=== PATIENT | female | born 1965 | race Caucasian/White ===

== ENCOUNTER 2016-09-05 19:45 | Inpatient (IN) ==
[2016-09-05] MEDS ORDERED: Ondansetron 4 MG/2 ML VIAL IV ONE (23:40)
[2016-09-05] MEDS ORDERED: *HR* Morphine 2 MG/ML SYRINGE IV ONE (23:40)
[2016-09-06] MEDS ORDERED: *HR* HYDROmorphone (PF) 1 MG/ML SYRINGE IV ONE
--- NOTE | 2016-09-06 | Emergency Department Note ---
Disposition Clinical Impression: Deep vein thrombosis (DVT) Qualifiers: DVT location: upper extremity Affected thrombotic vein of extremity: other upper extremity vein Laterality: right Chronicity: acute Qualified Code(s): I82.621 - Acute embolism and thrombosis of deep veins of right upper extremity Disposition: Admitted As Inpatient Condition: Fair Referrals: Kassy Adorno CNP [Primary Care Provider] - Forms: ED Satisfaction Letter Extremity Problem HPI - General Chief complaint: ED Extremity Problem,Nontraumatic Stated complaint: "Right Arm Swollen/Very Painful" Time Seen by Provider: 09/05/16 23:31 Source: patient, family Mode of arrival: private vehicle Limitations: no limitations Nursing Notes Reviewed: Yes Vital Signs Reviewed: Yes - History of Present Illness Pt Subjective Complaint: extremity pain, extremity swelling Onset (ago): day(s) Consistency: Worsening Injury Location: right, upper extremity Pain Scale: 7 Quality: crushing Radiation: none Improves with: nothing Worsens with: range of motion, palpation Associated symptoms: Reports: shortness of breath ("A little, but much better today"), change in appearance, swelling, redness. Denies: fever Context: recent surgery/procedure (last week), history of peripheral vascular disease - Related Data Home Medications Medication Instructions Recorded Confirmed Aspirin 81 mg PO DAILY 01/26/16 08/26/16 Previous Rx's Medication Instructions Recorded Cefdinir [Omnicef] 300 mg PO BID #20 capsule 08/01/16 Docusate [Colace] 100 mg PO BID #60 capsule 08/26/16 HYDROcodone/Acet 5/325 mg [[place] 1 tab PO Q4H PRN #15 tab 08/26/16 5-325 mg] Tamsulosin [Flomax] 0.4 mg PO DAILY #30 cap.er.24h 08/26/16 Allergies Allergy/AdvReac Type Severity Reaction Status Date / Time Sulfa (Sulfonamide Allergy Hives Verified 09/05/16 20:46 Antibiotics) All systems ED: reviewed and negative except as stated. Constitutional: Denies: fever, chills, weakness Cardiovascular: Reports: dyspnea on exertion, edema. Denies: chest pain, palpitations, syncope Respiratory: Reports: cough, dyspnea. Denies: wheezes, hemoptysis, stridor, sputum production Gastrointestinal: Denies: abdominal pain, nausea, vomiting, diarrhea Musculoskeletal: Denies: back pain, neck pain, arthralgia Integumentary: Denies: rash Neurological: Denies: weakness, numbness, paresthesias Hematological/Lymphatic: Denies: easy bleeding, easy bruising Past Medical History - Past Medical History Attestation: Yes The following information was validated with the patient. 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 Absent: meningismus, lymphadenopathy - Chest Chest inspection: Present: normal inspection, symmetric chest wall rise - Respiratory Respiratory exam: Present: normal lung sounds bilaterally. Absent: respiratory distress, wheezes, stridor - Cardiovascular Cardiovascular exam: Present: normal rhythm, tachycardia, normal heart sounds - Extremities Exam Extremities exam: Present: tenderness, normal capillary refill, pedal edema ( mild, symmetric, non-pitting) - Expanded Upper Extremity Exam Shoulder exam: Present: normal inspection. Absent: full ROM, tenderness, swelling Arm exam: Present: tenderness, swelling, erythema. Absent: ecchymosis Elbow exam: Present: tenderness, swelling, erythema. Absent: full ROM Forearm/Wrist exam: Present: tenderness, swelling. Absent: full ROM, erythema Hand exam: Present: normal inspection, full ROM. Absent: tenderness, swelling Neuromotor exam: Normal: wrist extension, thumb opposition, thumb IP flexion, thumb adduction, fingers 2-5 abduction Neurosensory exam: Normal: radial nerve, ulnar nerve, median nerve Hand tendon exam: Normal: flexor digitorum profundus (location), flexor digitorum superficialis (location), extensor tendon (location) Vascular exam: Normal: capillary refill, radial pulse, ulnar pulse - Back Exam Back exam: Present: normal inspection - Neurological Exam Neurological exam: Present: alert, oriented X3, CN II-XII intact - Psychiatric Psychiatric exam: Present: normal affect, normal mood - Skin Skin exam: Present: warm, dry, intact, normal color Course Course Narrative: Patient presents for swelling and pain in the right upper extremity. She had surgery to remove a kidney stone and have a ureteral stent placed last week. She has had swelling in all extremities since then. She states that she was having some chest discomfort and shortness of breath a few days after the procedure. She saw her primary care provider who ordered some blood work. This was done at the [facility] earlier today. Patient states that she has had no chest pain for two days and that her shortness of breath is significantly improved today. She states, "my breathing is not completely normal, but I do not feel short of breath anymore." She denies fever , chills, nausea or vomiting. We will treat her pain and obtain a venous Doppler ultrasound. Doppler ultrasound shows DVT and knee. Brachial, axillary and jugular veins. She also has a partial clot in the subclavian. In addition to this, she has superficial venous thrombosis in the basilic and cephalic veins. No clot is seen from the antecubital distal. Patient will be anticoagulated and admitted. Case has been discussed with Dr. Baldwin - Consultations Consultation #1: At the recommendation of the attending, the vascular surgeon was paged. The case was discussed with Dr. Lewis. He states that no procedure needs to be done , and to contact the hospitalist. Time: 01:59 Vital Signs Temperature 99.7 F H 09/05/16 20:41 Pulse Rate 105 09/05/16 20:41 Respiratory Rate 20 09/05/16 20:41 Blood Pressure 136/90 09/05/16 20:41 O2 Sat by Pulse Oximetry 97 09/05/16 20:41 Temperature 99.7 F H 09/05/16 20:41 Pulse Rate 90 09/06/16 00:11 Respiratory Rate 18 09/06/16 00:11 Blood Pressure 107/71 09/06/16 00:11 O2 Sat by Pulse Oximetry 90 L 09/06/16 00:11 Oxygen Delivery Oxygen Delivery Room Air Extremity Problem, Nontraumati - Medical Records Medical records reviewed: Yes I reviewed the patient's medical records. - Lab Data Lab results reviewed: Yes I reviewed the patient's lab results. Lab results narrative: Laboratory Last Values PT 15.9 Seconds (9.4-12.1) H 09/06/16 00:08 INR 1.5 09/06/16 00:08 APTT 20.9 Seconds (26.0-36.0) L 09/06/16 00:08 Sodium 137 mEq/L (136-145) 09/06/16 00:08 Potassium 3.7 mEq/L (3.5-4.5) 09/06/16 00:08 Chloride 102 mEq/L (98-109) 09/06/16 00:08 Carbon Dioxide 22 mEq/L (19-29) 09/06/16 00:08 BUN 14 mg/dL (7-20) 09/06/16 00:08 Creatinine 1.02 mg/dL (0.57-1.11) 09/06/16 00:08 Est GFR ( Amer) > 60 (> 60) 09/06/16 00:08 Est GFR (Non-Af Amer) 57 (> 60) L 09/06/16 00:08 BUN/Creatinine Ratio 14 (6-26) 09/06/16 00:08 Glucose 150 mg/dL (70-99) H 09/06/16 00:08 Calculated Osmolality 287 (280-300) 09/06/16 00:08 Calcium 8.3 mg/dL (8.6-10.8) L 09/06/16 00:08 Result diagrams: 09/06/16 00:08 Lab Results 09/06/16 09/06/16 Range/Units 00:08 00:08 PT 15.9 H (9.4-12.1) Seconds INR 1.5 APTT 20.9 L (26.0-36.0) Seconds Sodium 137 (136-145) mEq/L Potassium 3.7 (3.5-4.5) mEq/L Chloride 102 (98-109) mEq/L Carbon Dioxide 22 (19-29) mEq/L BUN 14 (7-20) mg/dL Creatinine 1.02 (0.57-1.11) mg/dL Est GFR ( Amer) > 60 (> 60) Est GFR (Non-Af Amer) 57 L (> 60) BUN/Creatinine Ratio 14 (6-26) Glucose 150 H (70-99) mg/dL Calculated Osmolality 287 (280-300) Calcium 8.3 L (8.6-10.8) mg/dL - Radiology Data Radiology results reviewed: Yes I reviewed the patient's radiology results.
[2016-09-06 00:19] LABS: INR 1.5; Prothrombin Time 15.9 Seconds (9.4-12.1)
[2016-09-06 00:24] LABS: Activated Partial Thrombo Time 20.9 Seconds (26.0-36.0)
[2016-09-06 00:25] LABS: BUN/Creatinine Ratio 14 (6-26); Blood Urea Nitrogen 14 mg/dL (7-20); Calcium 8.3 mg/dL (8.6-10.8); Carbon Dioxide 22 mEq/L (19-29); Chloride 102 mEq/L (98-109); Glucose 150 mg/dL (70-99); Osmolality,Calculated 287 (280-300); Potassium 3.7 mEq/L (3.5-4.5); Sodium 137 mEq/L (136-145); eGFR For African Americans > 60 (> 60); eGFR For Non-African Americans 57 (> 60)
[2016-09-06] MEDS ORDERED: *HR* Enoxaparin 100 MG/ML SYRINGE SQ STA (01:14)
[2016-09-06] MEDS ORDERED: *HR* Heparin 5,000 UNIT/ML VIAL IVP ONE ×2 (01:48→10:06)
[2016-09-06] MEDS ORDERED: *HR* FentaNYL (PF) 100 MCG/2 ML VIAL IVP ONE (01:48)
[2016-09-06] MEDS ORDERED: *HR* Morphine 2 MG/ML SYRINGE IVP ONE (06:36)
--- NOTE | 2016-09-06 09:45 | Internal Med History&Physical ---
Date of Encounter: 09/06/16 Time of Encounter: 09:43 Assessment and Plan (1) HTN (hypertension) Current visit: Yes Status: Chronic well controlled Qualifiers: Hypertension type: essential hypertension Qualified Code(s): I10 - Essential (primary) hypertension (2) Obesity Current visit: Yes Status: Chronic chronic Qualifiers: Obesity type: due to excess calories Obesity severity: non-morbid Qualified Code(s): E66.09 - Other obesity due to excess calories (3) Smoking Current visit: Yes Status: Chronic chronic (4) Kidney stone Current visit: Yes Status: Acute recent s/p stent placement (5) Deep vein thrombosis (DVT) Current visit: Yes Status: Acute extensive DVT of right arm involving axillary,brachial and extending to jugular vein also superficial dvt of basila and cephalic vein called IR but no answer will place consult and will need regional intermodal truck driver antocoagu;ation coumadi vs new agents Qualifiers: DVT location: upper extremity Affected thrombotic vein of extremity: other upper extremity vein Laterality: right Chronicity: acute Qualified Code(s) : I82.621 - Acute embolism and thrombosis of deep veins of right upper extremity Internal Medicine - H&P: HPI Chief complaint: right arm swelling Admitted From: Emergency Dept Plans for Post Hospital Care: Home History of present illness: Ms. Mejía is a 51 year old female Patient with history of hypertension, kidney stone, anxiety, smoking history, Patient recently admitted to the hospital underwent ureteral stent placement on August 26 and then was discharged At that time she had an IV access on the right arm which was switched to the left arm Since then she developed right arm swelling has had some chest pain and some shortness of breath which has resolved about 2 days ago The left arm continued to be swollen she came into the emergency room ultrasound shows a right brachial, axillary vein and a subclavian DVT extending into the jugular vein also some superficial vein thrombosis of the basilic and cephalic vein. Patient is not having acute chest pain or shortness of breath at this point she be admitted for further treatment started on heparin will consult IR for possible intervention Past Med Surg Social Fam HX - Past Medical History Medical history: cancer, hypertension, kidney stones, myocardial infarction Psychiatric history: anxiety - Past Surgical History Surgical History: ureteral stent - Social History Smoking Status: Current every day smoker Packs per day: 0.5 Smokeless Tobacco Status: No Alcohol use: none Drug use: none Internal Medicine - H&P: Meds Aspirin 81 mg PO DAILY 01/26/16 [History] Cefdinir [Omnicef] 300 mg PO BID #20 capsule 08/01/16 [Rx] Docusate [Colace] 100 mg PO BID #60 capsule 08/26/16 [Rx] Tamsulosin [Flomax] 0.4 mg PO DAILY #30 cap.er.24h 08/26/16 [Rx] Furosemide [Lasix] 20 mg PO DAILY 09/06/16 [History] Spironolactone [Aldactone] 25 mg PO DAILY 09/06/16 [History] Allergies Sulfa (Sulfonamide Antibiotics) Allergy (Verified 09/06/16 07:54) Hives All Systems PM: A 10-system review of systems was performed and is negative for pertinent findings except as documented above in the HPI. - Constitutional Constitutional: no chills, no fever(s), no night sweats - EENT Eyes: no change in vision, no discharge, no pain, no photophobia Ears: no ear discharge, no ear pain, no tinnitus Nose, mouth and throat: no dysphagia, no nasal discharge, no neck pain, no sore throat - Cardiovascular Cardiovascular ROS IM: chest pain, dyspnea - Respiratory Respiratory: dyspnea - Gastrointestinal Gastrointestinal: no abdominal pain, no diarrhea, no hematemesis, no hematochezia, no melena, no nausea, no vomiting - Genitourinary Genitourinary: no change in urinary stream, no dysuria, no flank pain, no hematuria - Musculoskeletal Musculoskeletal ROS IM: no numbness, no tingling - Integumentary Integumentary IM: erythema - Neurological Neurological ROS: no confusion, no convulsions, no focal weakness, no numbness, no tingling, no tremor(s) - Hematologic/Lymphatic Hematologic/Lymphatic: no easy bruising - Constitutional Vitals: Temp Pulse Resp BP Pulse Ox 98.3 F 97 18 115/76 95 09/06/16 06:40 09/06/16 06:40 09/06/16 06:40 09/06/16 06:40 09/06/16 06:40 - Eye Eye exam: Present: PERRL, conjuntiva pink, sclera anicteric Pupils: Present: PERRL - Neck Neck exam general surgery: Present: supple, trachea midline. Absent: lymphadenopathy - Respiratory Respiratory exam: Present: CTAB. Absent: accessory muscle use, rales, rhonchi, wheezes - Cardiovascular Cardiovascular exam: Present: RRR, +S1, +S2. Absent: diastolic murmur, gallop, rubs, systolic murmur - GI/Abdominal GI/Abdominal exam: Present: normal bowel sounds, soft, no peritoneal signs. Absent: distended, tenderness - Extremities Exam Extremities exam: Present: warm, radial pulses palpable and symetrical. Absent : calf tenderness, cyanotic, pedal edema - Expanded Upper Extremities Exam Upper Arm exam: Present: swelling, tenderness Elbow exam: Present: tenderness Internal Med - H&P Results - Labs CBC & Chem 7: 09/06/16 00:08
[2016-09-06] MEDS ORDERED: Naloxone 0.4 MG/ML INJ IVP PRN (09:58)
[2016-09-06] MEDS ORDERED: *HR* Heparin 5,000 UNIT/ML VIAL IVP PRN ×2 (10:06)
[2016-09-06 10:34] LABS: Hematocrit 42.4 % (35.3-44.9); Hemoglobin 12.7 g/dL (11.5-15.4); Mean Corpuscular Hemoglobin 23.7 pg (28.0-33.3); Mean Corpuscular Volume 79.3 fL (83.0-100.0); Mean Platelet Volume 9.6 fL (9.4-12.4); Platelet Count 188 K/mcL (140-400); Red Blood Count 5.35 M/mcL (3.82-4.97); Red Cell Distribution Width 18.2 % (11.5-14.5)
[2016-09-06] MEDS: Nicotine 21 MG PATCH.TD24 TD SCH (10:35)
[2016-09-06] MEDS: *HR* Morphine 2 MG/ML SYRINGE IVP PRN ×3 (10:43→21:05)
[2016-09-06 10:52] LABS: INR 1.4; Prothrombin Time 15.1 Seconds (9.4-12.1)
[2016-09-06 10:55] LABS: Activated Partial Thrombo Time 25.4 Seconds (26.0-36.0)
[2016-09-06] MEDS: Heparin 25,000 UNIT/500 ML D5W 25,000 UNIT/500 ML MLS IVC SCH (11:22)
[2016-09-06] MEDS: *HR* Warfarin 5 MG TABLET PO SCH (18:30)
--- NOTE | 2016-09-06 19:29 | Venous Imaging Report ---
UE Venous Duplex Patient Name:Madison Mejía Order Number:[id number] Procedure Date:09/06/2016 Date:1965Age:50 yrs Gender:Female Location:[facility] ED Room #: ER16 Supervisor Nut Processing:Cordelia Trotter Referring MD:ASTRID Perera therapeutic case manager:Kassy Adorno, SPUN PASTE MACHINE OPERATOR Reading MD:Santiago Doe MD , FACS Primary Indications:right arm edema, pain Secondary Indications: Risk Factors Yes/No Anticoagulants Yes Impressions: Upper extremity abnormal superficial exam: right Cephalic and Basilic vein acute thrombosis. Upper extremity abnormal deep exam: right Brachial?Axillary/Subclavian vein thrombosis. Left upper extremity: normal contralateral exam. Recommendations: After imaging the patient returned to their room. Gave vascular preliminary results to ordering physician Sandra Jimenez on 09/06/2016 at 1:12am. Test completed on 09/06/2016 at 12:55:00 am. Critical findings reported to Sandra Jimenez in emergency department in person at 1:12:00 am on 09/06/2016 by Cordelia Trotter. Findings Venous Duplex Results: Right: Venous imaging of the upper extremity reveals full patency and normal vessel compressibility of the right radial and right ulnar. Doppler signals in the evaluated veins were normal. The right jugular demonstrates an incompressible vein. Flow was absent and it did not augment. The right subclavian demonstrates a partially compressible vein. Flow was phasic and it did not augment. The right axillary demonstrates an incompressible vein. Flow was absent and it did not augment. The right brachial demonstrates an incompressible vein. Flow was absent and it did not augment. The right cephalic demonstrates an incompressible vein. Flow was absent and it did not augment. The right basilic demonstrates an incompressible vein. Flow was absent and it did not augment. Left: Venous imaging of the upper extremity reveals full patency and normal vessel compressibility of the left jugular. Doppler signals in the evaluated veins were normal. Prior Study: No prior study available for comparison. Upper Extremity Venous Duplex Side Vein Compress Spontaneous Flow Augment Right Jugular None no Absent no Right Subclavian Partial yes Phasic no Right Axillary None no Absent no Right Brachial None no Absent no Right Cephalic None no Absent no Right Basilic None no Absent no Right Radial Normal yes Phasic yes Right Ulnar Normal yes Phasic yes Left Jugular Normal yes Phasic yes Updated by Santiago Doe MD, FACS on 09/06/2016 7:23:42 PM Santiago Doe MD electronically signed on 09/06/2016 7:24:07 PM with status of Final
[2016-09-06] MEDS: Cefdinir 300 MG CAPSULE PO SCH (21:12)
[2016-09-07] MEDS: *HR* Morphine 2 MG/ML SYRINGE IVP PRN ×3 (01:00→17:29)
[2016-09-07 02:03] LABS: Alanine Aminotransferase 22 Units/L (0-55); Albumin 2.7 g/dL (3.5-5.0); Albumin/Globulin Ratio 0.8 (1.1-2.2); Alkaline Phosphatase 107 Units/L (38-126); Aspartate Amino Transferase 28 Units/L (5-34); BUN/Creatinine Ratio 20 (6-26); Bilirubin,Total 0.6 mg/dL (0.2-1.2); Blood Urea Nitrogen 16 mg/dL (7-20); Calcium 8.4 mg/dL (8.6-10.8); Carbon Dioxide 24 mEq/L (19-29); Chloride 101 mEq/L (98-109); Chol/HDL Ratio 3.5 (0-4.9); Cholesterol 120 mg/dL (< 200); Globulin 3.5 g/dL (2.4-3.5); Glucose 171 mg/dL (70-99); HDL Cholesterol 34 mg/dL (40-59); LDL Cholesterol,Calculated 66 mg/dL (0-99); Magnesium 1.7 mg/dL (1.6-2.6); Osmolality,Calculated 283 (280-300); Sodium 134 mEq/L (136-145); Total Protein 6.2 g/dL (6.0-8.3); Triglycerides 99 mg/dL (< 150); eGFR For African Americans > 60 (> 60); eGFR For Non-African Americans > 60 (> 60)
[2016-09-07 02:07] LABS: Potassium 4.3 mEq/L (3.5-4.5)
[2016-09-07] MEDS: Heparin 25,000 UNIT/500 ML D5W 25,000 UNIT/500 ML MLS IVC SCH (08:03)
[2016-09-07] MEDS: Cefdinir 300 MG CAPSULE PO SCH (08:05)
[2016-09-07] MEDS: Nicotine 21 MG PATCH.TD24 TD SCH (08:07)
[2016-09-07] MEDS ORDERED: Furosemide 20 MG TABLET PO SCH (09:00)
[2016-09-07] MEDS ORDERED: Spironolactone 25 MG TABLET PO SCH (09:00)
[2016-09-07] MEDS ORDERED: Aspirin 81 MG TAB.CHEW PO SCH (09:00)
[2016-09-07] MEDS ORDERED: Furosemide 20 MG/2 ML VIAL IVP ONE (10:14)
[2016-09-07 13:44] LABS: INR 1.3; Prothrombin Time 14.4 Seconds (9.4-12.1)
[2016-09-07 15:17] VITALS: BP 115/67
--- NOTE | 2016-09-07 16:51 | Internal Med Progress Note ---
Date of Encounter: 09/06/16 - Constitutional Vitals: Temp Pulse Resp BP Pulse Ox 98.6 F 87 16 115/67 95 09/07/16 15:06 09/07/16 15:06 09/07/16 15:06 09/07/16 15:06 09/07/16 15:06 Internal Medicine: Result - Labs CBC & Chem 7: 09/06/16 10:23 09/07/16 01:24 Labs: BMP 09/07/16 01:24 Sodium 134 L Potassium 4.3 Chloride 101 Carbon Dioxide 24 BUN 16 Creatinine 0.79 Glucose 171 H Calcium 8.4 L Liver Function 09/07/16 Range/Units 01:24 Total Bilirubin 0.6 (0.2-1.2) mg/dL AST 28 (5-34) Units/L ALT 22 (0-55) Units/L Alkaline Phosphatase 107 (38-126) Units/L Albumin 2.7 L (3.5-5.0) g/dL - ABG Interpretation ABG results: PT/INR, D-dimer PT 14.4 Seconds (9.4-12.1) H 09/07/16 13:23 Consult Discharge Plan - Plan Referrals: Kassy Adorno, [employer] [Primary Care Provider] -
--- NOTE | 2016-09-07 17:11 | Vascular/Endovasc Consult Note ---
Date of Encounter: 09/06/16 Time of Encounter: 16:45 Assessment and Plan (1) Deep vein thrombosis (DVT) Current Visit: Yes Status: Acute Right upper extremity acute deep venous thrombosis and superficial thrombophlebitis. At this time I do not recommend any intervention which would be the use of thrombolytic agents. I agree with the use of anticoagulation which I would recommend for minimum of 6 months. In addition in an assistance to help with the swelling I would recommend elevation of the right upper extremity with the elbow and wrist higher than the level of the heart. Qualifiers: DVT location: upper extremity Affected thrombotic vein of extremity: other upper extremity vein Laterality: right Chronicity: acute Qualified Code(s) : I82.621 - Acute embolism and thrombosis of deep veins of right upper extremity - History of Present Illness Consult date: 09/07/16 Consult reason: Right upper extremity DVT Chief complaint: Right upper extremity pain and swelling History of present illness: Ms. Mejía is a 51 year old female Who was admitted recently for right upper extremity pain and swelling. Patient had a venous duplex scan performed yesterday. This demonstrated DVT in the axillary and subclavian deep veins and superficial venous thrombosis in the basilic and cephalic vein of the right upper extremity. The patient was placed on anticoagulation by the primary service and asked her surgery was asked to see the patient for,. Patient's past history significant in that she has been trouble with kidney stones. She was in the emergency room were a right antecubital IV was placed. Patient was discharged and then she came back to the hospital for scheduled ureteral stent by the urology service up proximally 5 days later. At that time another IV was placed in the right antecubital area. She was discharged to home later that day. She then re-presented with pain and swelling of the right upper extremity was admitted yesterday. She denies any previous history of trauma to the right upper extremity. She denies any history of previous deep venous thrombosis or coagulopathy. Past Med Surg Social Fam HX - Past Medical History Medical history: cancer, hypertension, kidney stones, myocardial infarction Psychiatric history: anxiety - Past Surgical History Surgical History: ureteral stent - Social History Smoking Status: Current every day smoker Packs per day: 0.5 Smokeless Tobacco Status: No Alcohol use: none Drug use: none Medications and Allergies Aspirin 81 mg PO DAILY 01/26/16 [History] Cefdinir [Omnicef] 300 mg PO BID #20 capsule 08/01/16 [Rx] Docusate [Colace] 100 mg PO BID #60 capsule 08/26/16 [Rx] Tamsulosin [Flomax] 0.4 mg PO DAILY #30 cap.er.24h 08/26/16 [Rx] Furosemide [Lasix] 20 mg PO DAILY 09/06/16 [History] Spironolactone [Aldactone] 25 mg PO DAILY 09/06/16 [History] Allergies Sulfa (Sulfonamide Antibiotics) Allergy (Verified 09/06/16 07:54) Hives All Systems Review: A 10-system review of systems was performed and is negative for pertinent findings except as documented above in the HPI. Exam Vital Signs, Last 4 Hours Temp Pulse Resp BP Pulse Ox 09/07/16 15:06 98.6 F 87 16 115/67 95 General: Present: Conversant, No Apparent Distress, Well developed, Well nourished HEENT: Present: Atraumatic, Normocephaly, Trachea midline, Pupils equal Neck: Absent: JVD, Left Carotid bruit, Right Carotid bruit, Midline deformity, Tracheal deviation Cardiac: Present: Reg Rate and Rhythm, Normal S1 and S2 Lungs: Present: Normal Breath Sounds Neuro: Present: Alert and responsive, No focal deficits noted, Cranial nerves grossly intact Abdomen: Present: Soft, Non-tender Vascular: Present: Normal capillary refill Other: The patient has edema of the right upper extremity involving the upper arm and the forearm and the hand and fingers. There is an obvious asymmetry compared to the left side. She has mild tenderness to manipulation all the upper extremity. There are no distended superficial veins along the chest or neck area on the right side. There is no finding of streaking or cellulitis or lymphangitis. There are no open ulcerations or wounds. There is no cyanosis. There are no findings of phlegmasia of the right upper extremity. Consult Discharge Plan - Plan Referrals: Kassy Adorno CNP [Primary Care Provider] -
[2016-09-07] MEDS: *HR* Warfarin 5 MG TABLET PO SCH (17:31)
--- NOTE | 2016-09-07 17:37 | Discharge Summary ---
Date of Encounter: 09/06/16 Time of Encounter: 17:33 - Discharge Diagnosis (1) Deep vein thrombosis (DVT) Priority: Primary Status: Acute Comments: Related to prior intravenous catheter use. Qualifiers: DVT location: upper extremity Affected thrombotic vein of extremity: other upper extremity vein Laterality: right Chronicity: acute Qualified Code(s) : I82.621 - Acute embolism and thrombosis of deep veins of right upper extremity (2) HTN (hypertension) Priority: Secondary Status: Chronic Qualifiers: Hypertension type: essential hypertension Qualified Code(s): I10 - Essential (primary) hypertension (3) Obesity Priority: Secondary Status: Chronic Qualifiers: Obesity type: due to excess calories Obesity severity: non-morbid Qualified Code(s): E66.09 - Other obesity due to excess calories - Discharge Medications Prescriptions: Oxycodone HCl/Acetaminophen [Percocet 5-325 mg Tablet] 1 each PO Q6HR PRN #14 tablet PRN Reason: Severe Pain Enoxaparin [Lovenox] 100 mg SQ Q12HR #14 syr Warfarin [Coumadin] 5 mg PO DAILY@1800 #30 tablet Home Medications: Aspirin 81 mg PO DAILY 01/26/16 [History] Docusate [Colace] 100 mg PO BID #60 capsule 08/26/16 [Rx] Tamsulosin [Flomax] 0.4 mg PO DAILY #30 cap.er.24h 08/26/16 [Rx] Furosemide [Lasix] 20 mg PO DAILY 09/06/16 [History] Spironolactone [Aldactone] 25 mg PO DAILY 09/06/16 [History] Enoxaparin [Lovenox] 100 mg SQ Q12HR #14 syr 09/07/16 [Rx] Oxycodone HCl/Acetaminophen [Percocet 5-325 mg Tablet] 1 each PO Q6HR PRN #14 tablet 09/07/16 [Rx] Warfarin [Coumadin] 5 mg PO DAILY@1800 #30 tablet 09/07/16 [Rx] Allergies/Adverse Reactions: Allergies Sulfa (Sulfonamide Antibiotics) Allergy (Verified 09/06/16 07:54) Hives Date of admission: 09/06/16 10:56 Primary care physician: aKssy Adorno CNP Consults: 09/06/16 11:23 Consult to Vascular Surgery [CONS] Routine Consulting Provider: V[facility] Surgery [place] Reason for Consult: extensive right arm DVT Time Notified: 11:24 Call Completed: No Discharging clinician: Steven Yanez Anticipated date of discharge: 09/07/16 - Patient Status Disposition: Home, Self-Care Condition: Good Functional capacity at discharge: independent ambulation Overall status at discharge: patient is progressing back to baseline - Discharge Instructions Instructions: Chronic Hypertension (DC) Follow Up With: Kassy Adorno CNP [Primary Care Provider] - Additional Instructions: Follow-up with Coumadin clinic Keep the right upper extremity elevated to help decrease swelling in the right upper extremity - Diet and Activity Activity: increase activity as tolerated Diet: low salt diet Hospital course: Ms. Mejía is a 51 year old female patient with history of hypertension, obesity , recent renal stones status post ureteral stent placement presented to the ER with complaints of right upper extremity swelling. She was found to have an extensive DVT involving the right axillary, brachial vein extending to the jugular vein and also superficial deep vein thrombosis of the left basilic and cephalic vein. This is believed to be related to prior intravenous catheter that the patient had during her last hospitalization. She was treated for this with intravenous heparin and Coumadin. Vascular surgery was consulted and given that the patient is not having any signs of infection, no intervention was recommended. The patient is clinically feeling better now and wishes to go home. She will be discharged on subcutaneous Lovenox twice daily to bridge for Coumadin. She will follow up with her primary care provider for further management. - Time Spent with Patient Total time spent providing and/or coordinating discharge services: Less than 30 minutes (25 min) - Constitutional Vitals: Temp Pulse Resp BP Pulse Ox 98.6 F 87 16 115/67 95 09/07/16 15:06 09/07/16 15:06 09/07/16 15:06 09/07/16 15:06 09/07/16 15:06 General appearance: Present: cooperative, A&O X 3, answers questions appropriately - Respiratory Respiratory exam: Present: CTAB. Absent: accessory muscle use, rales, rhonchi, wheezes - Cardiovascular Cardiovascular exam: Present: RRR, +S1, +S2. Absent: diastolic murmur, gallop, rubs, systolic murmur - GI/Abdominal GI/Abdominal exam: Present: normal bowel sounds, soft, no peritoneal signs. Absent: distended, tenderness - Extremities Exam Extremities exam: Present: warm, radial pulses palpable and symetrical. Absent : calf tenderness, cyanotic, pedal edema Additional comments: Swelling involving the right upper extremity - Skin Skin exam: Present: dry, intact - Attending Attestation This document has been at least partially created by mgMEDIA recognition technology by Dr. Yanez. Errors in grammar, wording or other phrases may exist. If errors are found after the documentation is signed, they will be addressed individually in the addendum section of this document when appropriate.
[2016-09-07] MEDS ORDERED: *HR* Enoxaparin 100 MG/ML SYRINGE SQ ONE (18:34)
== END 2016-09-07 19:50 | disposition home or self-care (01) | DRG 301 ==
LOC: EMEROO 19:45 → 3ANU 19:45 → SUATTDRO 09-06 10:56 → 3ANU 09-06 12:50
PROVIDERS: ADMIT Internal Medicine; ATTEND Internal Medicine

== ENCOUNTER 2016-09-15 02:03 | Inpatient (IN) ==
[2016-09-15] MEDS ORDERED: Ipratropium/Albuterol Neb 3 ML IH ONE (02:23)
--- NOTE | 2016-09-15 02:27 | Emergency Department Note ---
Disposition Clinical Impression: Congestive heart failure Qualifiers: Congestive heart failure type: systolic Congestive heart failure chronicity: acute on chronic Qualified Code(s): I50.23 - Acute on chronic systolic ( congestive) heart failure Disposition: Admitted As Inpatient Condition: Undetermined Referrals: NO,PCP [Non-Partnered Physician] - Forms: ED Satisfaction Letter Time of Disposition: 04:30 SOB HPI - General Chief Complaint: ED Shortness of Breath/Dyspnea Stated Complaint: SOB Time Seen by Provider: 09/15/16 02:06 Source: patient Mode of arrival: EMS Limitations: no limitations Nursing Notes Reviewed: Yes Vital Signs Reviewed: Yes - History of Present Illness 51-year-old female arrives to [facility] emergency department complaining of dyspnea. The patient was recently diagnosed with a right upper extremity DVT. The patient was placed on warfarin as well as Lovenox injections. The patient was to continue this for 14 days. She is currently on day 8 of therapy. The patient is also been taking warfarin during the entire time. Patient continued to complain of progressively worsening shortness of breath over the past 3-4 days. The patient did receive a CTA of her chest one day ago which revealed no pulmonary embolus but did note bilateral lower lobe atelectasis. Chest x-ray also was congruent with CHF findings. The patient's BNP was noted to be 1011 1 day ago. The patient was discharged and sent home. The patient states that earlier this evening she began complaining of worsening shortness of breath. The patient arrived and had an O2 sat of 92-93% on room air. The patient was very tachypneic and anxious. The patient does have a history of anxiety and states that she is feeling slightly anxious. She denies any active chest pain at this time. The patient states that she has been taking her medication as prescribed. Pt Subjective Complaint: shortness of breath Onset (ago): day(s) (3-4) Severity: moderate, severe Consistency/Duration: intermittent, gradually worsening Improves with: nothing Worsens with: nothing Known history of: COPD, DVT Associated symptoms: Reports: wheezing Treatment prior to arrival: oxygen Cough present: Yes Cough Frequency: Persistent Sputum production: No Sputum Amount: None - Related Data Home oxygen amount: none Home Medications Medication Instructions Recorded Confirmed Aspirin 81 mg PO DAILY 01/26/16 09/06/16 Furosemide [Lasix] 20 mg PO DAILY 09/06/16 09/06/16 Spironolactone [Aldactone] 25 mg PO DAILY 09/06/16 09/06/16 Previous Rx's Medication Instructions Recorded Docusate [Colace] 100 mg PO BID #60 capsule 08/26/16 Tamsulosin [Flomax] 0.4 mg PO DAILY #30 cap.er.24h 08/26/16 Enoxaparin [Lovenox] 100 mg SQ Q12HR #14 syr 09/07/16 Oxycodone HCl/Acetaminophen 1 each PO Q6HR PRN #14 tablet 09/07/16 [Percocet 5-325 mg Tablet] Warfarin [Coumadin] 5 mg PO DAILY@1800 #30 tablet 09/07/16 Allergies Allergy/AdvReac Type Severity Reaction Status Date / Time Sulfa (Sulfonamide Allergy Hives Verified 09/06/16 07:54 Antibiotics) Constitutional: Denies: fever, chills, weakness, weight change Eyes: Denies: eye pain, eye discharge, vision change ENT ED: Denies: ear pain, throat pain, dental pain, hearing loss, epistaxis, congestion, dysphagia Cardiovascular: Denies: chest pain, palpitations, dyspnea on exertion, edema, syncope Respiratory: Reports: dyspnea, wheezes Gastrointestinal: Denies: abdominal pain, nausea, vomiting, diarrhea, constipation, hematemesis, melena, hematochezia Musculoskeletal: Denies: back pain, neck pain, arthralgia, myalgia Integumentary: Denies: rash, abrasion, lesions Neurological: Denies: headache, weakness, numbness, paresthesias, confusion, abnormal gait, vertigo Past Medical History - Past Medical History Attestation: Yes The following information was validated with the patient. 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 Mild Rales noted in bilateral lower lobes. Abdomen: Normal inspection, Normal bowel sounds 4 quadrants, nontender to palpation : Patient deferred Extremities: Normal inspection, full range of motion, appropriate pulses, capillary refill under 2 seconds Neurological: Patient alert and oriented 3, cranial nerves II through XII grossly intact, GCS 15 Skin: Warm, intact, no rashes noted - General Limitations: no limitations General appearance: alert, in no apparent distress Course - Reevaluation(s) Reevaluation #1: Upon further questioning by attending physician the patient told the attending physician that she has not taken her Lovenox in 2 days. Time: 02:52 Vital Signs Temperature 100.5 F H 09/15/16 02:05 Pulse Rate 123 09/15/16 02:05 Respiratory Rate 44 09/15/16 02:05 Blood Pressure 146/76 09/15/16 02:05 O2 Sat by Pulse Oximetry 92 09/15/16 02:05 Temperature 100.5 F H 09/15/16 02:05 Pulse Rate 95 09/15/16 06:20 Respiratory Rate 20 09/15/16 06:20 Blood Pressure 113/80 09/15/16 06:20 O2 Sat by Pulse Oximetry 92 09/15/16 06:20 Oxygen Delivery Oxygen Delivery Room Air Shortness of Breath/Dyspnea - MDM Narrative Medical decision making narrative: Patient's workup here in the emergency department demonstrates a supra therapeutic INR. The patient's troponin is mildly elevated with no real EKG changes with the exception of possible lateral lead ST depression. The patient does have a fever noted on initial vital signs. Given the patient's supratherapeutic INR we do not feel as though this is a pulmonary embolus. She patient did have findings previously consistent with CHF. This is all likely a multifactorial including anxiety, CHF exacerbation, possible pneumonia versus bronchitis. After speaking with the hospitalist for admission, he requested Rocephin as well as 1 set of blood cultures. We will admit the patient to the hospital. - Medical Records Medical records reviewed: Yes I reviewed the patient's medical records. - Lab Data Lab results reviewed: Yes I reviewed the patient's lab results. Result diagrams: 09/15/16 04:21 09/15/16 03:22 Lab Results 09/15/16 09/15/16 09/15/16 Range/Units 03:22 03:22 03:22 WBC (4.3-11.1) K/mcL RBC (3.82-4.97) M/mcL Hgb (11.5-15.4) g/dL Hct (35.3-44.9) % MCV (83.0-100.0) fL MCH (28.0-33.3) pg MCHC (31.6-35.5) g/dL RDW (11.5-14.5) % Plt Count (140-400) K/mcL MPV (9.4-12.4) fL Immature Gran % (0-4) % Seg Neutrophils % % Lymphocytes % % Monocytes % % Eosinophils % % Basophils % % Neutrophils # (1.6-8.9) K/mcL Lymphocytes # (0.6-4.6) K/mcL Monocytes # (0.0-1.3) K/mcL Eosinophils # (0.0-0.6) K/mcL Basophils # (0.0-0.2) K/mcL Immature Plt Fraction (1.1-6.1) % PT 43.3 H* (9.4-12.1) Seconds INR 3.9 APTT 37.2 H (26.0-36.0) Seconds Sodium 135 L (136-145) mEq/L Potassium 4.4 (3.5-4.5) mEq/L Chloride 99 (98-109) mEq/L Carbon Dioxide 22 (19-29) mEq/L BUN 18 (7-20) mg/dL Creatinine 0.95 (0.57-1.11) mg/dL Est GFR ( Amer) > 60 (> 60) Est GFR (Non-Af Amer) > 60 (> 60) BUN/Creatinine Ratio 19 (6-26) Glucose 197 H (70-99) mg/dL Calculated Osmolality 287 (280-300) Calcium 8.9 (8.6-10.8) mg/dL Troponin I 0.05 H* (0-0.03) ng/mL Specimen Rejected 09/15/16 09/15/16 Range/Units 03:22 04:21 WBC 7.9 (4.3-11.1) K/mcL RBC 5.30 H (3.82-4.97) M/mcL Hgb 12.4 (11.5-15.4) g/dL Hct 40.5 (35.3-44.9) % MCV 76.4 L (83.0-100.0) fL MCH 23.4 L (28.0-33.3) pg MCHC 30.6 L (31.6-35.5) g/dL RDW 18.1 H (11.5-14.5) % Plt Count 274 (140-400) K/mcL MPV 9.1 L (9.4-12.4) fL Immature Gran % 0.9 (0-4) % Seg Neutrophils % 79.1 % Lymphocytes % 9.5 % Monocytes % 10.0 % Eosinophils % 0.0 % Basophils % 0.5 % Neutrophils # 6.2 (1.6-8.9) K/mcL Lymphocytes # 0.8 (0.6-4.6) K/mcL Monocytes # 0.8 (0.0-1.3) K/mcL Eosinophils # 0.0 (0.0-0.6) K/mcL Basophils # 0.0 (0.0-0.2) K/mcL Immature Plt Fraction 3.3 (1.1-6.1) % PT (9.4-12.1) Seconds INR APTT (26.0-36.0) Seconds Sodium (136-145) mEq/L Potassium (3.5-4.5) mEq/L Chloride (98-109) mEq/L Carbon Dioxide (19-29) mEq/L BUN (7-20) mg/dL Creatinine (0.57-1.11) mg/dL Est GFR ( Amer) (> 60) Est GFR (Non-Af Amer) (> 60) BUN/Creatinine Ratio (6-26) Glucose (70-99) mg/dL Calculated Osmolality (280-300) Calcium (8.6-10.8) mg/dL Troponin I (0-0.03) ng/mL Specimen Rejected Clotted - Radiology Data Radiology results reviewed: Yes I reviewed the patient's radiology results. - EKG Data EKG attestation: Yes I reviewed and interpreted this EKG. EKG results narrative: Heart rate [address] interval 112 ms. QTC 354 ms. Normal axis. Sinus tachycardia. No ST elevation or ST depression noted. EKG similar to EKG from 08/26/2016 with the exception of new increased tachycardia and nonspecific ST changes noted in primarily the lateral leads. Attestation Statement - Attestation Attestation: Dr. Cha note: Pt was seen in conjunction with resident Dr. Lawler, please see his charting for complete documentation. Assessment [id number] time with the patient and agree with the patient's treatment and disposition; patient is not hypoxic in the ER. Her Coumadin level is therapeutic. Imaging and blood results from yesterday are reviewed. No indication for repeat CT imaging at this time. She will be admitted due to her tachypnea and tachycardia. Stable clinically at 6: 45 AM
[2016-09-15] MEDS: Nitroglycerin 0.4 MG TAB.SUBL SL PRN ×3 (02:59→03:15)
[2016-09-15] MEDS ORDERED: *HR* LORazepam 2 MG/ML VIAL IVP ONE (03:30)
[2016-09-15 03:40] LABS: INR 3.9
[2016-09-15 03:43] LABS: Activated Partial Thrombo Time 37.2 Seconds (26.0-36.0)
[2016-09-15 03:47] LABS: BUN/Creatinine Ratio 19 (6-26); Blood Urea Nitrogen 18 mg/dL (7-20); Calcium 8.9 mg/dL (8.6-10.8); Carbon Dioxide 22 mEq/L (19-29); Chloride 99 mEq/L (98-109); Glucose 197 mg/dL (70-99); Osmolality,Calculated 287 (280-300); Potassium 4.4 mEq/L (3.5-4.5); Sodium 135 mEq/L (136-145); eGFR For African Americans > 60 (> 60); eGFR For Non-African Americans > 60 (> 60)
[2016-09-15 03:49] LABS: Prothrombin Time 43.3 Seconds (9.4-12.1)
[2016-09-15 04:44] LABS: Basophils % 0.5 %; Hematocrit 40.5 % (35.3-44.9); Hemoglobin 12.4 g/dL (11.5-15.4); Immature Granulocytes % 0.9 % (0-4); Immature Platelets 3.3 % (1.1-6.1); Lymphocytes # 0.8 K/mcL (0.6-4.6); Lymphocytes % 9.5 %; Mean Corpuscular HGB Conc 30.6 g/dL (31.6-35.5); Mean Corpuscular Hemoglobin 23.4 pg (28.0-33.3); Mean Corpuscular Volume 76.4 fL (83.0-100.0); Mean Platelet Volume 9.1 fL (9.4-12.4); Monocytes # 0.8 K/mcL (0.0-1.3); Neutrophils # 6.2 K/mcL (1.6-8.9); Platelet Count 274 K/mcL (140-400); Red Cell Distribution Width 18.1 % (11.5-14.5); Segmented Neutrophils % 79.1 %
[2016-09-15] MEDS ORDERED: *HR* Morphine 2 MG/ML SYRINGE IV ONE (07:43)
[2016-09-15] MEDS ORDERED: Ondansetron 4 MG/2 ML VIAL IV ONE (07:43)
--- NOTE | 2016-09-15 07:44 | Emergency Department Note ---
START Narrative - START START: Patient signed out pending a bed assignment on the floor. Perpatient complaining of pain in her shoulder where she has blood clots. Morphine ordered.
[2016-09-15] MEDS ORDERED: Naloxone 0.4 MG/ML INJ IVP PRN (08:00)
[2016-09-15] MEDS ORDERED: Acetaminophen 325 MG TABLET PO PRN (08:00)
[2016-09-15] MEDS ORDERED: Ondansetron 4 MG/2 ML VIAL IVP PRN (08:00)
[2016-09-15] MEDS ORDERED: *HR* HYDROcodone/Acet 5/325 mg TABLET PO PRN (08:00)
[2016-09-15] MEDS ORDERED: *HR* Dextrose 50 % in Water (Syg) 50 ML SYRINGE IVP PRN (08:06)
[2016-09-15] MEDS ORDERED: Dextrose Gel 15 GM PO PRN ×2 (08:06)
[2016-09-15] MEDS ORDERED: D5% in Water 1,000 ML IVC PRN (08:06)
--- NOTE | 2016-09-15 08:11 | Internal Med History&Physical ---
Date of Encounter: 09/15/16 Time of Encounter: 08:11 Assessment and Plan (1) Acute respiratory failure with hypoxia Current visit: Yes Status: Acute Multifactorial Secondary to pneumonia, and CHF exacerbation Continue supplemental O2 Obtain VBG (2) Pneumonia Current visit: Yes Status: Acute Patient recently hospitalized for RUE DVT She presented with SIRS and fever of 100.5, tachycardia and tachypnea, She has no decreased or increased white cell count and does not meet criteria for sepsis at this time Received 2 g Ceftriaxone in ER Will five Cefepime and Vancomycin for HCAP coverage Send sputum culture Send respiratory infection panel Blood cultures have been sent, follow cultures Qualifiers: Pneumonia type: due to unspecified organism Laterality: bilateral Lung location: upper lobe of lung Qualified Code(s): J18.9 - Pneumonia, unspecified organism (3) Supratherapeutic INR Current visit: Yes Status: Acute Hold Coumadin for now Monitor INR No bleeding at this time No indication for reversal (4) Abnormal CT of the chest Current visit: Yes Status: Acute Chest CTA showed no PE, however, it revealed R axillary lymphadenopathy, R breast skin thickening, medicastinal lymphadenopathy, bilateral airspace opacities suggestive of inflammatory or infectious origin Breast exam is unremarkable Patients lymphadenopathy is possibly reactionary Encouraged patient to obtain mammogram with PCP after discharge (5) Congestive heart failure Current visit: Yes Status: Acute Possibly diastolic EKG non-ischemic Change po lasix to IV, patient already on BB at home, continue same BNP 1011 Obtain ECHO Daily weights Strict I/Os Qualifiers: Congestive heart failure type: diastolic Congestive heart failure chronicity: acute on chronic Qualified Code(s): I50.33 - Acute on chronic diastolic (congestive) heart failure (6) Deep vein thrombosis (DVT) Current visit: Yes Status: Chronic INR supratherapeutic Hold Coumadin for now Qualifiers: DVT location: upper extremity Affected thrombotic vein of extremity: other upper extremity vein Laterality: right Chronicity: acute Qualified Code(s) : I82.621 - Acute embolism and thrombosis of deep veins of right upper extremity (7) HTN (hypertension) Current visit: Yes Status: Chronic Controlled,continue home meds Qualifiers: Hypertension type: essential hypertension Qualified Code(s): I10 - Essential (primary) hypertension (8) Diabetes Current visit: Yes Status: Chronic A1C 8.4% ADA diet 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 to see patient as it seems she is unaware of this diagnosis Sliding scale insulin for now Patient will benefit from oral agents at time of discharge Qualifiers: Diabetes mellitus type: type 2 Diabetes mellitus complication status: without complication Diabetes mellitus intermediate insulin use: without terminal computer operator use Qualified Code(s): E11.9 - Type 2 diabetes mellitus without complications (9) Elevated troponin Current visit: Yes Status: Acute Troponin on admission 0.05 EKG non-ischemic patient without chest pain Possibly from demand ischemia from tachycardia, tachypnea nd hypoxia Will trend (10) Obesity Current visit: Yes Status: Chronic Lifestyle changes encouraged Qualifiers: Obesity type: due to excess calories Obesity severity: non-morbid Qualified Code(s): E66.09 - Other obesity due to excess calories (11) Smoking Current visit: Yes Status: Chronic 3 mins spent on counselling for cessation Internal Medicine - H&P: HPI Chief complaint: Shortness of breath Admitted From: Home Plans for Post Hospital Care: Home History of present illness: Ms. Mejía is a 51 year old female with past medical history included right upper extremity DVT, hypertension, anxiety, diabetes mellitus, hyperlipidemia, cervical cancer several years ago, tobacco abuse. She presented with complaints of acute onset shortness of breath which started last night. She reports having 3 days of cough productive of sputum and associated chills without fever. However last night she developed shortness of breath and wheezing. 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 However, patient presented to the ER in the early hours of the morning with same complains Per EMR patient was found to be hypoxic by EMS and hypoxic on admission to the ER, she was also febrile, tachycardic and tachypneic. She denies sick contacts , she denies recent travels, she denies receiving her flu shot this season. She denies worsening lower extremity edema, but reports dyspnea and dyspnea on exertion. She denies chest pain or palpitations. She denies nausea, vomiting, or change in bowel movements. She denies change in urinary symptoms. She reports a history of anxiety and she smokes for several years. She reports compliance with her home medications she follows up with her PCP regularly and her routine screening is up to date, her last mammogram was normal, ~2-3 years ago In ER, she was found to be febrile, T 100.5, tachycardic, tachypneic up to 40s and hypoxic, with normal BP. Her work up shows an essentially normal CBC, no leukocytosis, she has microcytosis, PLT count WNL, Chem reveals mild hyponatremia and hyperglycemia, troponin is elevated at 0.05, BNP 1011, Coagulation panel revealed an INR of 3.9 A1C done 09/14/16 was 8.4% Imaging reviewed: Chest CTA showed no PE, however, it revealed R axillary lymphadenopathy, R breast skin thickening, medicastinal lymphadenopathy, bilateral airspace opacities suggestive of inflammatory or infectious origin. EKG reviewed at bedside, IRBBB, Sinus tachycardia, RAD, LAE, no ST segment changes She will be admitted for management of Acute hypoxic respiratory failure secondary to HCAP, COPD exacerbation, CHF exacerbation, Supratherapeutic INR. Past Med Surg Social Fam HX - Past Medical History Medical history: cancer, DVT, hypertension, kidney stones, myocardial infarction Psychiatric history: anxiety - Past Surgical History Surgical History: ureteral stent - Social History Smoking Status: Former smoker Smokeless Tobacco Status: No Alcohol use: none Drug use: none Internal Medicine - H&P: Meds Furosemide [Lasix] 20 mg PO DAILY 09/06/16 [History] Spironolactone [Aldactone] 25 mg PO DAILY 09/06/16 [History] Warfarin [Coumadin] 5 mg PO DAILY@1800 #30 tablet 09/07/16 [Rx] Metoprolol XL (24 HR) Succ [Toprol XL] 50 mg PO DAILY 09/15/16 [History] Warfarin [Coumadin] 7.5 mg PO AD 09/15/16 [History] Allergies Sulfa (Sulfonamide Antibiotics) Allergy (Verified 09/06/16 07:54) Hives All Systems PM: A 10-system review of systems was performed and is negative for pertinent findings except as documented above in the HPI. - Constitutional Constitutional: as per HPI - EENT Eyes: as per HPI Ears: as per HPI Nose, mouth and throat: as per HPI - Cardiovascular Cardiovascular ROS IM: as per HPI - Respiratory Respiratory: as per HPI - Gastrointestinal Gastrointestinal: as per HPI - Genitourinary Genitourinary: as per HPI - Musculoskeletal Musculoskeletal ROS IM: as per HPI - Integumentary Integumentary IM: as per HPI - Neurological Neurological ROS: as per HPI - Psychiatric Psychiatric: as per HPI - Hematologic/Lymphatic Hematologic/Lymphatic: as per HPI - Allergic/Immunologic Allergic/Immunologic: as per HPI - Constitutional Vitals: Temp Pulse Resp BP Pulse Ox 100.5 F H 95 20 112/73 92 09/15/16 02:05 09/15/16 06:20 09/15/16 06:59 09/15/16 06:59 09/15/16 06:20 General appearance: Present: A&O X 3, pleasant, no acute distress, obese - Head Head exam: Present: atraumatic - Eye Eye exam: Present: PERRL, conjuntiva pink, sclera anicteric - ENT ENT exam: Present: mucous membranes moist - Neck Additional comments: Scar on right lower neck from previous procedure - Respiratory Additional comments: Diffuse equal wheezing bilaterally, worse on RUL and TANISHA. No crackles. No rhonchi - Cardiovascular Cardiovascular exam: Present: RRR, +S1, +S2. Absent: JVD, systolic murmur - GI/Abdominal GI/Abdominal exam: Present: normal bowel sounds, soft, no peritoneal signs. Absent: mass, tenderness - Extremities Exam Additional comments: Bilateral non-piting edema, trace - Back Exam Back exam: Absent: CVA tenderness (L), CVA tenderness (R) - Neurological Exam Neurological exam: Present: alert, CN II-XII intact, normal gait, oriented X3, no focal deficits. Absent: pronater drift, facial droop, speech deficit - Skin Skin exam: Present: dry, intact - Other Additional findings: Breat exam, normal looking right and left breasts with no obvious deformity , no nipple deformity, no palpable masses or lumps Internal Med - H&P Results - Labs CBC & Chem 7: 09/15/16 04:21 09/15/16 03:22
[2016-09-15] MEDS ORDERED: Azithromycin 500 MG in D5% in Water 250 ML IVPB SCH (09:00)
[2016-09-15] MEDS ORDERED: Vancomycin 1,250 MG in D5% in Water 250 ML IVPB SCH (09:00)
[2016-09-15 09:09] LABS: VBG HCO3 28.3 mEq/L (21-27); VBG PH 7.37 pH Units (7.32-7.42)
[2016-09-15] MEDS: Furosemide 40 MG/4 ML VIAL IVP SCH (10:10)
[2016-09-15] MEDS: Metoprolol XL (24 HR) Succ 50 MG TAB.ER.24H PO SCH (10:10)
[2016-09-15] MEDS: Spironolactone 25 MG TABLET PO SCH (10:10)
[2016-09-15] MEDS: Ipratropium/Albuterol Neb 3 ML IH SCH ×4 (11:25→23:12)
[2016-09-15] MEDS: *HR* Morphine 2 MG/ML SYRINGE IVP PRN ×3 (11:37→21:37)
[2016-09-15] MEDS: Insulin LISPRO 300 UNITS/3 ML VIAL SQ SCH ×3 (11:40→21:36)
[2016-09-15 12:10] LABS: Adenovirus Not Detected (Not Detect); Bordetella Pertussis Not Detected (Not Detect); Chlamydophila pneumoniae Not Detected (Not Detect); Coronavirus 229E Not Detected (Not Detect); Coronavirus HKU1 Not Detected (Not Detect); Coronavirus NL63 Not Detected (Not Detect); Coronavirus OC43 Not Detected (Not Detect); Human Metapneumovirus Not Detected (Not Detect); Human Rhinovirus/Enterovirus Not Detected (Not Detect); Influenza A Subtype 2009 H1 Not Detected (Not Detect); Influenza A Untypeable Not Detected (Not Detect); Influenza B Not Detected (Not Detect); Mycoplasma pneumoniae Not Detected (Not Detect); Parainfluenza Virus 1 Not Detected (Not Detect); Parainfluenza Virus 2 Not Detected (Not Detect); Parainfluenza Virus 3 Not Detected (Not Detect); Parainfluenza Virus 4 Not Detected (Not Detect); Respiratory Syncytial Virus ***DETECTED*** (Not Detect)
[2016-09-15] MEDS: Cefepime HCl 1,000 MG in D5% in Water (Mini-Bag+) 100 ML IVPB SCH (16:22)
[2016-09-15] MEDS: Vancomycin 1,250 MG in D5% in Water 250 ML IVPB SCH (17:38)
[2016-09-16] MEDS: Cefepime HCl 1,000 MG in D5% in Water (Mini-Bag+) 100 ML IVPB SCH ×2 (00:06→08:47)
[2016-09-16] MEDS: Ipratropium/Albuterol Neb 3 ML IH SCH ×6 (04:29→23:44)
[2016-09-16] MEDS: Vancomycin 1,250 MG in D5% in Water 250 ML IVPB SCH (05:09)
[2016-09-16] MEDS: *HR* Morphine 2 MG/ML SYRINGE IVP PRN ×2 (05:14→09:19)
[2016-09-16 05:46] LABS: Basophils % 0.6 %; Eosinophils # 0.1 K/mcL (0.0-0.6); Eosinophils % 1.4 %; Hemoglobin 12.4 g/dL (11.5-15.4); Immature Granulocytes % 0.7 % (0-4); Lymphocytes # 1.2 K/mcL (0.6-4.6); Lymphocytes % 17.8 %; Mean Corpuscular HGB Conc 30.2 g/dL (31.6-35.5); Mean Corpuscular Hemoglobin 23.2 pg (28.0-33.3); Mean Corpuscular Volume 76.6 fL (83.0-100.0); Mean Platelet Volume 9.2 fL (9.4-12.4); Monocytes # 0.5 K/mcL (0.0-1.3); Monocytes % 7.1 %; Platelet Count 252 K/mcL (140-400); Red Blood Count 5.35 M/mcL (3.82-4.97); Red Cell Distribution Width 18.8 % (11.5-14.5); Segmented Neutrophils % 72.4 %
[2016-09-16 06:04] LABS: Prothrombin Time 33.8 Seconds (9.4-12.1)
[2016-09-16 06:06] LABS: Activated Partial Thrombo Time 35.4 Seconds (26.0-36.0)
[2016-09-16 06:09] LABS: BUN/Creatinine Ratio 24 (6-26); Blood Urea Nitrogen 21 mg/dL (7-20); Calcium 8.7 mg/dL (8.6-10.8); Carbon Dioxide 23 mEq/L (19-29); Chloride 99 mEq/L (98-109); Glucose 177 mg/dL (70-99); Osmolality,Calculated 287 (280-300); Potassium 4.5 mEq/L (3.5-4.5); Sodium 135 mEq/L (136-145); eGFR For African Americans > 60 (> 60); eGFR For Non-African Americans > 60 (> 60)
[2016-09-16 06:31] LABS: Anisocytosis 1+ (Not Present); Hypochromasia Present (Not Present); Platelet Estimate Normal (Normal)
[2016-09-16 06:32] LABS: Microcytosis Present (Not Present)
[2016-09-16] MEDS: Spironolactone 25 MG TABLET PO SCH (08:47)
[2016-09-16] MEDS: Insulin LISPRO 300 UNITS/3 ML VIAL SQ SCH ×4 (08:47→22:11)
[2016-09-16] MEDS: Metoprolol XL (24 HR) Succ 50 MG TAB.ER.24H PO SCH (08:47)
[2016-09-16] MEDS: Furosemide 40 MG/4 ML VIAL IVP SCH (08:48)
--- NOTE | 2016-09-16 09:21 | ECHO - Doppler Report ---
Echocardiogram Name: Madison Mejía Date of Study: 09/15/2016 Date: 1965 Ht: 64.0 in Medical Record#: [id number] Age: 51 Wt: 200.0 lb Gender: Female BSA: 1.96 Order #: [id number] Location: [facility] Room #: 2A16 Reading Physician: Sylvia Beckford DO Business Operations Manager: Janet Piper Ordering Physician: Bello Multani MD Primary Physician: Kassy Adorno CNP Indications: r/o CHF Impressions: LVEF 25%. Severe global reduction in LV systolic function. Left ventricle is moderately dilated. There is evidence of moderate diastolic dysfunction of the left ventricle. RV function is normal by TD velocity but visually appears mildly dilated with mild to moderate reduction in function. Mild-moderate mitral regurgitation. Mild-moderate tricuspid regurgitation. Mild pulmonary hypertension. When compared to study, 08/28/13, LV systolic function is now reduced. Findings communicated to ordering provider. Left Ventricular Wall Motion: Rest Echo Findings The apex, apical inferior, mid inferior, basal inferior, apical anterior, mid anterior, basal anterior, apical septal, mid inferior septal, basal inferior septal, apical lateral, mid anterior lateral, basal anterior lateral, mid anterior septal, mid inferior lateral, basal anterior septal and basal inferior lateral daniels were hypokinetic. Findings: Study Quality * Technically adequate exam. ECG Findings * Normal sinus rhythm. Mitral Valve * Normal mitral valve structure. * No mitral stenosis. * Mild-moderate mitral regurgitation. Aorta * Normally sized aortic root. Tricuspid Valve * Tricuspid valve not well visualized. * Mild-moderate tricuspid regurgitation. * Estimated RA pressure is 8 mmHg. * Estimated RVSP is 45 mmHg. * Mild pulmonary hypertension. Pulmonic Valve * Pulmonic valve is not well visualized. * No pulmonic stenosis. * No pulmonic regurgitation. Pulmonary Artery * Pulmonary artery not well visualized. Aortic Valve * Aortic valve not well visualized. * Trace aortic regurgitation. * No aortic stenosis. Left Ventricle * Moderately dilated left ventricle. * Moderate left ventricular diastolic dysfunction. * LVEF 25%. Left Atrium * Moderately dilated left atrium. Right Atrium * Severely dilated right atrium. Interatrial Septum * No evidence of PFO by color Doppler. Pericardium * There is no pericardial effusion present. IVC * The IVC is not dilated. * < 50% respiratory change. Right Ventricle * RV is mildly dilated. Visually, there is mild to moderate reduction in function. Lat S Kev is normal. History Hypertension Diabetes Hypercholesteremia History of Smoking Years 30 Packs 1 Family History of CAD 08/28/2013 a Previous Echo was performed. Measurements: BP: 101/ 66 2D Normal Values RVIDd: 3.30 cm <2.7 cm IVSd: 1.20 cm 0.6 - 1.0 cm LVIDd: 6.10 cm 3.7 - 5.6 cm LVPWd: 1.20 cm 0.6 - 1.1 cm LVIDs: 5.30 cm 1.5 - 3.6 cm AO: 3.00 cm < 4.0 cm LA: 4.70 cm 2.0 - 4.0cm %FS: 13.10 cm >25 % LA volume: 74 Mitral Valve Peak E:1.19 m/sec Peak A:.67 m/sec E/A Ratio:1.8 Peak E' Lat Kev:7.6 cm/s Peak E' Med Kev:3.74 cm/s E/E' Lat Ratio:15.7 E/E' Med Ratio:31.8 Tricuspid Valve TV Regurg Peak Grad: 37.00mmHg TV Regurg Peak Kev: 3.05m/sec Updated by Sylvia Beckford on 09/16/2016 9:12:43 AM electronically signed on 09/16/2016 9:15:38 AM with status of Final Wall Motion [place]: 1=Normal, 2=Hypokinesis, 3=Akinesis, 4=Dyskinesis, 5=Aneurysmal, 6=Hyperkinetic, X=Not Visualized (Blank)=Missing
--- NOTE | 2016-09-16 09:32 | Internal Med Progress Note ---
Date of Encounter: 09/16/16 Time of Encounter: 09:31 - Assessment and plan (1) Acute respiratory failure with hypoxia Current Visit: Yes Status: Acute Assessment and plan: This is a late entry progress note for 09/16/16; Likely related to underlying pneumonia and possible acute CHF. Continue IV antibiotics, IV Lasix and supplemental oxygen. High risk for complications. (2) Pneumonia Current Visit: Yes Status: Acute Assessment and plan: Follow-up blood cultures and change antibiotics to IV Levaquin. Send sputum culture if possible. Vital serology positive for RSV. Continue supportive care and supplemental oxygen. Qualifiers: Pneumonia type: due to unspecified organism Laterality: bilateral Lung location: unspecified part of lung Qualified Code(s): J18.9 - Pneumonia, unspecified organism (3) Abnormal CT of the chest Current Visit: Yes Status: Chronic Assessment and plan: Patient is noted to have right axillary lymphadenopathy along with asymmetric skin thickening of right lateral breast. On examination, patient has no palpable axillary lymph nodes and she does have some induration on the lower outer area of right breast, which is likely related to the recent episode of acute upper extremity DVT. Recommend outpatient follow-up. (4) Elevated troponin Current Visit: Yes Status: Acute Assessment and plan: Serum troponin noted to be adynamic and flat, around 0.05. Could be related to CHF and underlying infection. Continue telemetric monitoring, follow up cardiology recommendations. (5) Acute combined systolic and diastolic congestive heart failure Current Visit: Yes Status: Acute Assessment and plan: Improving slowly. Continue IV Lasix along with fluid restriction, strict intake /urine output monitoring. Continue beta dre. Echocardiogram reviewed, shows a new reduction in ejection fraction to 25%, severe global left ventricular systolic dysfunction, moderately dilated left ventricle, mild to moderate MR and TR, mild pulmonary hypertension. Cardiology consult appreciated , agree with current management and plan for left heart catheterization to evaluate for ischemic etiology, when patient is stabilized further. (6) Tobacco abuse Current Visit: Yes Status: Chronic Assessment and plan: Does not require nicotine transdermal patch at this time. (7) Deep vein thrombosis (DVT) Current Visit: Yes Status: Chronic Assessment and plan: INR noted to be 3. Hold Coumadin for now in anticipation of left heart catheterization. Will start IV heparin drip when INR is subtherapeutic. Qualifiers: DVT location: upper extremity Affected thrombotic vein of extremity: other upper extremity vein Laterality: right Chronicity: acute Qualified Code(s) : I82.621 - Acute embolism and thrombosis of deep veins of right upper extremity (8) HTN (hypertension) Current Visit: Yes Status: Chronic Qualifiers: Hypertension type: essential hypertension Qualified Code(s): I10 - Essential (primary) hypertension (9) Obesity Current Visit: Yes Status: Chronic Qualifiers: Obesity type: due to excess calories Obesity severity: non-morbid Qualified Code(s): E66.09 - Other obesity due to excess calories (10) Diabetes Current Visit: Yes Status: Chronic Assessment and plan: Continue Accu-Chek blood glucose monitoring with sliding scale insulin. Diabetic diet. Qualifiers: Diabetes mellitus type: type 2 Diabetes mellitus complication status: without complication Diabetes mellitus senior living insulin use: without buttermaker use Qualified Code(s): E11.9 - Type 2 diabetes mellitus without complications (11) CAD (coronary artery disease) Current Visit: Yes Status: Chronic Qualifiers: Coronary Disease-Associated Artery/Lesion type: [place] artery [place] vs. transplanted heart: [place] heart Associated angina: without angina Qualified Code(s): I25.10 - Atherosclerotic heart disease of [place] coronary artery without angina pectoris - Subjective Interval history: Feels better; continues to have dry hacking cough; improving dyspnea; no chest pain, palpitations; not requiring O2; - Constitutional Vitals: Temp Pulse Resp BP Pulse Ox 98.3 F 95 18 120/83 95 09/16/16 07:58 09/16/16 07:58 09/16/16 08:28 09/16/16 07:58 09/16/16 09:03 General appearance: Present: A&O X 3, obese, answers questions appropriately - Respiratory Respiratory exam: Present: rales (faint crackles at B/L bases). Absent: accessory muscle use, rhonchi, wheezes - Cardiovascular Cardiovascular exam: Present: RRR, +S1, +S2. Absent: diastolic murmur, gallop, rubs, systolic murmur - GI/Abdominal GI/Abdominal exam: Present: normal bowel sounds, soft (obese), no peritoneal signs. Absent: distended, tenderness - Extremities Exam Extremities exam: Present: full ROM, pedal edema, warm, radial pulses palpable and symetrical. Absent: calf tenderness, cyanotic - Skin Additional comments: right lower lateral breast with minimal skin induration with no erythema/ tenderness/ulcers; no palpable right axillary lymphadenopathy Internal Medicine: Result - Labs CBC & Chem 7: 09/19/16 00:20 09/19/16 00:20 Labs: Short CBC 09/16/16 Range/Units 05:34 WBC 6.9 (4.3-11.1) K/mcL Hgb 12.4 (11.5-15.4) g/dL Hct 41.0 (35.3-44.9) % Plt Count 252 (140-400) K/mcL Neutrophils # 5.0 (1.6-8.9) K/mcL BMP 09/16/16 05:34 Sodium 135 L Potassium 4.5 Chloride 99 Carbon Dioxide 23 BUN 21 H Creatinine 0.89 Glucose 177 H Calcium 8.7 Cardiac Enzymes 09/15/16 Range/Units 16:39 Troponin I 0.05 H* (0-0.03) ng/mL - ABG Interpretation ABG results: PT/INR, D-dimer PT 33.8 Seconds (9.4-12.1) H 09/16/16 05:34 Consult Discharge Plan - Plan Referrals: Kassy Adorno CNP [Primary Care Provider] - 09/26/16 9:00 am ( )
[2016-09-16] MEDS ORDERED: Levofloxacin 500 MG/100 ML 500 MG/100 ML BAG IVPB SCH (10:00)
[2016-09-16] MEDS: Chloraseptic Spray 177 ML BOTTLE MM PRN (11:14)
--- NOTE | 2016-09-16 11:38 | Cardiology Consult Note ---
Date of Encounter: 09/16/16 Time of Encounter: 11:32 Assessment and Plan (1) Acute combined systolic and diastolic congestive heart failure Current Visit: Yes Status: Acute Presents in acute systolic and diastolic CHF and pneumonia. NYHA class IV. 25%, severe global systolic dysfunction. Moderate diastolic dysfunction. Mildly dilated RV and mildly reduced function by visualization. Mild to moderate MR. Mild-mod TR. Mild pulmonary hypertension. I discussed LHC to evaluate ischemic cause once fluid status and pneumonia improves. Indications, risk, alternatives, and benefit of procedure discussed and she voiced understanding. INR 3.0 on coumadin. Will need bridged for procedure. IV lasix. Low sodium diet. Monitor I&O and daily weights. Continue toprol xl and add lisinopril. (2) CAD (coronary artery disease) Current Visit: Yes Status: Acute H/o IN and PCI to her RCA in 2003. Denies chest pain. Asa, statin, and bb. Possible LHC during hospital stay. Qualifiers: Coronary Disease-Associated Artery/Lesion type: [place] artery [place] vs. transplanted heart: [place] heart Associated angina: without angina Qualified Code(s): I25.10 - Atherosclerotic heart disease of [place] coronary artery without angina pectoris (3) Elevated troponin Current Visit: Yes Status: Acute Flat mild troponin elevation 0.05 x3. Likely secondary to hypoxia and CHF. (4) Pneumonia Current Visit: Yes Status: Acute Management Per IM. Cultures pending. Qualifiers: Pneumonia type: due to unspecified organism Laterality: bilateral Lung location: upper lobe of lung Qualified Code(s): J18.9 - Pneumonia, unspecified organism (5) Deep vein thrombosis (DVT) Current Visit: Yes Status: Chronic Diagnosed with DVT RUE one week ago. CTA negative for PE but showed inflammatory changes in right axilla and right breast. INR therapeutic today. Qualifiers: DVT location: upper extremity Affected thrombotic vein of extremity: other upper extremity vein Laterality: right Chronicity: acute Qualified Code(s) : I82.621 - Acute embolism and thrombosis of deep veins of right upper extremity Discussion w patient/family: The assessment and plan as outlined above was discussed with the patient and/or family members who expressed understanding and agreement. All questions were answered. Thank you for involving us in the care of your patient. Please call with any questions. History of Present Illness Consult date: 09/16/16 Requesting physician: Bello Multani Consult reason: Cardiomyoapthy Chief complaint: SOB History of present illness: Ms. Mejía is a 51 year old female with past medical history significant for CAD s/p IN in 2003 with PCI to her RCA at that time. She also has a history of recently diagnosed RUE DVT on coumadin, tobacco use, hypertension, and obesity. She presents with increasing SOB, cough, and BLE edema and fast heart rates. She was diagnosed with DVT one week ago and was SOB at that time but SOB improved after ER visit. Over the last two days she became increasingly SOB with any activity and c/o cough and sore throat. CXR showed persistent interstitial lung markings and atelectasis in the right mid lung. She was found to have low grade fever and tachycardia. Currently being treated for pneumonia. TTE reveled newly reduced EF at 25%. EF was previously 65% in 2013. She denies chest pain. Cardiology consulted for further evaluation. Past Med Surg Social Fam HX - Past Medical History Medical history: cancer, DVT, hypertension, kidney stones, myocardial infarction Psychiatric history: anxiety - Past Surgical History Surgical History: ureteral stent - Social History Smoking Status: Former smoker Smokeless Tobacco Status: No Alcohol use: none Drug use: none Medications and Allergies Furosemide [Lasix] 20 mg PO DAILY 09/06/16 [History] Spironolactone [Aldactone] 25 mg PO DAILY 09/06/16 [History] Warfarin [Coumadin] 5 mg PO DAILY@1800 #30 tablet 09/07/16 [Rx] Metoprolol XL (24 HR) Succ [Toprol XL] 50 mg PO DAILY 09/15/16 [History] Warfarin [Coumadin] 7.5 mg PO AD 09/15/16 [History] Allergies Sulfa (Sulfonamide Antibiotics) Allergy (Verified 09/06/16 07:54) Hives All Systems Review: A 10-system review of systems was performed and is negative for pertinent findings except as documented above in the HPI. Physical Examination Vital Signs, Last 4 Hours Temp Pulse Resp BP Pulse Ox 09/16/16 10:44 98.1 F 84 20 108/71 92 09/16/16 09:03 95 09/16/16 08:28 18 95 09/16/16 07:58 98.3 F 95 18 120/83 93 General: Conversant, No Apparent Distress HEENT: Atraumatic, Normocephaly, Mucus Membranes Moist Neck: No JVD, Normal carotid pulses Cardiac: Reg Rate and Rhythm, Normal S1 and S2, No Murmur Lungs: Other (Rhonci anteriorly in RUL. ) Neuro: Alert and responsive, No focal deficits noted Abdomen: Soft, Non-Tender Skin: No rashes noted on visualized skin Musculoskeletal: No Chest Wall Tenderness Extremities: No Clubbing, No Cyanosis, Normal Pulses, Other (2+ pitting edema BLE up to knees. Redness noted superior RUE elbow, petechie noted on chest. Bilat feet and hands with redness. ) Results 09/16/16 05:34 09/16/16 05:34 Lab Results 09/15/16 09/16/16 09/16/16 16:39 05:34 05:34 WBC 6.9 Hgb 12.4 Hct 41.0 Plt Count 252 INR 3.0 APTT 35.4 Sodium Potassium Chloride Carbon Dioxide BUN Creatinine Glucose Calcium Troponin I 0.05 H* 09/16/16 05:34 WBC Hgb Hct Plt Count INR APTT Sodium 135 L Potassium 4.5 Chloride 99 Carbon Dioxide 23 BUN 21 H Creatinine 0.89 Glucose 177 H Calcium 8.7 Troponin I Chest X-Ray 09/15/16 02:18 IMPRESSION: No change from the recent study. D/ / Trae Gonzáles MD / Trae Gonzáles MD Interpreting Provider: Trae Gonzáles MD - Imaging and Cardiology Echo: report reviewed (25%, severe global systolic dysfunction. Moderate diastolic dysfunction. Mildly dilated RV and mildly reduced function by visualization. Mild to moderate MR. Mild-mod TR. Mild pulmonary hypertension.) - EKG Interpretation EKG results cardiology: personally reviewed (SR with old anterior septal IN.) Consult Discharge Plan - Plan Referrals: Kassy Adorno CNP [Primary Care Provider] - (WEB REQUEST SENT ON 09/16/16 )
[2016-09-16] MEDS: *HR* HYDROcodone/Acet 10/325 mg TABLET PO PRN ×2 (17:07→22:10)
[2016-09-16] MEDS ORDERED: Warfarin perPT PO PRN (18:00)
[2016-09-16] MEDS: Aspirin 81 MG TAB.CHEW PO SCH (18:25)
[2016-09-17] MEDS: Ipratropium/Albuterol Neb 3 ML IH SCH ×6 (05:04→23:59)
[2016-09-17 06:47] LABS: INR 2.2; Prothrombin Time 23.9 Seconds (9.4-12.1)
--- NOTE | 2016-09-17 08:12 | Cardiology Progress Note ---
Date of Encounter: 09/17/16 Time of Encounter: 07:30 Assessment and Plan (1) Acute combined systolic and diastolic congestive heart failure Current Visit: Yes Status: Acute Presents in acute systolic and diastolic CHF and pneumonia with NYHA class IV symptoms. TTE 09/16/16: EF 25%, severe global systolic dysfunction, moderate LVDD, mildly dilated RV with mildly reduced function, mild to moderate MR and TR, mild PH Prior TTE in 08/2013 EF was 65%. I/O's are not accurate--orders placed for strict I&O, intake/output assessment, and daily weights. Na/Fluid restriction diet. Continues to appear volume overload on exam. Will increase IV lasix to BID for today, re-evaluate in AM. Kidney function remains normal. Continue betablocker and ACEi. Plan for ischemic evaluation to determine etiology of cardiomyopathy--plan for LHC on Monday. INR supratherapuetic (hx of DVT) upon admission, start heparin gtt when INR falls below 2--INR 2.2 today. Recommend transfer to [facility] for closer observation. Will continue to follow. (2) CAD (coronary artery disease) Current Visit: Yes Status: Acute H/o [place] and PCI to her RCA in 2003. Denies chest pain. Asa, statin, and bb. Plan for LHC on Monday. Qualifiers: Coronary Disease-Associated Artery/Lesion type: [place] artery [place] vs. transplanted heart: [place] heart Associated angina: without angina Qualified Code(s): I25.10 - Atherosclerotic heart disease of [place] coronary artery without angina pectoris (3) Pneumonia Current Visit: Yes Status: Acute Management Per IM. Cultures pending. Qualifiers: Pneumonia type: due to unspecified organism Laterality: bilateral Lung location: upper lobe of lung Qualified Code(s): J18.9 - Pneumonia, unspecified organism (4) Deep vein thrombosis (DVT) Current Visit: Yes Status: Chronic Diagnosed with DVT RUE one week ago. CTA negative for PE but showed inflammatory changes in right axilla and right breast. INR therapeutic today, 2.2. When INR falls below 2.0, recommend starting heparin gtt. Qualifiers: DVT location: upper extremity Affected thrombotic vein of extremity: other upper extremity vein Laterality: right Chronicity: acute Qualified Code(s) : I82.621 - Acute embolism and thrombosis of deep veins of right upper extremity Discussion w patient/family: The assessment and plan as outlined above was discussed with the patient and/or family members who expressed understanding and agreement. All questions were answered. Thank you for involving us in the care of your patient. Please call with any questions. The patient will be discussed and reviewed with Dr. Longoria; changes to be made accordingly. Subjective Principal diagnosis: Cardiomyopathy, PNA Interval history: Ms. Mejía was admitted for worsening shortness of breath over the past several months; she was found to have PNA and newly discovered cardiomyopathy. Seen and examined earlier this morning. States she continues to feel week and tired, did not sleep well last night. Edema/dyspnea unchanged. Appears flushed on exam. Denies chest pain/discomfort. Objective Vital Signs, Last 4 Hours Temp Pulse Resp BP Pulse Ox 09/17/16 07:46 97.9 F 88 16 136/84 94 09/17/16 05:06 18 87 09/17/16 04:24 97.5 F L 81 18 107/72 94 General: Conversant, Other (facial flushing) HEENT: Atraumatic, Normocephaly Cardiac: Reg Rate and Rhythm, Normal S1 and S2 Lungs: Other (Expiratory wheezes noted throughout) Neuro: Alert and responsive Abdomen: Soft Extremities: No Edema, Other (+1-2 BLE edema to mid gupta) Results 09/16/16 05:34 09/16/16 05:34 Lab Results 09/16/16 09/16/16 09/16/16 12:54 18:01 18:01 INR AST 38 H ALT 23 B-Natriuretic Peptide 711 H 09/17/16 05:44 INR 2.2 AST ALT B-Natriuretic Peptide Active Medications Acetaminophen (Tylenol) 650 mg PO Q6HR PRN PRN Reason: Mild Pain (1-3) Stop: 03/17/17 08:01 Acetaminophen/Hydrocodone Bitart ([place] 5-325 Mg) 1 tab PO Q4HR PRN PRN Reason: Moderate Pain (4-6) Stop: 03/17/17 08:01 Last Admin: 09/15/16 14:56 Dose: 1 tab Acetaminophen/Hydrocodone Bitart ([place] 10-325 Mg) 1 each PO Q4HR PRN PRN Reason: Severe Pain (7-10) Stop: 03/18/17 12:01 Last Admin: 09/16/16 22:10 Dose: 1 each Albuterol/Ipratropium (Duoneb) 3 ml IH [id number] NANDO PRN Reason: Protocol Stop: 03/17/17 12:01 Last Admin: 09/17/16 05:04 Dose: 3 ml Aspirin (Aspirin) 81 mg PO DAILY [facility] Stop: 03/18/17 17:31 Last Admin: 09/16/16 18:25 Dose: 81 mg Atorvastatin Calcium (Lipitor) 20 mg PO HS NANDO Stop: 03/18/17 21:01 Last Admin: 09/16/16 22:10 Dose: 20 mg Dextrose/Water (Dextrose 50% (Syg)) 25 ml IVP AD PRN PRN Reason: Hypoglycemia Stop: 03/17/17 08:07 Furosemide (Lasix) 40 mg IVP DAILY [facility] Stop: 03/17/17 09:01 Last Admin: 09/16/16 08:48 Dose: 40 mg Levofloxacin/Dextrose (Levaquin 750mg/150 Ml) 750 mg in 150 mls @ 100 mls/hr IVPB DAILY NANDO PRN Reason: Protocol Stop: 03/19/17 09:01 Insulin Human Lispro (Humalog) 0 units SQ TIDAC NANDO PRN Reason: Protocol Stop: 03/17/17 11:31 Last Admin: 09/16/16 17:08 Dose: 4 units Insulin Human Lispro (Humalog) 0 units SQ HS NANDO PRN Reason: Protocol Stop: 03/17/17 21:01 Last Admin: 09/16/16 22:11 Dose: 3 units Lisinopril (Zestril) 2.5 mg PO DAILY NANDO PRN Reason: Protocol Stop: 03/18/17 12:46 Last Admin: 09/16/16 13:50 Dose: 2.5 mg Metoprolol Succinate (Toprol Xl) 50 mg PO DAILY [facility] Stop: 03/17/17 09:01 Last Admin: 09/16/16 08:47 Dose: 50 mg Multi-Ingredient Mucositis [place] (Chloraseptic) 1 spray MM QID PRN PRN Reason: Sore Throat Stop: 03/18/17 09:26 Last Admin: 09/16/16 11:14 Dose: 1 spray Naloxone HCl (Narcan) 0.4 mg IVP Q2MIN PRN PRN Reason: Opioid Reversal Stop: 03/17/17 08:01 Nitroglycerin (Nitroglycerin) 0.4 mg SL Q5MIN PRN PRN Reason: Chest Pain Stop: 03/17/17 02:31 Last Admin: 09/15/16 03:15 Dose: 0.4 mg Ondansetron HCl (Zofran) 4 mg IVP Q8HR PRN PRN Reason: Nausea And Vomiting Stop: 03/17/17 08:01 Last Admin: 09/15/16 21:37 Dose: 4 mg Spironolactone (Aldactone) 25 mg PO DAILY NANDO Stop: 03/17/17 09:01 Last Admin: 09/16/16 08:47 Dose: 25 mg - Imaging and Cardiology Chest Xray: report reviewed Echo: report reviewed Other Results: 12 hour tele: avg HR=88 SR. Couplet noted. - EKG Interpretation EKG results cardiology: personally reviewed Consult Discharge Plan - Plan Referrals: Kassy Adorno CNP [Primary Care Provider] - 09/20/16 11:00 am ( )
[2016-09-17] MEDS: Insulin LISPRO 300 UNITS/3 ML VIAL SQ SCH ×4 (08:19→21:08)
[2016-09-17] MEDS: Aspirin 81 MG TAB.CHEW PO SCH (08:20)
[2016-09-17] MEDS: Levofloxacin 750 MG/150 ML 750 MG/150 ML BAG IVPB SCH (08:20)
[2016-09-17] MEDS: Metoprolol XL (24 HR) Succ 50 MG TAB.ER.24H PO SCH (08:20)
[2016-09-17] MEDS: Spironolactone 25 MG TABLET PO SCH (08:20)
[2016-09-17] MEDS: Furosemide 40 MG/4 ML VIAL IVP SCH ×3 (08:20→16:42)
[2016-09-17] MEDS: Chloraseptic Spray 177 ML BOTTLE MM PRN ×3 (08:25→21:13)
[2016-09-17] MEDS: *HR* HYDROcodone/Acet 10/325 mg TABLET PO PRN ×3 (09:01→21:12)
--- NOTE | 2016-09-17 10:47 | Internal Med Progress Note ---
Date of Encounter: 09/17/16 Time of Encounter: 10:45 - Assessment and plan (1) Acute respiratory failure with hypoxia Status: Acute Assessment and plan: likely due to underlying acute CHF; O2 requirements improving with current management; continue to wean down FiO2 as tolerated; (2) Acute combined systolic and diastolic congestive heart failure Status: Acute Assessment and plan: Improving slowly. Lasix dose increased per Cardiology; Continue IV Lasix along with fluid restriction, strict intake/urine output monitoring. Continue beta dre. Echocardiogram reviewed, shows a new reduction in ejection fraction to 25%, severe global left ventricular systolic dysfunction; Cardiology on board , plan for left heart catheterization on Monday09/19/16; (3) Elevated troponin Status: Acute (4) Deep vein thrombosis (DVT) Status: Chronic Assessment and plan: INR noted to be 2.2. Hold Coumadin for now in anticipation of left heart catheterization. Will start IV heparin drip when INR is subtherapeutic. Qualifiers: DVT location: upper extremity Affected thrombotic vein of extremity: other upper extremity vein Laterality: right Chronicity: acute Qualified Code(s) : I82.621 - Acute embolism and thrombosis of deep veins of right upper extremity (5) HTN (hypertension) Status: Chronic Qualifiers: Hypertension type: essential hypertension Qualified Code(s): I10 - Essential (primary) hypertension (6) Obesity Status: Chronic Qualifiers: Obesity type: due to excess calories Obesity severity: non-morbid Qualified Code(s): E66.09 - Other obesity due to excess calories (7) Congestive heart failure Status: Acute Qualifiers: Congestive heart failure type: diastolic Congestive heart failure chronicity: acute on chronic Qualified Code(s): I50.33 - Acute on chronic diastolic (congestive) heart failure (8) Pneumonia Status: Acute Assessment and plan: Follow-up blood cultures and change antibiotics to IV Levaquin. Send sputum culture if possible. Vital serology positive for RSV. Continue supportive care and supplemental oxygen. Patient reports some sore throat and palatal burning, no e/o thrush/exudates; will send Strep pneumoniae throat swab; chlorhexidine throat spray PRN; Qualifiers: Pneumonia type: due to unspecified organism Laterality: bilateral Lung location: unspecified part of lung Qualified Code(s): J18.9 - Pneumonia, unspecified organism (9) Supratherapeutic INR Status: Resolved (10) Abnormal CT of the chest Status: Chronic (11) Diabetes Status: Chronic Qualifiers: Diabetes mellitus type: type 2 Diabetes mellitus complication status: without complication Diabetes mellitus mcc insulin use: without buttermaker continuous churn use Qualified Code(s): E11.9 - Type 2 diabetes mellitus without complications (12) CAD (coronary artery disease) Status: Chronic Qualifiers: Coronary Disease-Associated Artery/Lesion type: [place] artery [place] vs. transplanted heart: [place] heart Associated angina: without angina Qualified Code(s): I25.10 - Atherosclerotic heart disease of [place] coronary artery without angina pectoris - Subjective Interval history: Improving shortness of breath and cough and still continues to get tired and dyspneic on minimal exertion, on walking a few steps to the restroom. Reports irritation to the roof of mouth and throat pain today. No vomiting, diarrhea. - Constitutional Vitals: Temp Pulse Resp BP Pulse Ox 97.9 F 88 16 136/84 94 09/17/16 07:46 09/17/16 07:46 09/17/16 07:46 09/17/16 07:46 09/17/16 09:49 General appearance: Present: A&O X 3, obese, answers questions appropriately - ENT Additional comments: Mild erythema over the hard palate along with pharyngeal erythema. No tonsillar exudates or enlargement. - Respiratory Respiratory exam: Present: rales (Bilateral coarse breath sounds and bibasilar crackles). Absent: accessory muscle use, rhonchi, wheezes - Cardiovascular Cardiovascular exam: Present: RRR, +S1, +S2. Absent: diastolic murmur, gallop, rubs, systolic murmur - GI/Abdominal GI/Abdominal exam: Present: normal bowel sounds, soft, no peritoneal signs. Absent: distended, tenderness - Extremities Exam Extremities exam: Present: full ROM, pedal edema, warm, radial pulses palpable and symetrical. Absent: calf tenderness, cyanotic - Neurological Exam Neurological exam: Present: CN II-XII intact, oriented X3, no focal deficits. Absent: pronater drift, facial droop, speech deficit Internal Medicine: Result - Labs CBC & Chem 7: 09/19/16 00:20 09/20/16 04:04 Labs: Liver Function 09/16/16 09/16/16 Range/Units 18:01 18:01 AST 38 H (5-34) Units/L ALT 23 (0-55) Units/L - ABG Interpretation ABG results: PT/INR, D-dimer PT 23.9 Seconds (9.4-12.1) H 09/17/16 05:44 Consult Discharge Plan - Plan Instructions: Lisinopril (By mouth), Aspirin (By mouth), Metformin (By mouth), Atorvastatin (By mouth), Ticagrelor (By mouth), Meal Planning with Diabetes Exchanges (DC), Vitamin K in Foods (DC), Pneumonia (DC) Additional Instructions: RISK FACTORS: STOP SMOKING: If you smoke, STOP. Smoking or tobacco use significantly increases your risk of heart disease because nicotine causes the arteries to narrow or constrict. It also causes fats to stick to the artery. Your chances of having a heart attack are greatly increased if you continue to smoke. For more information, call the education line for smoking cessation 7-820-UASZXXZ EAT A LOW FAT/CHOLESTEROL/SODIUM DIET: This diet may help reduce your chances of having a heart attack. LIFTING: With affected extremity: Avoid bending, pushing off and lifting more than 2 pounds for 24 hours The following 48 hours, avoid lifting anything more than 5 pounds Avoid strenuous activity or repetitive motions ACTIVITY: You may walk or climb stairs as tolerated You can resume sexual activity as tolerated In general, you are encouraged to engage in a minimum of 30 minutes or more of moderate intensity physical activity, such as brisk walking, daily or at least 3 -4 times weekly BATHING Do not submerge the site into water (bath tub, hot tub, swimming pool, dishes) for 1 week. This can be a source for infection into the blood stream. You may shower after 24 hours SITE CARE: After 24 hours, you may remove the dressing and leave the site open to air. Keep the site clean and dry. Clean gently and pat dry. You can expect bruising and tenderness that gradually resolve within a week or two. Return to work as instructed per your physician Resume driving as instructed per physician Keep all scheduled follow up appointments Resume medications as instructed IMPORTANT: If prescribed a Platelet Aggregation Inhibitor such as, Plavix, Brilinta or Effient: Duration of therapy is minimum one year These medications are often used in combination with Aspirin in prevention of future heart attacks Never discontinue unless consult with your Hair Assistant STROKE (CVA) Risk factors for a stroke are: Age, cigarette smoking, diabetes, excessive alcohol consumption, family history, high blood pressure, overweight, physical inactivity, prior stroke, heart attack, diagnosis of carotid artery stenosis or other artery disease. Warning signs: Sudden numbness or weakness of the face, arm or leg; especially on one side of the body, sudden confusion, trouble speaking or understanding, sudden trouble seeing in one or both eyes, sudden trouble walking, dizziness, loss of balance or coordination, sudden severe headache with no cause. Call 911 or go to the Emergency Room. CONGESTIVE HEART FAILURE: If you have been diagnosed with Congestive Heart Failure (CHF) and your symptoms return, make an appointment with your physician Weigh yourself daily. Notify your physician if you have a weight gain of two or more pounds in one day or five or more pounds in one week. If you experience any difficulty breathing, please call 911 BLEEDING: Although the risk of bleeding is minimal, it can happen. If you have any bleeding from the site, apply firm pressure above the puncture site for 10-15 minutes. If the bleeding does not stop, continue manual pressure and call 911 Contact [facility] ( ) if: You develop a fever greater than 101 degrees Fahrenheit Your site becomes reddened or has any drainage You have an increase in pain or burning at the site or if a large knot forms at the site. If you experience chest pain, shortness of breath, dizziness, or extreme tiredness, stop the activity and rest. Please notify [facility] office if you experience any of these symptoms and they are not relieved by rest please call 911!F/U with [facility] in one week. Referrals: [facility] [Other] - 09/22/16 8:30 am (YOUR FIRST VISIT WILL BE 1 HOUR. PLEASE TAKE WITH YOU TO YOUR APPOINTMENT YOUR BOTTLE OF [place], AND PICTURE ID, AND INS. CARD. THANKS) Kassy Adorno CNP [Primary Care Provider] - 09/26/16 9:00 am ( ) Prescriptions: Aspirin 81 mg PO DAILY #30 tab.chew Atorvastatin [Lipitor] 20 mg PO HS #30 tablet Lisinopril [Zestril] 2.5 mg PO DAILY #30 tablet Metformin [Glucophage] 500 mg PO BIDWM #60 tablet Ticagrelor [Brilinta] 90 mg PO BID #60 tablet
[2016-09-17 11:29] LABS: BUN/Creatinine Ratio 19 (6-26); Blood Urea Nitrogen 22 mg/dL (7-20); Calcium 8.8 mg/dL (8.6-10.8); Carbon Dioxide 26 mEq/L (19-29); Chloride 97 mEq/L (98-109); Glucose 316 mg/dL (70-99); Osmolality,Calculated 297 (280-300); Potassium 4.2 mEq/L (3.5-4.5); Sodium 136 mEq/L (136-145); eGFR For African Americans > 60 (> 60); eGFR For Non-African Americans 50 (> 60)
[2016-09-17 21:15] LABS: INR 1.9; Prothrombin Time 20.7 Seconds (9.4-12.1)
[2016-09-18] MEDS: Ipratropium/Albuterol Neb 3 ML IH SCH ×6 (03:49→23:45)
[2016-09-18 04:53] LABS: INR 1.8; Prothrombin Time 19.4 Seconds (9.4-12.1)
[2016-09-18 05:08] LABS: BUN/Creatinine Ratio 18 (6-26); Blood Urea Nitrogen 21 mg/dL (7-20); Calcium 9.1 mg/dL (8.6-10.8); Carbon Dioxide 30 mEq/L (19-29); Chloride 98 mEq/L (98-109); Glucose 151 mg/dL (70-99); Osmolality,Calculated 292 (280-300); Potassium 4.2 mEq/L (3.5-4.5); Sodium 138 mEq/L (136-145); eGFR For African Americans > 60 (> 60); eGFR For Non-African Americans 50 (> 60)
[2016-09-18] MEDS: *HR* HYDROcodone/Acet 10/325 mg TABLET PO PRN ×4 (05:20→20:46)
[2016-09-18] MEDS ORDERED: *HR* Heparin 5,000 UNIT/ML VIAL IVP ONE (07:43)
[2016-09-18] MEDS ORDERED: *HR* Heparin 5,000 UNIT/ML VIAL IVP PRN ×2 (07:43)
[2016-09-18] MEDS: Insulin LISPRO 300 UNITS/3 ML VIAL SQ SCH ×4 (08:32→21:44)
[2016-09-18] MEDS: Aspirin 81 MG TAB.CHEW PO SCH (08:33)
[2016-09-18] MEDS: Metoprolol XL (24 HR) Succ 50 MG TAB.ER.24H PO SCH (08:34)
[2016-09-18] MEDS: Spironolactone 25 MG TABLET PO SCH (08:34)
[2016-09-18] MEDS: Levofloxacin 750 MG/150 ML 750 MG/150 ML BAG IVPB SCH (08:36)
[2016-09-18] MEDS: Furosemide 40 MG/4 ML VIAL IVP SCH (08:36)
[2016-09-18 08:56] LABS: Hemoglobin 12.9 g/dL (11.5-15.4); Mean Corpuscular HGB Conc 30.7 g/dL (31.6-35.5); Mean Corpuscular Hemoglobin 23.7 pg (28.0-33.3); Mean Corpuscular Volume 77.1 fL (83.0-100.0); Mean Platelet Volume 9.5 fL (9.4-12.4); Platelet Count 321 K/mcL (140-400); Red Blood Count 5.45 M/mcL (3.82-4.97); Red Cell Distribution Width 18.7 % (11.5-14.5)
--- NOTE | 2016-09-18 08:57 | Cardiology Progress Note ---
Date of Encounter: 09/18/16 Time of Encounter: 08:54 Assessment and Plan (1) Acute combined systolic and diastolic congestive heart failure Current Visit: Yes Status: Acute Presents in acute systolic and diastolic CHF and pneumonia with NYHA class IV symptoms. TTE 09/16/16: EF 25%, severe global systolic dysfunction, moderate LVDD, mildly dilated RV with mildly reduced function, mild to moderate MR and TR, mild PH Prior TTE in 08/2013 EF was 65%. On Lasix 40mg IV BID--creatinine mildly worsened 1.15. I/O yesterday -570mL, today -700mL so far. Will decrease Lasix to daily given mild worsening in renal function. Continue betablocker. Will hold Lasix, ACEi, and Aldactone in AM prior to [facility]. Plan for ischemic evaluation to determine etiology of cardiomyopathy--plan for [facility] tomorrow. INR supratherapuetic (hx of DVT) upon admission, now INR 1.8--started heparin gtt. (2) CAD (coronary artery disease) Current Visit: Yes Status: Acute H/o ND and PCI to her RCA in 2003. Denies chest pain. Asa, statin, and bb. Plan for [facility] tomorrow. Qualifiers: Coronary Disease-Associated Artery/Lesion type: [place] artery [place] vs. transplanted heart: [place] heart Associated angina: without angina Qualified Code(s): I25.10 - Atherosclerotic heart disease of [place] coronary artery without angina pectoris (3) Pneumonia Current Visit: Yes Status: Acute Management Per IM. Cultures pending. Qualifiers: Pneumonia type: due to unspecified organism Laterality: bilateral Lung location: upper lobe of lung Qualified Code(s): J18.9 - Pneumonia, unspecified organism (4) Deep vein thrombosis (DVT) Current Visit: Yes Status: Chronic Diagnosed with DVT RUE one week ago. CTA negative for PE but showed inflammatory changes in right axilla and right breast. INR subtherapeutic today, 1.8. Heparin gtt started. Resume Coumadin after LHC. Qualifiers: DVT location: upper extremity Affected thrombotic vein of extremity: other upper extremity vein Laterality: right Chronicity: acute Qualified Code(s) : I82.621 - Acute embolism and thrombosis of deep veins of right upper extremity Discussion w patient/family: The assessment and plan as outlined above was discussed with the patient and/or family members who expressed understanding and agreement. All questions were answered. Thank you for involving us in the care of your patient. Please call with any questions. I will discuss all the above with Dr. Longoria and make changes as necessary. Subjective Principal diagnosis: Cardiomyopathy, PNA Interval history: Only complaint this AM is sore throat--strep test was negative. She reports dyspnea is improved, denies chest pain. INR 1.8--heparin gtt started. -570mL yesterday, -700mL today so far. Objective Vital Signs, Last 4 Hours Temp Pulse Resp BP Pulse Ox 09/18/16 07:49 97.2 F L 85 18 105/75 92 09/18/16 05:02 97.2 F L 84 19 125/83 95 Vital Signs Temp Pulse Resp BP Pulse Ox 09/18/16 07:49 97.2 F L 85 18 105/75 92 09/18/16 05:02 97.2 F L 84 19 125/83 95 09/18/16 03:53 18 92 09/18/16 00:02 97.3 F L 87 19 122/78 100 09/17/16 20:15 97.6 F 91 18 134/85 97 09/17/16 19:55 18 95 09/17/16 16:46 86 09/17/16 16:43 97.9 F 79 18 120/82 97 09/17/16 16:12 14 100 09/17/16 12:13 12 97 09/17/16 10:50 97.7 F 79 18 119/76 94 09/17/16 09:49 94 Intake and Output 09/17/16 09/18/16 09/18/16 23:59 07:59 15:59 Intake Total 840 / 840 200 / 200 Output Total 1700 / 1700 900 / 900 600 / 600 Balance -860 / -860 -700 / -700 -600 / -600 Intake: Oral 840 / 840 200 / 200 Output: Urine 1700 / 1700 900 / 900 600 / 600 Other: Meal Dinner Percent of Meal Consumed 100% Weight 92.9 kg Blood Glucose* 177 157 Patient Weight 09/18/16 23:59 Weight 92.9 kg General: Conversant, No Apparent Distress HEENT: Atraumatic, Normocephaly, Mucus Membranes Moist Neck: No JVD, Normal carotid pulses Cardiac: Reg Rate and Rhythm, Normal S1 and S2, No Murmur Lungs: Other (diminished) Neuro: Alert and responsive, No focal deficits noted Abdomen: Soft, Non-Tender Skin: No rashes noted on visualized skin Musculoskeletal: No Chest Wall Tenderness Extremities: Other (+1 BLE edema) Results 09/18/16 08:42 09/18/16 03:57 Lab Results 09/17/16 09/17/16 09/18/16 10:43 20:40 03:57 INR 1.9 1.8 Sodium 136 Potassium 4.2 Chloride 97 L Carbon Dioxide 26 BUN 22 H Creatinine 1.15 H Glucose 316 H Calcium 8.8 09/18/16 03:57 INR Sodium 138 Potassium 4.2 Chloride 98 Carbon Dioxide 30 H BUN 21 H Creatinine 1.15 H Glucose 151 H Calcium 9.1 BMP 09/18/16 09/17/16 Range/Units 03:57 10:43 Sodium 138 136 (136-145) mEq/L Potassium 4.2 4.2 (3.5-4.5) mEq/L Chloride 98 97 L (98-109) mEq/L Carbon Dioxide 30 H 26 (19-29) mEq/L BUN 21 H 22 H (7-20) mg/dL Creatinine 1.15 H 1.15 H (0.57-1.11) mg/dL Glucose 151 H 316 H (70-99) mg/dL Calcium 9.1 8.8 (8.6-10.8) mg/dL Active Medications Acetaminophen (Tylenol) 650 mg PO Q6HR PRN PRN Reason: Mild Pain (1-3) Stop: 03/17/17 08:01 Acetaminophen/Hydrocodone Bitart ([place] 5-325 Mg) 1 tab PO Q4HR PRN PRN Reason: Moderate Pain (4-6) Stop: 03/17/17 08:01 Last Admin: 09/15/16 14:56 Dose: 1 tab Acetaminophen/Hydrocodone Bitart ([place] 10-325 Mg) 1 each PO Q4HR PRN PRN Reason: Severe Pain (7-10) Stop: 03/18/17 12:01 Last Admin: 09/18/16 05:20 Dose: 1 each Albuterol/Ipratropium (Duoneb) 3 ml IH [id number] NANDO PRN Reason: Protocol Stop: 03/17/17 12:01 Last Admin: 09/18/16 07:35 Dose: 3 ml Aspirin (Aspirin) 81 mg PO DAILY NANDO Stop: 03/18/17 17:31 Last Admin: 09/18/16 08:33 Dose: 81 mg Atorvastatin Calcium (Lipitor) 20 mg PO HS NANDO Stop: 03/18/17 21:01 Last Admin: 09/17/16 21:07 Dose: 20 mg Dextrose/Water (Dextrose 50% (Syg)) 25 ml IVP AD PRN PRN Reason: Hypoglycemia Stop: 03/17/17 08:07 Furosemide (Lasix) 40 mg IVP BIDDIURETIC NANDO Stop: 03/19/17 09:01 Last Admin: 09/18/16 08:36 Dose: 40 mg Glucagon (Glucagen) 1 mg IM ONCE PRN PRN Reason: Hypoglycemia Stop: 03/17/17 08:07 Glucose (Gluctose) 15 gm PO ONCE PRN PRN Reason: Hypoglycemia Stop: 03/17/17 08:07 Glucose (Gluctose) 30 gm PO ONCE PRN PRN Reason: Hypoglycemia Stop: 03/17/17 08:07 Heparin Sodium (Porcine) (Heparin) 6,500 unit 70 unit/kg (6500 unit) IVP Q6HR PRN PRN Reason: SEE COMMENTS Stop: 03/20/17 07:44 Heparin Sodium (Porcine) (Heparin) 3,300 unit 35 unit/kg (3300 unit) IVP Q6H PRN PRN Reason: SEE COMMENTS Stop: 03/20/17 07:44 Levofloxacin/Dextrose (Levaquin 750mg/150 Ml) 750 mg in 150 mls @ 100 mls/hr IVPB DAILY NANDO PRN Reason: Protocol Stop: 03/19/17 09:01 Last Admin: 09/18/16 08:36 Dose: 100 mls/hr Heparin Sodium/Dextrose (Heparin 25,000 Unit/500 Ml D5w) 25,000 unit in 500 mls @ 25.62 mls/hr IVC .[id number] NANDO; 14 UNIT/KG/HR PRN Reason: Protocol Stop: 03/20/17 07:46 Insulin Human Lispro (Humalog) 0 units SQ TIDAC [facility] PRN Reason: Protocol Stop: 03/17/17 11:31 Last Admin: 09/18/16 08:32 Dose: 2 units Insulin Human Lispro (Humalog) 0 units SQ HS NANDO PRN Reason: Protocol Stop: 03/17/17 21:01 Last Admin: 09/17/16 21:08 Dose: Not Given Lisinopril (Zestril) 2.5 mg PO DAILY NANDO PRN Reason: Protocol Stop: 03/18/17 12:46 Last Admin: 09/18/16 08:34 Dose: 2.5 mg Metoprolol Succinate (Toprol Xl) 50 mg PO DAILY [facility] Stop: 03/17/17 09:01 Last Admin: 09/18/16 08:34 Dose: 50 mg Multi-Ingredient Mucositis [place] (Chloraseptic) 1 spray MM QID PRN PRN Reason: Sore Throat Stop: 03/18/17 09:26 Last Admin: 09/17/16 21:13 Dose: 1 spray Naloxone HCl (Narcan) 0.4 mg IVP Q2MIN PRN PRN Reason: Opioid Reversal Stop: 03/17/17 08:01 Nitroglycerin (Nitroglycerin) 0.4 mg SL Q5MIN PRN PRN Reason: Chest Pain Stop: 03/17/17 02:31 Last Admin: 09/15/16 03:15 Dose: 0.4 mg Ondansetron HCl (Zofran) 4 mg IVP Q8HR PRN PRN Reason: Nausea And Vomiting Stop: 03/17/17 08:01 Last Admin: 09/15/16 21:37 Dose: 4 mg Spironolactone (Aldactone) 25 mg PO DAILY [facility] Stop: 03/17/17 09:01 Last Admin: 09/18/16 08:34 Dose: 25 mg - Imaging and Cardiology Echo: report reviewed - EKG Interpretation EKG results cardiology: other (24 hour tele AVG HR 87, SR, no significant pauses or arrhythmias.) Consult Discharge Plan - Plan Referrals: Kyree,Kassy Elder CNP [Primary Care Provider] - 09/20/16 11:00 am ( )
[2016-09-18] MEDS: Heparin 25,000 UNIT/500 ML D5W 25,000 UNIT/500 ML MLS IVC SCH (11:05)
[2016-09-18] MEDS ORDERED: 0.9 % Sodium Chloride 1,000 ML IVC SCH (15:15)
[2016-09-19 00:28] LABS: Basophils # 0.1 K/mcL (0.0-0.2); Basophils % 0.9 %; Eosinophils # 0.2 K/mcL (0.0-0.6); Eosinophils % 2.3 %; Hematocrit 43.7 % (35.3-44.9); Hemoglobin 13.3 g/dL (11.5-15.4); Immature Granulocytes % 1.3 % (0-4); Lymphocytes # 2.7 K/mcL (0.6-4.6); Lymphocytes % 29.4 %; Mean Corpuscular HGB Conc 30.4 g/dL (31.6-35.5); Mean Corpuscular Hemoglobin 23.3 pg (28.0-33.3); Mean Corpuscular Volume 76.4 fL (83.0-100.0); Neutrophils # 5.5 K/mcL (1.6-8.9); Platelet Count 321 K/mcL (140-400); Red Blood Count 5.72 M/mcL (3.82-4.97); Red Cell Distribution Width 18.7 % (11.5-14.5); Segmented Neutrophils % 60.1 %
[2016-09-19 00:29] LABS: Monocytes # 0.6 K/mcL (0.0-1.3)
[2016-09-19 00:36] LABS: INR 1.6; Prothrombin Time 17.7 Seconds (9.4-12.1)
[2016-09-19] MEDS: *HR* HYDROcodone/Acet 10/325 mg TABLET PO PRN ×5 (00:37→20:35)
[2016-09-19 00:38] LABS: Activated Partial Thrombo Time 58.8 Seconds (26.0-36.0)
[2016-09-19 00:43] LABS: Calcium 9.4 mg/dL (8.6-10.8); Potassium 4.3 mEq/L (3.5-4.5)
[2016-09-19 00:57] LABS: Platelet Estimate Normal (Normal)
[2016-09-19] MEDS: Ipratropium/Albuterol Neb 3 ML IH SCH ×6 (03:55→23:42)
[2016-09-19] MEDS ORDERED: 0.9 % Sodium Chloride 500 ML IVC SCH (08:15)
[2016-09-19] MEDS ORDERED: 0.9 % Sodium Chloride 1,000 ML ONE ×2 (08:34→08:38)
[2016-09-19] MEDS ORDERED: *HR* Midazolam HCl 2 MG/2 ML VIAL ONE (08:37)
[2016-09-19] MEDS ORDERED: Heparin 1,000 UNITS/500 mL NS 500 ML ONE (08:38)
[2016-09-19] MEDS ORDERED: *HR* FentaNYL (PF) 100 MCG/2 ML VIAL ONE (08:38)
[2016-09-19] MEDS ORDERED: Verapamil 5 MG/2 ML VIAL ONE (08:38)
[2016-09-19] MEDS ORDERED: Nitroglycerin 1,000 MCG/10 ML VIAL IV ONE (08:39)
[2016-09-19] MEDS ORDERED: *HR* Heparin 10,000 UNIT/10 ML VIAL ONE (08:39)
[2016-09-19] MEDS: Aspirin 81 MG TAB.CHEW PO SCH (08:42)
[2016-09-19] MEDS: Metoprolol XL (24 HR) Succ 50 MG TAB.ER.24H PO SCH (08:43)
[2016-09-19] MEDS: Insulin LISPRO 300 UNITS/3 ML VIAL SQ SCH ×3 (08:50→18:00)
--- NOTE | 2016-09-19 08:50 | Event Note ---
Date of Encounter: 09/19/16 Time of Encounter: 08:47 - Cardiology Event Note Planning for C as discussed. Creatinine mildly elevated, likely secondary to diuresis. Lasix and aldactone discontinued. Discussed with Dr. Cazares, will give IV fluid pre procedure. Reviewed indications, risks including possibility VIDHYA, alternatives, and benefits with patient and she would like to proceed. She denies chest pain. SOB and BLE edema improved.
--- NOTE | 2016-09-19 10:00 | Pre-Sedation Evaluation ---
Pre-sedation evaluation - Pre-sedation checklist Date of procedure: 09/19/16 Procedure: [facility] Recent Vitals: Last Vital Signs Temp 97.7 F 09/19/16 07:40 Pulse 78 09/19/16 08:58 Resp 18 09/19/16 07:40 BP 124/68 09/19/16 07:40 Pulse Ox 91 09/19/16 07:40 H&P (including ROS) documented in medical record: Yes Previous reaction to sedatives/anesthetics: No Dietary Status: NPO after Midnight Airway Assessment: Patient can open mouth completely, TMJ function normal ASA Classification *see protocol: CLASS II-Mild systemic disease Plan of Care: Pt appropriate candidate for procedure/moderate/conscious sedation , Risks/benefits of procedure/sedation discussed w/ patient/family
[2016-09-19] MEDS ORDERED: *HR* Adenosine 6 MG/2 ML VIAL IVP ONE (10:36)
[2016-09-19] MEDS ORDERED: Tirofiban 5 MG/100ML 5 MG/100 ML BAG IV ONE (10:49)
[2016-09-19] MEDS ORDERED: *HR* Ticagrelor 90 MG TABLET ONE (11:06)
[2016-09-19] MEDS ORDERED: Tirofiban 12.5 MG/250ML 12.5 MG/250 ML BAG IVC SCH (13:00)
[2016-09-19] MEDS: Heparin 25,000 UNIT/500 ML D5W 25,000 UNIT/500 ML MLS IVC SCH (13:40)
[2016-09-19] MEDS: Levofloxacin 750 MG/150 ML 750 MG/150 ML BAG IVPB SCH (14:08)
--- NOTE | 2016-09-19 17:09 | Invasive Diagnostic Lab Proc ---
Name: Madison Mejía Date of Study: 09/19/2016 Date: 1965 Ht: 64.2in Medical Record#: [id number] Age: 51 Wt: 203.05lb Gender: Female BSA: 1.97 Order #: [id number] BMI: 34.66 Physicians Procedure Physician: Tanner Cazares MD, [facility] Referring MD: Referring MD: Staff Name Position Time In Sites, Maryan RT (R) Monitor 10:03 AM Chris Maryan RT (R) Scrub 10:03 AM Mallory Antonio RN Sew Out Operator 10:05 AM Indications Indication Non-Stemi Procedures Performed Procedure L HRT ARTERY/VENTRICLE ANGIO IV Doppler BLD Flow 1st Vessel PRQ CARD EFRAIN STENT W/ANGIO 1 VSL PRQ CARD EFRAIN STENT W/ANGIO 1 VSL Pre-Procedure Checklist Informed consent is complete signed and on chart. H\\T\\P is on chart. ID band is on and ID verified with patient. Patient NPO for procedure The procedure was described for the patient and questions were answered. Blood Pressure: 160/87 ECG is on chart. Rhythm: NSR Plan of Care Patient will tolerate the procedure without complications. Adequate level of comfort will be maintained. Hemodynamics will remain stable Patient will recover from procedure without complications. Respiratory function will be maintained. Cardiac rhythm will remain stable. Patient temperature will be maintained. Patient and/or family have verbalized understanding of the procedure. Patient Education Chief Complaint/Reason for Test: Cardiac Cath Developmental Category: Adult (18-64 years) Developmentally Appropriate for Age: Yes Learning Barriers: None Education Needs: Procedure Education Method: Verbal Information Taught: Cardiac Cath Educational Evaluation: Able to repeat information Intravenous Access Time IV Size Location DC'd Fluid/Drip Rate Units RN 20g 1 /" Patent On Arrival Lt Forearm 0.9NaCl 25 ml/hr Allergies SULFA DRUGS Vital Signs Time BP (mmHg) HR (bpm) O2 Sat. RR (bpm) LOC 167 / 81 95 97 % 16 5 = Fully awake and oriented or at pre-proc level 10:07 AM / % 5 = Fully awake and oriented or at pre-proc level 10:07 AM / % 4 = Oriented but drowsy 10:23 AM / % 4 = Oriented but drowsy 10:39 AM / % 4 = Oriented but drowsy 09:57 AM 160 / 87 99 96 % 19 10:02 AM 167 / 81 95 94 % 15 10:07 AM 145 / 75 92 99 % 24 10:12 AM 146 / 90 98 95 % 24 10:17 AM 138 / 87 96 97 % 24 10:22 AM 135 / 83 102 100 % 20 10:27 AM 140 / 74 95 99 % 15 10:32 AM 127 / 73 93 99 % 12 10:37 AM 140 / 78 92 99 % 13 10:42 AM 138 / 71 87 99 % 19 10:47 AM 151 / 67 91 99 % 20 10:52 AM 158 / 70 86 100 % 15 10:57 AM 145 / 73 88 99 % 10 11:02 AM 157 / 89 93 98 % 11 11:07 AM 130 / 71 89 98 % 14 Procedural Medications Time Medication Dose Units Method Given By 10:06 AM Oxygen 2 L/min nasal cannula Mallory Antonio RN 10:07 AM Versed 2 mg Intravenous Mallory Antonio RN 10:07 AM Fentanyl 50 mcg Intravenous Mallory Antonio RN 10:07 AM Oxygen 15 L/min 100% non rebreather mask Mallory Antonio RN 10:24 AM Lidocaine 2% 1 ml Subcutaneous Tanner Cazares MD, FACC 10:31 AM Oxygen 4 L/min nasal cannula Mallory Antonio RN 10:39 AM Nitroglycerin 200 mcg Intracoronary Tanner Cazares MD 10:41 AM Heparin 2000 units Nitroglycerin 200 mcg Verapamil 2.5 mg Intraarterial Tanner Cazares MD, FACC 10:44 AM Adenosine 320 mcg Intracoronary Tanner Cazares MD, FACC 10:45 AM Adenosine 400 mcg Intracoronary Tanner Cazares MD, FACC 10:51 AM Aggrastat Bolus: 46 ml Intravenous Mallory Antonio RN 10:52 AM Aggrastat 5mg/100ml 16.5 ml Intravenous Mallory Antonio RN 11:04 AM Nitroglycerin 200 mcg Intracoronary Tanner Cazares MD 11:06 AM Brilinta 180 mg Orally Mallory Antonio RN ASA Classification: CLASS II- Mild systemic disease (i.e. well-controlled diabetes, hypertension, asthma, cigarette smoking) Kimi Score Preprocedure Postprocedure Activity 2- Moves 4 extremities sustained head lift Activity Circulation 2- SBP +/= 20 points of pre-anesthetic level Circulation Consciousness 2- Awake and alert oriented x 3 Consciousness O2 Saturation 2- Able to maintain O2 satruation of 92% on room air O2 Saturation Respiratory 2- Able to deep breathe and cough well Respiratory Total Score 10 Total Score Contrast Agent: Isovue Diagnostic Contrast: 112 ml Total Contrast: 112 ml Fluoro Dose: 1025 mGy Activated Clotting Time Time Seconds to Clot 10:45 AM 326 Procedure Log Time Note Enter By 09:56 AM CathStat 09:56 AM Vitals capture started with the following parameters, Patient=Adult, Interval=5 min, Initial Otvswowp=600 mmHg, Deflation Rate=5 mmHg, Cuff placed on Left Arm 09:57 AM HR=99 bpm, ZBVQ=092/87 mmhg, SpO2=96 %, Resp=19 B/min 10:01 AM Recorded ECG: HR=94 Condition=Condition 1 10:02 AM HR=95 bpm, LAQZ=243/81 mmhg, SpO2=94.0 %, Resp=15 B/min 10:03 AM Pt arrived to labeling specialist 2 at 10:03 tsites 10:03 AM Patient charges- Angio tray pack, Navilyst 3mm J, Pulse Oximetry and ACIST tubing and transducer tsites 10:03 AM Case Delayed No tsites 10:03 AM Physician arrived 10:03 tsites 10:03 AM Meet and greet completed tsites 10:03 AM Sign in performed according to hospital policy. tsites 10:03 AM Procedure start 10:03 tsites 10:03 AM Maryan Thornton RT (R) Position: Monitor Time in: 10:03 tsites 10:03 AM Maryan Perez RT (R) Position: Scrub Time in: 10:03 tsites 10:05 AM Mallory Antonio RN Position: Sew Out Operator Time in: 10:05 tsites 10:07 AM Time: 10:06 Oxygen on at 2 L/min per nasal cannula by Mallory Antonio RN tsites 10:07 AM Time: 10:07 Versed 2 mg Intravenous Given by Mallory Antonio RN tsites 10:07 AM Time: 10:07 Fentanyl 50 mcg Intravenous Given by Mallory Antonio RN tsites 10:07 AM HR=92 bpm, JTHX=473/75 mmhg, SpO2=99 %, Resp=24 B/min 10:07 AM Time: 10:07 Patient comfortable and pain free: Yes tsites 10:07 AM Time: 10:07LOC: 5 = Fully awake and oriented or at pre-proc level tsites 10:07 AM Clinical Presentation: Unstable angina tsites 10:07 AM Time: 10:07 Oxygen on at 15 L/min per 100% non rebreather mask by Mallory Antonio RN tsites 10:08 AM Pressure channel 1 zeroed. 10:12 AM HR=98 bpm, VLKQ=359/90 mmhg, SpO2=95.0 %, Resp=24 B/min 10:17 AM HR=96 bpm, EWKG=674/87 mmhg, SpO2=97 %, Resp=24 B/min 10:22 AM ZW=773 bpm, EHGG=526/83 mmhg, WqK4=223 %, Resp=20 B/min 10:23 AM Time: 10:LOC: 4 = Oriented but drowsy tsites 10: AM Time: : Patient comfortable and pain free: Yes tsites 10:23 AM Time out performed according to hospital policy tsites 10:24 AM Time: 10:24 1 ml Lidocaine 2% to right radial Subcutaneous Given by Tanner Cazares MD, [facility] tsites 10:24 AM Access obtained by percutaneous puncture. 5Fr 10cm Terumo Glidesheath sheath placed in right Radial artery. [id number] tsites 10:25 AM Time: 10:25 Patient given 2,000 units Heparin, 200 mcg Nitroglycerin, and 2.5 mg Verapamil Intraarterial by Tanner Cazares MD, [facility] tsites 10:27 AM HR=95 bpm, SVOJ=062/74 mmhg, SpO2=99 %, Resp=15 B/min 10:27 AM Wire removed tsites 10:27 AM Pressure channel 1 zeroed. 10:27 AM 0.035 145cm VSI Amilcar-Torque wire [id number] tsites 10:28 AM LCA angiography performed in multiple views. tsites 10:28 AM 5Fr FL 4 catheter inserted over the wire DN tsites 10:29 AM Recorded Pressure: Ao, HR=88, Condition=Condition 1 (Aorta) Ao 112/33/65 10:29 AM wire reinserted catheter removed tsites 10:30 AM 5Fr FR 4 catheter inserted over the wire [facility] tsites 10:30 AM Recorded Pressure: LV, HR=88, Condition=Condition 1 (Left Ventricle) LV 100/9/21 10:31 AM Recorded Pressure: LV, Ao, HR=87, Condition=Condition 1 (Left Ventricle) LV 128/1/21, (Aorta) Ao 123/34/76 10:31 AM Catheter selectively placed in left ventricle tsites 10:31 AM edp measured tsites 10:31 AM Time: 10:31 Oxygen on at 4 L/min per nasal cannula by Mallory Antonio RN tsites 10:32 AM RCA angiography performed in multiple views. tsites 10:32 AM HR=93 bpm, DKWS=893/73 mmhg, SpO2=99 %, Resp=12 B/min 10:32 AM Recorded Pressure: Ao, HR=93, Condition=Condition 1 (Aorta) Ao 146/51/90 10:34 AM wire reinserted catheter removed tsites 10:35 AM Coronary Dominance: right tsites 10:37 AM HR=92 bpm, ZYKV=010/78 mmhg, SpO2=99 %, Resp=13 B/min 10:38 AM 6Fr EBU 3.25 Medtronic guide catheter was used to cannulate the PCI vessel successfully. reused? No tsites 10:39 AM Time: 10:23 Patient comfortable and pain free: Yes tsites 10:39 AM Time: 10:23LOC: 4 = Oriented but drowsy tsites 10:39 AM Time: 10:39 Nitroglycerin 200 mcg Intracoronary Given by Tanner Cazares MD tsites 10:42 AM HR=87 bpm, NVRN=626/71 mmhg, SpO2=99 %, Resp=19 B/min 10:42 AM Inflation device was opened. tsites 10:42 AM Comet Pressure Wire advanced to target lesion. tsites 10:42 AM ACT drawn tsites 10:44 AM Time: 10:44 Adenosine 320 mcg administered Intracoronary by Tanner Cazares MD, [facility] tsites 10:44 AM FFR Measurement: 0.86 tsites 10:45 AM Time: 10:45 Adenosine 400 mcg administered Intracoronary by Tanner Cazares MD, [facility] tsites 10:45 AM FFR Measurement: 0.77 tsites 10:45 AM At 10:45 the ACT was 326 seconds. tsites 10:47 AM HR=91 bpm, BOWP=042/67 mmhg, SpO2=99 %, Resp=20 B/min 10:48 AM 2.5 mm x 12 mm Emerge Monorail balloon across target lesion- successful. reused? No tsites 10:49 AM Lesion found in Mid RCA. Pre Stenosis: 15 Pre RICHARD Flow: tsites 10:49 AM Right Coronary, Right Posterior Descending Arteries with Right Posterolateral and Acute Marginal branches with 15 % stenosis. If graft is supplying this area, 0 % stenosis tsites 10:49 AM Balloon inflated @ 14 urvashi for 19 seconds tsites 10:50 AM Balloon catheter removed intact. tsites 10:52 AM Time: 10:51 Aggrastat Bolus: 46 ml Intravenous Given by Mallory Antonio RN Garcia pump tsites 10:52 AM HR=86 bpm, CBKC=081/70 mmhg, NuL0=673 %, Resp=15 B/min 10:52 AM Time: 10:52 Aggrastat 5mg/100ml 16.5 ml Intravenous Given by Mallory Antonio RN Garcia pump tsites 10:53 AM 2.5mm x 16mm Synergy drug-eluting stent across target lesion- successful Lot #[id number] tsites 10:54 AM Stent deployed @ 14 urvashi for 13 seconds tsites 10:54 AM Time: 10:39LOC: 4 = Oriented but drowsy tsites 10:54 AM Time: 10:39 Patient comfortable and pain free: Yes tsites 10:54 AM Recorded Pressure: Ao, HR=87, Condition=Condition 1 (Aorta) Ao 114/82/99 10:55 AM Stent balloon reinflated @ 12 urvashi for 8 seconds tsites 10:57 AM HR=88 bpm, CXPH=327/73 mmhg, SpO2=99.0 %, Resp=10 B/min 10:57 AM 3.5mm x 38mm Synergy drug-eluting stent across target lesion- successful Lot #[id number] tsites 10:59 AM Stent deployed @ 14 urvashi for 24 seconds tsites 11:02 AM HR=93 bpm, XCFN=786/89 mmhg, SpO2=98 %, Resp=11 B/min 11:02 AM 3.75 mm x 15mm NC Emerge balloon across target lesion- successful. reused? No tsites 11:02 AM Lesion found in Mid Circumflex. Pre Stenosis: 80 Pre RICHARD Flow: 3: Complete and Brisk Flow/Perfusion tsites 11:03 AM Lesion found in 1st Marginal. Pre Stenosis: 70 Pre RICHARD Flow: tsites 11:03 AM Circumflex, Obtuse Marginal, Left Posterior Descending, and Left Posterolateral Coronary Arteries with 80 % stenosis. If graft is supplying this area, 0 % stenosis tsites 11:03 AM Balloon inflated @ 16 urvasih for 5 seconds tsites 11:03 AM Balloon inflated @ 18 urvashi for 16 seconds tsites 11:05 AM Time: 11:04 Nitroglycerin 200 mcg Intracoronary Given by Tanner Cazares MD tsites 11: AM Time: 11: Brilinta 180 mg Orally Given by Mallory Antonio RN tsites 11:06 AM Guide wire removed intact. tsites 11:06 AM Balloon catheter removed intact. tsites 11:06 AM Guide catheter removed intact. tsites 11:07 AM HR=89 bpm, XQOY=025/71 mmhg, SpO2=98 %, Resp=14 B/min 11:07 AM Procedure completed at 11:07 tsites 11:07 AM Sign out completed: Radiation Dose 1025 mGy Fluoro Time: 11.9 Isovue 370 - 500ml contrast 112 ml given by Tanner Cazares MD, [facility]. Complications: NoneCardiac Rehab Consult needed: YesConfirmed administered medications: Yes tsites 11:07 AM Isovue 370 - 500ml,1 Bottle(s) used. tsites 11:08 AM Arterial sheath pulled, Vasc Band closure device used and was Successful S/N. tsites 11:08 AM 11 ml air in Vasc Band. tsites 11:08 AM Post ECG NSR tsites 11:08 AM Post Blood Pressure 130/71 tsites 11:08 AM 11:08 Post Pulses Rt Radial 1+ tsites 11:08 AM Information taught Cardiac Cath, PCI, IVUS/Flowire, and Vasc Band tsites 11:08 AM Education needs Procedure, Plan of Care, and Responsibilities of Patient in Care tsites 11:08 AM Learning barriers :None tsites 11:08 AM Education Methods Verbal tsites 11:08 AM Education evaluation Able to repeat information tsites 11:09 AM Site status No bleeding/hematoma - Rt Wrist as reported by Maryan Perez RT (R) at 11:08 tsites 11:09 AM Plavix, Effient or Brilinta given Yes tsites 11:09 AM Delay to floor No tsites 11:09 AM Patient out of room: 11:09 tsites 11:09 AM Family placed in consult room. tsites 11:09 AM Report given to evelyn EASTMAN Pt taken to 2N Room #11. 11: tsites 11:34 AM Lesion found in LADl. Pre Stenosis: 80 Pre RICHARD Flow: 3: Complete and Brisk Flow/Perfusion tsites Complications Complication None Hemodynamics Pressures Site Systolic/A Wave Diastolic/V Wave Mean AO 66 50 58 LV 100 9 21 AO 123 34 76 LV 128 1 21 AO 146 51 90 AO 114 82 99 Hemodynamics Hemodynamics Pressures Site Systolic/A Wave Diastolic/V Wave Mean AO 112 33 65 LV 100 9 21 LV 128 1 21 AO 123 34 76 AO 146 51 90 AO 114 82 99 Post Procedure Information Blood Pressure: 130/71 mmHg Rhythm: NSR Post procedural instructions were given Closure Device Time Device Success/Fail 09/19/2016 11:10:00 AM Mechanical Compression Successful Site Checks Time Location Status Staff Sheath In? Note 11:08 AM Rt Wrist No bleeding/hematoma Maryan Perez RT (R) Pulses Time Site Pre-Procedure Post-Procedure Note Bilateral DP \\T\\ PT 1+ Bilateral radial 2+ 11:08:00 AM Rt Radial 1+ Updated by Maryan Thornton RT (R) on 09/19/2016 5:04:22 PM Maryan Thornton RT electronically signed on 09/19/2016 5:05:52 PM with status of Final
[2016-09-19] MEDS ORDERED: *HR* Warfarin 4 MG TABLET PO SCH (18:00)
[2016-09-19] MEDS ORDERED: Warfarin perPT PO SCH (18:00)
[2016-09-20] MEDS: *HR* HYDROcodone/Acet 10/325 mg TABLET PO PRN ×4 (00:39→15:45)
[2016-09-20] MEDS: Insulin LISPRO 300 UNITS/3 ML VIAL SQ SCH ×4 (04:03→17:19)
[2016-09-20] MEDS: Ipratropium/Albuterol Neb 3 ML IH SCH ×4 (04:05→16:13)
[2016-09-20 04:19] LABS: INR 1.4; Prothrombin Time 15.5 Seconds (9.4-12.1)
[2016-09-20 04:31] LABS: BUN/Creatinine Ratio 21 (6-26); Blood Urea Nitrogen 22 mg/dL (7-20); Calcium 9.5 mg/dL (8.6-10.8); Carbon Dioxide 30 mEq/L (19-29); Chloride 101 mEq/L (98-109); Glucose 144 mg/dL (70-99); Magnesium 2.1 mg/dL (1.6-2.6); Osmolality,Calculated 292 (280-300); Potassium 4.6 mEq/L (3.5-4.5); Sodium 138 mEq/L (136-145); eGFR For African Americans > 60 (> 60); eGFR For Non-African Americans 55 (> 60)
[2016-09-20] MEDS: Heparin 25,000 UNIT/500 ML D5W 25,000 UNIT/500 ML MLS IVC SCH (06:41)
[2016-09-20] MEDS: Aspirin 81 MG TAB.CHEW PO SCH (08:28)
[2016-09-20] MEDS: Furosemide 20 MG TABLET PO SCH ×2 (08:28→17:19)
[2016-09-20] MEDS: Metoprolol XL (24 HR) Succ 50 MG TAB.ER.24H PO SCH (08:28)
[2016-09-20] MEDS: Levofloxacin 750 MG/150 ML 750 MG/150 ML BAG IVPB SCH (08:28)
[2016-09-20] MEDS ORDERED: Furosemide 40 MG/4 ML VIAL IVP SCH (09:00)
--- NOTE | 2016-09-20 09:23 | Cardiology Progress Note ---
Date of Encounter: 09/20/16 Time of Encounter: 09:21 Assessment and Plan (1) Acute combined systolic and diastolic congestive heart failure Current Visit: Yes Status: Acute Presents in acute systolic and diastolic CHF and pneumonia with NYHA class IV symptoms. Ischemic cardiomyopathy s/p PCI to mid LAD and prox-mid circ. Re-evaluate EF in 12 weeks. TTE 09/16/16: EF 25%, severe global systolic dysfunction, moderate LVDD, mildly dilated RV with mildly reduced function, mild to moderate MR and TR, mild PH Prior TTE in 08/2013 EF was 65%. Initially given IV diuresis until increase in creatinine. Symptoms improved. Lasix, aldactone, and mark-inhibitor held for 24hrs. Creatinine improved. Restart mark-inhibitor and maintenance lasix. CHF education reviewed including daily weights, low sodium diet and reportable symptoms. Continue BB. Cardiac rehab in out-pt setting. Recommend checking BMP in one week after discharge. F/u in one week will be made with [facility]. Please Call with questions. (2) CAD (coronary artery disease) Current Visit: Yes Status: Chronic H/o CO and PCI to her RCA in 2003. S/p PCI to mLAD and prox-mid circ without complication. Final report pending. Importance of DAPT with asa and brilinta uninterrupted for one year discussed and she voiced understanding. On BB and statin therapy. Cardiac rehab in out-pt setting. Coumadin held with heparin bridge for procedure. H/o recent upper extremity DVT. Coumadin restarted. On heparin gtt. Monitored by PCP with referral to coumadin clinic by PCP. Out pt f/u in one week with Dr. Longoria. Call with questions. Qualifiers: Coronary Disease-Associated Artery/Lesion type: [place] artery [place] vs. transplanted heart: [place] heart Associated angina: without angina Qualified Code(s): I25.10 - Atherosclerotic heart disease of [place] coronary artery without angina pectoris (3) Elevated troponin Current Visit: Yes Status: Acute Flat mild troponin elevation 0.05 x3. Likely secondary to hypoxia and CHF. (4) Pneumonia Current Visit: Yes Status: Acute Management Per IM. Blood culture negative. Qualifiers: Pneumonia type: due to unspecified organism Laterality: bilateral Lung location: unspecified part of lung Qualified Code(s): J18.9 - Pneumonia, unspecified organism (5) Deep vein thrombosis (DVT) Current Visit: Yes Status: Chronic Diagnosed with DVT RUE one week ago. CTA negative for PE but showed inflammatory changes in right axilla and right breast. INR subtherapeutic today, 1.8. Heparin gtt started. Resume Coumadin after LHC. Qualifiers: DVT location: upper extremity Affected thrombotic vein of extremity: other upper extremity vein Laterality: right Chronicity: acute Qualified Code(s) : I82.621 - Acute embolism and thrombosis of deep veins of right upper extremity Discussion w patient/family: The assessment and plan as outlined above was discussed with the patient and/or family members who expressed understanding and agreement. All questions were answered. Thank you for involving us in the care of your patient. Please call with any questions. Subjective Principal diagnosis: Cardiomyopathy, PNA Interval history: S/p PCI. Denies chest pain. SOB improved. No new events overnight. Objective Vital Signs, Last 4 Hours Temp Pulse Resp BP Pulse Ox 09/20/16 08:42 84 09/20/16 07:46 97.5 F L 77 14 130/72 96 09/20/16 07:41 16 124/63 94 General: Conversant, No Apparent Distress HEENT: Atraumatic, Normocephaly, Mucus Membranes Moist Neck: No JVD, Normal carotid pulses Cardiac: Reg Rate and Rhythm, Normal S1 and S2, No Murmur Lungs: Normal Breath Sounds, No Wheeze, Rales, Rhonchi Neuro: Alert and responsive, No focal deficits noted Abdomen: Soft, Non-Tender Skin: No rashes noted on visualized skin Musculoskeletal: No Chest Wall Tenderness Extremities: No Clubbing, No Cyanosis, Normal Pulses, Other (trace ankle edema BLE, right radial access site without hematoma. ) Results 09/19/16 00:20 09/20/16 04:04 Lab Results 09/19/16 09/20/16 09/20/16 19:39 04:04 04:04 INR 1.4 APTT 63.8 H 77.0 H Sodium 138 Potassium 4.6 H Chloride 101 Carbon Dioxide 30 H BUN 22 H Creatinine 1.06 Glucose 144 H Calcium 9.5 Magnesium 2.1 - Imaging and Cardiology Echo: report reviewed Cardiac cath: report reviewed - EKG Interpretation EKG results cardiology: personally reviewed, other (SR with avg HR 84 bpm, occasional PVC. One three beat PVC seen. No sustained arryhthmias.) Consult Discharge Plan - Plan Referrals: Kassy Adorno CNP [Primary Care Provider] - 09/26/16 9:00 am ( )
[2016-09-20] MEDS: *HR* Ticagrelor 90 MG TABLET PO SCH ×2 (10:08→17:20)
--- NOTE | 2016-09-20 13:00 | Discharge Summary ---
Date of Encounter: 09/20/16 Time of Encounter: 12:00 - Discharge Diagnosis (1) Deep vein thrombosis (DVT) Priority: Secondary Status: Chronic Qualifiers: DVT location: upper extremity Affected thrombotic vein of extremity: other upper extremity vein Laterality: right Chronicity: acute Qualified Code(s) : I82.621 - Acute embolism and thrombosis of deep veins of right upper extremity (2) HTN (hypertension) Priority: Secondary Status: Chronic Qualifiers: Hypertension type: essential hypertension Qualified Code(s): I10 - Essential (primary) hypertension (3) Obesity Priority: Secondary Status: Chronic Qualifiers: Obesity type: due to excess calories Obesity severity: non-morbid Qualified Code(s): E66.09 - Other obesity due to excess calories (4) Congestive heart failure Priority: Primary Status: Acute Qualifiers: Congestive heart failure type: diastolic Congestive heart failure chronicity: acute on chronic Qualified Code(s): I50.33 - Acute on chronic diastolic (congestive) heart failure (5) Acute respiratory failure with hypoxia Priority: Primary Status: Acute (6) Diabetes Priority: Secondary Status: Chronic Qualifiers: Diabetes mellitus type: type 2 Diabetes mellitus complication status: without complication Diabetes mellitus residential insulin use: without residential use Qualified Code(s): E11.9 - Type 2 diabetes mellitus without complications (7) Elevated troponin Priority: Primary Status: Acute (8) CAD (coronary artery disease) Priority: Primary Status: Chronic Qualifiers: Coronary Disease-Associated Artery/Lesion type: [place] artery [place] vs. transplanted heart: [place] heart Associated angina: without angina Qualified Code(s): I25.10 - Atherosclerotic heart disease of [place] coronary artery without angina pectoris (9) Pneumonia Priority: Primary Status: Acute Qualifiers: Pneumonia type: due to unspecified organism Laterality: bilateral Lung location: unspecified part of lung Qualified Code(s): J18.9 - Pneumonia, unspecified organism - Discharge Medications Prescriptions: RX: Aspirin 81 mg PO DAILY #30 tab.chew RX: Atorvastatin [Lipitor] 20 mg PO HS #30 tablet RX: Lisinopril [Zestril] 2.5 mg PO DAILY #30 tablet RX: Ticagrelor [Brilinta] 90 mg PO BID #60 tablet Home Medications: Furosemide [Lasix] 20 mg PO DAILY 09/06/16 [History] Spironolactone [Aldactone] 25 mg PO DAILY 09/06/16 [History] Metoprolol XL (24 HR) Succ [Toprol Xl] 50 mg PO DAILY 09/15/16 [History] Warfarin [Coumadin] 5 mg PO DAILY 09/16/16 [History] Aspirin 81 mg PO DAILY #30 tab.chew 09/20/16 [Rx] Atorvastatin [Lipitor] 20 mg PO HS #30 tablet 09/20/16 [Rx] Enoxaparin [Lovenox] 90 mg SQ Q12HCO syringe 09/20/16 [Rx] Lisinopril [Zestril] 2.5 mg PO DAILY #30 tablet 09/20/16 [Rx] Metformin [Glucophage] 500 mg PO BIDWM #60 tablet 09/20/16 [Rx] Ticagrelor [Brilinta] 90 mg PO BID #60 tablet 09/20/16 [Rx] Allergies/Adverse Reactions: Allergies Sulfa (Sulfonamide Antibiotics) Allergy (Verified 09/06/16 07:54) Hives Procedures/tests Complete & Pending: Procedures Performed prior 72 hours Category Date Time Status CL Cardiac Catheterization [CL] Routine In Store Banker 09/19/16 08:00 Ordered - Notes to Outpatient Provider 1. Patient has elevated glucose, consider mild diabetes, metformin 500 mg twice a day added to home medication list. Please follow up hemoglobin A1c and glucose level as outpatient. Date of admission: 09/15/16 09:26 Primary care physician: Kassy Adonro CNP Consults: 09/16/16 09:55 Consult to Cardiology [CONS] Routine Comment: Consulting Provider: [facility] Reason for Consult: Acute CHF, new reduction in EF Call Completed: Yes 09/16/16 11:34 Consult to Position Classification Manager [CONS] Routine Comment: 09/19/16 13:44 Consult to Cardiac Rehabilitation-Phase1 [CONS] Routine Comment: Reason for Consult: CAD s/p PCI, CHF Call Completed: No Discharging clinician: Mynor Zhou Anticipated date of discharge: 09/20/16 - Patient Status Disposition: Home, Self-Care Condition: Good Functional capacity at discharge: independent ambulation - Discharge Instructions Follow Up With: Kassy Adorno CNP [Primary Care Provider] - 09/26/16 9:00 am ( ) Additional Instructions: F/U with [facility] in one week. - Diet and Activity Diet: diabetic diet, low salt diet Interval History: Ms. Alfonzo is a 51 year old female with past medical history included right upper extremity DVT, hypertension, anxiety, diabetes mellitus, hyperlipidemia, cervical cancer several years ago, tobacco abuse. She presented with complaints of acute onset shortness of breath which started last night. She reports having 3 days of cough productive of sputum and associated chills without fever. However last night she developed shortness of breath and wheezing. She had earlier presented to her buyer liaison's office for evaluation and he had requested a CAT scan to rule out PE. However, patient presented to the ER in the early hours of the morning with same complains Per EMR patient was found to be hypoxic by EMS and hypoxic on admission to the ER, she was also febrile, tachycardic and tachypneic. She denies sick contacts , she denies recent travels, she denies receiving her flu shot this season. She denies worsening lower extremity edema, but reports dyspnea and dyspnea on exertion. She denies chest pain or palpitations. She denies nausea, vomiting, or change in bowel movements. She denies change in urinary symptoms. She reports a history of anxiety and she smokes for several years. She reports compliance with her home medications she follows up with her PCP regularly and her routine screening is up to date, her last mammogram was normal, ~2-3 years ago In ER, she was found to be febrile, T 100.5, tachycardic, tachypneic up to 40s and hypoxic, with normal BP. Her work up shows an essentially normal CBC, no leukocytosis, she has microcytosis, PLT count WNL, Chem reveals mild hyponatremia and hyperglycemia, troponin is elevated at 0.05, BNP 1011, Coagulation panel revealed an INR of 3.9 A1C done 09/14/16 was 8.4% Imaging reviewed: Chest CTA showed no PE, however, it revealed R axillary lymphadenopathy, R breast skin thickening, medicastinal lymphadenopathy, bilateral airspace opacities suggestive of inflammatory or infectious origin. EKG reviewed at bedside, IRBBB, Sinus tachycardia, RAD, LAE, no ST segment changes She will be admitted for management of Acute hypoxic respiratory failure secondary to HCAP, COPD exacerbation, CHF exacerbation, Supratherapeutic INR. Hospital course: Ms. Mjeía is a 51 year old female admitted for shortness of breath. Patient was treated with antibiotics for pneumonia. She was found new systolic CHF with LVEF 25%. Cardiology consult was called, patient had cardiac catheterization and stenting. After treatment, her condition has improved. Patient has no further chest pain, or shortness of breath. No fever, no cough. We will discharge patient home with Lasix, beta dre, and KANE inhibitor, and DAPT. Patient will follow-up with cardiology as outpatient. Patient has history of recently diagnosed DVT. Coumadin is interrupted because catheterization. Will resume Coumadin and bridged by Lovenox. Patient will follow up as outpatient to follow PT/INR on Monday (3 days later). I saw and examined the patient. She has a pain or shortness of breath, no cough , no WBC elevation. She has been on antibiotic for 4 days, would discontinue antibiotic. Patient's vitals are stable. Patient is stable to discharge home. Patient has elevated glucose level, consider mild diabetes. Will prescribe metformin 500 mg twice a day. Patient was educated for diet controlled and will follow-up as patient with PCP. Patient was educated and shows understanding of the importance of anticoagulation, and will follow up at anticoagulation clinic. - Time Spent with Patient Total time spent providing and/or coordinating discharge services: 40 minutes Greater than 30 minutes - Constitutional Vitals: Temp Pulse Resp BP Pulse Ox 97.2 F L 76 16 118/69 96 09/20/16 10:54 09/20/16 12:01 09/20/16 11:22 09/20/16 10:54 09/20/16 11:22 General appearance: Present: A&O X 3, obese, answers questions appropriately - Head Head exam: Present: atraumatic, normocephalic - Eye Eye exam: Present: PERRL, conjuntiva pink, sclera anicteric Pupils: Present: PERRL - Neck Neck exam general surgery: Present: supple, trachea midline. Absent: lymphadenopathy - Respiratory Respiratory exam: Present: CTAB. Absent: accessory muscle use, rales, rhonchi, wheezes - Cardiovascular Cardiovascular exam: Present: RRR, +S1, +S2. Absent: diastolic murmur, gallop, rubs, systolic murmur - GI/Abdominal GI/Abdominal exam: Present: normal bowel sounds, soft, no peritoneal signs. Absent: distended, tenderness - Extremities Exam Extremities exam: Present: warm, radial pulses palpable and symetrical. Absent : calf tenderness, cyanotic, pedal edema - Neurological Exam Neurological exam: Present: CN II-XII intact, oriented X3, no focal deficits. Absent: pronater drift, facial droop, speech deficit - Skin Skin exam: Present: dry, intact
[2016-09-20 16:10] VITALS: BP 122/68
[2016-09-20] MEDS ORDERED: *HR* Enoxaparin 100 MG/ML SYRINGE SQ SCH (18:00)
[2016-09-20] MEDS ORDERED: *HR* Warfarin 5 MG TABLET PO ONE (18:00)
--- NOTE | 2016-09-22 08:41 | Invasive Diagnostic Lab ---
Name: Madison Mejía Date of Study: 09/19/2016 Date: 1965 Ht: 163.0 cm /64.2 in Medical Record#: [id number] Age: 51 Wt: 92.1 kg / 203.05 lb Account/Order#: [id number] Gender: Female BSA: 1.97 Order #: [id number] Fluoro Dose: 1025 mGy BMI: 34.66 Procedure Physician: Tanner Cazares MD, [facility] Referring MD: Referring MD: Procedures Performed: LEFT HEART CATH IV Doppler BLD Flow 1st Vessel Stent w/ PTCA Single Major Vessel Stent w/ PTCA Single Major Vessel Indications: Non-Stemi Impressions: There is severe two vessel coronary artery disease. Patient had successful PTCA/Drug-Eluting Stent placement in the mid Circ and mid LAD. Recommendations: Optimal medical therapy of patient's disease. Aggressive risk factor modification. Patient being referred for cardiac rehab. History/Risk Factors: cancer DVT kidney stones Hypertension CHF Prior [place] Procedure Access obtained in the right Radial artery by percutaneous puncture Patient had successful PTCA/Drug-Eluting Stent placement in the mid Circ and LAD. A pressure tipped wire was advanced through the catheter into the LAD . Measurements of FFR were made during hyperemia induced by intracoronary adenosine. FFR Measurement 0.77 Complications: None Contrast: Isovue 112ml Closure Device: Mechanical Compression Hemodynamics: Pressures Site Systolic/ A Wave Diastolic/ V Wave End Diastolic/ Mean HR AO 66 50 58 LV 100 9 21 AO 123 34 76 LV 128 1 21 AO 146 51 90 AO 114 82 99 Pressures Site Systolic/ A Wave Diastolic/ V Wave End Diastolic/ Mean HR AO 112 33 65 88 LV 100 9 21 88 LV 128 1 21 84 AO 123 34 76 87 AO 146 51 90 93 AO 114 82 99 87 Coronary Dominance: right Lesion Findings/Interventions * Left Main Coronary Artery The LMCA is angiographically free of disease. * Left Anterior Descending There is a 16 mm long, 70-80% stenosis in the Mid LAD that was significant by FFR. The lesion has a RICHARD flow of 3 and has no thrombus present. An intervention was performed on the Mid LAD with a final stenosis of 0%. There were no lesion complications. The final RICHARD flow was 3. Diagonal had 50% stenosis * Circumflex There is a 38 mm long, 80% stenosis in the Mid Circumflex - ISR. The lesion has a RICHARD flow of 3 and has no thrombus present. An intervention was performed on the Mid Circumflex with a final stenosis of 0%. There were no lesion complications. The final RICHARD flow was 3. * Right Coronary Artery There is a 15% stenosis in the Mid RCA. Interventional Device(s) Vessel Segment Type Name Diameter (mm) Length (mm) Mid LAD Balloon Emerge Monorail 2.5 12 Mid LAD Drug Eluting Stent Synergy 2.5 16 Mid Circumflex Drug Eluting Stent Synergy 3.5 38 Mid Circumflex Balloon [place] Emerge 3.75 15 Updated by Maryan Thornton RT (R) on 09/19/2016 5:04:50 PM Tanner Cazares MD, FACC electronically signed on 09/22/2016 8:36:00 AM with status of Final
--- NOTE | 2016-09-22 23:21 | Internal Med Progress Note ---
Date of Encounter: 09/18/16 Time of Encounter: 14:00 - Assessment and plan (1) JAN (acute kidney injury) Status: Acute Assessment and plan: likely due to IV diuresis; patient still requires Lasix due to hypoxia ad pedal edema and noted LV systolic dysfunction on Echocardiogram; continue to monitor serum creatinine, will need IV hydration prior to [facility] in am; (2) Acute respiratory failure with hypoxia Status: Acute Assessment and plan: likely due to underlying acute CHF; O2 requirements improving with current management; continue to wean down FiO2 as tolerated; (3) Acute combined systolic and diastolic congestive heart failure Status: Acute Assessment and plan: Improving slowly. Cardiology recommends to continue diuresis despite worsening creatinine; Continue IV Lasix along with fluid restriction, strict intake/ urine output monitoring. Continue beta dre. Echocardiogram reviewed, shows a new reduction in ejection fraction to 25%, severe global left ventricular systolic dysfunction; Cardiology on board, plan for left heart catheterization on Monday09/19/16; (4) Elevated troponin Status: Resolved (5) Deep vein thrombosis (DVT) Status: Chronic Qualifiers: DVT location: upper extremity Affected thrombotic vein of extremity: other upper extremity vein Laterality: right Chronicity: acute Qualified Code(s) : I82.621 - Acute embolism and thrombosis of deep veins of right upper extremity (6) HTN (hypertension) Status: Chronic Qualifiers: Hypertension type: essential hypertension Qualified Code(s): I10 - Essential (primary) hypertension (7) Obesity Status: Chronic Qualifiers: Obesity type: due to excess calories Obesity severity: non-morbid Qualified Code(s): E66.09 - Other obesity due to excess calories (8) Congestive heart failure Status: Acute Qualifiers: Congestive heart failure type: diastolic Congestive heart failure chronicity: acute on chronic Qualified Code(s): I50.33 - Acute on chronic diastolic (congestive) heart failure (9) Pneumonia Status: Acute Qualifiers: Pneumonia type: due to unspecified organism Laterality: bilateral Lung location: unspecified part of lung Qualified Code(s): J18.9 - Pneumonia, unspecified organism (10) Supratherapeutic INR Status: Resolved (11) Abnormal CT of the chest Status: Chronic (12) Diabetes Status: Chronic Qualifiers: Diabetes mellitus type: type 2 Diabetes mellitus complication status: without complication Diabetes mellitus intermodal customer service insulin use: without group home use Qualified Code(s): E11.9 - Type 2 diabetes mellitus without complications (13) CAD (coronary artery disease) Status: Chronic Qualifiers: Coronary Disease-Associated Artery/Lesion type: [place] artery [place] vs. transplanted heart: [place] heart Associated angina: without angina Qualified Code(s): I25.10 - Atherosclerotic heart disease of [place] coronary artery without angina pectoris - Subjective Interval history: Denies chest pain, dyspnea, palpitations; does have some leg swelling; awaiting [facility] tomorrow; - Constitutional Vitals: Temp Pulse Resp BP Pulse Ox 97.7 F 73 18 122/68 96 09/20/16 16:03 09/20/16 16:03 09/20/16 16:15 09/20/16 16:03 09/20/16 16:15 General appearance: Present: A&O X 3, obese, answers questions appropriately - Respiratory Respiratory exam: Present: CTAB. Absent: accessory muscle use, rales, rhonchi, wheezes - Cardiovascular Cardiovascular exam: Present: RRR, +S1, +S2. Absent: diastolic murmur, gallop, rubs, systolic murmur - GI/Abdominal GI/Abdominal exam: Present: normal bowel sounds, soft, no peritoneal signs. Absent: distended, tenderness - Extremities Exam Extremities exam: Present: full ROM, pedal edema, warm, radial pulses palpable and symetrical. Absent: calf tenderness, cyanotic - Neurological Exam Neurological exam: Present: CN II-XII intact, oriented X3, no focal deficits. Absent: pronater drift, facial droop, speech deficit Internal Medicine: Result - Labs CBC & Chem 7: 09/19/16 00:20 09/20/16 04:04 - ABG Interpretation ABG results: PT/INR, D-dimer PT 15.5 Seconds (9.4-12.1) H 09/20/16 04:04 Consult Discharge Plan - Plan Instructions: Lisinopril (By mouth), Aspirin (By mouth), Metformin (By mouth), Atorvastatin (By mouth), Ticagrelor (By mouth), Meal Planning with Diabetes Exchanges (DC), Vitamin K in Foods (DC), Pneumonia (DC) Additional Instructions: RISK FACTORS: STOP SMOKING: If you smoke, STOP. Smoking or tobacco use significantly increases your risk of heart disease because nicotine causes the arteries to narrow or constrict. It also causes fats to stick to the artery. Your chances of having a heart attack are greatly increased if you continue to smoke. For more information, call the education line for smoking cessation 3-383-RZPGDFZ EAT A LOW FAT/CHOLESTEROL/SODIUM DIET: This diet may help reduce your chances of having a heart attack. LIFTING: With affected extremity: Avoid bending, pushing off and lifting more than 2 pounds for 24 hours The following 48 hours, avoid lifting anything more than 5 pounds Avoid strenuous activity or repetitive motions ACTIVITY: You may walk or climb stairs as tolerated You can resume sexual activity as tolerated In general, you are encouraged to engage in a minimum of 30 minutes or more of moderate intensity physical activity, such as brisk walking, daily or at least 3 -4 times weekly BATHING Do not submerge the site into water (bath tub, hot tub, swimming pool, dishes) for 1 week. This can be a source for infection into the blood stream. You may shower after 24 hours SITE CARE: After 24 hours, you may remove the dressing and leave the site open to air. Keep the site clean and dry. Clean gently and pat dry. You can expect bruising and tenderness that gradually resolve within a week or two. Return to work as instructed per your physician Resume driving as instructed per physician Keep all scheduled follow up appointments Resume medications as instructed IMPORTANT: If prescribed a Platelet Aggregation Inhibitor such as, Plavix, Brilinta or Effient: Duration of therapy is minimum one year These medications are often used in combination with Aspirin in prevention of future heart attacks Never discontinue unless consult with your Evs Tech STROKE (CVA) Risk factors for a stroke are: Age, cigarette smoking, diabetes, excessive alcohol consumption, family history, high blood pressure, overweight, physical inactivity, prior stroke, heart attack, diagnosis of carotid artery stenosis or other artery disease. Warning signs: Sudden numbness or weakness of the face, arm or leg; especially on one side of the body, sudden confusion, trouble speaking or understanding, sudden trouble seeing in one or both eyes, sudden trouble walking, dizziness, loss of balance or coordination, sudden severe headache with no cause. Call 911 or go to the Emergency Room. CONGESTIVE HEART FAILURE: If you have been diagnosed with Congestive Heart Failure (CHF) and your symptoms return, make an appointment with your physician Weigh yourself daily. Notify your physician if you have a weight gain of two or more pounds in one day or five or more pounds in one week. If you experience any difficulty breathing, please call 911 BLEEDING: Although the risk of bleeding is minimal, it can happen. If you have any bleeding from the site, apply firm pressure above the puncture site for 10-15 minutes. If the bleeding does not stop, continue manual pressure and call 911 Contact [facility] ( ) if: You develop a fever greater than 101 degrees Fahrenheit Your site becomes reddened or has any drainage You have an increase in pain or burning at the site or if a large knot forms at the site. If you experience chest pain, shortness of breath, dizziness, or extreme tiredness, stop the activity and rest. Please notify [facility] office if you experience any of these symptoms and they are not relieved by rest please call 911!F/U with [facility] in one week. Referrals: [facility], CLINIC [Other] - 09/22/16 8:30 am (YOUR FIRST VISIT WILL BE 1 HOUR. PLEASE TAKE WITH YOU TO YOUR APPOINTMENT YOUR BOTTLE OF [place], AND PICTURE ID, AND INS. CARD. THANKS) Kassy Adorno CNP [Primary Care Provider] - 09/26/16 9:00 am ( ) Prescriptions: Aspirin 81 mg PO DAILY #30 tab.chew Atorvastatin [Lipitor] 20 mg PO HS #30 tablet Lisinopril [Zestril] 2.5 mg PO DAILY #30 tablet Metformin [Glucophage] 500 mg PO BIDWM #60 tablet Ticagrelor [Brilinta] 90 mg PO BID #60 tablet
--- NOTE | 2016-09-26 15:05 | Internal Med Progress Note ---
Date of Encounter: 09/19/16 Time of Encounter: 15:00 - Assessment and plan (1) JAN (acute kidney injury) Status: Acute Assessment and plan: serum creatinine slightly worse; continue to monitor; at risk for renal failure due to cardiac catheterization and contrast; to receive IV fluids prior to cath; (2) Acute respiratory failure with hypoxia Status: Acute Assessment and plan: likely due to underlying acute CHF; O2 requirements improving with current management; continue to wean down FiO2 as tolerated; home O2 evaluation at discharge; (3) Acute combined systolic and diastolic congestive heart failure Status: Acute Assessment and plan: Improving slowly. Continue PO Lasix along with fluid restriction, strict intake/ urine output monitoring. Continue beta dre. Echocardiogram reviewed, shows a new reduction in ejection fraction to 25%, severe global left ventricular systolic dysfunction; Cardiology on board, underwent left heart catheterization today showing 2 vessel CAD, received 2 EFRAIN to mid-circumflex and mid-LAD; (4) Elevated troponin Status: Resolved (5) Deep vein thrombosis (DVT) Status: Chronic Assessment and plan: continue IV heparin drip, plan to restart oral Coumadin tonight; Qualifiers: DVT location: upper extremity Affected thrombotic vein of extremity: other upper extremity vein Laterality: right Chronicity: acute Qualified Code(s) : I82.621 - Acute embolism and thrombosis of deep veins of right upper extremity (6) HTN (hypertension) Status: Chronic Qualifiers: Hypertension type: essential hypertension Qualified Code(s): I10 - Essential (primary) hypertension (7) Obesity Status: Chronic Qualifiers: Obesity type: due to excess calories Obesity severity: non-morbid Qualified Code(s): E66.09 - Other obesity due to excess calories (8) Congestive heart failure Status: Acute Qualifiers: Congestive heart failure type: diastolic Congestive heart failure chronicity: acute on chronic Qualified Code(s): I50.33 - Acute on chronic diastolic (congestive) heart failure (9) Pneumonia Status: Acute Assessment and plan: Follow-up blood cultures and continue IV Levaquin. Blood cultures negative so far; Viral serology positive for RSV. Continue supportive care and supplemental oxygen. Strep pneumoniae throat swab negative; chlorhexidine throat spray PRN; Qualifiers: Pneumonia type: due to unspecified organism Laterality: bilateral Lung location: unspecified part of lung Qualified Code(s): J18.9 - Pneumonia, unspecified organism (10) Supratherapeutic INR Status: Resolved (11) Abnormal CT of the chest Status: Chronic (12) Diabetes Status: Chronic Assessment and plan: Continue Accu-Chek blood glucose monitoring with sliding scale insulin. Diabetic diet. Qualifiers: Diabetes mellitus type: type 2 Diabetes mellitus complication status: without complication Diabetes mellitus nursing home insulin use: without nursing home use Qualified Code(s): E11.9 - Type 2 diabetes mellitus without complications (13) CAD (coronary artery disease) Status: Chronic Assessment and plan: [facility] results as above; s/p EFRAIN*2; continue ASA, Brilinta, beta-dre and statin ; Qualifiers: Coronary Disease-Associated Artery/Lesion type: [place] artery [place] vs. transplanted heart: havas[place]ai heart Associated angina: without angina Qualified Code(s): I25.10 - Atherosclerotic heart disease of havas[place] coronary artery without angina pectoris - Subjective Interval history: Denies chest pain, dyspnea, palpitations; returned from heart catheterization; no bleeding/ecchymoses at right wrist; - Constitutional Vitals: Temp Pulse Resp BP Pulse Ox 97.7 F 73 18 122/68 96 09/20/16 16:03 09/20/16 16:03 09/20/16 16:15 09/20/16 16:03 09/20/16 16:15 General appearance: Present: A&O X 3, obese, answers questions appropriately - Respiratory Respiratory exam: Present: CTAB. Absent: accessory muscle use, rales, rhonchi, wheezes - Cardiovascular Cardiovascular exam: Present: RRR, +S1, +S2. Absent: diastolic murmur, gallop, rubs, systolic murmur - GI/Abdominal GI/Abdominal exam: Present: normal bowel sounds, soft, no peritoneal signs. Absent: distended, tenderness Internal Medicine: Result - Labs CBC & Chem 7: 09/19/16 00:20 09/20/16 04:04 - ABG Interpretation ABG results: PT/INR, D-dimer PT 15.5 Seconds (9.4-12.1) H 09/20/16 04:04 Consult Discharge Plan - Plan Instructions: Lisinopril (By mouth), Aspirin (By mouth), Metformin (By mouth), Atorvastatin (By mouth), Ticagrelor (By mouth), Meal Planning with Diabetes Exchanges (DC), Vitamin K in Foods (DC), Pneumonia (DC) Additional Instructions: RISK FACTORS: STOP SMOKING: If you smoke, STOP. Smoking or tobacco use significantly increases your risk of heart disease because nicotine causes the arteries to narrow or constrict. It also causes fats to stick to the artery. Your chances of having a heart attack are greatly increased if you continue to smoke. For more information, call the education line for smoking cessation 9-281-GBBUOCB EAT A LOW FAT/CHOLESTEROL/SODIUM DIET: This diet may help reduce your chances of having a heart attack. LIFTING: With affected extremity: Avoid bending, pushing off and lifting more than 2 pounds for 24 hours The following 48 hours, avoid lifting anything more than 5 pounds Avoid strenuous activity or repetitive motions ACTIVITY: You may walk or climb stairs as tolerated You can resume sexual activity as tolerated In general, you are encouraged to engage in a minimum of 30 minutes or more of moderate intensity physical activity, such as brisk walking, daily or at least 3 -4 times weekly BATHING Do not submerge the site into water (bath tub, hot tub, swimming pool, dishes) for 1 week. This can be a source for infection into the blood stream. You may shower after 24 hours SITE CARE: After 24 hours, you may remove the dressing and leave the site open to air. Keep the site clean and dry. Clean gently and pat dry. You can expect bruising and tenderness that gradually resolve within a week or two. Return to work as instructed per your physician Resume driving as instructed per physician Keep all scheduled follow up appointments Resume medications as instructed IMPORTANT: If prescribed a Platelet Aggregation Inhibitor such as, Plavix, Brilinta or Effient: Duration of therapy is minimum one year These medications are often used in combination with Aspirin in prevention of future heart attacks Never discontinue unless consult with your Hog Slaughterer STROKE (CVA) Risk factors for a stroke are: Age, cigarette smoking, diabetes, excessive alcohol consumption, family history, high blood pressure, overweight, physical inactivity, prior stroke, heart attack, diagnosis of carotid artery stenosis or other artery disease. Warning signs: Sudden numbness or weakness of the face, arm or leg; especially on one side of the body, sudden confusion, trouble speaking or understanding, sudden trouble seeing in one or both eyes, sudden trouble walking, dizziness, loss of balance or coordination, sudden severe headache with no cause. Call 911 or go to the Emergency Room. CONGESTIVE HEART FAILURE: If you have been diagnosed with Congestive Heart Failure (CHF) and your symptoms return, make an appointment with your physician Weigh yourself daily. Notify your physician if you have a weight gain of two or more pounds in one day or five or more pounds in one week. If you experience any difficulty breathing, please call 911 BLEEDING: Although the risk of bleeding is minimal, it can happen. If you have any bleeding from the site, apply firm pressure above the puncture site for 10-15 minutes. If the bleeding does not stop, continue manual pressure and call 911 Contact [facility] ( ) if: You develop a fever greater than 101 degrees Fahrenheit Your site becomes reddened or has any drainage You have an increase in pain or burning at the site or if a large knot forms at the site. If you experience chest pain, shortness of breath, dizziness, or extreme tiredness, stop the activity and rest. Please notify [facility] office if you experience any of these symptoms and they are not relieved by rest please call 911!F/U with [facility] in one week. Referrals: [facility] [Other] - 09/22/16 8:30 am (YOUR FIRST VISIT WILL BE 1 HOUR. PLEASE TAKE WITH YOU TO YOUR APPOINTMENT YOUR BOTTLE OF [place], AND PICTURE ID, AND INS. CARD. THANKS) Kassy Adorno CNP [Primary Care Provider] - 09/26/16 9:00 am ( ) Prescriptions: Aspirin 81 mg PO DAILY #30 tab.chew Atorvastatin [Lipitor] 20 mg PO HS #30 tablet Lisinopril [Zestril] 2.5 mg PO DAILY #30 tablet Metformin [Glucophage] 500 mg PO BIDWM #60 tablet Ticagrelor [Brilinta] 90 mg PO BID #60 tablet
== END 2016-09-20 17:28 | disposition home or self-care (01) | DRG 246 ==
LOC: EMEROO 02:03 → 2ANU 02:03 → SUATTDRO 09:26 → 2NNU 09-17 10:16
PROVIDERS: ADMIT Internal Medicine; ATTEND Internal Medicine

== ENCOUNTER 2017-03-19 15:23 | Inpatient (IN) ==
[2017-03-19] MEDS ORDERED: Ondansetron 4 MG/2 ML VIAL IVP ONE (17:25)
[2017-03-19] MEDS ORDERED: *HR* Morphine 2 MG/ML SYRINGE IVP ONE (17:25)
--- NOTE | 2017-03-19 17:43 | Emergency Department Note ---
Disposition Clinical Impression: Sepsis, Pyelonephritis, Hydronephrosis with obstructing calculus Disposition: Admitted As Inpatient Condition: Critical Time of Disposition: 19:33 Abdominal Pain HPI - General Chief Complaint: ED Abdominal Pain Stated Complaint: abd pain Time Seen by Provider: 03/19/17 17:13 Source: patient Nursing Notes Reviewed: Yes Vital Signs Reviewed: Yes - History of Present Illness HPI Narrative: 51-year-old female past medical history of kidney stones with obstructions, coronary artery disease, reports to the emergency department after 2 day history of right flank pain that radiates into her right lower quadrant of her abdomen. Patient reports subjective fever, intermittent nausea and vomiting. Patient states this feels like she has another kidney stone. Pain Scale: 8 - Related Data Home Medications Medication Instructions Recorded Confirmed Furosemide [Lasix] 20 mg PO DAILY 09/06/16 10/20/16 Spironolactone [Aldactone] 25 mg PO DAILY 09/06/16 10/20/16 Metoprolol XL (24 HR) Succ [Toprol 50 mg PO DAILY 09/15/16 10/20/16 Xl] Warfarin [Coumadin] 5 mg PO DAILY 09/16/16 10/20/16 Previous Rx's Medication Instructions Recorded Aspirin 81 mg PO DAILY #30 tab.chew 09/20/16 Atorvastatin [Lipitor] 20 mg PO HS #30 tablet 09/20/16 Lisinopril [Zestril] 2.5 mg PO DAILY #30 tablet 09/20/16 Ticagrelor [Brilinta] 90 mg PO BID #60 tablet 09/20/16 metFORMIN [Glucophage] 500 mg PO BIDWM #60 tablet 09/20/16 HYDROcodone/Acet 5/325 mg [Lena 1 tab PO Q6H PRN #6 tab 12/13/16 5-325 mg] Nitrofurantoin Macrocrystal 100 mg PO BID #10 capsule 12/13/16 [Nitrofurantoin] Allergies Allergy/AdvReac Type Severity Reaction Status Date / Time Calvin Allergy Hives Verified 01/06/17 09:26 Sulfa (Sulfonamide Allergy Hives Verified 01/06/17 09:26 Antibiotics) Tomato Allergy Hives Verified 01/06/17 09:26 All systems ED: reviewed and negative except as stated. Review of Systems: As Per HPI Constitutional: Reports: fever, chills Eyes: Denies: eye discharge ENT ED: Denies: ear pain Cardiovascular: Denies: chest pain, palpitations, dyspnea on exertion Respiratory: Denies: cough, dyspnea, wheezes Gastrointestinal: Reports: abdominal pain, nausea, vomiting Genitourinary: Reports: dysuria, hematuria. Denies: urgency, frequency Musculoskeletal: Reports: back pain Integumentary: Denies: rash Neurological: Denies: headache Endocrine: Reports: fatigue Abdominal Pain PMH - Past Medical History Medical history: Reports: DVT, kidney stones, myocardial infarction, other Female Surgical History: Reports: angioplasty/stent [employer] history: Reports: spontaneous , ectopic Psychiatric history: Reports: anxiety - Social History Smoking status: Current every day smoker Alcohol use: Reports: none Drug use: Reports: opiates Physical Exam General: 51-year-old female appears diaphoretic, appears as if she does not feel well Head: autraumatic, EOMI, no conjuncitval pallor, no scleral icterus, Mouth: oral mucous membranes moist Neck: neck soft, trachea midline Chest:: Equal chest wall rise Lungs: Normal lungs sounds bilaterally, no wheezes, no respiratory distress Heart: normal heart sounds, normal rate and rhythm, Abdomen: soft, non-tender, no rigidity, no guarding, no rebdound tenderness Lower Extremities: no pedal edema, calves non-tender Integumentary: Skin warm, dry, and intact Neuro: Alert Psych: normal affect, normal mood Back: No erythema, scars, rashes, right CVA tenderness. - General Limitations: no limitations General appearance: alert, in no apparent distress Course Course Narrative: 51-year-old female who is his emergency department stating that she feels like she has another kidney stone. She complained of right flank pain intermittent nausea vomiting. Patient was febrile on admission to the emergency department as well as tachycardic. She met SIRS criteria. At this time, due to this patient's history of obstructive stones, we will obtain a CT scan of her abdomen and pelvis without contrast to rule out an obstructive stone. We have also obtained a urinalysis, CBC, CMP, electrocardiogram, troponin is his patient does have a previous history of coronary artery disease with stent placement. Patient has been provided morphine as well as Zofran and 2 L of normal saline. - Reevaluation(s) Reevaluation #1: CT of the abdomen and pelvis report a 1.4 cm stone impacted at the left ureteropelvic junction causes severe left shoulder uropathy. Bilateral nephrolithiasis is also seen. Patient has elevated leukocytosis of 18.1. Patient's urine is hematuria, nitrite positive and leukocyte esterase positive. Dr. Redmond, the urologist was spoken to with a [id number] consultation regarding definitive care for this patient. He stated that he would pick this patient medially to the operating room for stent placement for her obstructive stone. He also stated that he had concern due to emphysematous changes within the renal pelvis collecting system. He wanted this patient placed in the intensive care unit. I spoke to the hospitalist Dr. Lyles on the phone and he agreed with admitting this patient to the intensive care unit. Have given this patient 1 g of Rocephin intravenously. I have also provided her with 2.5 L of 9% normal saline via sepsis protocol. Patient's currently hemodynamically stable as she left the emergency department for the operating room. Abdomen/Pelvis CT 03/19/17 17:18 IMPRESSION: 1.4 cm stone impacted at the left ureteric pelvic junction causing severe left obstructive uropathy. Bilateral nephrolithiasis also seen. D/ / 03/19/2017 17:49:19 Estef[facility] Figueroa [facility] Interpreting Provider: Estefany Figueroa MD Vital Signs Temperature 101.7 F H 03/19/17 15:39 Pulse Rate 101 03/19/17 15:39 Respiratory Rate 16 03/19/17 15:39 Blood Pressure 130/75 03/19/17 15:39 O2 Sat by Pulse Oximetry 98 03/19/17 15:39 Temperature 101.7 F H 03/19/17 15:39 Pulse Rate 98 03/19/17 18:36 Respiratory Rate 18 03/19/17 18:36 Blood Pressure 154/83 03/19/17 18:36 O2 Sat by Pulse Oximetry 97 03/19/17 18:21 Oxygen Delivery Oxygen Delivery Room Air Time: 19:33 Vital Signs Temperature 101.7 F H 03/19/17 15:39 Pulse Rate 101 03/19/17 15:39 Respiratory Rate 16 03/19/17 15:39 Blood Pressure 130/75 03/19/17 15:39 O2 Sat by Pulse Oximetry 98 03/19/17 15:39 Temperature 98.4 F 03/19/17 21:23 Pulse Rate 91 03/19/17 21:46 Respiratory Rate 18 03/19/17 21:46 Blood Pressure 95/53 03/19/17 21:46 O2 Sat by Pulse Oximetry 92 03/19/17 21:46 Oxygen Delivery Oxygen Delivery Room Air Abdominal Pain - Medical Records Medical records reviewed: Yes I reviewed the patient's medical records. - Lab Data Lab results reviewed: Yes I reviewed the patient's lab results. Result diagrams: 03/19/17 17:55 03/19/17 17:55 Lab Results 03/19/17 03/19/17 03/19/17 Range/Units 17:32 17:55 17:55 WBC 18.8 H (4.3-11.1) K/mcL RBC 5.00 H (3.82-4.97) M/mcL Hgb 13.9 (11.5-15.4) g/dL Hct 41.9 (35.3-44.9) % MCV 83.8 (83.0-100.0) fL MCH 27.8 L (28.0-33.3) pg MCHC 33.2 (31.6-35.5) g/dL RDW 15.1 H (11.5-14.5) % Plt Count 163 (140-400) K/mcL MPV 9.4 (9.4-12.4) fL Immature Gran % 1.2 (0-4) % Seg Neutrophils % 91.2 % Lymphocytes % 3.0 % Monocytes % 4.3 % Eosinophils % 0.1 % Basophils % 0.2 % Neutrophils # 17.2 H (1.6-8.9) K/mcL Lymphocytes # 0.6 (0.6-4.6) K/mcL Monocytes # 0.8 (0.0-1.3) K/mcL Eosinophils # 0.0 (0.0-0.6) K/mcL Basophils # 0.0 (0.0-0.2) K/mcL PT 15.2 H (9.4-12.1) Seconds INR 1.4 Sodium (136-145) mEq/L Potassium (3.5-4.5) mEq/L Chloride (98-109) mEq/L Carbon Dioxide (19-29) mEq/L BUN (7-20) mg/dL Creatinine (0.57-1.11) mg/dL Est GFR ( Amer) (> 60) Est GFR (Non-Af Amer) (> 60) BUN/Creatinine Ratio (6-26) Glucose (70-99) mg/dL Calculated Osmolality (280-300) Lactic Acid (0.5-2.2) mmol/L Calcium (8.6-10.8) mg/dL Total Bilirubin (0.2-1.2) mg/dL AST (5-34) Units/L ALT (0-55) Units/L Alkaline Phosphatase (38-126) Units/L Troponin I (0-0.03) ng/mL Serum Total Protein (6.0-8.3) g/dL Albumin (3.5-5.0) g/dL Globulin (2.4-3.5) g/dL Albumin/Globulin Ratio (1.1-2.2) Urine Color Yellow (Yellow) Urine Clarity Cloudy A (Clear) Urine pH 6.0 (5.0-8.0) pH Units Ur Specific [place] 1.022 (1.010-1.025) Urine Protein 100 H (Neg-Trace) mg/dL Urine Glucose (UA) 500 H (Normal) mg/dL Urine Ketones Negative (Negative) mg/dL Urine Blood Moderate H (Negative) Urine Nitrite Positive A (Negative) Urine Bilirubin Negative (Negative) Urine Urobilinogen Normal (Normal) mg/dL Ur Leukocyte Esterase Moderate H (Negative) Urine Microscopic RBC 5-15 H (0-3) per hpf Urine Microscopic WBC TNTC H (0-3) per hpf Ur Squamous Epith Cells Many H (None-Few) per lpf Urine Bacteria Many H (None-Few) per hpf Hyaline Casts None Seen (None-Few) per lpf Ur Culture Indicated? YES A (NO) Specimen Rejected 03/19/17 03/19/17 03/19/17 Range/Units 17:55 17:55 17:55 WBC (4.3-11.1) K/mcL RBC (3.82-4.97) M/mcL Hgb (11.5-15.4) g/dL Hct (35.3-44.9) % MCV (83.0-100.0) fL MCH (28.0-33.3) pg MCHC (31.6-35.5) g/dL RDW (11.5-14.5) % Plt Count (140-400) K/mcL MPV (9.4-12.4) fL Immature Gran % (0-4) % Seg Neutrophils % % Lymphocytes % % Monocytes % % Eosinophils % % Basophils % % Neutrophils # (1.6-8.9) K/mcL Lymphocytes # (0.6-4.6) K/mcL Monocytes # (0.0-1.3) K/mcL Eosinophils # (0.0-0.6) K/mcL Basophils # (0.0-0.2) K/mcL PT (9.4-12.1) Seconds INR Sodium 132 L (136-145) mEq/L Potassium 3.5 (3.5-4.5) mEq/L Chloride 97 L (98-109) mEq/L Carbon Dioxide 24 (19-29) mEq/L BUN 23 H (7-20) mg/dL Creatinine 1.79 H (0.57-1.11) mg/dL Est GFR ( Amer) 36 L (> 60) Est GFR (Non-Af Amer) 30 L (> 60) BUN/Creatinine Ratio 13 (6-26) Glucose 171 H (70-99) mg/dL Calculated Osmolality 282 (280-300) Lactic Acid 3.3 H (0.5-2.2) mmol/L Calcium 9.5 (8.6-10.8) mg/dL Total Bilirubin 1.0 (0.2-1.2) mg/dL AST 19 (5-34) Units/L ALT 21 (0-55) Units/L Alkaline Phosphatase 119 (38-126) Units/L Troponin I 0.11 H* (0-0.03) ng/mL Serum Total Protein 7.0 (6.0-8.3) g/dL Albumin 2.5 L (3.5-5.0) g/dL Globulin 4.5 H (2.4-3.5) g/dL Albumin/Globulin Ratio 0.6 L (1.1-2.2) Urine Color (Yellow) Urine Clarity (Clear) Urine pH (5.0-8.0) pH Units Ur Specific [place] (1.010-1.025) Urine Protein (Neg-Trace) mg/dL Urine Glucose (UA) (Normal) mg/dL Urine Ketones (Negative) mg/dL Urine Blood (Negative) Urine Nitrite (Negative) Urine Bilirubin (Negative) Urine Urobilinogen (Normal) mg/dL Ur Leukocyte Esterase (Negative) Urine Microscopic RBC (0-3) per hpf Urine Microscopic WBC (0-3) per hpf Ur Squamous Epith Cells (None-Few) per lpf Urine Bacteria (None-Few) per hpf Hyaline Casts (None-Few) per lpf Ur Culture Indicated? (NO) Specimen Rejected 03/19/17 Range/Units 19:44 WBC (4.3-11.1) K/mcL RBC (3.82-4.97) M/mcL Hgb (11.5-15.4) g/dL Hct (35.3-44.9) % MCV (83.0-100.0) fL MCH (28.0-33.3) pg MCHC (31.6-35.5) g/dL RDW (11.5-14.5) % Plt Count (140-400) K/mcL MPV (9.4-12.4) fL Immature Gran % (0-4) % Seg Neutrophils % % Lymphocytes % % Monocytes % % Eosinophils % % Basophils % % Neutrophils # (1.6-8.9) K/mcL Lymphocytes # (0.6-4.6) K/mcL Monocytes # (0.0-1.3) K/mcL Eosinophils # (0.0-0.6) K/mcL Basophils # (0.0-0.2) K/mcL PT (9.4-12.1) Seconds INR Sodium (136-145) mEq/L Potassium (3.5-4.5) mEq/L Chloride (98-109) mEq/L Carbon Dioxide (19-29) mEq/L BUN (7-20) mg/dL Creatinine (0.57-1.11) mg/dL Est GFR ( Amer) (> 60) Est GFR (Non-Af Amer) (> 60) BUN/Creatinine Ratio (6-26) Glucose (70-99) mg/dL Calculated Osmolality (280-300) Lactic Acid (0.5-2.2) mmol/L Calcium (8.6-10.8) mg/dL Total Bilirubin (0.2-1.2) mg/dL AST (5-34) Units/L ALT (0-55) Units/L Alkaline Phosphatase (38-126) Units/L Troponin I (0-0.03) ng/mL Serum Total Protein (6.0-8.3) g/dL Albumin (3.5-5.0) g/dL Globulin (2.4-3.5) g/dL Albumin/Globulin Ratio (1.1-2.2) Urine Color (Yellow) Urine Clarity (Clear) Urine pH (5.0-8.0) pH Units Ur Specific [place] (1.010-1.025) Urine Protein (Neg-Trace) mg/dL Urine Glucose (UA) (Normal) mg/dL Urine Ketones (Negative) mg/dL Urine Blood (Negative) Urine Nitrite (Negative) Urine Bilirubin (Negative) Urine Urobilinogen (Normal) mg/dL Ur Leukocyte Esterase (Negative) Urine Microscopic RBC (0-3) per hpf Urine Microscopic WBC (0-3) per hpf Ur Squamous Epith Cells (None-Few) per lpf Urine Bacteria (None-Few) per hpf Hyaline Casts (None-Few) per lpf Ur Culture Indicated? (NO) Specimen Rejected Hemolyzed - Radiology Data Radiology results reviewed: Yes I reviewed the patient's radiology results. - EKG Data EKG attestation: Yes I reviewed and interpreted this EKG. EKG results narrative: 19:48 Ventricular rate 102 bpm, AL interval 123 ms, QRS duration 97 ms, QT 346 ms, QTC 405 ms, normal axis. Sinus tachycardia with a ventricular rate of 102 beats per minute. There is no evidence of ischemic ST-T changes noted. Attestation Statement - Attestation Attestation: I examined this patient and my medical decision-making was reviewed with the Resident Physician. I agree with the documented findings, disposition and treatment plan as described except to the extent set forth below. Sepsis in the setting of kidney stone. Possibility of infected stone. Patient will be taken emergently to the operating room. Broad-spectrum antibiotics as well as IV fluids administered. I think greater than 35 minutes of critical care time resuscitated in this acutely ill patient suffering from sepsis. This is excluding billable procedures procedures.
[2017-03-19 17:48] LABS: Bilirubin,Urine Negative (Negative); Blood,Urine Moderate (Negative); Clarity,Urine Cloudy (Clear); Color,Urine Yellow (Yellow); Glucose,Urine (UA) 500 mg/dL (Normal); Ketones,Urine Negative (Negative); Leukocyte Esterase,Urine Moderate (Negative); Nitrite,Urine Positive (Negative); Protein,Urine 100 mg/dL (Neg-Trace); Specific Gravity,Urine 1.022 (1.010-1.025); Urobilinogen,Urine Normal (Normal)
[2017-03-19 17:50] LABS: Bacteria,Urine Many per hpf (None-Few); Hyaline Casts,Urine None Seen per lpf (None-Few); Squamous Epithelial Cell,Urine Many per lpf (None-Few); WBC,Urine TNTC per hpf (0-3)
[2017-03-19] MEDS ORDERED: *HR* HYDROmorphone (PF) 1 MG/ML SYRINGE IVP ONE (17:55)
[2017-03-19 18:05] LABS: Basophils % 0.2 %; Eosinophils % 0.1 %; Hematocrit 41.9 % (35.3-44.9); Hemoglobin 13.9 g/dL (11.5-15.4); Immature Granulocytes % 1.2 % (0-4); Lymphocytes # 0.6 K/mcL (0.6-4.6); Mean Corpuscular HGB Conc 33.2 g/dL (31.6-35.5); Mean Corpuscular Hemoglobin 27.8 pg (28.0-33.3); Mean Corpuscular Volume 83.8 fL (83.0-100.0); Mean Platelet Volume 9.4 fL (9.4-12.4); Monocytes # 0.8 K/mcL (0.0-1.3); Monocytes % 4.3 %; Neutrophils # 17.2 K/mcL (1.6-8.9); Platelet Count 163 K/mcL (140-400); Red Cell Distribution Width 15.1 % (11.5-14.5); Segmented Neutrophils % 91.2 %
[2017-03-19] MEDS: 0.9 % Sodium Chloride 1,000 ML IVC SCH ×3 (18:09→21:55)
[2017-03-19 18:12] LABS: INR 1.4; Prothrombin Time 15.2 Seconds (9.4-12.1)
[2017-03-19] MEDS ORDERED: 0.9 % Sodium Chloride 500 ML IVC ONE (18:13)
[2017-03-19 18:22] LABS: Albumin 2.5 g/dL (3.5-5.0); Albumin/Globulin Ratio 0.6 (1.1-2.2); Calcium 9.5 mg/dL (8.6-10.8); Globulin 4.5 g/dL (2.4-3.5); Potassium 3.5 mEq/L (3.5-4.5)
[2017-03-19] MEDS ORDERED: *HR* Propofol 200 MG/20 ML VIAL IVP ONE (19:10)
[2017-03-19] MEDS ORDERED: Lidocaine -MPF 2% 2 ML VIAL ONE (19:11)
[2017-03-19] MEDS ORDERED: *HR* Succinylcholine 200 MG/10 ML VIAL IVP ONE (19:11)
[2017-03-19] MEDS ORDERED: *HR* Midazolam HCl 2 MG/2 ML VIAL ONE (19:12)
[2017-03-19] MEDS ORDERED: *HR* FentaNYL (PF) 100 MCG/2 ML VIAL ONE (19:12)
--- NOTE | 2017-03-19 19:16 | Urology - Consult Note ---
Date of Encounter: 03/19/17 Time of Encounter: 19:14 - Assessment and Plan (1) Sepsis Current Visit: Yes Status: Acute Assessment and plan: Patient to be admitted to hospitalist service. Patient patient to get antibiotics. Patient will be taken to the operating room tonight for cystoscopy and left ureteral stent placement. Qualifiers: Sepsis type: sepsis due to unspecified organism Qualified Code(s): A41.9 - Sepsis, unspecified organism (2) Kidney stone Current Visit: No Status: Acute Assessment and plan: Patient was taken operating room tonight for cystoscopy and left ureteral stent placement. Patient will need definitive management of left UPJ stone once patient recovered from current septic episode. Urology CN:HPI Consult date: 03/19/17 Reason for consult Urology: Other (left renal stone and sepsis) Requesting physician: Brandon Brian History of present illness: Madison is a 51 y/o female with a history of known left renal stone. Patient states that earlier today she started to have severe left-sided flank pain. 10 out of 10 in nature. Patient was found on arrival to the emergency department to have a 1.2 cm left UPJ stone with significant hydronephrosis as well as perinephric stranding. Patient was also found to have leukocytosis with tachycardia and slightly low blood pressure. Patient admits to some dysuria. Past Med Surg Social Fam HX - Past Medical History Medical history: DVT, kidney stones, myocardial infarction, other Psychiatric history: anxiety - Past Surgical History Surgical History: appendectomy, colectomy, ureteral stent - Social History Smoking Status: Current every day smoker Smokeless Tobacco Status: No Alcohol use: none Drug use: opiates Medications and Allergies Furosemide [Lasix] 20 mg PO DAILY 09/06/16 [History] Spironolactone [Aldactone] 25 mg PO DAILY 09/06/16 [History] Metoprolol XL (24 HR) Succ [Toprol Xl] 50 mg PO DAILY 09/15/16 [History] Warfarin [Coumadin] 5 mg PO DAILY 09/16/16 [History] Aspirin 81 mg PO DAILY #30 tab.chew 09/20/16 [Rx] Atorvastatin [Lipitor] 20 mg PO HS #30 tablet 09/20/16 [Rx] Lisinopril [Zestril] 2.5 mg PO DAILY #30 tablet 09/20/16 [Rx] Ticagrelor [Brilinta] 90 mg PO BID #60 tablet 09/20/16 [Rx] metFORMIN [Glucophage] 500 mg PO BIDWM #60 tablet 09/20/16 [Rx] HYDROcodone/Acet 5/325 mg [[place] 5-325 mg] 1 tab PO Q6H PRN #6 tab 12/13/16 [Rx] Nitrofurantoin Macrocrystal [Nitrofurantoin] 100 mg PO BID #10 capsule 12/13/16 [Rx] 3 Allergy/AdvReac Type Severity Reaction Status Date / Time [place] Allergy Hives Verified 01/06/17 09:26 Sulfa (Sulfonamide Allergy Hives Verified 01/06/17 09:26 Antibiotics) Tomato Allergy Hives Verified 01/06/17 09:26 Review of Systems - Constitutional no chills - EENT Nose, mouth and throat: no dizziness - Cardiovascular no chest pain - Respiratory no cough - Gastrointestinal abdominal pain - Musculoskeletal back pain - Integumentary no erythema - Neurological no confusion - Psychiatric no anxiety Exam Initial Vital Signs Temp Pulse Resp BP Pulse Ox 101.7 F H 101 16 130/75 98 03/19/17 15:39 03/19/17 15:39 03/19/17 15:39 03/19/17 15:39 03/19/17 15:39 Urology Results - Labs 03/19/17 17:55 03/19/17 17:55 Abnormal lab results WBC 18.8 K/mcL (4.3-11.1) H 03/19/17 17:55 RBC 5.00 M/mcL (3.82-4.97) H 03/19/17 17:55 MCH 27.8 pg (28.0-33.3) L 03/19/17 17:55 RDW 15.1 % (11.5-14.5) H 03/19/17 17:55 Neutrophils # 17.2 K/mcL (1.6-8.9) H 03/19/17 17:55 PT 15.2 Seconds (9.4-12.1) H 03/19/17 17:55 Sodium 132 mEq/L (136-145) L 03/19/17 17:55 Chloride 97 mEq/L (98-109) L 03/19/17 17:55 BUN 23 mg/dL (7-20) H 03/19/17 17:55 Creatinine 1.79 mg/dL (0.57-1.11) H 03/19/17 17:55 Est GFR ( Amer) 36 (> 60) L 03/19/17 17:55 Est GFR (Non-Af Amer) 30 (> 60) L 03/19/17 17:55 Glucose 171 mg/dL (70-99) H 03/19/17 17:55 Lactic Acid 3.3 mmol/L (0.5-2.2) H 03/19/17 17:55 Troponin I 0.11 ng/mL (0-0.03) H* 03/19/17 17:55 Albumin 2.5 g/dL (3.5-5.0) L 03/19/17 17:55 Globulin 4.5 g/dL (2.4-3.5) H 03/19/17 17:55 Albumin/Globulin Ratio 0.6 (1.1-2.2) L 03/19/17 17:55 Urine Clarity Cloudy (Clear) A 03/19/17 17:32 Urine Protein 100 mg/dL (Neg-Trace) H 03/19/17 17:32 Urine Glucose (UA) 500 mg/dL (Normal) H 03/19/17 17:32 Urine Blood Moderate (Negative) H 03/19/17 17:32 Urine Nitrite Positive (Negative) A 03/19/17 17:32 Ur Leukocyte Esterase Moderate (Negative) H 03/19/17 17:32 Urine Microscopic RBC 5-15 per hpf (0-3) H 03/19/17 17:32 Urine Microscopic WBC TNTC per hpf (0-3) H 03/19/17 17:32 Ur Squamous Epith Cells Many per lpf (None-Few) H 03/19/17 17:32 Urine Bacteria Many per hpf (None-Few) H 03/19/17 17:32 Ur Culture Indicated? YES (NO) A 03/19/17 17:32 Diabetes panel 03/19/17 Range/Units 17:55 Sodium 132 L (136-145) mEq/L Potassium 3.5 (3.5-4.5) mEq/L Chloride 97 L (98-109) mEq/L Carbon Dioxide 24 (19-29) mEq/L BUN 23 H (7-20) mg/dL Creatinine 1.79 H (0.57-1.11) mg/dL Glucose 171 H (70-99) mg/dL Calcium 9.5 (8.6-10.8) mg/dL AST 19 (5-34) Units/L ALT 21 (0-55) Units/L Alkaline Phosphatase 119 (38-126) Units/L Albumin 2.5 L (3.5-5.0) g/dL Calcium panel 03/19/17 Range/Units 17:55 Calcium 9.5 (8.6-10.8) mg/dL Albumin 2.5 L (3.5-5.0) g/dL Pituitary panel 03/19/17 Range/Units 17:55 Sodium 132 L (136-145) mEq/L Potassium 3.5 (3.5-4.5) mEq/L Chloride 97 L (98-109) mEq/L Carbon Dioxide 24 (19-29) mEq/L BUN 23 H (7-20) mg/dL Creatinine 1.79 H (0.57-1.11) mg/dL Glucose 171 H (70-99) mg/dL Calcium 9.5 (8.6-10.8) mg/dL Adrenal panel 03/19/17 Range/Units 17:55 Sodium 132 L (136-145) mEq/L Potassium 3.5 (3.5-4.5) mEq/L Chloride 97 L (98-109) mEq/L Carbon Dioxide 24 (19-29) mEq/L BUN 23 H (7-20) mg/dL Creatinine 1.79 H (0.57-1.11) mg/dL Glucose 171 H (70-99) mg/dL Calcium 9.5 (8.6-10.8) mg/dL Total Bilirubin 1.0 (0.2-1.2) mg/dL AST 19 (5-34) Units/L ALT 21 (0-55) Units/L Alkaline Phosphatase 119 (38-126) Units/L Albumin 2.5 L (3.5-5.0) g/dL All other labs normal. - Imaging CT scan - abdomen: image reviewed CT scan - pelvis: image reviewed Consult Discharge Plan - Plan Referrals: Kyree,Kassy Elder CNP [Primary Care Provider] -
[2017-03-19] MEDS ORDERED: *HR* Etomidate 40 MG/20 ML VIAL IVP ONE (19:32)
[2017-03-19] MEDS ORDERED: Albuterol 2.5 MG/3 ML NEBULIZER ONE (19:33)
[2017-03-19] MEDS ORDERED: Albuterol 2.5 MG/3 ML NEBULIZER IH ONE (19:39)
--- NOTE | 2017-03-19 19:43 | Anesthesia Evaluation PreOp ---
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: Other (Depression anxiety) Other Medical History: Renal (Stones), Other (IBS) Anesthesia History: No Prior Anesthetic Complications, Past Anesthesia (Appy, GB , Ectopic, Cervical disk, Tubal, ankle fx) : No Alcohol Use: none Drug use: opiates Medications and Allergies Furosemide [Lasix] 20 mg PO DAILY 09/06/16 [History] Spironolactone [Aldactone] 25 mg PO DAILY 09/06/16 [History] Metoprolol XL (24 HR) Succ [Toprol Xl] 50 mg PO DAILY 09/15/16 [History] Warfarin [Coumadin] 5 mg PO DAILY 09/16/16 [History] Aspirin 81 mg PO DAILY #30 tab.chew 09/20/16 [Rx] Atorvastatin [Lipitor] 20 mg PO HS #30 tablet 09/20/16 [Rx] Lisinopril [Zestril] 2.5 mg PO DAILY #30 tablet 09/20/16 [Rx] Ticagrelor [Brilinta] 90 mg PO BID #60 tablet 09/20/16 [Rx] metFORMIN [Glucophage] 500 mg PO BIDWM #60 tablet 09/20/16 [Rx] HYDROcodone/Acet 5/325 mg [[place] 5-325 mg] 1 tab PO Q6H PRN #6 tab 12/13/16 [Rx] Nitrofurantoin Macrocrystal [Nitrofurantoin] 100 mg PO BID #10 capsule 12/13/16 [Rx] 3 Allergy/AdvReac Type Severity Reaction Status Date / Time [place] Allergy Hives Verified 01/06/17 09:26 Sulfa (Sulfonamide Allergy Hives Verified 01/06/17 09:26 Antibiotics) Tomato Allergy Hives Verified 01/06/17 09:26 - Meds/Allergy Pre-op Review Medications Reviewed: Yes Allergies Reviewed: Yes Beta Blockers on Current Med List: No Anesthesia Results - Labs 03/19/17 17:55 03/19/17 17:55 Anesthesia Exam O2 Sat Height 1.63 m Weight 83.915 kg O2 Sat by Pulse Oximetry 97 O2 Sat by Pulse Oximetry 98 Vital Signs Temp Pulse Resp BP Pulse Ox 101.7 F H 101 16 130/75 98 03/19/17 15:39 03/19/17 15:39 03/19/17 15:39 03/19/17 15:39 03/19/17 15:39 Vital Signs/O2 Sat, Most Current Temp Pulse Resp BP Pulse Ox 98.3 F 98 20 109/87 97 03/19/17 19:30 03/19/17 18:36 03/19/17 19:30 03/19/17 19:30 03/19/17 18:21 Height: 5'4'' Weight: 185# NPO (# of Hours): > 8 hrs Pain Scale: 0 Pain Scale Used: Numeric (1 - 10) - HEENT Pupil (Motor): Pupils equal, EOMI Mallampati: III Teeth: Missing Denture Type: Upper: Complete Oral Opening: Greater than 3 - QUALITY AND RELIABILITY ENGINEER LOC: Oriented QUALITY AND RELIABILITY ENGINEER Motor: Normal RUE, Normal LUE, Normal RLE, Normal LLE, Normal Face QUALITY AND RELIABILITY ENGINEER Sensory: Normal: RUE, LUE, RLE, LLE, Face - Cardiac Rhythm: Regular Murmur: None JVD: No Carotid Bruit: No - Pulmonary Breath Sounds: bilateral Clear Respiratory Effort: Symmetrical Anesthesia Assess/Plan ASA Score: 4 Modified Ideal Scale for Level of Consciousness: Cooperative, oriented, and tranquil Anesthetic Plan: General Autologous Blood: Yes Monitoring Plan: Standard Monitors Recovery Plan: PACU
[2017-03-19] MEDS ORDERED: Ondansetron 4 MG/2 ML VIAL ONE (20:21)
[2017-03-19] MEDS ORDERED: Dexamethasone 4 MG/ML VIAL ONE (20:21)
--- NOTE | 2017-03-19 20:42 | Operative Note ---
Date of procedure: 03/19/17 Pre-op diagnosis: left upj stone with sepsis Post-op diagnosis: same Procedure: Cystoscopy and left 6 x 26 cm ureteral stent placement Anesthesia: LIZET Surgeon: Franc Redmond Condition: stable Disposition: PACU Procedure in Detail: Patient was prepped and draped in normal sterile fashion. Timeout procedure performed. I then inserted the cystoscope into the patient's bladder. I cannulated the left ureteral orifice using a Glidewire. I was able to negotiate this past the left UPJ stone using fluoroscopy. I then placed a 6 x 26 cm ureteral stent with good curl seen in the left kidney and in the bladder. Purulent material was seen emanating from the stent after placement. Walsh catheter was placed. Patient taken to PACU in stable condition.
[2017-03-19] MEDS ORDERED: Naloxone 0.4 MG/ML INJ IVP PRN (20:51)
[2017-03-19] MEDS ORDERED: Ondansetron 4 MG/2 ML VIAL IVP PRN (20:51)
[2017-03-19] MEDS ORDERED: *HR* Dextrose 50 % in Water (Syg) 50 ML SYRINGE IVP PRN (21:01)
[2017-03-19] MEDS ORDERED: *HR* Heparin 5,000 UNIT/ML VIAL IVP PRN ×2 (21:01)
[2017-03-19] MEDS ORDERED: D5% in Water 1,000 ML IVC PRN (21:01)
[2017-03-19] MEDS ORDERED: Dextrose Gel 15 GM PO PRN ×2 (21:01)
--- NOTE | 2017-03-19 21:05 | Anesthesia Evaluation Post Op ---
Date of Encounter: 03/19/17 Time of Encounter: 21:04 - Vital Signs Vital Signs: Vital Signs/O2 Sat, Most Current Temp Pulse Resp BP Pulse Ox 99.8 F H 99 19 94/54 96 03/19/17 20:34 03/19/17 20:54 03/19/17 20:54 03/19/17 20:54 03/19/17 20:54 - Lungs Lungs: Clear Ascult./Percussion - Airway Airway: Non-obstructed - Cardiovascular Regular Rate - Mental Status Mental Status: Alert & Oriented, Answers Appropriately - Pain Pain Scale: 0 Pain Scale used: Numeric (1 - 10) - Nausea Vomiting Nausea Vomiting: Not Present - Hydration Hydration: NPO, Walsh catheter - Discharge PostOp Status: Transfer Patient to floor
--- NOTE | 2017-03-19 21:05 | Internal Med History&Physical ---
Date of Encounter: 03/19/17 Time of Encounter: 20:35 Assessment and Plan (1) Sepsis Current visit: Yes Status: Acute 1. Likely due to urine source and kidney stone. 2. Will aggressively hydrate in ICU and monitor clinically. 3. If necessary, will place CVC and start pressors. 4. Blood and urine cultures obtained in ER. 5. Continue IV Rocephin. 6. Will trend lactate levels. 65 minutes critical care time spent thus far with patient. Qualifiers: Sepsis type: sepsis due to unspecified organism Qualified Code(s): A41.9 - Sepsis, unspecified organism (2) Elevated troponin Current visit: No Status: Acute 1. Will obtain EKG now and trend troponins. 2. Patient denies any anginal symptoms presently. 3. Will obtain ECHO in the morning. 4. Will continue home meds as appropriate. 5. Will place on Heparin gtt per ACS protocol. 6. Consult cardiology for assistance in management/guidance. (3) JAN (acute kidney injury) Current visit: No Status: Acute 1. Likely due to obstructive uropathy. 2. Hydrate with IVF. 3. Monitor renal function. 4. Pt s/p ureteral stent per Dr. Redmond. 5. Consult nephrology if renal function does not improve. (4) Type 2 diabetes mellitus Current visit: Yes Status: Chronic 1. Hold oral meds. 2. Monitor glucose and will use SSI for now. Qualifiers: Diabetes mellitus complication status: without complication Diabetes mellitus retirement insulin use: without meterman use Qualified Code(s): E11.9 - Type 2 diabetes mellitus without complications (5) Deep vein thrombosis (DVT) of right upper extremity Current visit: Yes Status: Chronic 1. Will hold Coumadin now post-op. 2. Heparin gtt as above. 3. Will need to resume Coumadin when clinically appropriate. Qualifiers: Affected thrombotic vein of extremity: other upper extremity vein Chronicity: chronic Qualified Code(s): I82.721 - Chronic embolism and thrombosis of deep veins of right upper extremity Internal Medicine - H&P: HPI Chief complaint: flank pain, nausea, vomiting Admitted From: Emergency Dept Plans for Post Hospital Care: Home History of present illness: Ms. Mejía is a 51 year old female who presented to the ER tonight with complaints of severe flank pain, nausea, vomiting, and fevers to 103 degrees Fahrenheit for the last 2 days. Workup in the ER revealed patient to be septic with obstructive uropathy from a kidney stone. Urology was consulted and Dr. Redmond saw her in consultation in the ER. Patient went to surgery for cystoscopy and ureteral stent placement. And she is now in PACU recovering. I spoke with anesthesia and Dr. Redmond. Her blood pressure before surgery was 85/ 57 and currently it is 90/57. She is tachycardic and appears clinically dry. Given her sepsis and unstable hemodynamics, I am placing her in the intensive care unit for close hemodynamic monitoring and treatment. Upon my assessment of the patient in PACU, patient states she feels okay but reiterates the above symptoms. She feels very weak and dehydrated. She denies any chest pain or shortness of breath. Her troponin is elevated, and I cannot find any EKG that was performed in the ER. She has a history of coronary disease and had a PTCA and stent in September of this year. Given her absence of symptoms, I suspect her troponin elevation is due to sepsis, but we will closely monitor her. Other than her above complaints, she denies any other infectious type symptoms. In particular, she denies any cough, congestion, vomiting, diarrhea, or sore throat. She takes Coumadin and I inquired why she takes Coumadin. She states she was recently diagnosed with a DVT in her right upper extremity roughly 4 months ago. She denies any prior history of pulmonary embolus. Past Med Surg Social Fam HX - Past Medical History Attestation: Yes The following information was validated with the patient. Source: patient, old records reviewed Medical history: DVT, diabetes, kidney stones, myocardial infarction Psychiatric history: anxiety - Past Surgical History Surgical History: appendectomy, colectomy, ureteral stent - Social History Smoking Status: Current every day smoker Smokeless Tobacco Status: No Alcohol use: none Drug use: opiates Occupational status: employed Current living situation: Home Activity Level: Independent ambulation - Family History Mother Living Status: Hx Family Genitourinary Disorders: No Father History Unknown: Yes Internal Medicine - H&P: Meds Furosemide [Lasix] 20 mg PO DAILY 09/06/16 [History] Spironolactone [Aldactone] 25 mg PO DAILY 09/06/16 [History] Metoprolol XL (24 HR) Succ [Toprol Xl] 50 mg PO DAILY 09/15/16 [History] Warfarin [Coumadin] 5 mg PO DAILY 09/16/16 [History] Aspirin 81 mg PO DAILY #30 tab.chew 09/20/16 [Rx] Atorvastatin [Lipitor] 20 mg PO HS #30 tablet 09/20/16 [Rx] Lisinopril [Zestril] 2.5 mg PO DAILY #30 tablet 09/20/16 [Rx] Ticagrelor [Brilinta] 90 mg PO BID #60 tablet 09/20/16 [Rx] metFORMIN [Glucophage] 500 mg PO BIDWM #60 tablet 09/20/16 [Rx] HYDROcodone/Acet 5/325 mg [[place] 5-325 mg] 1 tab PO Q6H PRN #6 tab 12/13/16 [Rx] Nitrofurantoin Macrocrystal [Nitrofurantoin] 100 mg PO BID #10 capsule 12/13/16 [Rx] 3 Allergy/AdvReac Type Severity Reaction Status Date / Time [place] Allergy Hives Verified 01/06/17 09:26 Sulfa (Sulfonamide Allergy Hives Verified 01/06/17 09:26 Antibiotics) Tomato Allergy Hives Verified 01/06/17 09:26 - Constitutional Constitutional: chills, fever(s), weakness, no night sweats - EENT Eyes: no blurry vision, no change in vision Ears: no ear pain, no tinnitus Nose, mouth and throat: no nasal congestion, no sinus pressure, no sore throat - Cardiovascular Cardiovascular ROS IM: no chest pain, no diaphoresis, no dyspnea, no lightheadedness, no palpitations - Respiratory Respiratory: no cough, no dyspnea, no hemoptysis, no chest congestion, no excessive phlegm production, no change in phlegm color - Gastrointestinal Gastrointestinal: nausea, vomiting, no abdominal pain, no diarrhea, no hematemesis, no hematochezia, no melena - Genitourinary Genitourinary: dysuria, flank pain (severe), hematuria - Musculoskeletal Musculoskeletal ROS IM: muscle cramps, no arthralgias - Integumentary Integumentary IM: no rash, no jaundice - Neurological Neurological ROS: no dizziness, no focal weakness, no frequent falls, no headache(s) - Psychiatric Psychiatric: no anxiety, no depression - Endocrine Endocrine IM: no polydipsia, no polyuria - Hematologic/Lymphatic Hematologic/Lymphatic: easy bruising - Allergic/Immunologic Allergic/Immunologic: no GI upset with certain foods - Constitutional Vitals: Temp Pulse Resp BP Pulse Ox 99.8 F H 99 19 94/54 96 03/19/17 20:34 03/19/17 20:54 03/19/17 20:54 03/19/17 20:54 03/19/17 20:54 General appearance: Present: mild distress, A&O X 3, answers questions appropriately Exam: clinically looks dry and with poor peripheral perfusion - Head Head exam: Present: atraumatic, normal inspection - Eye Eye exam: Present: EOMI, PERRL. Absent: scleral icterus Pupils: Present: normal accommodation - ENT ENT exam: Present: mucous membranes dry, normal exam - Neck Neck exam general surgery: Present: full ROM, supple. Absent: tenderness - Expanded Neck Exam Neck exam: Absent: carotid bruit - Respiratory Respiratory exam: Present: CTAB. Absent: accessory muscle use, rales, respiratory distress, rhonchi, wheezes - Cardiovascular Cardiovascular exam: Present: RRR, +S1, +S2, tachycardia. Absent: JVD Additional comments: + ectopic beats noted - GI/Abdominal GI/Abdominal exam: Present: normal bowel sounds, soft, tenderness (left side/ flank pain), no peritoneal signs. Absent: guarding, hepatomegaly, mass, rebound , splenomegaly - Extremities Exam Extremities exam: Present: warm. Absent: calf tenderness, joint swelling, normal capillary refill (~3 seconds), mottling - Back Exam Back exam: Present: CVA tenderness (L). Absent: CVA tenderness (R) - Neurological Exam Neurological exam: Present: alert, CN II-XII intact, oriented X3, no focal deficits - Psychiatric Psychiatric exam: Present: normal affect, normal mood - Skin Skin exam: Present: dry, warm. Absent: mottled, rash Internal Med - H&P Results - Labs CBC & Chem 7: 03/19/17 17:55 03/19/17 17:55 Labs: Short CBC 03/19/17 Range/Units 17:55 WBC 18.8 H (4.3-11.1) K/mcL Hgb 13.9 (11.5-15.4) g/dL Hct 41.9 (35.3-44.9) % Plt Count 163 (140-400) K/mcL Neutrophils # 17.2 H (1.6-8.9) K/mcL BMP 03/19/17 17:55 Sodium 132 L Potassium 3.5 Chloride 97 L Carbon Dioxide 24 BUN 23 H Creatinine 1.79 H Glucose 171 H Calcium 9.5 Cardiac Enzymes 03/19/17 Range/Units 17:55 Troponin I 0.11 H* (0-0.03) ng/mL Liver Function 03/19/17 Range/Units 17:55 Total Bilirubin 1.0 (0.2-1.2) mg/dL AST 19 (5-34) Units/L ALT 21 (0-55) Units/L Alkaline Phosphatase 119 (38-126) Units/L Albumin 2.5 L (3.5-5.0) g/dL Urine 03/19/17 Range/Units 17:32 Urine Color Yellow (Yellow) Urine Clarity Cloudy A (Clear) Urine pH 6.0 (5.0-8.0) pH Units Ur Specific [place] 1.022 (1.010-1.025) Urine Protein 100 H (Neg-Trace) mg/dL Urine Glucose (UA) 500 H (Normal) mg/dL - Impressions ITS Impressions Abdomen/Pelvis CT 03/19/17 17:18 IMPRESSION: 1.4 cm stone impacted at the left ureteric pelvic junction causing severe left obstructive uropathy. Bilateral nephrolithiasis also seen. D/ / 03/19/2017 17:49:19 Estefany Figueroa MD / tika Interpreting Provider: Estefany Figueroa MD - Diagnostic Studies CT scan - abdomen Status: image reviewed by me (report reviewed as well -- left hydronephrosis)
[2017-03-19] MEDS ORDERED: Heparin 25,000 UNIT/500 ML D5W 25,000 UNIT/500 ML MLS IVC SCH (21:15)
[2017-03-19] MEDS: Famotidine 20 MG TABLET PO SCH (21:55)
[2017-03-19] MEDS: *HR* Morphine 2 MG/ML SYRINGE IVP PRN (21:55)
[2017-03-19 22:28] LABS: Hematocrit 36.2 % (35.3-44.9); Hemoglobin 11.9 g/dL (11.5-15.4); Mean Corpuscular HGB Conc 32.9 g/dL (31.6-35.5); Mean Corpuscular Hemoglobin 27.5 pg (28.0-33.3); Mean Corpuscular Volume 83.6 fL (83.0-100.0); Mean Platelet Volume 9.5 fL (9.4-12.4); Platelet Count 139 K/mcL (140-400); Red Blood Count 4.33 M/mcL (3.82-4.97)
[2017-03-19] MEDS ORDERED: *HR* Morphine 2 MG/ML SYRINGE IVP PRN (22:37)
[2017-03-20] MEDS: 0.9 % Sodium Chloride 1,000 ML IVC SCH (04:43)
[2017-03-20] MEDS: *HR* Morphine 2 MG/ML SYRINGE IVP PRN ×5 (05:33→20:31)
[2017-03-20 05:41] LABS: Basophils % 0.2 %; Hematocrit 37.9 % (35.3-44.9); Hemoglobin 12.5 g/dL (11.5-15.4); Lymphocytes # 0.4 K/mcL (0.6-4.6); Lymphocytes % 3.1 %; Mean Corpuscular Hemoglobin 28.6 pg (28.0-33.3); Mean Corpuscular Volume 86.7 fL (83.0-100.0); Mean Platelet Volume 9.9 fL (9.4-12.4); Monocytes # 0.5 K/mcL (0.0-1.3); Neutrophils # 12.5 K/mcL (1.6-8.9); Platelet Count 135 K/mcL (140-400); Red Blood Count 4.37 M/mcL (3.82-4.97); Red Cell Distribution Width 15.4 % (11.5-14.5); Segmented Neutrophils % 91.7 %
[2017-03-20 05:46] LABS: INR 1.3; Prothrombin Time 13.7 Seconds (9.4-12.1)
[2017-03-20 05:49] LABS: Activated Partial Thrombo Time 36.2 Seconds (26.0-36.0)
[2017-03-20 05:52] LABS: Calcium 8.7 mg/dL (8.6-10.8); Magnesium 1.6 mg/dL (1.6-2.6)
--- NOTE | 2017-03-20 07:09 | Urology Progress Note ---
Date of Encounter: 03/20/17 Time of Encounter: 07:08 - Assessment and Plan (1) Sepsis Current Visit: Yes Status: Acute Assessment and plan: awaiting cultures. Qualifiers: Sepsis type: sepsis due to unspecified organism Qualified Code(s): A41.9 - Sepsis, unspecified organism (2) Kidney stone Current Visit: No Status: Acute Assessment and plan: sp stenting. doing well. keep catheter until tomorrow. Progress Note Narrative: POD 1 from cysto left stent placement. doing well. vitals stable Objective Initial Vital Signs Temp Pulse Resp BP Pulse Ox 101.7 F H 101 16 130/75 98 03/19/17 15:39 03/19/17 15:39 03/19/17 15:39 03/19/17 15:39 03/19/17 15:39 - General physical appearance Present: well developed - Abdomen Present: soft - Labs 03/20/17 05:25 03/20/17 05:25 Diabetes panel 03/20/17 Range/Units 05:25 Sodium 135 L (136-145) mEq/L Potassium 4.0 (3.5-4.5) mEq/L Chloride 104 (98-109) mEq/L Carbon Dioxide 22 (19-29) mEq/L BUN 25 H (7-20) mg/dL Creatinine 1.56 H (0.57-1.11) mg/dL Glucose 214 H (70-99) mg/dL Calcium 8.7 (8.6-10.8) mg/dL Calcium panel 03/20/17 Range/Units 05:25 Calcium 8.7 (8.6-10.8) mg/dL Pituitary panel 03/20/17 Range/Units 05:25 Sodium 135 L (136-145) mEq/L Potassium 4.0 (3.5-4.5) mEq/L Chloride 104 (98-109) mEq/L Carbon Dioxide 22 (19-29) mEq/L BUN 25 H (7-20) mg/dL Creatinine 1.56 H (0.57-1.11) mg/dL Glucose 214 H (70-99) mg/dL Calcium 8.7 (8.6-10.8) mg/dL Adrenal panel 03/20/17 Range/Units 05:25 Sodium 135 L (136-145) mEq/L Potassium 4.0 (3.5-4.5) mEq/L Chloride 104 (98-109) mEq/L Carbon Dioxide 22 (19-29) mEq/L BUN 25 H (7-20) mg/dL Creatinine 1.56 H (0.57-1.11) mg/dL Glucose 214 H (70-99) mg/dL Calcium 8.7 (8.6-10.8) mg/dL - VTE Documentation of Mechanical Device: Venous foot pump, device Consult Discharge Plan - Plan Referrals: Kassy Adorno CNP [Primary Care Provider] -
[2017-03-20] MEDS ORDERED: Insulin LISPRO 300 UNITS/3 ML VIAL SQ SCH ×2 (07:30→21:00)
[2017-03-20] MEDS: *HR* Ticagrelor 90 MG TABLET PO SCH ×2 (07:52→20:31)
[2017-03-20] MEDS: Aspirin 81 MG TAB.CHEW PO SCH (07:52)
[2017-03-20] MEDS: Famotidine 20 MG TABLET PO SCH (07:52)
[2017-03-20] MEDS ORDERED: D5% in Water 1,000 ML IVC PRN (08:41)
[2017-03-20] MEDS ORDERED: Dextrose Gel 15 GM PO PRN ×2 (08:41)
[2017-03-20] MEDS ORDERED: *HR* Dextrose 50 % in Water (Syg) 50 ML SYRINGE IVP PRN (08:41)
[2017-03-20] MEDS ORDERED: 0.9 % Sodium Chloride 1,000 ML IVC SCH (08:45)
--- NOTE | 2017-03-20 10:23 | Cardiology Consult Note ---
<Carol Calvo - Last Filed: 03/20/17 10:35> Date of Encounter: 03/20/17 Time of Encounter: 09:30 Assessment and Plan (1) Hydronephrosis with obstructing calculus Current Visit: Yes Status: Acute Per cardiology: -Admitted with hydronephrosis with obstuctive stone. -Management per primary and urological services. (2) Sepsis Current Visit: Yes Status: Acute Per cardiology: -On ATB. -WBC down trending. -Management per primary service. Qualifiers: Sepsis type: sepsis due to unspecified organism Qualified Code(s): A41.9 - Sepsis, unspecified organism (3) Elevated troponin Current Visit: No Status: Acute Per cardiology: -Troponins 0.11, 0.09, 0.05. -Troponins flat and adynamic in the setting of sepsis, obstructive stone, fever , and JAN. -Denies chest pain. -No ischemic ECG changes noted. -DO not suspect NSTEMI suspect demand ischemia related to above. NO cardiac rehab warranted. -No cardiac need for heparin drip, of note had DVT to right upper extremity 2016 and takes coumadin at home. INR 1.3 today. -Cardiology will sign off and will follow in outpatient setting. Follow up set. (4) JAN (acute kidney injury) Current Visit: No Status: Acute Per cardiology: -Creatinine 1.79 on admission. -Baseline creatinine 0.8-1.1. -Creatinine today 1.56. -Management per primary service. (5) CAD (coronary artery disease) Current Visit: No Status: Chronic Per cardiology: -Known history of CAD. -C 09/2016 with 70-80% stenosis mid LAD significant by FFR and EFRAIN was placed, diagonal 50%, 80% mid circumflex in stent restenosis with EFRAIN placed, 15% mid RCA stenosis. -01/2017 Limited TTE with LVEF 40%, mild to moderate increase in LV size, all daniels hypokinetic. -ON asa and brilinta. -on statin beta dre and mark inhibitor in outpatient setting. -Denies chest pain, shortness of breath, or increased fatigue. -Will restart statin, beta dre, and mark inhibitor. -No further cardiac work up warranted at this time. Qualifiers: Coronary Disease-Associated Artery/Lesion type: [place] artery [place] vs. transplanted heart: [place] heart Associated angina: without angina Qualified Code(s): I25.10 - Atherosclerotic heart disease of [place] coronary artery without angina pectoris (6) Deep vein thrombosis (DVT) of right upper extremity Current Visit: Yes Status: Chronic Per cardiology: -Known Superficial and DVT. -Takes coumadin at home, currently on heparin drip. -Will defer to primary service regarding re-starting coumadin and discontinuation of heparin drip. Qualifiers: Affected thrombotic vein of extremity: other upper extremity vein Chronicity: chronic Qualified Code(s): I82.721 - Chronic embolism and thrombosis of deep veins of right upper extremity (7) Tobacco abuse Current Visit: No Status: Chronic Per cardiology: -Known tobacco abuse. -Smokes 0.5 ppd. -I spent 3 minutes reviewing smoking cessation education. Discussion w patient/family: The assessment and plan as outlined above was discussed with the patient who expressed understanding and agreement. All questions were answered. Thank you for involving us in the care of your patient. Please call with any questions. Discussed and reviewed with . History of Present Illness Consult date: 03/20/17 Requesting physician: Abigail Arora Consult reason: NSTEMI Chief complaint: back pain History of present illness: Ms. Mejía is a 51 year old female with a relevant past medical history of CAD s /p PCI, cardiomyopathy, depression, anxiety, HTN, DVTs, tobacco abuse. Patient reported to [facility] with complaints of back pain and feeling "like I have a kidney stone." Cardiology has been asked to see and evaluate patient for elevated troponin levels. Patient denies chest pain or shortness of breath. Patient denies increased fatigue. Patient states she was doing well until urinary symptoms started. Past Med Surg Social Fam HX - Past Medical History Attestation: Yes The following information was validated with the patient. Source: patient, old records reviewed Medical history: cardiomyopathy, DVT, diabetes, kidney stones, myocardial infarction Psychiatric history: anxiety - Past Surgical History Surgical History: appendectomy, colectomy, ureteral stent - Social History Smoking Status: Current every day smoker Smokeless Tobacco Status: No Alcohol use: none Drug use: opiates - Family History Mother Living Status: Hx Family Genitourinary Disorders: No Father History Unknown: Yes Medications and Allergies Furosemide [Lasix] 20 mg PO DAILY 09/06/16 [History] Spironolactone [Aldactone] 25 mg PO DAILY 09/06/16 [History] Metoprolol XL (24 HR) Succ [Toprol Xl] 50 mg PO DAILY 09/15/16 [History] Warfarin [Coumadin] 5 mg PO DAILY 09/16/16 [History] Aspirin 81 mg PO DAILY #30 tab.chew 09/20/16 [Rx] Atorvastatin [Lipitor] 20 mg PO HS #30 tablet 09/20/16 [Rx] Lisinopril [Zestril] 2.5 mg PO DAILY #30 tablet 09/20/16 [Rx] Ticagrelor [Brilinta] 90 mg PO BID #60 tablet 09/20/16 [Rx] metFORMIN [Glucophage] 500 mg PO BIDWM #60 tablet 09/20/16 [Rx] 3 Allergy/AdvReac Type Severity Reaction Status Date / Time [place] Allergy Hives Verified 01/06/17 09:26 Sulfa (Sulfonamide Allergy Hives Verified 01/06/17 09:26 Antibiotics) Tomato Allergy Hives Verified 01/06/17 09:26 All Systems Review: A 10-system review of systems was performed and is negative for pertinent findings except as documented above in the HPI. - Cardiovascular Cardiovascular: as per HPI - Genitourinary Genitourinary: dysuria Physical Examination Vital Signs, Last 4 Hours Temp Pulse Resp BP Pulse Ox 03/20/17 09:00 78 16 116/63 97 03/20/17 08:09 97.6 F 78 16 142/94 97 03/20/17 07:24 97.6 F 03/20/17 07:00 80 14 126/86 97 General: Conversant, No Apparent Distress HEENT: Atraumatic, Normocephaly, Mucus Membranes Moist Neck: No JVD, Normal carotid pulses Cardiac: Reg Rate and Rhythm, Normal S1 and S2, No Murmur Lungs: Normal Breath Sounds, No Wheeze, Rales, Rhonchi Neuro: Alert and responsive, No focal deficits noted Abdomen: Soft, Non-Tender Skin: No rashes noted on visualized skin Musculoskeletal: No Chest Wall Tenderness Extremities: No Clubbing, No Cyanosis, No Edema, Normal Pulses Results 03/20/17 05:25 03/20/17 05:25 Lab Results Impressions Fluoroscopy 03/19/17 00:00 IMPRESSION: Fluoroscopy support provided by the Radiology Department D/ / 03/19/2017 22:51:58 Mau Bosch MD / tika Interpreting Provider: Mau Bosch MD Abdomen/Pelvis CT 03/19/17 17:18 IMPRESSION: 1.4 cm stone impacted at the left ureteric pelvic junction causing severe left obstructive uropathy. Bilateral nephrolithiasis also seen. D/ / 03/19/2017 17:49:19 Estefany Figueroa MD / tika Interpreting Provider: Estefany Figueroa MD Active Medications Acetaminophen (Tylenol) 650 mg PO Q6HR PRN PRN Reason: fever GREATER than 101.2 F Stop: 09/18/17 20:52 Aspirin (Aspirin) 81 mg PO DAILY NANDO Stop: 09/19/17 09:01 Last Admin: 03/20/17 07:52 Dose: 81 mg Atorvastatin Calcium (Lipitor) 20 mg PO HS NANDO Stop: 09/19/17 21:01 Dextrose/Water (Dextrose 50% (Syg)) 25 ml IVP AD PRN PRN Reason: Hypoglycemia Stop: 09/18/17 21:02 Docusate Sodium (Colace) 100 mg PO BID NANDO Stop: 09/18/17 21:01 Last Admin: 03/20/17 07:52 Dose: 100 mg Famotidine (Pepcid) 20 mg PO DAILY NANDO Stop: 09/18/17 21:01 Glucagon (Glucagen) 1 mg IM ONCE PRN PRN Reason: Hypoglycemia Stop: 09/18/17 21:02 Glucose (Gluctose) 15 gm PO ONCE PRN PRN Reason: Hypoglycemia Stop: 09/18/17 21:02 Glucose (Gluctose) 30 gm PO ONCE PRN PRN Reason: Hypoglycemia Stop: 09/18/17 21:02 Heparin Sodium (Porcine) (Heparin) 4,000 unit IVP Q6HR PRN PRN Reason: SEE COMMENTS Stop: 09/18/17 21:02 Last Admin: 03/20/17 06:06 Dose: 4,000 unit Heparin Sodium (Porcine) (Heparin) 2,000 unit IVP Q6H PRN PRN Reason: SEE COMMENTS Stop: 09/18/17 21:02 Ceftriaxone Sodium 2,000 mg/ (Dextrose) 100 mls @ 200 mls/hr IVPB Q24H NANDO Stop: 09/19/17 06:01 Last Admin: 03/20/17 04:52 Dose: 200 mls/hr Dextrose (Dextrose 5%) 1,000 mls @ 100 mls/hr IVC .Q10H PRN PRN Reason: HYPOGLYCEMIA Stop: 09/18/17 21:02 Heparin Sodium/Dextrose (Heparin 25,000 Unit/500 Ml D5w) 25,000 unit in 500 mls @ 20.14 mls/hr IVC .Q24H NANDO; 12 UNIT/KG/HR PRN Reason: Protocol Stop: 09/18/17 21:16 Last Titration: 03/20/17 06:05 Dose: 14.89 unit/kg/hr, 25 mls/hr Sodium Chloride (0.9 % Sodium Chloride) 1,000 mls @ 75 mls/hr IVC .[id number] [facility] Stop: 09/19/17 08:46 Insulin Human Lispro (Humalog) 0 units SQ TIDAC [facility] PRN Reason: Protocol Stop: 09/19/17 07:31 Last Admin: 03/20/17 08:01 Dose: 4 units Insulin Human Lispro (Humalog) 0 units SQ HS [facility] PRN Reason: Protocol Stop: 09/19/17 21:01 Lisinopril (Zestril) 2.5 mg PO DAILY [facility] PRN Reason: Protocol Stop: 09/19/17 10:31 Metoprolol Succinate (Toprol Xl) 25 mg PO DAILY [facility] Stop: 09/19/17 10:31 Morphine Sulfate (Morphine Sulfate) 2 mg IVP Q3H PRN PRN Reason: Severe Pain Stop: 09/18/17 20:52 Last Admin: 03/20/17 08:49 Dose: 2 mg Naloxone HCl (Narcan) 0.4 mg IVP Q2MIN PRN PRN Reason: Opioid Reversal Stop: 09/18/17 20:52 Ondansetron HCl (Zofran) 4 mg IVP Q6HR PRN; Protocol PRN Reason: Nausea And Vomiting Stop: 09/18/17 20:52 Ticagrelor (Brilinta) 90 mg PO BID [facility] Stop: 09/19/17 09:01 Last Admin: 03/20/17 07:52 Dose: 90 mg Laboratory Tests 02/21/17 03/19/17 03/19/17 13:53 17:55 17:55 WBC 18.8 H Plt Count INR Creatinine 0.95 1.79 H Troponin I 03/19/17 03/20/17 03/20/17 17:55 00:05 05:25 WBC 13.6 H Plt Count 135 L INR Creatinine Troponin I 0.11 H* 0.09 H* 03/20/17 03/20/17 03/20/17 05:25 05:25 05:25 WBC Plt Count INR 1.3 Creatinine 1.56 H Troponin I 0.05 H* - Imaging and Cardiology Chest Xray: report reviewed Echo: report reviewed Cardiac cath: report reviewed - EKG Interpretation EKG results cardiology: personally reviewed (ECG with SR, HR 94.), other ( Telemetry reviewed with average HR previous 12 hours noted to be 81, SR. PVCs and PACs noted.) Consult Discharge Plan - Plan Referrals: Kassy Adorno CNP [Primary Care Provider] - <Sylvia Beckford - Last Filed: 03/20/17 12:36> Date of Encounter: 03/20/17 - Attending Attestation I have personally performed a face to face evaluation on this patient with the SAFETY RELIEF VALVE TECHNICIAN. I have reviewed and agree with the care plan. History and Exam by me shows: PE: Alert, conversant and oriented x3 Atraumatic, EOMI, mucus membranes moist No JVD Regular rate and rhythm, no murmurs, no rubs or gallops Breath sounds clear without rales, wheeze, rhonchi No focal deficits No LE edema Impression: 1. Elevated troponin: Flat and adynamic in setting of obstructive uropathy, ARF, UTI and sepsis. Denies chest pain. No new ECG changes. Suspect demand ischemia. This does not appear to represent an ACS. Heparin drip is not indicated in this setting (presume it was started for history of DVT subtherapeutic on coumadin). 2. CAD: Known history of CAD s/p PCI in September 2016. Recommend continuing DAPT and statin. 3. Chronic systolic heart failure: EF 40% on TTE in January 2017. Does not appear to be fluid overloaded presently. Recommend continuing BB, ACEI. No further cardiac workup at this time. Will sign off. Please call with questions. Assessment and Plan Discussion w patient/family: The assessment and plan as outlined above was discussed with the patient and/or family members who expressed understanding and agreement. All questions were answered. Thank you for involving us in the care of your patient. Please call with any questions. History of Present Illness History of present illness: Ms. Mejía is a 51 year old female All Systems Review: A 10-system review of systems was performed and is negative for pertinent findings except as documented above in the HPI. Physical Examination Vital Signs, Last 4 Hours Temp Pulse Resp BP Pulse Ox 03/20/17 11:31 97.7 F 03/20/17 11:00 81 16 135/77 97 03/20/17 10:00 80 16 127/75 97 03/20/17 09:00 78 16 116/63 97 03/20/17 08:09 97.6 F 78 16 142/94 97 Results 03/20/17 05:25 03/20/17 05:25 Lab Results 03/19/17 03/19/17 03/20/17 22:15 22:15 00:05 WBC 16.8 H Hgb 11.9 D Hct 36.2 Plt Count 139 L INR APTT 29.2 Sodium Potassium Chloride Carbon Dioxide BUN Creatinine Glucose Calcium Magnesium Troponin I 0.09 H* 03/20/17 03/20/17 03/20/17 05:25 05:25 05:25 WBC 13.6 H Hgb 12.5 Hct 37.9 Plt Count 135 L INR 1.3 APTT 36.2 H Sodium 135 L Potassium 4.0 Chloride 104 Carbon Dioxide 22 BUN 25 H Creatinine 1.56 H Glucose 214 H Calcium 8.7 Magnesium 1.6 Troponin I 03/20/17 05:25 WBC Hgb Hct Plt Count INR APTT Sodium Potassium Chloride Carbon Dioxide BUN Creatinine Glucose Calcium Magnesium Troponin I 0.05 H*
[2017-03-20 10:58] LABS: Acinetobacter baumannii by PCR Not Detected (Not Detect); Candida albicans by PCR Not Detected (Not Detect); Candida glabrata by PCR Not Detected (Not Detect); Candida krusei by PCR Not Detected (Not Detect); Candida parapsilosis by PCR Not Detected (Not Detect); Candida tropicalis by PCR Not Detected (Not Detect); Enterococcus by PCR Not Detected (Not Detect); Escherichia coli by PCR ***DETECTED*** (Not Detect); Klebsiella oxytoca by PCR Not Detected (Not Detect); Klebsiella pneumoniae by PCR Not Detected (Not Detect); Pseudomonas aeruginosa by PCR Not Detected (Not Detect); Serratia marcescens by PCR Not Detected (Not Detect); Staphylococcus aureus by PCR Not Detected (Not Detect); Streptococcus agalactiae(B)PCR Not Detected (Not Detect); Streptococcus by PCR Not Detected (Not Detect); Streptococcus pneumoniae PCR Not Detected (Not Detect); Streptococcus pyogenes (A) PCR Not Detected (Not Detect); blaKPC Carbapenem-Resist Gene Not Detected (Not Detect); mecA Methicillin-Resist Gene Not Detected (Not Detect); vanA/B Vancomycin-Resist Genes Not Detected (Not Detect)
--- NOTE | 2017-03-20 11:37 | Internal Med Progress Note ---
Date of Encounter: 03/20/17 Time of Encounter: 10:25 - Assessment and plan (1) Kidney stone Current Visit: No Status: Acute Assessment and plan: s/p cystoscopy with stent placement (POD #1) urology on board and consultation appreciated (2) Sepsis Current Visit: Yes Status: Acute Assessment and plan: Sepsis secondary to UTI noted to have renal stone requiring cystocsopy with stent placement clinically improving blood cultures preliminary report positive for E.coli will start IV zosyn, de-escalate as per final culture report repeat blood cultures in am, pt will need 14 days of abx therapy from the first negative blood culture urine culture pending BP within acceptable range continue to closely monitor Qualifiers: Sepsis type: sepsis due to unspecified organism Qualified Code(s): A41.9 - Sepsis, unspecified organism (3) UTI (urinary tract infection) Current Visit: Yes Status: Acute Assessment and plan: as listed above Qualifiers: Urinary tract infection type: site unspecified Hematuria presence: without hematuria Qualified Code(s): N39.0 - Urinary tract infection, site not specified (4) Bacteremia Current Visit: Yes Status: Acute Assessment and plan: secondary to UTI plan as listed above (5) CAD (coronary artery disease) Current Visit: No Status: Chronic Assessment and plan: No signs of angina present at this time continue home dose of statin, aspirin, bb, brilinta, lisinopril Decreased BB dose to 25mg PO qd given BP readings, will increase dose as needed Qualifiers: Coronary Disease-Associated Artery/Lesion type: [place] artery [place] vs. transplanted heart: [place] heart Associated angina: without angina Qualified Code(s): I25.10 - Atherosclerotic heart disease of [place] coronary artery without angina pectoris (6) Deep vein thrombosis (DVT) of right upper extremity Current Visit: Yes Status: Chronic Assessment and plan: reports of being on coumadin will continue coumadin noted to have subtherapeutic INR, will closely monitor pt has history of IVC filter placement Qualifiers: Affected thrombotic vein of extremity: other upper extremity vein Chronicity: chronic Qualified Code(s): I82.721 - Chronic embolism and thrombosis of deep veins of right upper extremity (7) Elevated troponin Current Visit: No Status: Acute Assessment and plan: Likely demand ischemia given sepsis d/c heparin gtt cardiology evaluation appreciated (8) HTN (hypertension) Current Visit: No Status: Chronic Assessment and plan: BP within acceptable range continue home medications Qualifiers: Hypertension type: essential hypertension Qualified Code(s): I10 - Essential (primary) hypertension (9) Type 2 diabetes mellitus Current Visit: Yes Status: Chronic Assessment and plan: hold oral antihyperglycemic agents start sliding scale insulin algorithm monitor FS and BG Qualifiers: Diabetes mellitus complication status: without complication Diabetes mellitus alf insulin use: without emt intermediate use Qualified Code(s): E11.9 - Type 2 diabetes mellitus without complications (10) DVT prophylaxis Current Visit: Yes Status: Acute Assessment and plan: on coumadin (11) Congestive heart failure Current Visit: No Status: Chronic Assessment and plan: NO acute signs of CHF exacerbation Echo from 01/2017 showed LVEF of 40% will d/c IV fluids restart home diuretics will closely monitor Qualifiers: Congestive heart failure type: diastolic Congestive heart failure chronicity: acute on chronic Qualified Code(s): I50.33 - Acute on chronic diastolic (congestive) heart failure (12) Tobacco abuse Current Visit: No Status: Chronic Assessment and plan: Smoking cessation counseling provided pt reports of trying to quit refused nicotine replacement therapy (13) Obesity (BMI 30-39.9) Current Visit: Yes Status: Chronic - Subjective Interval history: Patient seen and examined at bedside. Resting in bed and reports of feeling better compared to previous day. She is POD #1 s/p cystoscopy and stent placement. Pt was noted to be hypotensive overnight with a concern that she may require pressor support Post-op due to which she was admitted to the ICU. She was also found to have mildly elevated TNI which are likely secondary to underlying sepsis but was started on Heparin gtt. Pt denies any chest pain, saturating well on room air. BP within acceptable range and she has been started on her home meds including hypertensive medications, she is tolerating medications without any distress. Heparin gtt has been discontinued. pt is stable for transfer to tele floor. - Constitutional Vitals: Temp Pulse Resp BP Pulse Ox 97.7 F 81 16 135/77 97 03/20/17 11:31 03/20/17 11:00 03/20/17 11:00 03/20/17 11:00 03/20/17 11:00 General appearance: Present: A&O X 3, no acute distress, obese, answers questions appropriately - Head Head exam: Present: atraumatic, normocephalic - Eye Eye exam: Present: conjuntiva pink, sclera anicteric - Respiratory Respiratory exam: Absent: respiratory distress, wheezes - Cardiovascular Cardiovascular exam: Present: RRR, +S1, +S2. Absent: diastolic murmur, gallop, rubs, systolic murmur - GI/Abdominal GI/Abdominal exam: Present: normal bowel sounds, soft, no peritoneal signs. Absent: distended, tenderness - Extremities Exam Extremities exam: Present: warm, radial pulses palpable and symmetrical. Absent : calf tenderness - Neurological Exam Neurological exam: Present: alert, oriented X3 - Psychiatric Psychiatric exam: Present: normal affect, normal mood Internal Medicine: Result - Labs CBC & Chem 7: 03/20/17 05:25 03/20/17 05:25 Labs: Short CBC 03/19/17 03/20/17 Range/Units 22:15 05:25 WBC 16.8 H 13.6 H (4.3-11.1) K/mcL Hgb 11.9 D 12.5 (11.5-15.4) g/dL Hct 36.2 37.9 (35.3-44.9) % Plt Count 139 L 135 L (140-400) K/mcL Neutrophils # 12.5 H (1.6-8.9) K/mcL BMP 03/20/17 05:25 Sodium 135 L Potassium 4.0 Chloride 104 Carbon Dioxide 22 BUN 25 H Creatinine 1.56 H Glucose 214 H Calcium 8.7 Cardiac Enzymes 03/20/17 03/20/17 Range/Units 00:05 05:25 Troponin I 0.09 H* 0.05 H* (0-0.03) ng/mL - ABG Interpretation ABG results: PT/INR, D-dimer PT 13.7 Seconds (9.4-12.1) H 03/20/17 05:25 - VTE Documentation of Mechanical Device: Venous foot pump, device Consult Discharge Plan - Plan Referrals: Kyree,Kassy Elder CNP [Primary Care Provider] -
[2017-03-20] MEDS: Piperacillin/Tazobactam 3.375 GM in D5% in Water (Mini-Bag+) 100 ML IVPB SCH ×2 (12:32→16:38)
[2017-03-20] MEDS: Insulin LISPRO 300 UNITS/3 ML VIAL SQ SCH ×2 (12:33→20:17)
[2017-03-20] MEDS: Metoprolol XL (24 HR) Succ 25 MG TAB.ER.24H PO SCH (12:35)
--- NOTE | 2017-03-20 13:30 | Electrocardiograph Report ---
[place] [id number] Test Date: 2017-03-19 Pat Name: Madison Mejía Department: 102 Room: [facility] Gender: F Facility Sales And Admin: : 1965 Requested By: Brandon Brian Order Number: [id number] Reading MD: Tylor Stoll Measurements Intervals [place] Rate: 102 P: 29 [place]: 123 QRS: 2 QRSD: 97 T: 96 QT: 346 QTc: 405 Interpretive Statements SINUS TACHYCARDIA WITH OCCASIONAL SUPRAVENTRICULAR PREMATURE COMPLEXES POSSIBLE RIGHT VENTRICULAR CONDUCTION DELAY [RSR (QR) IN V1/V2] NONSPECIFIC ST & T-WAVE ABNORMALITY Electronically Signed On 03-20-2017 13:28:59 EDT by Tylor Stoll
[2017-03-20] MEDS ORDERED: Warfarin perPT PO PRN (18:00)
[2017-03-20] MEDS ORDERED: *HR* Warfarin 5 MG TABLET PO ONE (18:00)
[2017-03-20] MEDS: *HR* Belladonna Alkaloids/Opium 30 MG RECTAL SUPPOSITORY RC PRN (18:49)
--- NOTE | 2017-03-20 20:13 | Electrocardiograph Report ---
[place] [id number] Test Date: 2017-03-19 Pat Name: Madison Mejía Department: 109 Room: 3A33 Gender: F Dairy Associate: : 1965 Requested By: Clement Escamilla Order Number: [id number] Reading MD: Tanner Cazares MD Measurements Intervals [place] Rate: 94 P: 65 VT: 129 QRS: 35 QRSD: 99 T: 96 QT: 378 QTc: 430 Interpretive Statements SINUS RHYTHM Electronically Signed On 03-20-2017 20:11:50 EDT by Tanner Cazares MD
[2017-03-20] MEDS: Acetaminophen 325 MG TABLET PO PRN (22:11)
[2017-03-20] MEDS: *HR* OxyCODONE Immed Rel 5 MG TABLET PO PRN (22:31)
[2017-03-20] MEDS ORDERED: D5% in Water (Mini-Bag+) 100 ML IVPB ONE (23:50)
[2017-03-21] MEDS: Piperacillin/Tazobactam 3.375 GM in D5% in Water (Mini-Bag+) 100 ML IVPB SCH ×2 (00:05→08:25)
[2017-03-21] MEDS: *HR* OxyCODONE Immed Rel 5 MG TABLET PO PRN ×3 (03:20→20:41)
[2017-03-21 04:51] LABS: INR 1.3; Prothrombin Time 13.9 Seconds (9.4-12.1)
[2017-03-21 04:58] LABS: Basophils % 0.3 %; Eosinophils # 0.1 K/mcL (0.0-0.6); Eosinophils % 0.7 %; Hematocrit 37.5 % (35.3-44.9); Hemoglobin 12.5 g/dL (11.5-15.4); Immature Granulocytes % 0.8 % (0-4); Lymphocytes # 0.8 K/mcL (0.6-4.6); Lymphocytes % 5.6 %; Mean Corpuscular HGB Conc 33.3 g/dL (31.6-35.5); Mean Corpuscular Hemoglobin 28.3 pg (28.0-33.3); Mean Corpuscular Volume 84.8 fL (83.0-100.0); Mean Platelet Volume 9.9 fL (9.4-12.4); Monocytes # 0.6 K/mcL (0.0-1.3); Monocytes % 4.3 %; Neutrophils # 11.9 K/mcL (1.6-8.9); Platelet Count 167 K/mcL (140-400); Red Blood Count 4.42 M/mcL (3.82-4.97); Red Cell Distribution Width 15.5 % (11.5-14.5); Segmented Neutrophils % 88.3 %
[2017-03-21 05:00] LABS: Calcium 8.8 mg/dL (8.6-10.8); Magnesium 1.6 mg/dL (1.6-2.6); Phosphorous 2.7 mg/dL (2.3-4.7); Potassium 3.7 mEq/L (3.5-4.5)
--- NOTE | 2017-03-21 07:02 | Urology Progress Note ---
Date of Encounter: 03/21/17 Time of Encounter: 07:01 - Assessment and Plan (1) Sepsis Current Visit: Yes Status: Acute Qualifiers: Sepsis type: sepsis due to unspecified organism Qualified Code(s): A41.9 - Sepsis, unspecified organism (2) Kidney stone Current Visit: No Status: Acute Assessment and plan: ok to dc catheter from urology standpoint. patient to f/u in 2-[address] Mariee call with questions. Progress Note Narrative: patient seen. doing slightly better. Objective Initial Vital Signs Temp Pulse Resp BP Pulse Ox 101.7 F H 101 16 130/75 98 03/19/17 15:39 03/19/17 15:39 03/19/17 15:39 03/19/17 15:39 03/19/17 15:39 - General physical appearance Present: well developed - Abdomen Present: soft - Genitourinary Present: other (urine clear) - Labs 03/21/17 04:37 03/21/17 04:37 Diabetes panel 03/21/17 Range/Units 04:37 Sodium 136 (136-145) mEq/L Potassium 3.7 (3.5-4.5) mEq/L Chloride 104 (98-109) mEq/L Carbon Dioxide 22 (19-29) mEq/L BUN 24 H (7-20) mg/dL Creatinine 1.40 H (0.57-1.11) mg/dL Glucose 124 H (70-99) mg/dL Calcium 8.8 (8.6-10.8) mg/dL Calcium panel 03/21/17 Range/Units 04:37 Calcium 8.8 (8.6-10.8) mg/dL Phosphorus 2.7 (2.3-4.7) mg/dL Pituitary panel 03/21/17 Range/Units 04:37 Sodium 136 (136-145) mEq/L Potassium 3.7 (3.5-4.5) mEq/L Chloride 104 (98-109) mEq/L Carbon Dioxide 22 (19-29) mEq/L BUN 24 H (7-20) mg/dL Creatinine 1.40 H (0.57-1.11) mg/dL Glucose 124 H (70-99) mg/dL Calcium 8.8 (8.6-10.8) mg/dL Adrenal panel 10/10/17 Range/Units 04:37 Sodium 136 (136-145) mEq/L Potassium 3.7 (3.5-4.5) mEq/L Chloride 104 (98-109) mEq/L Carbon Dioxide 22 (19-29) mEq/L BUN 24 H (7-20) mg/dL Creatinine 1.40 H (0.57-1.11) mg/dL Glucose 124 H (70-99) mg/dL Calcium 8.8 (8.6-10.8) mg/dL - VTE Documentation of Mechanical Device: Venous foot pump, device Consult Discharge Plan - Plan Referrals: Kyree,Kassy Elder [employer] ENGINEER [Primary Care Provider] -
[2017-03-21] MEDS: Insulin LISPRO 300 UNITS/3 ML VIAL SQ SCH ×4 (08:18→21:00)
[2017-03-21] MEDS: Furosemide 20 MG TABLET PO SCH (08:29)
[2017-03-21] MEDS: Famotidine 20 MG TABLET PO SCH ×2 (08:29→12:09)
[2017-03-21] MEDS: Aspirin 81 MG TAB.CHEW PO SCH (08:30)
[2017-03-21] MEDS: Spironolactone 25 MG TABLET PO SCH (08:30)
[2017-03-21] MEDS: Metoprolol XL (24 HR) Succ 25 MG TAB.ER.24H PO SCH (08:31)
[2017-03-21] MEDS: *HR* Ticagrelor 90 MG TABLET PO SCH ×2 (08:31→20:41)
--- NOTE | 2017-03-21 09:36 | Internal Med Progress Note ---
Date of Encounter: 03/21/17 Time of Encounter: 09:33 - Assessment and plan (1) Kidney stone Current Visit: No Status: Acute Assessment and plan: s/p cystoscopy with stent placement (POD #2) urology on board and consultation appreciated (2) Sepsis Current Visit: Yes Status: Acute Assessment and plan: Sepsis secondary to UTI noted to have renal stone requiring cystocsopy with stent placement Noted to have positive urine culture for E.coli ESBL, blood cultures preliminary positive for E.coli. Noted to be febrile overnight with Tmax of 101.8 despite being on Zosyn. Will d/c zosyn and start Meropenem. Will follow up official culture reports f/u repeat blood cultures, pt will need 14 days of abx therapy from the first negative blood culture urine culture: E.coli ESBL BP within acceptable range continue to closely monitor Qualifiers: Sepsis type: sepsis due to unspecified organism Qualified Code(s): A41.9 - Sepsis, unspecified organism (3) UTI (urinary tract infection) Current Visit: Yes Status: Acute Assessment and plan: as listed above Qualifiers: Urinary tract infection type: site unspecified Hematuria presence: without hematuria Qualified Code(s): N39.0 - Urinary tract infection, site not specified (4) Bacteremia Current Visit: Yes Status: Acute Assessment and plan: secondary to UTI plan as listed above (5) CAD (coronary artery disease) Current Visit: No Status: Chronic Assessment and plan: No signs of angina present at this time continue home dose of statin, aspirin, bb, brilinta, lisinopril Decreased BB dose to 25mg PO qd given BP readings, will increase dose as needed Qualifiers: Coronary Disease-Associated Artery/Lesion type: [place] artery [place] vs. transplanted heart: [place] heart Associated angina: without angina Qualified Code(s): I25.10 - Atherosclerotic heart disease of [place] coronary artery without angina pectoris (6) Deep vein thrombosis (DVT) of right upper extremity Current Visit: Yes Status: Chronic Assessment and plan: reports of being on coumadin will continue coumadin noted to have subtherapeutic INR, will closely monitor pt has history of IVC filter placement Qualifiers: Affected thrombotic vein of extremity: other upper extremity vein Chronicity: chronic Qualified Code(s): I82.721 - Chronic embolism and thrombosis of deep veins of right upper extremity (7) Elevated troponin Current Visit: No Status: Acute Assessment and plan: Likely demand ischemia given sepsis cardiology evaluation appreciated (8) HTN (hypertension) Current Visit: No Status: Chronic Assessment and plan: BP within acceptable range continue home medications Qualifiers: Hypertension type: essential hypertension Qualified Code(s): I10 - Essential (primary) hypertension (9) Type 2 diabetes mellitus Current Visit: Yes Status: Chronic Assessment and plan: hold oral antihyperglycemic agents start sliding scale insulin algorithm monitor FS and BG Qualifiers: Diabetes mellitus complication status: without complication Diabetes mellitus mcc insulin use: without mcc use Qualified Code(s): E11.9 - Type 2 diabetes mellitus without complications (10) DVT prophylaxis Current Visit: Yes Status: Acute Assessment and plan: on coumadin (11) Congestive heart failure Current Visit: No Status: Chronic Assessment and plan: NO acute signs of CHF exacerbation Echo from 01/2017 showed LVEF of 40% continue home diuretics will closely monitor Qualifiers: Congestive heart failure type: diastolic Congestive heart failure chronicity: acute on chronic Qualified Code(s): I50.33 - Acute on chronic diastolic (congestive) heart failure (12) Tobacco abuse Current Visit: No Status: Chronic Assessment and plan: Smoking cessation counseling provided pt reports of trying to quit refused nicotine replacement therapy (13) Obesity (BMI 30-39.9) Current Visit: Yes Status: Chronic - Subjective Interval history: Patient seen and examined at bedside. Resting in bed and reports of feeling better compared to previous day. She is POD #2 s/p cystoscopy and stent placement. Noted to have positive urine culture for E.coli ESBL, blood cultures preliminary positive for E.coli. Noted to be febrile overnight with Tmax of 101.8 despite being on Zosyn. Will d/c zosyn and start Meropenem. - Constitutional Vitals: Temp Pulse Resp BP Pulse Ox 99.4 F 81 16 114/73 97 03/21/17 06:41 03/21/17 06:41 03/21/17 06:41 03/21/17 06:41 03/21/17 06:41 General appearance: Present: A&O X 3, no acute distress, obese, answers questions appropriately - Head Head exam: Present: atraumatic, normocephalic - Eye Eye exam: Present: conjuntiva pink, sclera anicteric - Respiratory Respiratory exam: Present: CTAB. Absent: respiratory distress, wheezes - Cardiovascular Cardiovascular exam: Present: RRR, +S1, +S2. Absent: diastolic murmur, gallop, rubs, systolic murmur - GI/Abdominal GI/Abdominal exam: Present: normal bowel sounds, soft, no peritoneal signs. Absent: distended, tenderness - Extremities Exam Extremities exam: Present: warm, radial pulses palpable and symmetrical. Absent : calf tenderness - Neurological Exam Neurological exam: Present: alert, oriented X3 Internal Medicine: Result - Labs CBC & Chem 7: 03/21/17 04:37 03/21/17 04:37 Labs: Short CBC 03/21/17 Range/Units 04:37 WBC 13.5 H (4.3-11.1) K/mcL Hgb 12.5 (11.5-15.4) g/dL Hct 37.5 (35.3-44.9) % Plt Count 167 (140-400) K/mcL Neutrophils # 11.9 H (1.6-8.9) K/mcL BMP 03/21/17 04:37 Sodium 136 Potassium 3.7 Chloride 104 Carbon Dioxide 22 BUN 24 H Creatinine 1.40 H Glucose 124 H Calcium 8.8 - ABG Interpretation ABG results: PT/INR, D-dimer PT 13.9 Seconds (9.4-12.1) H 03/21/17 04:37 - VTE Documentation of Mechanical Device: Venous foot pump, device Consult Discharge Plan - Plan Referrals: Kassy Adorno CNP [Primary Care Provider] -
--- NOTE | 2017-03-21 11:52 | Infectious Disease Consult ---
Date of Encounter: 03/21/17 Time of Encounter: 11:47 Assessment and Plan (1) Sepsis Status: Acute Assessment and plan: Severe sepsis: The patient had three SIRS criteria plus JAN and lactic acidosis. Likely secondary to bacteremia, UTI, and pyelonephritis. Improved. WBC trending down. The patient has been afebrile x 24 hours. Tachycardia has resolved. Blood cultures drawn 03/19/17 are positive 2/2 sets for E. coli. Repeat blood culture drawn 03/21/17 x 1 set is pending. Qualifiers: Sepsis type: Escherichia coli Qualified Code(s): A41.51 - Sepsis due to Escherichia coli [E. coli] (2) Bacteremia Status: Acute Assessment and plan: Causative organism E. coli. Likely secondary to UTI. Blood cultures drawn 03/19/17 are positive 2/2 sets for E. coli. Repeat blood culture drawn 03/21/17 x 1 set is pending. Get additional set of blood cultures now. Discontinue Meropenem. Start Ertapenem 1 gram IV daily. Duration of treatment depends on the clinical picture, but likely 14 days from the first set of negative blood cultures. Monitor renal function and dose-adjust antibiotics. Avoid insertion of central venous access or EPIV until repeat blood cultures are negative x 48 hours. (3) UTI (urinary tract infection) Status: Acute Assessment and plan: Causative organism E. coli ESBL. Likely secondary to obstructing ureteral stone. Continue antibiotics as above. Qualifiers: Urinary tract infection type: site unspecified Hematuria presence: without hematuria Qualified Code(s): N39.0 - Urinary tract infection, site not specified (4) Pyelonephritis Status: Acute Assessment and plan: Causative organism E. coli ESBL. Likely secondary to obstructing ureteral stone. Continue antibiotics as above. (5) Hydronephrosis with obstructing calculus Status: Acute Assessment and plan: CT scan of the abdomen and pelvis showed a 1.4cm stone impacted at the left UPJ with severe left obstructive uropathy and bilateral nephrolithiasis. Urology consulted. Status post cystoscopy with ureteral stent placement 03/19/[address] Redmond. (6) JAN (acute kidney injury) Status: Acute Assessment and plan: Serum creatinine 1.79 on admission. Likely multifactorial: hydronephrosis + sepsis. Improved. Continue to trend. Dose-adjust antibiotics. Avoid nephrotoxins as able. (7) Type 2 diabetes mellitus Status: Chronic Qualifiers: Diabetes mellitus complication status: without complication Diabetes mellitus terminal press operator insulin use: without usp use Qualified Code(s): E11.9 - Type 2 diabetes mellitus without complications (8) Obesity (BMI 30-39.9) Status: Chronic Infectious Disease HPI - Data of Consult Patient: known to practice within the last 3 years Consult date: 03/21/17 Requesting Physician: Abigail Arora MD Primary Care Provider: Kassy Adorno CNP - Consult Narrative Reason for consult: E. coli ESBL History of present illness: Ms. Mejía is a 51 year old female with a past medical history of DVT, kidney stones, and CAD status post PCI. The patient was admitted to the hospital for sepsis and obstructive uropathy. We are consulted 03/21/17 for further recommendations regarding E. coli ESBL. The patient is a 51-year-old female with a past medical history as stated above. The patient is known to the ID services as we were consulted on her case in the outpatient setting for ESBL UTI. The patient was treated with a 14 day course of IV Ertapenem and was doing well until about 10 days ago when she began to notice some dysuria. She states that two days prior to admission, she began to have fevers, abdominal and flank pain, and nausea with dry heaves. Upon presentation to the ED, the patient was febrile, tachycardic, and had leukocytosis, lactic acidosis, and an acute kidney injury. CT scan showed findings consistent with a 1.4cm stone impacted in the left UPJ with severe left obstructive uropathy and bilateral nephrolithiasis. Urology was consulted and took the patient to the OR for cystoscopy and ureteral stent placement. The patient was started on IV Rocephin and admitted to the hospital for further evaluation. Since admission, the patient's fevers have resolved and her WBC is trending down. Lactic acidosis has resolved and JAN is improving. Blood and urine cultures are positive for E. coli ESBL. Currently, the patient is on IV Meropenem. We've been asked to evaluate and make further recommendations. During my exam today, the patient states that she is starting to feel better. She reports fever of 103 prior to admission and chills. She denies chest pain, shortness of breath, or cough. She reported nausea with dry heaves, but no vomiting. She reports lower abdominal pain with radiation to her bilateral flanks, worse on the right than the left, and dysuria with urinary frequency. She states she did not eat anything for the two days before she came to the hospital. She reports that her abdominal pain has markedly improved and she has very little to no urinary symptoms at this time. CC: Abigail Arora MD Past Med Surg Social Fam HX - Past Medical History Attestation: Yes The following information was validated with the patient. Source: patient, old records reviewed, nursing notes reviewed Medical history: cardiomyopathy, DVT, diabetes, kidney stones, myocardial infarction, other (recurrent UTI) Psychiatric history: anxiety - Past Surgical History Surgical History: appendectomy, colectomy, ureteral stent - Social History Smoking Status: Current every day smoker Packs per day: 0.5 Smokeless Tobacco Status: No Alcohol use: none Drug use: opiates Occupational status: employed Current living situation: Home - Independent Activity Level: Independent ambulation Recent Out of Country Travel Within the Last 8 Weeks: No Exposure or Possible Exposure to Illness During Travel: No - Family History Mother Living Status: Hx Family Genitourinary Disorders: No Father History Unknown: Yes Infectious Disease-CN:Meds Furosemide [Lasix] 20 mg PO DAILY 09/06/16 [History] Spironolactone [Aldactone] 25 mg PO DAILY 09/06/16 [History] Metoprolol XL (24 HR) Succ [Toprol Xl] 50 mg PO DAILY 09/15/16 [History] Warfarin [Coumadin] 5 mg PO DAILY 09/16/16 [History] Aspirin 81 mg PO DAILY #30 tab.chew 09/20/16 [Rx] Atorvastatin [Lipitor] 20 mg PO HS #30 tablet 09/20/16 [Rx] Lisinopril [Zestril] 2.5 mg PO DAILY #30 tablet 09/20/16 [Rx] Ticagrelor [Brilinta] 90 mg PO BID #60 tablet 09/20/16 [Rx] metFORMIN [Glucophage] 500 mg PO BIDWM #60 tablet 09/20/16 [Rx] 3 Allergy/AdvReac Type Severity Reaction Status Date / Time [place] Allergy Hives Verified 01/06/17 09:26 Sulfa (Sulfonamide Allergy Hives Verified 01/06/17 09:26 Antibiotics) Tomato Allergy Hives Verified 01/06/17 09:26 All systems: reviewed and no additional remarkable complaints except as stated Exam - Constitutional Vitals: Temp Pulse Resp BP Pulse Ox 99.4 F 81 16 114/73 97 03/21/17 06:41 03/21/17 06:41 03/21/17 06:41 03/21/17 06:41 03/21/17 06:41 General appearance: average body habitus, cooperative, no acute distress - Head Head exam: Present: atraumatic, normal inspection, normocephalic - Eye Eye exam: Present: EOMI, normal appearance, PERRL Pupils: Present: normal accommodation - ENT ENT exam: Present: mucous membranes moist - Neck Neck exam: Present: normal inspection - Respiratory Respiratory exam: Present: CTAB. Absent: rales, respiratory distress, rhonchi, wheezes - Cardiovascular Cardiovascular exam: Present: RRR, +S1, +S2 - GI/Abdominal GI/Abdominal exam: Present: normal bowel sounds, soft, tenderness (RLQ, LLQ). Absent: distended - Extremities Exam Extremities exam: Present: normal inspection. Absent: joint swelling, pedal edema, tenderness - Back Exam Back exam: Present: CVA tenderness (L), CVA tenderness (R) - Neurological Exam Neurological exam: Present: alert, oriented X3, no focal deficits - Psychiatric Psychiatric exam: Present: normal affect, normal mood - Skin Skin exam: Present: dry, intact, normal color, warm Infectious Disease CN: Results - Labs CBC & Chem 7: 03/22/17 05:14 03/22/17 05:14 Cultures: Cultures 03/19/17 17:32 Urine Culture - Final Urine,Clean Catch Escherichia coli ESBL 03/19/17 18:01 Blood Culture - Preliminary Peripheral Venipuncture Gram Negative Reuben 03/19/17 17:55 Blood Culture - Preliminary Peripheral Venipuncture Escherichia coli - VTE Documentation of Mechanical Device: Venous foot pump, device Consult Discharge Plan - Plan Referrals: Kassy Adorno CNP [Primary Care Provider] - - Attending Attestation I examined this patient and my medical decision-making was reviewed with the Resident Physician. I agree with the documented findings, disposition and treatment plan as described except to the extent set forth below. This is an addendum to original report dictated by Elisa Piper CNP. Please refer to Mariel ortiz for full detail. Next Patient is a 51-year-old woman with past medical history mentioned below including recurrent nephrolithiasis and history of stool incontinence due to metformin with recurrent UTI with ESBL Escherichia coli that was seen by our service previously and treated with ertapenem. Patient apparently came in complaining of fever abdominal pain and nausea. In the ER patient was noted to be septic with fever and tachycardia and leukocytosis and lactic acidosis. Patient was also noted to be in acute kidney injury. A CT scan was done which revealed a 1.4 cm stone impacted in the left UPJ with severe left obstruction uropathy and bilateral nephrolithiasis. A shunt was seen by urology and taken to the OR for cystoscopy and ureteral stent placement. Patient she was started on IV antibiotics and then switched to Zosyn and currently she is on meropenem. We were asked to evaluate the patient and make further recommendations. Neck Currently patient appears comfortable lying in bed pleasant no acute distress answers questions for command. Denies any chest pain or shortness of breath. No abdominal pain. No nausea or vomiting diarrhea or constipation. Patient had a bowel movement yesterday. Patient tells me that theyve just removed her Walsh catheter and she has no problem with urination. At this point I will stop the meropenem. Patients creatinine clearance is around 50. She should be okay with ertapenem 1 g IV every 24 hours. Patient also needed part glide for IV antibiotics. We need to repeat blood cultures make sure they bacteremia has resolved. Well continue to monitor closely. Monitor labs and for drug toxicity.
[2017-03-21] MEDS ORDERED: Meropenem 1,000 MG in 0.9 % Sodium Chloride Mini Bag 100 ML IVPB SCH (12:00)
[2017-03-21] MEDS: Acetaminophen 325 MG TABLET PO PRN (16:19)
[2017-03-21] MEDS: *HR* Morphine 2 MG/ML SYRINGE IVP PRN (16:51)
[2017-03-21] MEDS: Ertapenem 1,000 MG in 0.9 % Sodium Chloride Mini Bag 100 ML IVPB SCH (17:09)
[2017-03-21] MEDS ORDERED: *HR* Warfarin 7.5 MG TABLET PO ONE (18:00)
[2017-03-22] MEDS: *HR* OxyCODONE Immed Rel 5 MG TABLET PO PRN ×4 (03:22→20:24)
[2017-03-22 05:50] LABS: Basophils % 0.4 %; Eosinophils # 0.1 K/mcL (0.0-0.6); Eosinophils % 1.1 %; Hematocrit 36.4 % (35.3-44.9); Hemoglobin 12.3 g/dL (11.5-15.4); Lymphocytes # 0.9 K/mcL (0.6-4.6); Lymphocytes % 8.3 %; Mean Corpuscular HGB Conc 33.8 g/dL (31.6-35.5); Mean Corpuscular Hemoglobin 28.1 pg (28.0-33.3); Mean Corpuscular Volume 83.3 fL (83.0-100.0); Mean Platelet Volume 10.3 fL (9.4-12.4); Monocytes # 0.7 K/mcL (0.0-1.3); Monocytes % 6.9 %; Neutrophils # 8.6 K/mcL (1.6-8.9); Platelet Count 197 K/mcL (140-400); Red Blood Count 4.37 M/mcL (3.82-4.97); Red Cell Distribution Width 15.5 % (11.5-14.5); Segmented Neutrophils % 82.3 %
[2017-03-22 06:00] LABS: INR 1.7; Prothrombin Time 18.1 Seconds (9.4-12.1)
[2017-03-22 06:05] LABS: BUN/Creatinine Ratio 16 (6-26); Blood Urea Nitrogen 18 mg/dL (7-20); Calcium 8.7 mg/dL (8.6-10.8); Carbon Dioxide 26 mEq/L (19-29); Chloride 102 mEq/L (98-109); Glucose 127 mg/dL (70-99); Magnesium 1.4 mg/dL (1.6-2.6); Osmolality,Calculated 283 (280-300); Phosphorous 3.3 mg/dL (2.3-4.7); Sodium 135 mEq/L (136-145); eGFR For African Americans > 60 (> 60); eGFR For Non-African Americans 50 (> 60)
[2017-03-22] MEDS: Insulin LISPRO 300 UNITS/3 ML VIAL SQ SCH ×4 (08:03→20:24)
[2017-03-22] MEDS: Famotidine 20 MG TABLET PO SCH (08:04)
[2017-03-22] MEDS: *HR* Ticagrelor 90 MG TABLET PO SCH ×2 (08:04→20:22)
[2017-03-22] MEDS: Metoprolol XL (24 HR) Succ 25 MG TAB.ER.24H PO SCH (08:04)
[2017-03-22] MEDS: Spironolactone 25 MG TABLET PO SCH (08:04)
[2017-03-22] MEDS ORDERED: Magnesium Sulfate 2 GM in D5% in Water 100 ML IVPB ONE (08:05)
[2017-03-22] MEDS: Furosemide 20 MG TABLET PO SCH (08:05)
[2017-03-22] MEDS: Aspirin 81 MG TAB.CHEW PO SCH (08:05)
[2017-03-22] MEDS ORDERED: Ertapenem 1,000 MG in 0.9 % Sodium Chloride Mini Bag 100 ML IVPB SCH (09:00)
--- NOTE | 2017-03-22 14:25 | Infectious Disease Progress No ---
Date of Encounter: 03/22/17 Time of Encounter: 14:23 - Assessment and Plan (1) Sepsis Current Visit: Yes Status: Acute Severe sepsis: The patient had three SIRS criteria plus JAN and lactic acidosis. Likely secondary to bacteremia, UTI, and pyelonephritis. Improved. WBC has normalized. She did spike a fever last night. Tachycardia has resolved. Blood cultures drawn 03/19/17 are positive 2/2 sets for E. coli. Repeat blood culture drawn 03/21/17 x 1 set is NGTD. Qualifiers: Sepsis type: Escherichia coli Qualified Code(s): A41.51 - Sepsis due to Escherichia coli [E. coli] (2) Bacteremia Current Visit: Yes Status: Acute Causative organism E. coli. Likely secondary to UTI. Blood cultures drawn 03/19/17 are positive 2/2 sets for E. coli. Repeat blood culture drawn 03/21/17 x 1 set is NGTD. Continue Ertapenem 1 gram IV daily. Duration of treatment depends on the clinical picture, but likely 14 days from the first set of negative blood cultures. Monitor renal function and dose-adjust antibiotics. Avoid insertion of central venous access or EPIV until repeat blood cultures are negative x 48 hours. (3) UTI (urinary tract infection) Current Visit: Yes Status: Acute Causative organism E. coli ESBL. Likely secondary to obstructing ureteral stone. Continue antibiotics as above. Qualifiers: Urinary tract infection type: site unspecified Hematuria presence: without hematuria Qualified Code(s): N39.0 - Urinary tract infection, site not specified (4) Pyelonephritis Current Visit: Yes Status: Acute Causative organism E. coli ESBL. Likely secondary to obstructing ureteral stone. Continue antibiotics as above. (5) Hydronephrosis with obstructing calculus Current Visit: Yes Status: Acute CT scan of the abdomen and pelvis showed a 1.4cm stone impacted at the left UPJ with severe left obstructive uropathy and bilateral nephrolithiasis. Urology consulted. Status post cystoscopy with ureteral stent placement 03/19/[address] Redmond. 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 No acute events noted overnight. Patient resting comfortably in bed. Reports a fever overnight. States she had lower abdominal pain and lower back pain with the onset of her fever, but this has resolved. She denies any nausea, vomiting, diarrhea, or constipation. She denies any dysuria or hematuria. She states she feels like she is able to fully empty her bladder. She denies any oral thrush or skin lesions. She states her appetite is good. She denies chest pain, shortness of breath, or cough. Infect Dis PN-Objective Data - Labs CBC & Chem 7: 03/24/17 04:30 03/24/17 04:30 Labs: Laboratory Results - last 24 hr 03/21/17 03/21/17 03/21/17 16:13 16:35 20:49 WBC RBC Hgb Hct MCV MCH MCHC RDW Plt Count MPV Immature Gran % Seg Neutrophils % Lymphocytes % Monocytes % Eosinophils % Basophils % Neutrophils # Lymphocytes # Monocytes # Eosinophils # Basophils # PT INR Sodium Potassium Chloride Carbon Dioxide BUN Creatinine Est GFR ( Amer) Est GFR (Non-Af Amer) BUN/Creatinine Ratio Glucose POC Glucose 86 124 H Calculated Osmolality Lactic Acid 1.5 Calcium Phosphorus Magnesium 03/22/17 03/22/17 03/22/17 05:14 05:14 05:14 WBC 10.4 RBC 4.37 Hgb 12.3 Hct 36.4 MCV 83.3 MCH 28.1 MCHC 33.8 RDW 15.5 H Plt Count 197 MPV 10.3 Immature Gran % 1.0 Seg Neutrophils % 82.3 Lymphocytes % 8.3 Monocytes % 6.9 Eosinophils % 1.1 Basophils % 0.4 Neutrophils # 8.6 Lymphocytes # 0.9 Monocytes # 0.7 Eosinophils # 0.1 Basophils # 0.0 PT 18.1 H INR 1.7 Sodium 135 L Potassium 3.0 L Chloride 102 Carbon Dioxide 26 BUN 18 Creatinine 1.15 H Est GFR ( Amer) > 60 Est GFR (Non-Af Amer) 50 L BUN/Creatinine Ratio 16 Glucose 127 H POC Glucose Calculated Osmolality 283 Lactic Acid Calcium 8.7 Phosphorus 3.3 Magnesium 1.4 L 03/22/17 03/22/17 07:47 11:06 WBC RBC Hgb Hct MCV MCH MCHC RDW Plt Count MPV Immature Gran % Seg Neutrophils % Lymphocytes % Monocytes % Eosinophils % Basophils % Neutrophils # Lymphocytes # Monocytes # Eosinophils # Basophils # PT INR Sodium Potassium Chloride Carbon Dioxide BUN Creatinine Est GFR ( Amer) Est GFR (Non-Af Amer) BUN/Creatinine Ratio Glucose POC Glucose 103 H 168 H Calculated Osmolality Lactic Acid Calcium Phosphorus Magnesium Cultures: Cultures 03/21/17 04:37 Blood Culture - Preliminary Peripheral Venipuncture No growth. Exam - Constitutional Vitals: Temp Pulse Resp BP Pulse Ox 98.1 F 77 16 104/67 95 03/22/17 11:01 03/22/17 11:01 03/22/17 11:01 03/22/17 11:01 03/22/17 11:01 General appearance: average body habitus, cooperative, no acute distress - Head Head exam: Present: atraumatic, normal inspection, normocephalic - Eye Eye exam: Present: EOMI, normal appearance, PERRL Pupils: Present: normal accommodation - ENT ENT exam: Present: mucous membranes moist - Neck Neck exam: Present: normal inspection - Respiratory Respiratory exam: Present: CTAB. Absent: rales, respiratory distress, rhonchi, wheezes - Cardiovascular Cardiovascular exam: Present: RRR, +S1, +S2 - GI/Abdominal GI/Abdominal exam: Present: normal bowel sounds, soft, tenderness (lower abdomen ). Absent: distended - Extremities Exam Extremities exam: Present: normal inspection. Absent: joint swelling, pedal edema, tenderness - Back Exam Back exam: Present: CVA tenderness (L), CVA tenderness (R) - Neurological Exam Neurological exam: Present: alert, oriented X3, no focal deficits - Psychiatric Psychiatric exam: Present: normal affect, normal mood - Skin Skin exam: Present: dry, intact, normal color, warm - VTE Documentation of Mechanical Device: Venous foot pump, device Consult Discharge Plan - Plan Additional Instructions: Please follow up with your primary care physician within five days after your discharge from the hospital. Please follow up with urology within one week after your discharge from the hospital. Please continue IV antibiotics for 11 more days. Your home dose of Metoprolol has been decreased to 25mg once a day. Please closely monitor your blood pressure at home. If you are noted to have systolic blood pressure greater than 150 despite taking the 25mg of Metoprolol, you may resume your home dose of Metoprolol 50mg once a day. Hold your blood pressure medications if your systolic blood pressure is less than 100. Resume all other medications as prescribed by your primary care physician. Continue follow up with Coumadin clinic and monitor your INR closely. Referrals: Franc Redmond MD [Partnered Physician] - 04/04/17 9:30 am Elisa Piper CNP [Advanced Practice Nurse] - 04/03/17 8:20 am Kassy Adorno CNP [Primary Care Provider] - 03/28/17 10:45 am Prescriptions: OxyCODONE Immed Rel [Roxicodone 5 MG] 10 mg PO Q4HR PRN #10 tablet PRN Reason: Pain Ertapenem [INVanz] 1,000 mg IVPB DAILY #11 vial Metoprolol XL (24 HR) Succ [Toprol Xl] 25 mg PO DAILY #30 tab.er.24h - Attending Attestation I examined this patient and my medical decision-making was reviewed with the Resident Physician. I agree with the documented findings, disposition and treatment plan as described except to the extent set forth below.
--- NOTE | 2017-03-22 15:23 | Internal Med Progress Note ---
Date of Encounter: 03/22/17 Time of Encounter: 15:10 - Assessment and plan (1) Kidney stone Current Visit: No Status: Acute Assessment and plan: s/p cystoscopy with stent placement (POD #3) urology on board and consultation appreciated (2) Sepsis Current Visit: Yes Status: Acute Assessment and plan: Sepsis secondary to UTI noted to have renal stone requiring cystocsopy with stent placement Noted to have positive urine culture for E.coli ESBL, blood cultures preliminary positive for E.coli. Responding appropriately to Ertapenem (changed by ID) f/u repeat blood cultures, pt will need 14 days of abx therapy from the first negative blood culture urine culture: E.coli ESBL BP within acceptable range continue to closely monitor ID consultation appreciated Qualifiers: Sepsis type: sepsis due to unspecified organism Qualified Code(s): A41.9 - Sepsis, unspecified organism (3) UTI (urinary tract infection) Current Visit: Yes Status: Acute Assessment and plan: as listed above Qualifiers: Urinary tract infection type: site unspecified Hematuria presence: without hematuria Qualified Code(s): N39.0 - Urinary tract infection, site not specified (4) Bacteremia Current Visit: Yes Status: Acute Assessment and plan: secondary to UTI plan as listed above (5) CAD (coronary artery disease) Current Visit: No Status: Chronic Assessment and plan: No signs of angina present at this time continue home dose of statin, aspirin, bb, brilinta, lisinopril continue Metoprolol 25mg PO qd, Hold for SBP<100 Qualifiers: Coronary Disease-Associated Artery/Lesion type: [place] artery [place] vs. transplanted heart: [place] heart Associated angina: without angina Qualified Code(s): I25.10 - Atherosclerotic heart disease of [place] coronary artery without angina pectoris (6) Deep vein thrombosis (DVT) of right upper extremity Current Visit: Yes Status: Chronic Assessment and plan: reports of being on coumadin will continue coumadin noted to have subtherapeutic INR, will closely monitor pt has history of IVC filter placement Qualifiers: Affected thrombotic vein of extremity: other upper extremity vein Chronicity: chronic Qualified Code(s): I82.721 - Chronic embolism and thrombosis of deep veins of right upper extremity (7) Elevated troponin Current Visit: No Status: Acute Assessment and plan: Likely demand ischemia given sepsis cardiology evaluation appreciated (8) HTN (hypertension) Current Visit: No Status: Chronic Assessment and plan: BP within acceptable range continue home medications Qualifiers: Hypertension type: essential hypertension Qualified Code(s): I10 - Essential (primary) hypertension (9) Type 2 diabetes mellitus Current Visit: Yes Status: Chronic Assessment and plan: hold oral antihyperglycemic agents sliding scale insulin algorithm monitor FS and BG Qualifiers: Diabetes mellitus complication status: without complication Diabetes mellitus correction insulin use: without correction use Qualified Code(s): E11.9 - Type 2 diabetes mellitus without complications (10) DVT prophylaxis Current Visit: Yes Status: Acute Assessment and plan: on coumadin (11) Congestive heart failure Current Visit: No Status: Chronic Assessment and plan: NO acute signs of CHF exacerbation Echo from 01/2017 showed LVEF of 40% continue home diuretics will closely monitor Qualifiers: Congestive heart failure type: diastolic Congestive heart failure chronicity: acute on chronic Qualified Code(s): I50.33 - Acute on chronic diastolic (congestive) heart failure (12) Tobacco abuse Current Visit: No Status: Chronic Assessment and plan: Smoking cessation counseling provided pt reports of trying to quit refused nicotine replacement therapy (13) Obesity (BMI 30-39.9) Current Visit: Yes Status: Chronic (14) Electrolyte abnormality Current Visit: Yes Status: Acute Assessment and plan: Hypokalemia and Hypomagnesemia K and Mg supplemented continue to monitor electrolytes and transfuse as needed - Subjective Interval history: Patient seen and examined at bedside. Resting in bed and reports of feeling better compared to previous day. She is POD #3 s/p cystoscopy and stent placement. Noted to have positive urine culture for E.coli ESBL, blood cultures preliminary positive for E.coli. Afebrile for 24 hours. - Constitutional Vitals: Temp Pulse Resp BP Pulse Ox 97.8 F 77 16 101/60 95 03/22/17 15:05 03/22/17 15:05 03/22/17 15:05 03/22/17 15:05 03/22/17 15:05 General appearance: Present: A&O X 3, no acute distress, obese, answers questions appropriately - Head Head exam: Present: atraumatic, normocephalic - Eye Eye exam: Present: conjuntiva pink, sclera anicteric - Respiratory Respiratory exam: Present: CTAB. Absent: respiratory distress, wheezes - Cardiovascular Cardiovascular exam: Present: RRR, +S1, +S2. Absent: diastolic murmur, gallop, rubs, systolic murmur - GI/Abdominal GI/Abdominal exam: Present: normal bowel sounds, soft, no peritoneal signs. Absent: distended, tenderness - Extremities Exam Extremities exam: Present: warm, radial pulses palpable and symmetrical. Absent : calf tenderness, cyanotic, pedal edema - Neurological Exam Neurological exam: Present: alert, oriented X3 - Psychiatric Psychiatric exam: Present: normal affect, normal mood Internal Medicine: Result - Labs CBC & Chem 7: 03/22/17 05:14 03/22/17 05:14 Labs: Short CBC 03/22/17 Range/Units 05:14 WBC 10.4 (4.3-11.1) K/mcL Hgb 12.3 (11.5-15.4) g/dL Hct 36.4 (35.3-44.9) % Plt Count 197 (140-400) K/mcL Neutrophils # 8.6 (1.6-8.9) K/mcL BMP 03/22/17 05:14 Sodium 135 L Potassium 3.0 L Chloride 102 Carbon Dioxide 26 BUN 18 Creatinine 1.15 H Glucose 127 H Calcium 8.7 - ABG Interpretation ABG results: PT/INR, D-dimer PT 18.1 Seconds (9.4-12.1) H 03/22/17 05:14 - VTE Documentation of Mechanical Device: Venous foot pump, device Consult Discharge Plan - Plan Referrals: Kassy Adorno CNP [Primary Care Provider] -
[2017-03-22] MEDS: Ertapenem 1,000 MG in 0.9 % Sodium Chloride Mini Bag 100 ML IVPB SCH (16:32)
[2017-03-22] MEDS ORDERED: *HR* Warfarin 5 MG TABLET PO ONE (18:00)
[2017-03-23 03:48] LABS: Basophils # 0.1 K/mcL (0.0-0.2); Basophils % 0.4 %; Eosinophils # 0.2 K/mcL (0.0-0.6); Eosinophils % 1.4 %; Hematocrit 36.9 % (35.3-44.9); Hemoglobin 12.5 g/dL (11.5-15.4); Immature Granulocytes % 1.4 % (0-4); Lymphocytes % 8.6 %; Mean Corpuscular HGB Conc 33.9 g/dL (31.6-35.5); Mean Corpuscular Hemoglobin 27.8 pg (28.0-33.3); Mean Corpuscular Volume 82.2 fL (83.0-100.0); Monocytes # 0.8 K/mcL (0.0-1.3); Monocytes % 7.1 %; Neutrophils # 9.2 K/mcL (1.6-8.9); Platelet Count 241 K/mcL (140-400); Red Blood Count 4.49 M/mcL (3.82-4.97); Red Cell Distribution Width 15.6 % (11.5-14.5); Segmented Neutrophils % 81.1 %
[2017-03-23 03:55] LABS: INR 1.8; Prothrombin Time 19.3 Seconds (9.4-12.1)
[2017-03-23 04:08] LABS: Calcium 8.9 mg/dL (8.6-10.8); Magnesium 1.6 mg/dL (1.6-2.6); Phosphorous 3.1 mg/dL (2.3-4.7); Potassium 3.6 mEq/L (3.5-4.5)
[2017-03-23] MEDS: *HR* OxyCODONE Immed Rel 5 MG TABLET PO PRN ×3 (04:17→13:28)
[2017-03-23] MEDS: Metoprolol XL (24 HR) Succ 25 MG TAB.ER.24H PO SCH (08:23)
[2017-03-23] MEDS: Furosemide 20 MG TABLET PO SCH (08:23)
[2017-03-23] MEDS: Famotidine 20 MG TABLET PO SCH (08:24)
[2017-03-23] MEDS: *HR* Ticagrelor 90 MG TABLET PO SCH ×2 (08:24→20:35)
[2017-03-23] MEDS: Spironolactone 25 MG TABLET PO SCH (08:24)
[2017-03-23] MEDS: Aspirin 81 MG TAB.CHEW PO SCH (08:25)
[2017-03-23] MEDS: Insulin LISPRO 300 UNITS/3 ML VIAL SQ SCH ×4 (08:25→22:02)
--- NOTE | 2017-03-23 12:44 | Infectious Disease Progress No ---
Date of Encounter: 03/23/17 Time of Encounter: 12:40 - Assessment and Plan (1) Sepsis Current Visit: Yes Status: Acute Severe sepsis: The patient had three SIRS criteria plus JAN and lactic acidosis. Likely secondary to bacteremia, UTI, and pyelonephritis. Improved. WBC has normalized. She did have a low-grade fever overnight. Tachycardia has resolved. Blood cultures drawn 03/19/17 are positive 2/2 sets for E. coli. Repeat blood culture drawn 03/21/17 x 1 set is NGTD. Qualifiers: Sepsis type: Escherichia coli Qualified Code(s): A41.51 - Sepsis due to Escherichia coli [E. coli] (2) Bacteremia Current Visit: Yes Status: Acute Causative organism E. coli. Likely secondary to UTI. Blood cultures drawn 03/19/17 are positive 2/2 sets for E. coli. Repeat blood culture drawn 03/21/17 x 1 set is NGTD. Continue Ertapenem 1 gram IV daily. Duration of treatment depends on the clinical picture, but likely 14 days from the first set of negative blood cultures. Monitor renal function and dose-adjust antibiotics. EPIV placed 03/23/17. (3) UTI (urinary tract infection) Current Visit: Yes Status: Acute Causative organism E. coli ESBL. Likely secondary to obstructing ureteral stone. Continue antibiotics as above. Qualifiers: Urinary tract infection type: site unspecified Hematuria presence: without hematuria Qualified Code(s): N39.0 - Urinary tract infection, site not specified (4) Pyelonephritis Current Visit: Yes Status: Acute Causative organism E. coli ESBL. Likely secondary to obstructing ureteral stone. Continue antibiotics as above. (5) Hydronephrosis with obstructing calculus Current Visit: Yes Status: Acute CT scan of the abdomen and pelvis showed a 1.4cm stone impacted at the left UPJ with severe left obstructive uropathy and bilateral nephrolithiasis. Urology consulted. Status post cystoscopy with ureteral stent placement 03/19/[address] Redmond. (6) Type 2 diabetes mellitus Current Visit: Yes Status: Chronic Qualifiers: Diabetes mellitus complication status: without complication Diabetes mellitus supervisor intermediates insulin use: without mcfp use Qualified Code(s): E11.9 - Type 2 diabetes mellitus without complications (7) Obesity (BMI 30-39.9) Current Visit: Yes Status: Chronic - Subjective Interval history: Patient seen and examined. No acute events noted overnight. Patient resting comfortably in bed. Low-grade fever noted overnight. States she had lower abdominal pain and lower back pain 6/10 with worsening of her abdominal discomfort when she needs to void. She denies any nausea, vomiting, diarrhea, or constipation. She denies any dysuria or hematuria. She states she feels like she is able to fully empty her bladder. She denies any oral thrush or skin lesions. She states her appetite is good. She denies chest pain, shortness of breath, or cough. Infect Dis PN-Objective Data - Labs CBC & Chem 7: 03/24/17 04:30 03/24/17 04:30 Labs: Laboratory Results - last 24 hr 03/22/17 03/22/17 03/23/17 16:17 20:05 03:30 WBC RBC Hgb Hct MCV MCH MCHC RDW Plt Count MPV Immature Gran % Seg Neutrophils % Lymphocytes % Monocytes % Eosinophils % Basophils % Neutrophils # Lymphocytes # Monocytes # Eosinophils # Basophils # PT 19.3 H INR 1.8 Sodium Potassium Chloride Carbon Dioxide BUN Creatinine Est GFR ( Amer) Est GFR (Non-Af Amer) BUN/Creatinine Ratio Glucose POC Glucose 96 H 214 H Calculated Osmolality Calcium Phosphorus Magnesium 03/23/17 03/23/17 03:30 03:30 WBC 11.3 H RBC 4.49 Hgb 12.5 Hct 36.9 MCV 82.2 L MCH 27.8 L MCHC 33.9 RDW 15.6 H Plt Count 241 MPV 10.0 Immature Gran % 1.4 Seg Neutrophils % 81.1 Lymphocytes % 8.6 Monocytes % 7.1 Eosinophils % 1.4 Basophils % 0.4 Neutrophils # 9.2 H Lymphocytes # 1.0 Monocytes # 0.8 Eosinophils # 0.2 Basophils # 0.1 PT INR Sodium 132 L Potassium 3.6 Chloride 98 Carbon Dioxide 25 BUN 23 H Creatinine 1.17 H Est GFR ( Amer) 59 L Est GFR (Non-Af Amer) 49 L BUN/Creatinine Ratio 20 Glucose 165 H POC Glucose Calculated Osmolality 281 Calcium 8.9 Phosphorus 3.1 Magnesium 1.6 Cultures: Cultures 03/21/17 04:37 Blood Culture - Preliminary Peripheral Venipuncture No growth. Exam - Constitutional Vitals: Temp Pulse Resp BP Pulse Ox 97.5 F L 78 16 102/62 94 03/23/17 11:04 03/23/17 11:04 03/23/17 11:04 03/23/17 11:04 03/23/17 11:04 General appearance: average body habitus, cooperative, no acute distress - Head Head exam: Present: atraumatic, normal inspection, normocephalic - Eye Eye exam: Present: EOMI, normal appearance, PERRL Pupils: Present: normal accommodation - ENT ENT exam: Present: mucous membranes moist - Neck Neck exam: Present: normal inspection - Respiratory Respiratory exam: Present: CTAB. Absent: rales, respiratory distress, rhonchi, wheezes - Cardiovascular Cardiovascular exam: Present: RRR, +S1, +S2 - GI/Abdominal GI/Abdominal exam: Present: normal bowel sounds, soft, tenderness (suprapubic). Absent: distended - Extremities Exam Extremities exam: Present: normal inspection. Absent: joint swelling, pedal edema, tenderness - Back Exam Back exam: Absent: CVA tenderness (L), CVA tenderness (R) - Neurological Exam Neurological exam: Present: alert, oriented X3, no focal deficits - Psychiatric Psychiatric exam: Present: normal affect, normal mood - Skin Skin exam: Present: dry, intact, normal color, warm - Additional findings Additional findings: EPIV noted to the LUE with transparent dressing C/D/I. - VTE Documentation of Mechanical Device: Venous foot pump, device Consult Discharge Plan - Plan Additional Instructions: Please follow up with your primary care physician within five days after your discharge from the hospital. Please follow up with urology within one week after your discharge from the hospital. Please continue IV antibiotics for 11 more days. Your home dose of Metoprolol has been decreased to 25mg once a day. Please closely monitor your blood pressure at home. If you are noted to have systolic blood pressure greater than 150 despite taking the 25mg of Metoprolol, you may resume your home dose of Metoprolol 50mg once a day. Hold your blood pressure medications if your systolic blood pressure is less than 100. Resume all other medications as prescribed by your primary care physician. Continue follow up with Coumadin clinic and monitor your INR closely. Referrals: Franc Redmond MD [Partnered Physician] - 04/04/17 9:30 am Elisa Piper CNP [Advanced Practice Nurse] - 04/03/17 8:20 am Adorno,Kassy Elder CNP [Primary Care Provider] - 03/28/17 10:45 am Prescriptions: OxyCODONE Immed Rel [Roxicodone 5 MG] 10 mg PO Q4HR PRN #10 tablet PRN Reason: Pain Ertapenem [INVanz] 1,000 mg IVPB DAILY #11 vial Metoprolol XL (24 HR) Succ [Toprol Xl] 25 mg PO DAILY #30 tab.er.24h - Attending Attestation I examined this patient and my medical decision-making was reviewed with the Resident Physician. I agree with the documented findings, disposition and treatment plan as described except to the extent set forth below.
--- NOTE | 2017-03-23 15:39 | Internal Med Progress Note ---
Date of Encounter: 03/23/17 Time of Encounter: 13:45 - Assessment and plan (1) Kidney stone Current Visit: No Status: Acute Assessment and plan: s/p cystoscopy with stent placement (POD #4) urology on board and consultation appreciated (2) Sepsis Current Visit: Yes Status: Acute Assessment and plan: Sepsis secondary to UTI noted to have renal stone requiring cystocsopy with stent placement Noted to have positive urine culture for E.coli ESBL, blood cultures preliminary positive for E.coli. Responding appropriately to Ertapenem (changed by ID) f/u repeat blood cultures, pt will need 14 days of abx therapy from the first negative blood culture urine culture: E.coli ESBL BP within acceptable range continue to closely monitor ID consultation appreciated Qualifiers: Sepsis type: sepsis due to unspecified organism Qualified Code(s): A41.9 - Sepsis, unspecified organism (3) UTI (urinary tract infection) Current Visit: Yes Status: Acute Assessment and plan: as listed above Qualifiers: Urinary tract infection type: site unspecified Hematuria presence: without hematuria Qualified Code(s): N39.0 - Urinary tract infection, site not specified (4) Bacteremia Current Visit: Yes Status: Acute Assessment and plan: secondary to UTI plan as listed above (5) CAD (coronary artery disease) Current Visit: No Status: Chronic Assessment and plan: No signs of angina present at this time continue home dose of statin, aspirin, bb, brilinta, lisinopril continue Metoprolol 25mg PO qd, Hold for SBP<100 Qualifiers: Coronary Disease-Associated Artery/Lesion type: [place] artery [place] vs. transplanted heart: [place] heart Associated angina: without angina Qualified Code(s): I25.10 - Atherosclerotic heart disease of [place] coronary artery without angina pectoris (6) Deep vein thrombosis (DVT) of right upper extremity Current Visit: Yes Status: Chronic Assessment and plan: reports of being on coumadin will continue coumadin noted to have subtherapeutic INR, will closely monitor pt has history of IVC filter placement Qualifiers: Affected thrombotic vein of extremity: other upper extremity vein Chronicity: chronic Qualified Code(s): I82.721 - Chronic embolism and thrombosis of deep veins of right upper extremity (7) Elevated troponin Current Visit: No Status: Acute Assessment and plan: Likely demand ischemia given sepsis cardiology evaluation appreciated (8) HTN (hypertension) Current Visit: No Status: Chronic Assessment and plan: BP within acceptable range continue home medications Qualifiers: Hypertension type: essential hypertension Qualified Code(s): I10 - Essential (primary) hypertension (9) Type 2 diabetes mellitus Current Visit: Yes Status: Chronic Assessment and plan: hold oral antihyperglycemic agents sliding scale insulin algorithm monitor FS and BG Qualifiers: Diabetes mellitus complication status: without complication Diabetes mellitus custodial insulin use: without custodial use Qualified Code(s): E11.9 - Type 2 diabetes mellitus without complications (10) DVT prophylaxis Current Visit: Yes Status: Acute Assessment and plan: on coumadin (11) Congestive heart failure Current Visit: No Status: Chronic Assessment and plan: NO acute signs of CHF exacerbation Echo from 01/2017 showed LVEF of 40% continue home diuretics will closely monitor Qualifiers: Congestive heart failure type: diastolic Congestive heart failure chronicity: acute on chronic Qualified Code(s): I50.33 - Acute on chronic diastolic (congestive) heart failure (12) Tobacco abuse Current Visit: No Status: Chronic Assessment and plan: Smoking cessation counseling provided pt reports of trying to quit refused nicotine replacement therapy (13) Obesity (BMI 30-39.9) Current Visit: Yes Status: Chronic (14) Electrolyte abnormality Current Visit: Yes Status: Resolved - Subjective Interval history: Patient seen and examined at bedside. Resting in bed and reports of feeling better compared to previous day. She is POD #4 s/p cystoscopy and stent placement. Noted to have positive urine culture for E.coli ESBL, blood cultures preliminary positive for E.coli. Reported to have Tmax of 100.3 yesterday evening, afebrile overnight and throughout the day. - Constitutional Vitals: Temp Pulse Resp BP Pulse Ox 97.4 F L 78 16 109/71 94 03/23/17 15:14 03/23/17 15:14 03/23/17 15:14 03/23/17 15:14 03/23/17 15:14 General appearance: Present: A&O X 3, no acute distress, obese, answers questions appropriately - Head Head exam: Present: atraumatic, normocephalic - Eye Eye exam: Present: conjuntiva pink, sclera anicteric - Respiratory Respiratory exam: Present: CTAB. Absent: respiratory distress, wheezes - Cardiovascular Cardiovascular exam: Present: RRR, +S1, +S2. Absent: diastolic murmur, gallop, rubs, systolic murmur - GI/Abdominal GI/Abdominal exam: Present: normal bowel sounds, soft, no peritoneal signs. Absent: distended, tenderness - Extremities Exam Extremities exam: Present: warm, radial pulses palpable and symmetrical. Absent : calf tenderness, cyanotic, pedal edema - Neurological Exam Neurological exam: Present: alert, oriented X3 - Psychiatric Psychiatric exam: Present: normal affect, normal mood Internal Medicine: Result - Labs CBC & Chem 7: 03/23/17 03:30 03/23/17 03:30 Labs: Short CBC 03/23/17 Range/Units 03:30 WBC 11.3 H (4.3-11.1) K/mcL Hgb 12.5 (11.5-15.4) g/dL Hct 36.9 (35.3-44.9) % Plt Count 241 (140-400) K/mcL Neutrophils # 9.2 H (1.6-8.9) K/mcL BMP 03/23/17 03:30 Sodium 132 L Potassium 3.6 Chloride 98 Carbon Dioxide 25 BUN 23 H Creatinine 1.17 H Glucose 165 H Calcium 8.9 - ABG Interpretation ABG results: PT/INR, D-dimer PT 19.3 Seconds (9.4-12.1) H 03/23/17 03:30 - VTE Documentation of Mechanical Device: Venous foot pump, device Consult Discharge Plan - Plan Referrals: Kassy Adorno CNP [Primary Care Provider] -
[2017-03-23] MEDS: Ertapenem 1,000 MG in 0.9 % Sodium Chloride Mini Bag 100 ML IVPB SCH (17:00)
[2017-03-23] MEDS ORDERED: *HR* Warfarin 5 MG TABLET PO ONE (18:00)
[2017-03-23] MEDS: *HR* Belladonna Alkaloids/Opium 30 MG RECTAL SUPPOSITORY RC PRN (20:36)
[2017-03-24 04:52] LABS: Basophils # 0.1 K/mcL (0.0-0.2); Basophils % 0.7 %; Eosinophils # 0.2 K/mcL (0.0-0.6); Eosinophils % 2.1 %; Hematocrit 36.7 % (35.3-44.9); Hemoglobin 12.1 g/dL (11.5-15.4); Immature Granulocytes % 2.3 % (0-4); Lymphocytes # 1.3 K/mcL (0.6-4.6); Lymphocytes % 13.9 %; Mean Corpuscular Hemoglobin 27.8 pg (28.0-33.3); Mean Corpuscular Volume 84.2 fL (83.0-100.0); Mean Platelet Volume 9.5 fL (9.4-12.4); Monocytes # 0.7 K/mcL (0.0-1.3); Monocytes % 7.5 %; Neutrophils # 6.7 K/mcL (1.6-8.9); Platelet Count 295 K/mcL (140-400); Red Blood Count 4.36 M/mcL (3.82-4.97); Red Cell Distribution Width 15.2 % (11.5-14.5); Segmented Neutrophils % 73.5 %
[2017-03-24 05:16] LABS: BUN/Creatinine Ratio 24 (6-26); Blood Urea Nitrogen 22 mg/dL (7-20); Calcium 8.8 mg/dL (8.6-10.8); Carbon Dioxide 28 mEq/L (19-29); Chloride 99 mEq/L (98-109); Glucose 124 mg/dL (70-99); Magnesium 1.5 mg/dL (1.6-2.6); Osmolality,Calculated 283 (280-300); Phosphorous 3.6 mg/dL (2.3-4.7); Potassium 3.7 mEq/L (3.5-4.5); Sodium 134 mEq/L (136-145); eGFR For African Americans > 60 (> 60); eGFR For Non-African Americans > 60 (> 60)
[2017-03-24] MEDS: *HR* OxyCODONE Immed Rel 5 MG TABLET PO PRN ×2 (05:55→11:30)
[2017-03-24] MEDS: Insulin LISPRO 300 UNITS/3 ML VIAL SQ SCH ×2 (08:05→12:51)
[2017-03-24] MEDS ORDERED: Magnesium Sulfate 1 GM in D5% in Water 100 ML IVPB ONE (08:17)
--- NOTE | 2017-03-24 08:45 | Discharge Summary ---
Date of Encounter: 03/24/17 Time of Encounter: 08:44 - Discharge Diagnosis (1) Kidney stone Priority: Primary Status: Acute (2) Sepsis Priority: Primary Status: Acute Qualifiers: Sepsis type: sepsis due to unspecified organism Qualified Code(s): A41.9 - Sepsis, unspecified organism (3) UTI (urinary tract infection) Priority: Primary Status: Acute Qualifiers: Urinary tract infection type: site unspecified Hematuria presence: without hematuria Qualified Code(s): N39.0 - Urinary tract infection, site not specified (4) Bacteremia Priority: Secondary Status: Acute (5) CAD (coronary artery disease) Priority: Secondary Status: Chronic Qualifiers: Coronary Disease-Associated Artery/Lesion type: [place] artery [place] vs. transplanted heart: [place] heart Associated angina: without angina Qualified Code(s): I25.10 - Atherosclerotic heart disease of [place] coronary artery without angina pectoris (6) Deep vein thrombosis (DVT) of right upper extremity Priority: Secondary Status: Chronic Qualifiers: Affected thrombotic vein of extremity: other upper extremity vein Chronicity: chronic Qualified Code(s): I82.721 - Chronic embolism and thrombosis of deep veins of right upper extremity (7) Elevated troponin Priority: Secondary Status: Acute (8) HTN (hypertension) Priority: Secondary Status: Chronic Qualifiers: Hypertension type: essential hypertension Qualified Code(s): I10 - Essential (primary) hypertension (9) Type 2 diabetes mellitus Priority: Secondary Status: Chronic Qualifiers: Diabetes mellitus complication status: without complication Diabetes mellitus usp insulin use: without usp use Qualified Code(s): E11.9 - Type 2 diabetes mellitus without complications (10) DVT prophylaxis Priority: Secondary Status: Acute (11) Congestive heart failure Priority: Secondary Status: Chronic Qualifiers: Congestive heart failure type: diastolic Congestive heart failure chronicity: acute on chronic Qualified Code(s): I50.33 - Acute on chronic diastolic (congestive) heart failure (12) Tobacco abuse Priority: Secondary Status: Chronic (13) Obesity (BMI 30-39.9) Priority: Secondary Status: Chronic (14) Electrolyte abnormality Priority: Secondary Status: Resolved - Discharge Medications Prescriptions: OxyCODONE Immed Rel [Roxicodone 5 MG] 10 mg PO Q4HR PRN #10 tablet PRN Reason: Pain Ertapenem [INVanz] 1,000 mg IVPB DAILY #11 vial Metoprolol XL (24 HR) Succ [Toprol Xl] 25 mg PO DAILY #30 tab.er.24h Home Medications: Furosemide [Lasix] 20 mg PO DAILY 09/06/16 [History] Spironolactone [Aldactone] 25 mg PO DAILY 09/06/16 [History] Warfarin [Coumadin] 5 mg PO DAILY 09/16/16 [History] Aspirin 81 mg PO DAILY #30 tab.chew 09/20/16 [Rx] Atorvastatin [Lipitor] 20 mg PO HS #30 tablet 09/20/16 [Rx] Lisinopril [Zestril] 2.5 mg PO DAILY #30 tablet 09/20/16 [Rx] Ticagrelor [Brilinta] 90 mg PO BID #60 tablet 09/20/16 [Rx] metFORMIN [Glucophage] 500 mg PO BIDWM #60 tablet 09/20/16 [Rx] Ertapenem [INVanz] 1,000 mg IVPB DAILY #11 vial 03/24/17 [Rx] Metoprolol XL (24 HR) Succ [Toprol Xl] 25 mg PO DAILY #30 tab.er.24h 03/24/17 [ Rx] OxyCODONE Immed Rel [Roxicodone 5 MG] 10 mg PO Q4HR PRN #10 tablet 03/24/17 [Rx] Allergies/Adverse Reactions: 3 Allergy/AdvReac Type Severity Reaction Status Date / Time [place] Allergy Hives Verified 01/06/17 09:26 Sulfa (Sulfonamide Allergy Hives Verified 01/06/17 09:26 Antibiotics) [place] Allergy Hives Verified 01/06/17 09:26 Date of admission: 03/19/17 21:18 Primary care physician: Kassy Adorno CNP Consults: 03/20/17 08:38 Consult to Cardiology [CONS] Stat Comment: Consulting Provider: [facility] [place] Reason for Consult: NSTEMI Call Completed: Yes 03/21/17 07:56 Consult to Infectious Diseases [CONS] Routine Consulting Provider: Infectious [facility] [place] Reason for Consult: ESBL UTI and bacteremia Call Completed: Yes 03/23/17 11:52 Consult to Invasive Line Access Team [CONS] Routine Reason for Consult: home atb Line Type: EPIV Discharging clinician: Abigail Arora Anticipated date of discharge: 03/24/17 - Patient Status Disposition: Home Health Service Condition: Good Functional capacity at discharge: independent ambulation Overall status at discharge: patient is back to baseline - Discharge Instructions Follow Up With: Kassy Adorno CNP [Primary Care Provider] - Additional Instructions: Please follow up with your primary care physician within five days after your discharge from the hospital. Please follow up with urology within one week after your discharge from the hospital. Please continue IV antibiotics for 11 more days. Your home dose of Metoprolol has been decreased to 25mg once a day. Please closely monitor your blood pressure at home. If you are noted to have systolic blood pressure greater than 150 despite taking the 25mg of Metoprolol, you may resume your home dose of Metoprolol 50mg once a day. Hold your blood pressure medications if your systolic blood pressure is less than 100. Resume all other medications as prescribed by your primary care physician. Continue follow up with Coumadin clinic and monitor your INR closely. - Diet and Activity Activity: increase activity as tolerated Diet: diabetic diet, low salt diet Hospital course: Ms. Mejía is a 51 year old female with PMH of HTN, DVT on AC, DM who was admitted for flank pain secondary to kidney stone and sepsis secondary to UTI. She was seen by urology and underwent cystoscopy with a stent placement. she was found to be hypotensive post-op with concern for requiring pressor support, due to which she was monitored briefly in the ICU. She was found to have ESBL UTI and ESBL bactermia secondary to UTI. Her abx were adjusted as per blood culture sensitivities. Her BP improved and she was started on her home antihypertensives. ID followed the pt and she is to need 14 days of IV abx from the first negative blood culture result. She has been afebrile for 24hours, hemodynamically stable and will be discharged to home with IV abx. Home health services have been set up for home health services. Pt demonstrates understanding of her diagnosis and agrees with the discharge care and plan. - Time Spent with Patient Total time spent providing and/or coordinating discharge services: Greater than 30 minutes - Constitutional Vitals: Temp Pulse Resp BP Pulse Ox 98.2 F 75 18 139/77 97 03/24/17 07:27 03/24/17 07:27 03/24/17 07:27 03/24/17 07:27 03/24/17 07:27 General appearance: Present: A&O X 3, no acute distress, obese, answers questions appropriately - Head Head exam: Present: atraumatic, normocephalic - Eye Eye exam: Present: conjuntiva pink, sclera anicteric - Respiratory Respiratory exam: Present: CTAB. Absent: accessory muscle use, rales, rhonchi, wheezes - Cardiovascular Cardiovascular exam: Present: RRR, +S1, +S2. Absent: diastolic murmur, gallop, rubs, systolic murmur - GI/Abdominal GI/Abdominal exam: Present: normal bowel sounds, soft, no peritoneal signs. Absent: distended, tenderness - Extremities Exam Extremities exam: Present: warm, radial pulses palpable and symmetrical. Absent : calf tenderness, cyanotic, pedal edema - Neurological Exam Neurological exam: Present: alert, oriented X3 - Psychiatric Psychiatric exam: Present: normal affect, normal mood - VTE Documentation of Mechanical Device: Venous foot pump, device
--- NOTE | 2017-03-24 09:02 | Physician Discharge Referral ---
Home Health/Hosp Referral Info Transfer to: Home Health Provider in Charge Post Discharge: PCP - Diagnosis (1) Kidney stone Priority: Primary Status: Acute (2) Sepsis Priority: Primary Status: Acute (3) UTI (urinary tract infection) Priority: Primary Status: Acute (4) Bacteremia Priority: Secondary Status: Acute (5) CAD (coronary artery disease) Priority: Secondary Status: Chronic (6) Deep vein thrombosis (DVT) of right upper extremity Priority: Secondary Status: Chronic (7) Elevated troponin Priority: Secondary Status: Acute (8) HTN (hypertension) Priority: Secondary Status: Chronic (9) Type 2 diabetes mellitus Priority: Secondary Status: Chronic (10) DVT prophylaxis Priority: Secondary Status: Acute (11) Congestive heart failure Priority: Secondary Status: Chronic (12) Tobacco abuse Priority: Secondary Status: Chronic (13) Obesity (BMI 30-39.9) Priority: Secondary Status: Chronic (14) Electrolyte abnormality Priority: Secondary Status: Resolved - Respiratory Orders Smoking Cessation: Smoking cessation has been advised. For more information, call the [place] Tobacco Quit Line at 9-576-OHJR-NOW. - Services Needed Following services are medically necessary services: Home Health Aide, Med Social Work, Home Infusion - Transfer Medications Prescriptions: OxyCODONE Immed Rel [Roxicodone 5 MG] 10 mg PO Q4HR PRN #10 tablet PRN Reason: Pain Ertapenem [INVanz] 1,000 mg IVPB DAILY #11 vial Metoprolol XL (24 HR) Succ [Toprol Xl] 25 mg PO DAILY #30 tab.er.24h Home Medications: Furosemide [Lasix] 20 mg PO DAILY 09/06/16 [History] Spironolactone [Aldactone] 25 mg PO DAILY 09/06/16 [History] Warfarin [Coumadin] 5 mg PO DAILY 09/16/16 [History] Aspirin 81 mg PO DAILY #30 tab.chew 09/20/16 [Rx] Atorvastatin [Lipitor] 20 mg PO HS #30 tablet 09/20/16 [Rx] Lisinopril [Zestril] 2.5 mg PO DAILY #30 tablet 09/20/16 [Rx] Ticagrelor [Brilinta] 90 mg PO BID #60 tablet 09/20/16 [Rx] metFORMIN [Glucophage] 500 mg PO BIDWM #60 tablet 09/20/16 [Rx] Ertapenem [INVanz] 1,000 mg IVPB DAILY #11 vial 03/24/17 [Rx] Metoprolol XL (24 HR) Succ [Toprol Xl] 25 mg PO DAILY #30 tab.er.24h 03/24/17 [ Rx] OxyCODONE Immed Rel [Roxicodone 5 MG] 10 mg PO Q4HR PRN #10 tablet 03/24/17 [Rx] Allergies/Adverse Reactions: 3 Allergy/AdvReac Type Severity Reaction Status Date / Time [place] Allergy Hives Verified 01/06/17 09:26 Sulfa (Sulfonamide Allergy Hives Verified 01/06/17 09:26 Antibiotics) [place] Allergy Hives Verified 01/06/17 09:26 Certification: Further, I certify that my clinical findings support that this patient is homebound (i.e. absences from home require considerable and taxing effort and are for medical reasons or buddhist services or infrequently or short duration when for other reasons) because: Homebound Reason: Patient requires assistance of a person or device to safely leave home Attestation: My signature below is to certify that this patient is under my care and that I, or nurse practitioner, or a physician's graduate teaching assistant working with me, has a face-to -face encounter with this patient.
[2017-03-24] MEDS: Aspirin 81 MG TAB.CHEW PO SCH (09:26)
[2017-03-24] MEDS: Spironolactone 25 MG TABLET PO SCH (09:26)
[2017-03-24] MEDS: Famotidine 20 MG TABLET PO SCH (09:26)
[2017-03-24] MEDS: Metoprolol XL (24 HR) Succ 25 MG TAB.ER.24H PO SCH (09:26)
[2017-03-24] MEDS: *HR* Ticagrelor 90 MG TABLET PO SCH (09:26)
[2017-03-24] MEDS: Furosemide 20 MG TABLET PO SCH (09:27)
[2017-03-24 10:30] LABS: INR 1.8; Prothrombin Time 19.3 Seconds (9.4-12.1)
--- NOTE | 2017-03-24 11:24 | Infectious Disease Progress No ---
Date of Encounter: 03/24/17 Time of Encounter: 11:22 - Assessment and Plan (1) Sepsis Current Visit: Yes Status: Acute Severe sepsis: The patient had three SIRS criteria plus JAN and lactic acidosis. Likely secondary to bacteremia, UTI, and pyelonephritis. Improved. WBC has normalized. She has been afebrile. Tachycardia has resolved. Blood cultures drawn 03/19/17 are positive 2/2 sets for E. coli. Repeat blood culture drawn 03/21/17 x 1 set is NGTD. Qualifiers: Sepsis type: Escherichia coli Qualified Code(s): A41.51 - Sepsis due to Escherichia coli [E. coli] (2) Bacteremia Current Visit: Yes Status: Acute Causative organism E. coli ESBL. Likely secondary to UTI. Blood cultures drawn 03/19/17 are positive 2/2 sets for E. coli ESBL. Repeat blood culture drawn 03/21/17 x 1 set is NGTD. Continue Ertapenem 1 gram IV daily. Duration of treatment depends on the clinical picture, but likely 14 days from the first set of negative blood cultures. Treat through 04/04/17. Monitor renal function and dose-adjust antibiotics. EPIV placed 03/23/17. Get weekly CBC, BUN/Cr every Monday for the duration of IV antibiotic therapy. Weekly EPIV care per protocol. Follow up with ID 04/03/17 at 0820. (3) UTI (urinary tract infection) Current Visit: Yes Status: Acute Causative organism E. coli ESBL. Likely secondary to obstructing ureteral stone. Continue antibiotics as above. Qualifiers: Urinary tract infection type: site unspecified Hematuria presence: without hematuria Qualified Code(s): N39.0 - Urinary tract infection, site not specified (4) Pyelonephritis Current Visit: Yes Status: Acute Causative organism E. coli ESBL. Likely secondary to obstructing ureteral stone. Continue antibiotics as above. (5) Hydronephrosis with obstructing calculus Current Visit: Yes Status: Acute CT scan of the abdomen and pelvis showed a 1.4cm stone impacted at the left UPJ with severe left obstructive uropathy and bilateral nephrolithiasis. Urology consulted. Status post cystoscopy with ureteral stent placement 03/19/[address] Redmond. (6) Type 2 diabetes mellitus Current Visit: Yes Status: Chronic Qualifiers: Diabetes mellitus complication status: without complication Diabetes mellitus detention insulin use: without detention use Qualified Code(s): E11.9 - Type 2 diabetes mellitus without complications (7) Obesity (BMI 30-39.9) Current Visit: Yes Status: Chronic - Subjective Interval history: Patient seen and examined. No acute events noted overnight. Patient resting comfortably in bed. States she has lower abdominal pain and has been urinating frequently. She denies any back or flank pain this morning. She denies any nausea, vomiting, diarrhea, or constipation. She denies any dysuria or hematuria. She tells me this morning that she has never felt like she has been able to empty her bladder completely even though I have asked her this everyday and she denied any problems with this. She denies any oral thrush or skin lesions. She states her appetite is not very good this morning. She denies chest pain, shortness of breath, or cough. She is irritated that she has to wait until 1400 to be discharged. Infect Dis PN-Objective Data - Labs CBC & Chem 7: 03/24/17 04:30 03/24/17 04:30 Labs: Laboratory Results - last 24 hr 03/24/17 03/24/17 03/24/17 04:30 04:30 07:35 WBC 9.1 RBC 4.36 Hgb 12.1 Hct 36.7 MCV 84.2 MCH 27.8 L MCHC 33.0 RDW 15.2 H Plt Count 295 MPV 9.5 Immature Gran % 2.3 Seg Neutrophils % 73.5 Lymphocytes % 13.9 Monocytes % 7.5 Eosinophils % 2.1 Basophils % 0.7 Neutrophils # 6.7 Lymphocytes # 1.3 Monocytes # 0.7 Eosinophils # 0.2 Basophils # 0.1 PT INR Sodium 134 L Potassium 3.7 Chloride 99 Carbon Dioxide 28 BUN 22 H Creatinine 0.93 Est GFR ( Amer) > 60 Est GFR (Non-Af Amer) > 60 BUN/Creatinine Ratio 24 Glucose 124 H POC Glucose 122 H Calculated Osmolality 283 Calcium 8.8 Phosphorus 3.6 Magnesium 1.5 L 03/24/17 10:08 WBC RBC Hgb Hct MCV MCH MCHC RDW Plt Count MPV Immature Gran % Seg Neutrophils % Lymphocytes % Monocytes % Eosinophils % Basophils % Neutrophils # Lymphocytes # Monocytes # Eosinophils # Basophils # PT 19.3 H INR 1.8 Sodium Potassium Chloride Carbon Dioxide BUN Creatinine Est GFR ( Amer) Est GFR (Non-Af Amer) BUN/Creatinine Ratio Glucose POC Glucose Calculated Osmolality Calcium Phosphorus Magnesium Cultures: Cultures 03/21/17 04:37 Blood Culture - Preliminary Peripheral Venipuncture No growth. Exam - Constitutional Vitals: Temp Pulse Resp BP Pulse Ox 98.2 F 75 18 139/77 97 03/24/17 07:27 03/24/17 07:27 03/24/17 07:27 03/24/17 07:27 03/24/17 07:27 General appearance: average body habitus, cooperative, no acute distress - Head Head exam: Present: atraumatic, normal inspection, normocephalic - Eye Eye exam: Present: EOMI, normal appearance, PERRL Pupils: Present: normal accommodation - ENT ENT exam: Present: mucous membranes moist - Neck Neck exam: Present: normal inspection - Respiratory Respiratory exam: Present: CTAB. Absent: rales, respiratory distress, rhonchi, wheezes - Cardiovascular Cardiovascular exam: Present: RRR, +S1, +S2 - GI/Abdominal GI/Abdominal exam: Present: normal bowel sounds, soft, tenderness (suprapubic). Absent: distended - Extremities Exam Extremities exam: Present: normal inspection. Absent: joint swelling, pedal edema, tenderness - Back Exam Back exam: Absent: CVA tenderness (L), CVA tenderness (R) - Neurological Exam Neurological exam: Present: alert, oriented X3, no focal deficits - Psychiatric Psychiatric exam: Present: normal affect, normal mood - Skin Skin exam: Present: dry, intact, normal color, warm - Additional findings Additional findings: EPIV noted to the LUE with transparent dressing C/D/I. - VTE Documentation of Mechanical Device: Venous foot pump, device Consult Discharge Plan - Plan Additional Instructions: Please follow up with your primary care physician within five days after your discharge from the hospital. Please follow up with urology within one week after your discharge from the hospital. Please continue IV antibiotics for 11 more days. Your home dose of Metoprolol has been decreased to 25mg once a day. Please closely monitor your blood pressure at home. If you are noted to have systolic blood pressure greater than 150 despite taking the 25mg of Metoprolol, you may resume your home dose of Metoprolol 50mg once a day. Hold your blood pressure medications if your systolic blood pressure is less than 100. Resume all other medications as prescribed by your primary care physician. Continue follow up with Coumadin clinic and monitor your INR closely. Referrals: Franc Redmond MD [Partnered Physician] - 04/04/17 9:30 am Kassy Adorno CNP [Primary Care Provider] - 03/28/17 10:45 am Elisa Piper CNP [Advanced Practice Nurse] - 04/03/17 8:20 am Prescriptions: OxyCODONE Immed Rel [Roxicodone 5 MG] 10 mg PO Q4HR PRN #10 tablet PRN Reason: Pain Ertapenem [INVanz] 1,000 mg IVPB DAILY #11 vial Metoprolol XL (24 HR) Succ [Toprol Xl] 25 mg PO DAILY #30 tab.er.24h - Attending Attestation I examined this patient and my medical decision-making was reviewed with the Resident Physician. I agree with the documented findings, disposition and treatment plan as described except to the extent set forth below.
[2017-03-24 11:46] VITALS: BP 108/69
[2017-03-24] MEDS ORDERED: Ertapenem 1,000 MG in 0.9 % Sodium Chloride Mini Bag 100 ML IVPB SCH (14:00)
[2017-03-24] MEDS: *HR* Belladonna Alkaloids/Opium 30 MG RECTAL SUPPOSITORY RC PRN (14:22)
[2017-03-24] MEDS ORDERED: *HR* Warfarin 7.5 MG TABLET PO ONE (18:00)
== END 2017-03-24 15:09 | disposition home health service (06) | DRG 872 ==
LOC: EMEROO 15:23 → ICNU 15:23 → SUATTDRO 21:18 → 3ANU 03-20 19:11
PROVIDERS: ADMIT Pediatrics; ATTEND Internal Medicine

== ENCOUNTER 2017-09-14 18:34 | Inpatient (IN) ==
[2017-09-14] MEDS ORDERED: Ondansetron 4 MG/2 ML VIAL IVP ONE (19:13)
[2017-09-14] MEDS ORDERED: Aspirin 81 MG TAB.CHEW PO ONE (19:14)
[2017-09-14 19:31] LABS: Basophils # 0.1 K/mcL (0.0-0.2); Basophils % 0.7 %; Eosinophils # 0.1 K/mcL (0.0-0.6); Eosinophils % 0.4 %; Hemoglobin 14.5 g/dL (11.5-15.4); Immature Granulocytes % 0.4 % (0-4); Lymphocytes # 0.9 K/mcL (0.6-4.6); Mean Corpuscular HGB Conc 31.5 g/dL (31.6-35.5); Mean Corpuscular Hemoglobin 26.5 pg (28.0-33.3); Mean Corpuscular Volume 83.9 fL (83.0-100.0); Mean Platelet Volume 9.2 fL (9.4-12.4); Monocytes # 0.6 K/mcL (0.0-1.3); Monocytes % 4.8 %; Neutrophils # 9.8 K/mcL (1.6-8.9); Nucleated Red Blood Cells 0.2 /100 WBC (0); Platelet Count 239 K/mcL (140-400); Red Blood Count 5.48 M/mcL (3.82-4.97); Segmented Neutrophils % 85.7 %
[2017-09-14 19:59] LABS: BUN/Creatinine Ratio 16 (6-26); Blood Urea Nitrogen 17 mg/dL (6-20); Calcium 8.8 mg/dL (8.6-10.3); Carbon Dioxide 25 mEq/L (23-29); Chloride 102 mEq/L (98-107); Glucose 122 mg/dL (70-105); Osmolality,Calculated 283 (280-300); Potassium 4.1 mEq/L (3.5-5.1); Sodium 135 mEq/L (136-145); eGFR For African Americans > 60 (> 60); eGFR For Non-African Americans 55 (> 60)
[2017-09-14 20:02] LABS: Troponin I 0.06 ng/mL (< 0.04)
[2017-09-14] MEDS ORDERED: *HR* Promethazine 25 MG/ML VIAL IVP ONE (20:53)
--- NOTE | 2017-09-14 21:02 | Emergency Department Note ---
Disposition Clinical Impression: Exertional dyspnea, UTI (urinary tract infection) CHF exacerbation Qualifiers: Heart failure type: combined systolic and diastolic Qualified Code(s): I50.43 - Acute on chronic combined systolic (congestive) and diastolic (congestive) heart failure Disposition: Admitted As Inpatient Condition: Fair Time of Disposition: 21:38 General Adult HPI - General Chief complaint: ED Shortness of Breath/Dyspnea Stated complaint: CHF Time Seen by Provider: 09/14/17 18:46 Source: patient Limitations: no limitations Nursing Notes Reviewed: Yes Vital Signs Reviewed: Yes - History of Present Illness HPI Narrative: Patient is a 52-year-old female with a past medical history of CHF and 3 coronary stents presenting to the emergency Department with complaint of dyspnea and concerns for fluid overload. The patient states that she was seen by her cardiologists, Dr. Longoria, one week ago in which they are increasing her medications for her heart failure. She states that she has an ejection fraction of 25% which they are currently medically managing and trialing for the next 3 months and that if she is not improving the plan is to place a diffuse later according to the patient. She states that since her appointment she has come gradually more short of breath over time and she has had a 12 pound weight gain. She states that she becomes exhausted walking from the house to the car and feels that she is having a hard time performing any of her daily activities at home without becoming winded. Patient states that she also feels nauseated which has happened in the past when she has had a CHF exacerbation she states that she feels that the fluid is collecting her on her stomach and her pants are no longer fitting. She denies any recent fever, chills, vomiting, chest pain, abdominal pain, back pain, diarrhea, or urinary symptoms. States that she currently takes 40 mg of Lasix and she also takes metoprolol which was increased at her last visit one week ago. Pain Scale: 0 - Related Data Home Medications Medication Instructions Recorded Confirmed Furosemide [Lasix] 20 mg PO BID 09/06/16 09/14/17 Spironolactone [Aldactone] 25 mg PO HS 09/06/16 09/14/17 Warfarin [Coumadin] 5 mg PO QPM 09/16/16 09/14/17 Aspirin 81 mg PO HS 04/24/17 09/14/17 Ticagrelor [Brilinta] 90 mg PO HS 04/24/17 09/14/17 Albuterol Sulfate [Albuterol 2 puff IH Q6H PRN 09/14/17 09/14/17 Inhaler] Atorvastatin Calcium [Lipitor] 20 mg PO HS 09/14/17 09/14/17 Lisinopril [Zestril] 10 mg PO DAILY 09/14/17 09/14/17 Metformin HCl [Metformin HCl ER] 1,000 mg PO DAILY 09/14/17 09/14/17 Metoprolol XL (24 HR) Succ [Toprol 50 mg PO BID 09/14/17 09/14/17 XL] Allergies Allergy/AdvReac Type Severity Reaction Status Date / Time Sulfa (Sulfonamide Allergy Hives/nause Verified 09/14/17 18:41 Antibiotics) a chocolate Allergy Hives Uncoded 09/14/17 18:41 All systems ED: reviewed and negative except as stated. Review of Systems: As Per HPI Constitutional: Denies: fever, chills Cardiovascular: Reports: dyspnea on exertion. Denies: chest pain, palpitations Respiratory: Denies: cough, dyspnea, wheezes Gastrointestinal: Reports: nausea. Denies: abdominal pain, vomiting Genitourinary: Denies: urgency Musculoskeletal: Denies: back pain, neck pain Integumentary: Denies: rash Neurological: Denies: headache Past Medical History - Past Medical History Attestation: Yes The following information was validated with the patient. 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 - Social History Smoking Status: Current every day smoker Smokeless Tobacco Status: No Alcohol use: Reports: none Drug use: Reports: none Physical Exam CONSTITUTIONAL: Well-appearing; well-nourished; A&O X 3, in no apparent distress HEAD: Normocephalic; atraumatic EYES: PERRL, no scleral icterus NOSE: The nose is normal in appearance without rhinorrhea NECK: No JVD or distended neck veins RESP: Normal chest excursion with respiration; breath sounds clear and equal bilaterally; no wheezes, rhonchi, or rales CARD: Regular rhythm, without murmurs, rub or gallop ABD: Non-distended; non-tender, soft, without rigidity, rebound or guarding,no pulsatile mass. CHEST: No pain with palpation SKIN: Normal for age and race; warm and dry without diaphoresis ; no apparent lesions EXTREMITIES: Pulses are 2 plus and equal times 4 extremities, patient has mild bilateral lower extremity edema. No calf muscle pain - General Limitations: no limitations General appearance: alert, in no apparent distress Course Course Narrative: On review of patient's records it does appear that she has an ejection fraction of 25% with both diastolic and systolic dysfunction. Given the patient's clinical picture she does not appear to be in acute CHF exacerbation that is causing her to have respiratory distress. However, the patient does say that she feels fluid overloaded and this is how she has felt the past with CHF exacerbations. The plan is to perform a workup to evaluate the patient's heart which will include a troponin, BNP, EKG, and chest x-ray. We will also perform basic lab work as well as look for a potential source of infection given the patient's nausea and check a urinalysis. Given patient's clinical history of gradual onset of symptoms and stable vitals, I do not suspect that this is a pulmonary embolism. - Reevaluation(s) Reevaluation #1: Patient's lab work has returned. A critical lab was telephoned there was a troponin of 0.06. The patient does have a history of a mildly elevated troponin however this is over a year ago. I suspect that this troponin is possibly due to demand ischemia given the patient's cardiac history. We will hold on Lasix at this time given the patient's current elevated troponin, if it is due to demand ischemia I do not want to increase the patient's intravascular volume. Plan at this time is to admit the patient to the hospital for further treatment and evaluation of her exertional dyspnea and acute CHF exacerbation. Time: 21:20 Reevaluation #2: I discussed the patient's case with Dr. Anna, and he requested 40mg IV lasix and will accept the patient to the hospital. Time: 21:39 Vital Signs Temperature 99.3 F 09/14/17 18:38 Pulse Rate 102 09/14/17 18:38 Respiratory Rate 18 09/14/17 18:38 Blood Pressure 144/89 09/14/17 18:38 O2 Sat by Pulse Oximetry 97 09/14/17 18:38 Temperature 98.5 F 09/14/17 23:58 Pulse Rate 103 09/14/17 23:58 Respiratory Rate 19 09/14/17 23:58 Blood Pressure 152/99 09/14/17 23:58 O2 Sat by Pulse Oximetry 96 09/14/17 23:58 Oxygen Delivery Oxygen Delivery Room Air Medical Decision Making - Medical Records Medical records reviewed: Yes I reviewed the patient's medical records. - Lab Data Lab results reviewed: Yes I reviewed the patient's lab results. Result diagrams: 09/14/17 19:24 09/14/17 19:24 Lab Results 09/14/17 09/14/17 09/14/17 Range/Units 19:24 19:24 19:24 WBC 11.4 H (4.3-11.1) K/mcL RBC 5.48 H (3.82-4.97) M/mcL Hgb 14.5 (11.5-15.4) g/dL Hct 46.0 H (35.3-44.9) % MCV 83.9 (83.0-100.0) fL MCH 26.5 L (28.0-33.3) pg MCHC 31.5 L (31.6-35.5) g/dL RDW 18.0 H (11.5-14.5) % Plt Count 239 (140-400) K/mcL MPV 9.2 L (9.4-12.4) fL Immature Gran % 0.4 (0-4) % Seg Neutrophils % 85.7 % Lymphocytes % 8.0 % Monocytes % 4.8 % Eosinophils % 0.4 % Basophils % 0.7 % Neutrophils # 9.8 H (1.6-8.9) K/mcL Lymphocytes # 0.9 (0.6-4.6) K/mcL Monocytes # 0.6 (0.0-1.3) K/mcL Eosinophils # 0.1 (0.0-0.6) K/mcL Basophils # 0.1 (0.0-0.2) K/mcL Nucleated RBCs/100 WBC 0.2 H (0) /100 WBC PT (9.4-12.1) Seconds INR Sodium 135 L (136-145) mEq/L Potassium 4.1 (3.5-5.1) mEq/L Chloride 102 (98-107) mEq/L Carbon Dioxide 25 (23-29) mEq/L BUN 17 (6-20) mg/dL Creatinine 1.05 (0.60-1.20) mg/dL Est GFR ( Amer) > 60 (> 60) Est GFR (Non-Af Amer) 55 L (> 60) BUN/Creatinine Ratio 16 (6-26) Glucose 122 H (70-105) mg/dL Calculated Osmolality 283 (280-300) Calcium 8.8 (8.6-10.3) mg/dL Troponin I 0.06 H* (< 0.04) ng/mL B-Natriuretic Peptide 1328 H (Less than 100) pg/mL Urine Color (Yellow) Urine Clarity (Clear) Urine pH (5.0-8.0) pH Units Ur Specific [place] (1.010-1.025) Urine Protein (Neg-Trace) mg/dL Urine Glucose (UA) (Normal) mg/dL Urine Ketones (Negative) mg/dL Urine Blood (Negative) Urine Nitrite (Negative) Urine Bilirubin (Negative) Urine Urobilinogen (Normal) mg/dL Ur Leukocyte Esterase (Negative) Urine Microscopic RBC (0-3) per hpf Urine Microscopic WBC (0-3) per hpf Ur Squamous Epith Cells (None-Few) per lpf Urine Bacteria (None-Few) per hpf Hyaline Casts (None-Few) per lpf Urine Mucus (Few) Urine Yeast (None Seen) per hpf Ur Culture Indicated? (NO) 09/14/17 09/14/17 Range/Units 19:33 19:35 WBC (4.3-11.1) K/mcL RBC (3.82-4.97) M/mcL Hgb (11.5-15.4) g/dL Hct (35.3-44.9) % MCV (83.0-100.0) fL MCH (28.0-33.3) pg MCHC (31.6-35.5) g/dL RDW (11.5-14.5) % Plt Count (140-400) K/mcL MPV (9.4-12.4) fL Immature Gran % (0-4) % Seg Neutrophils % % Lymphocytes % % Monocytes % % Eosinophils % % Basophils % % Neutrophils # (1.6-8.9) K/mcL Lymphocytes # (0.6-4.6) K/mcL Monocytes # (0.0-1.3) K/mcL Eosinophils # (0.0-0.6) K/mcL Basophils # (0.0-0.2) K/mcL Nucleated RBCs/100 WBC (0) /100 WBC PT 13.5 H (9.4-12.1) Seconds INR 1.2 Sodium (136-145) mEq/L Potassium (3.5-5.1) mEq/L Chloride (98-107) mEq/L Carbon Dioxide (23-29) mEq/L BUN (6-20) mg/dL Creatinine (0.60-1.20) mg/dL Est GFR ( Amer) (> 60) Est GFR (Non-Af Amer) (> 60) BUN/Creatinine Ratio (6-26) Glucose (70-105) mg/dL Calculated Osmolality (280-300) Calcium (8.6-10.3) mg/dL Troponin I (< 0.04) ng/mL B-Natriuretic Peptide (Less than 100) pg/mL Urine Color Yellow (Yellow) Urine Clarity Cloudy A (Clear) Urine pH 6.0 (5.0-8.0) pH Units Ur Specific [place] 1.021 (1.010-1.025) Urine Protein 30 H (Neg-Trace) mg/dL Urine Glucose (UA) Normal (Normal) mg/dL Urine Ketones Negative (Negative) mg/dL Urine Blood Small H (Negative) Urine Nitrite Positive A (Negative) Urine Bilirubin Negative (Negative) Urine Urobilinogen Normal (Normal) mg/dL Ur Leukocyte Esterase Moderate H (Negative) Urine Microscopic RBC 3-5 H (0-3) per hpf Urine Microscopic WBC 50-100 H (0-3) per hpf Ur Squamous Epith Cells Few (None-Few) per lpf Urine Bacteria Many H (None-Few) per hpf Hyaline Casts None Seen (None-Few) per lpf Urine Mucus Few (Few) Urine Yeast Few H (None Seen) per hpf Ur Culture Indicated? YES A (NO) - Radiology Data Radiology results reviewed: Yes I reviewed the patient's radiology results. Chest X-Ray 09/14/17 19:09 IMPRESSION: No acute cardiopulmonary disease. Cardiomegaly. D/ / 09/14/2017 20:06:04 Mallory Royal MD / [email or web address] Interpreting Provider: Mallory Royal MD - EKG Data EKG #1 EKG attestation: Yes I reviewed and interpreted this EKG. EKG results narrative: EKG done at 19:18 shows sinus tachycardia at a rate of 100 bpm. Normal axis. MO is 145, curious 6, QT is 366 and QTc is 423 and these are within normal limits. No signs of ST elevation, ST depression or new Q waves present at this time. No signs of ischemia. EKG does have nonspecific ST changes in lead II and lead V3. Attestation Statement - Attestation Attestation: I examined this patient and my medical decision-making was reviewed with the Resident Physician, Dr. Canales. I agree with the documented findings, disposition and treatment plan as described except to the extent set forth below. Patient is a 52-year-old white female with a history of extensive coronary artery disease status post 3 stent placements with resulting CHF who presents to the emergency department today with complaints of gradually worsening shortness of breath and weight gain over the past 7 days. Patient was seen by Dr. Longoria 7 days ago and had her medications optimized including increasing her diuretic for better medical management of her CHF. Patient states despite these medication changes she had worsening shortness of breath and 20 pound weight gain no in the past week. Patient states just taking a few steps at home exhausts her and she becomes very dyspneic. Patient is also complaining of abdominal bloating and complains of some generalized lower abdominal pain and subjective fevers with underlying nausea. Patient denies any urinary symptoms or flank pain, no vomiting, and no diaphoresis. I aGree with patient's physical exam findings as documented. Patient's vital signs are stable on arrival and she was in no acute distress. Patient's EKG was negative for any acute ischemia. She was in sinus rhythm. Patient's chest x-ray shows cardiomegaly but otherwise clear lung jarrett. Placed on a monitor continuous pulse ox she was administered aspirin. Labs were drawn and sent. Urinalysis was obtained. Patient's lab evaluation is within normal limits with the exception of an elevated troponin. Last troponin for comparison in the system is over a year ago. Patient's troponin today 0.06 with no ischemia seen on her EKG and no current chest pain. Patient's urinalysis was positive for UTI so IV antibiotics were initiated based on prior culture and sensitivity results. Patient will be admitted for further evaluation of exertional dyspnea, acute exacerbation of CHF and UTI.
[2017-09-14 21:49] LABS: Bilirubin,Urine Negative (Negative); Blood,Urine Small (Negative); Clarity,Urine Cloudy (Clear); Color,Urine Yellow (Yellow); Glucose,Urine (UA) Normal (Normal); Ketones,Urine Negative (Negative); Leukocyte Esterase,Urine Moderate (Negative); Nitrite,Urine Positive (Negative); Protein,Urine 30 mg/dL (Neg-Trace); Specific Gravity,Urine 1.021 (1.010-1.025); Urobilinogen,Urine Normal (Normal)
[2017-09-14] MEDS ORDERED: Piperacillin/Tazobactam 3.375 GM in 0.9 % Sodium Chloride Mini Bag 100 ML IVPB ONE (21:52)
--- NOTE | 2017-09-14 21:53 | Internal Med History&Physical ---
Date of Encounter: 09/14/17 Time of Encounter: 21:41 Internal Medicine - H&P: HPI Chief complaint: Weight gain Admitted From: Emergency Dept Plans for Post Hospital Care: Home History of present illness: Ms. Mejía is a 52 year old female with h/o CAD s/p PCI, combined CHF, DVT on coumadin, HTN, DM, HLD, anxiety presented to the ED with compalints of dyspnea of exertion and weight gain. She states that she follows with Dr. Longoria from Cardiology and recently they made some changes to her meds as she has been having fluid retention as an ongoing problem. From what I understand they increased her beta dre and lasix. She continued to retain fluids. She has gained weight around the abdomen and her pants are tighter. She came through the ED and was not hypoxic. labs showed BNP that was elevated at 1328 and is highest in our records. Trops mildly elevated at .06 and seems chronically elevated. She has WBC of 11.4 and a dirty UA. She is not sure if she really has urinary symptoms but reports lower abdominal pain. She was admitted before for UTI sepsis. Chest x-ray with no acute findings. Denies fever, chills, nausea, headache, chest pain, abdominal pain, neurological symptoms. The patient had an echo on 09/05 with an EF of 25-30% and diastolic dysfunction. Past Med Surg Social Fam HX - Past Medical History Medical history: cardiomyopathy, CHF, DVT, diabetes, hypertension, kidney stones , myocardial infarction, other Psychiatric history: anxiety - Past Surgical History Surgical History: appendectomy, colectomy, ureteral stent - Social History Smoking Status: Current every day smoker Smokeless Tobacco Status: No Alcohol use: none Drug use: none - Family History Mother Living Status: Internal Medicine - H&P: Meds Furosemide [Lasix] 20 mg PO BID 09/06/16 [History] Spironolactone [Aldactone] 25 mg PO HS 09/06/16 [History] Warfarin [Coumadin] 5 mg PO QPM 09/16/16 [History] Aspirin 81 mg PO HS 04/24/17 [History] Ticagrelor [Brilinta] 90 mg PO HS 04/24/17 [History] Albuterol Sulfate [Albuterol Inhaler] 2 puff IH Q6H PRN 09/14/17 [History] Atorvastatin Calcium [Lipitor] 20 mg PO HS 09/14/17 [History] Lisinopril [Zestril] 10 mg PO DAILY 09/14/17 [History] Metformin HCl [Metformin HCl ER] 1,000 mg PO DAILY 09/14/17 [History] Metoprolol XL (24 HR) Succ [Toprol XL] 50 mg PO BID 09/14/17 [History] 3 Allergy/AdvReac Type Severity Reaction Status Date / Time Sulfa (Sulfonamide Allergy Hives/nause Verified 09/14/17 18:41 Antibiotics) a chocolate Allergy Hives Uncoded 09/14/17 18:41 All Systems PM: A 10-system review of systems was performed and is negative for pertinent findings except as documented above in the HPI. Review of systems: All systems reviewed are negative except as mentioned above - Constitutional Vitals: Temp Pulse Resp BP Pulse Ox 99.3 F 99 18 144/89 98 09/14/17 18:38 09/14/17 19:50 09/14/17 19:50 09/14/17 18:38 09/14/17 19:50 Exam: GEN: NAD HEENT: AT, NC, No cyanosis, oral mucosa is moist, No JVD Lymphatics: No lymphadenoapthy Eyes: Extrocular muscles intact, anicteric CVS:RRR. S1, S2, No m/r/g RESP: CTAB ABD: Soft, suprapubic, abdominal distention, +BS EXT: 2+ edema, No rashes, 2+ DP NEURO: Nonfocal, CN II-XII intact, No focal motor or sensory deficits Psych: Cooperative, Not anxious or depressed Internal Med - H&P Results - Labs CBC & Chem 7: 09/14/17 19:24 09/14/17 19:24 Labs: Short CBC 09/14/17 Range/Units 19:24 WBC 11.4 H (4.3-11.1) K/mcL Hgb 14.5 (11.5-15.4) g/dL Hct 46.0 H (35.3-44.9) % Plt Count 239 (140-400) K/mcL Neutrophils # 9.8 H (1.6-8.9) K/mcL BMP 09/14/17 19:24 Sodium 135 L Potassium 4.1 Chloride 102 Carbon Dioxide 25 BUN 17 Creatinine 1.05 Glucose 122 H Calcium 8.8 Cardiac Enzymes 09/14/17 Range/Units 19:24 Troponin I 0.06 H* (< 0.04) ng/mL - Impressions ITS Impressions Chest X-Ray 09/14/17 19:09 IMPRESSION: No acute cardiopulmonary disease. Cardiomegaly. D/ / 09/14/2017 20:06:04 Mallory Royal MD / [email or web address] Interpreting Provider: Mallory Royal MD - Assessment and plan (1) CHF exacerbation Current Visit: Yes Status: Acute Assessment and plan: This is an acute exacerbation of combined systolic and diastolic. Recent echo on 09/05 with an EF of 25-30% and diastolic dysfunction. This is a lower EF than seen on a limited echo done in January 2017. Seems like cardiology is trying to opimize her meds first based on the changes made by Dr. Longoria recently as he increased her BB and lasix. We will start the patient on 40 mg IV Lasix twice a day. Continue spironolactone and beta dre. Patient takes 20 mg of Lasix twice a day at home. Monitor I&O's. Her lasix will likely need to be uptitrated at discharge. Other cardiac meds may need to be up titrated at discharge as well. Consider consulting cardiology. Qualifiers: Heart failure type: combined systolic and diastolic Qualified Code(s): I50.43 - Acute on chronic combined systolic (congestive) and diastolic ( congestive) heart failure (2) UTI (urinary tract infection) Current Visit: Yes Status: Acute Assessment and plan: Patient has history of ESBL. This has been sensitive says Zosyn. We will start patient on Zosyn. Follow up on cultures. Qualifiers: Urinary tract infection type: site unspecified Hematuria presence: without hematuria Qualified Code(s): N39.0 - Urinary tract infection, site not specified (3) HTN (hypertension) Current Visit: No Status: Chronic Assessment and plan: Continue home meds Qualifiers: Hypertension type: essential hypertension Qualified Code(s): I10 - Essential (primary) hypertension (4) Diabetes Current Visit: No Status: Chronic Assessment and plan: We will put the patient on insulin sliding scale and Accu-Cheks. 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 No EKG changes. Trend cardiac enzymes for now. Seems to be chronically elevated. (6) CAD (coronary artery disease) Current Visit: No Status: Chronic Qualifiers: Coronary Disease-Associated Artery/Lesion type: [place] artery [place] vs. transplanted heart: [place] heart Associated angina: without angina Qualified Code(s): I25.10 - Atherosclerotic heart disease of [place] coronary artery without angina pectoris (7) H/O deep venous thrombosis Current Visit: Yes Status: Acute Assessment and plan: patient is on Coumadin. (8) DVT prophylaxis Current Visit: Yes Status: Acute Assessment and plan: Coumadin. - Time Spent With Patient Total time spent is greater than 50% in coordination of care (as documented) at patient's floor/unit and/or counseling patient:
[2017-09-14] MEDS ORDERED: Naloxone 0.4 MG/ML INJ IVP PRN (22:01)
[2017-09-14] MEDS ORDERED: D5% in Water 1,000 ML IVC PRN (22:02)
[2017-09-14] MEDS ORDERED: *HR* Dextrose 50 % in Water (Syg) 50 ML SYRINGE IVP PRN (22:02)
[2017-09-14] MEDS ORDERED: Dextrose Gel 15 GM/37.5 ML TUBE PO PRN ×2 (22:02)
[2017-09-14 22:03] LABS: Bacteria,Urine Many per hpf (None-Few); Hyaline Casts,Urine None Seen per lpf (None-Few); Mucus,Urine Few (Few); Squamous Epithelial Cell,Urine Few per lpf (None-Few); WBC,Urine 50-100 per hpf (0-3); Yeast,Urine Few per hpf (None Seen)
[2017-09-14 22:56] LABS: INR 1.2; Prothrombin Time 13.5 Seconds (9.4-12.1)
[2017-09-14] MEDS ORDERED: *HR* Warfarin 5 MG TABLET PO ONE (23:30)
[2017-09-14] MEDS: Acetaminophen 325 MG TABLET PO PRN (23:45)
[2017-09-15] MEDS ORDERED: Insulin LISPRO 300 UNITS/3 ML VIAL SQ SCH
[2017-09-15] MEDS: *HR* HYDROcodone/Acet 5/325 mg TABLET PO PRN ×4 (01:48→23:13)
[2017-09-15 03:03] LABS: INR 1.3; Prothrombin Time 14.3 Seconds (9.4-12.1)
[2017-09-15 03:12] LABS: Basophils # 0.1 K/mcL (0.0-0.2); Eosinophils # 0.1 K/mcL (0.0-0.6); Eosinophils % 0.6 %; Hematocrit 41.9 % (35.3-44.9); Hemoglobin 13.1 g/dL (11.5-15.4); Immature Granulocytes % 0.5 % (0-4); Lymphocytes # 0.9 K/mcL (0.6-4.6); Lymphocytes % 11.3 %; Mean Corpuscular HGB Conc 31.3 g/dL (31.6-35.5); Mean Corpuscular Hemoglobin 26.1 pg (28.0-33.3); Mean Corpuscular Volume 83.5 fL (83.0-100.0); Mean Platelet Volume 9.2 fL (9.4-12.4); Monocytes # 0.5 K/mcL (0.0-1.3); Monocytes % 6.2 %; Neutrophils # 6.6 K/mcL (1.6-8.9); Nucleated Red Blood Cells 0.2 /100 WBC (0); Platelet Count 231 K/mcL (140-400); Red Blood Count 5.02 M/mcL (3.82-4.97); Red Cell Distribution Width 17.6 % (11.5-14.5); Segmented Neutrophils % 80.4 %
[2017-09-15 03:13] LABS: BUN/Creatinine Ratio 17 (6-26); Blood Urea Nitrogen 19 mg/dL (6-20); Calcium 8.8 mg/dL (8.6-10.3); Carbon Dioxide 28 mEq/L (23-29); Chloride 103 mEq/L (98-107); Glucose 106 mg/dL (70-105); Osmolality,Calculated 289 (280-300); Potassium 3.6 mEq/L (3.5-5.1); Sodium 138 mEq/L (136-145); eGFR For African Americans > 60 (> 60); eGFR For Non-African Americans 50 (> 60)
[2017-09-15] MEDS: *HR* Promethazine 25 MG/ML VIAL IVP PRN ×3 (04:28→19:02)
[2017-09-15] MEDS: Insulin LISPRO 300 UNITS/3 ML VIAL SQ SCH ×4 (09:31→21:10)
[2017-09-15] MEDS: Piperacillin/Tazobactam 3.375 GM in 0.9 % Sodium Chloride Mini Bag 100 ML IVPB SCH ×2 (09:32→16:35)
[2017-09-15] MEDS: Metoprolol XL (24 HR) Succ 50 MG TAB.ER.24H PO SCH ×2 (09:32→21:10)
[2017-09-15] MEDS ORDERED: Albuterol 2.5 MG/3 ML NEBULIZER IH PRN (09:47)
--- NOTE | 2017-09-15 10:33 | Internal Med Progress Note ---
<Willian Marte - Last Filed: 09/15/17 17:28> Date of Encounter: 09/15/17 Time of Encounter: 09:45 - Assessment and plan (1) UTI (urinary tract infection) Current Visit: No Status: Acute Assessment and plan: - Initially presents with burning and pain on urination with WBC 11.4. - History of recurrent UTI with ESBL-positive ESBL sensitive to gentamicin, ertapenem, meropenem, Zosyn, tigecycline, tobramycin. - Urine culture from 09/14/17 preliminarily grew GNR. - Improves as WBC decreased to 8.2 today. - Continue IV Zosyn (Day 2). Further de-escalation based on clinical picture and culture result. Qualifiers: Urinary tract infection type: site unspecified Hematuria presence: without hematuria Qualified Code(s): N39.0 - Urinary tract infection, site not specified (2) CHF exacerbation Current Visit: Yes Status: Acute Assessment and plan: - Echo on 09/05/17 showed LVEF 25-30% with moderate LV diastolic dysfunction. - Patient reports worsening dyspnea on exertion and weight gain of 13 lb over a week prior to admission. BNP 1328. - Continue diuresis with IV Lasix. - Strict I/O and daily weight. Qualifiers: Heart failure type: combined systolic and diastolic Qualified Code(s): I50.43 - Acute on chronic combined systolic (congestive) and diastolic ( congestive) heart failure (3) Elevated troponin Current Visit: No Status: Acute Assessment and plan: - Troponin 0.06, 0.10, 0.08. - Likely related patient's significant CHF history given patient has chronic mild troponin elevation per lab since September 2016. (4) CAD (coronary artery disease) Current Visit: No Status: Chronic Assessment and plan: - Known history of CAD s/p PCI. - Continue aspirin, Brilinta, metoprolol, Lipitor. Qualifiers: Coronary Disease-Associated Artery/Lesion type: [place] artery [place] vs. transplanted heart: [place] heart Associated angina: without angina Qualified Code(s): I25.10 - Atherosclerotic heart disease of [place] coronary artery without angina pectoris (5) Diabetes Current Visit: No Status: Chronic Assessment and plan: - Continue insulin sliding scale and glucose monitoring. Qualifiers: Diabetes mellitus type: type 2 Diabetes mellitus intermediate card tender insulin use: without intermediate card tender use Diabetes mellitus complication status: without complication Qualified Code(s): E11.9 - Type 2 diabetes mellitus without complications (6) H/O deep venous thrombosis Current Visit: Yes Status: Acute Assessment and plan: - Patient reports having history of DVT in right upper extremity in the past. - Patient takes Coumadin but it's subtherapeutic (INR 1.3) at this time. (7) DVT prophylaxis Current Visit: Yes Status: Acute Assessment and plan: - EPCD as mechanical DVT prophylaxis. - Time Spent With Patient Total time spent is greater than 50% in coordination of care (as documented) at patient's floor/unit and/or counseling patient: - Subjective Interval history: Patient was seen and examined this morning. Patient still has some shortness of breath and complains of abdominal sweeling, burning on urination and dysuria. Patient denies fever, chills, nausea, vomiting, diarrhea. - Constitutional Vitals: Temp Pulse Resp BP Pulse Ox 100 F H 111 18 139/86 96 09/15/17 07:00 09/15/17 07:00 09/15/17 07:00 09/15/17 07:00 09/15/17 07:00 General appearance: Present: mild distress, A&O X 3 - Head Head exam: Present: normal inspection - Eye Eye exam: Present: EOMI - Neck Neck exam general surgery: Present: normal inspection, trachea midline - Respiratory Respiratory exam: Present: wheezes - Cardiovascular Cardiovascular exam: Present: tachycardia - GI/Abdominal GI/Abdominal exam: Present: normal bowel sounds, soft. Absent: tenderness - Extremities Exam Extremities exam: Absent: cyanotic, pedal edema - Neurological Exam Neurological exam: Present: alert, no focal deficits. Absent: facial droop, speech deficit - Skin Skin exam: Present: dry, warm Internal Medicine: Result - Labs CBC & Chem 7: 09/15/17 02:23 09/15/17 02:23 Labs: Short CBC 09/15/17 Range/Units 02:23 WBC 8.2 (4.3-11.1) K/mcL Hgb 13.1 (11.5-15.4) g/dL Hct 41.9 (35.3-44.9) % Plt Count 231 (140-400) K/mcL Neutrophils # 6.6 (1.6-8.9) K/mcL BMP 09/15/17 02:23 Sodium 138 Potassium 3.6 Chloride 103 Carbon Dioxide 28 BUN 19 Creatinine 1.14 Glucose 106 H Calcium 8.8 Cardiac Enzymes 09/15/17 09/15/17 Range/Units 02:23 07:42 Troponin I 0.10 H* 0.08 H* (< 0.04) ng/mL - ABG Interpretation ABG results: PT/INR, D-dimer PT 14.3 Seconds (9.4-12.1) H 09/15/17 02:23 Consult Discharge Plan - Plan Referrals: Kassy Adorno CNP [Primary Care Provider] - <Neeraj Ramírez - Last Filed: 09/15/17 19:34> Date of Encounter: 09/15/17 - Assessment and plan (1) CHF exacerbation Current Visit: Yes Status: Acute Qualifiers: Heart failure type: combined systolic and diastolic Qualified Code(s): I50.43 - Acute on chronic combined systolic (congestive) and diastolic ( congestive) heart failure (2) UTI (urinary tract infection) Current Visit: Yes Status: Acute Qualifiers: Urinary tract infection type: acute cystitis Hematuria presence: without hematuria Qualified Code(s): N30.00 - Acute cystitis without hematuria (3) HTN (hypertension) Current Visit: No Status: Chronic Qualifiers: Hypertension type: essential hypertension Qualified Code(s): I10 - Essential (primary) hypertension (4) Diabetes Current Visit: No Status: Chronic Qualifiers: Diabetes mellitus type: type 2 Diabetes mellitus halfway insulin use: without intermediate card tender use Diabetes mellitus complication status: without complication Qualified Code(s): E11.9 - Type 2 diabetes mellitus without complications (5) Elevated troponin Current Visit: No Status: Acute (6) CAD (coronary artery disease) Current Visit: No Status: Chronic Qualifiers: Coronary Disease-Associated Artery/Lesion type: [place] artery [place] vs. transplanted heart: [place] heart Associated angina: without angina Qualified Code(s): I25.10 - Atherosclerotic heart disease of [place] coronary artery without angina pectoris (7) H/O deep venous thrombosis Current Visit: Yes Status: Acute (8) DVT prophylaxis Current Visit: Yes Status: Acute - Time Spent With Patient Total time spent is greater than 50% in coordination of care (as documented) at patient's floor/unit and/or counseling patient: - Constitutional Vitals: Temp Pulse Resp BP Pulse Ox 97.7 F 98 16 136/77 92 09/15/17 15:33 09/15/17 15:33 09/15/17 15:33 09/15/17 15:33 09/15/17 15:33 Internal Medicine: Result - Labs CBC & Chem 7: 09/15/17 02:23 09/15/17 02:23 Labs: Short CBC 09/15/17 Range/Units 02:23 WBC 8.2 (4.3-11.1) K/mcL Hgb 13.1 (11.5-15.4) g/dL Hct 41.9 (35.3-44.9) % Plt Count 231 (140-400) K/mcL Neutrophils # 6.6 (1.6-8.9) K/mcL BMP 09/15/17 02:23 Sodium 138 Potassium 3.6 Chloride 103 Carbon Dioxide 28 BUN 19 Creatinine 1.14 Glucose 106 H Calcium 8.8 Cardiac Enzymes 09/15/17 09/15/17 Range/Units 02:23 07:42 Troponin I 0.10 H* 0.08 H* (< 0.04) ng/mL - ABG Interpretation ABG results: PT/INR, D-dimer PT 14.3 Seconds (9.4-12.1) H 09/15/17 02:23 - Attending Attestation I examined this patient and my medical decision-making was reviewed with the Resident Physician on 09/15/17. I agree with the documented findings, disposition and treatment plan as described except to the extent set forth below. Ms Mejía is currently admitted for acute CHF and UTI. She remains moderate to high risk due to potential for worsening clinical status. Ms Mejía is tired from no sleep. No CP. No fever or chills. No GI issues. Exam alert Comfortable Mucus membranes dry Heart distant No wheeze I/P 1. CHF 2. UTI Further diagnoses and plan as above.
[2017-09-15] MEDS: Furosemide 40 MG/4 ML VIAL IVP SCH ×2 (11:29→16:35)
[2017-09-15] MEDS: Ipratropium/Albuterol Neb 3 ML IH SCH ×3 (11:57→20:33)
[2017-09-15] MEDS ORDERED: Warfarin perPT PO PRN (18:00)
[2017-09-15] MEDS ORDERED: *HR* Warfarin 5 MG TABLET PO ONE (18:00)
[2017-09-15] MEDS: Spironolactone 25 MG TABLET PO SCH (21:09)
[2017-09-15] MEDS: Aspirin 81 MG TAB.CHEW PO SCH (21:10)
[2017-09-15] MEDS: *HR* Ticagrelor 90 MG TABLET PO SCH (21:10)
[2017-09-15] MEDS ORDERED: Benzonatate 100 MG CAPSULE PO PRN (23:46)
[2017-09-16] MEDS: *HR* Promethazine 25 MG/ML VIAL IVP PRN ×3 (00:15→17:50)
[2017-09-16] MEDS: Piperacillin/Tazobactam 3.375 GM in 0.9 % Sodium Chloride Mini Bag 100 ML IVPB SCH ×4 (00:16→23:59)
[2017-09-16] MEDS: Ipratropium/Albuterol Neb 3 ML IH SCH ×7 (00:20→23:52)
[2017-09-16] MEDS: Acetaminophen 325 MG TABLET PO PRN (02:30)
[2017-09-16 05:40] LABS: Basophils # 0.1 K/mcL (0.0-0.2); Basophils % 0.8 %; Eosinophils % 0.4 %; Hematocrit 40.6 % (35.3-44.9); Hemoglobin 12.8 g/dL (11.5-15.4); Immature Granulocytes % 0.8 % (0-4); Lymphocytes # 0.7 K/mcL (0.6-4.6); Lymphocytes % 9.8 %; Mean Corpuscular HGB Conc 31.5 g/dL (31.6-35.5); Mean Corpuscular Hemoglobin 25.9 pg (28.0-33.3); Mean Corpuscular Volume 82.2 fL (83.0-100.0); Mean Platelet Volume 9.4 fL (9.4-12.4); Monocytes # 0.6 K/mcL (0.0-1.3); Monocytes % 7.6 %; Neutrophils # 5.9 K/mcL (1.6-8.9); Platelet Count 202 K/mcL (140-400); Red Blood Count 4.94 M/mcL (3.82-4.97); Segmented Neutrophils % 80.6 %
[2017-09-16 05:45] LABS: INR 1.3; Prothrombin Time 14.5 Seconds (9.4-12.1)
[2017-09-16 06:00] LABS: Calcium 8.5 mg/dL (8.6-10.3); Potassium 3.6 mEq/L (3.5-5.1)
[2017-09-16] MEDS: Insulin LISPRO 300 UNITS/3 ML VIAL SQ SCH ×4 (08:31→20:27)
[2017-09-16] MEDS: *HR* HYDROcodone/Acet 5/325 mg TABLET PO PRN ×3 (08:36→20:27)
[2017-09-16] MEDS: Metoprolol XL (24 HR) Succ 50 MG TAB.ER.24H PO SCH ×2 (08:36→20:26)
[2017-09-16] MEDS: Furosemide 40 MG/4 ML VIAL IVP SCH (08:37)
--- NOTE | 2017-09-16 10:10 | Internal Med Progress Note ---
<Willian Marte - Last Filed: 09/16/17 11:12> Date of Encounter: 09/16/17 Time of Encounter: 09:30 - Assessment and plan (1) UTI (urinary tract infection) Current Visit: No Status: Acute Assessment and plan: - Initially presents with burning and pain on urination with WBC 11.4. - Urine culture from 09/14/17 grew ESBL-positive ESBL sensitive to gentamicin, ertapenem, meropenem, Zosyn, tigecycline, tobramycin. - Continues to improve as WBC decreased to 7.4 today. - Continue IV Zosyn (Day 3). Plan to have total 10-day course of treatment. Patient will likely need home antibiotic infusion after discharge. Qualifiers: Urinary tract infection type: site unspecified Hematuria presence: without hematuria Qualified Code(s): N39.0 - Urinary tract infection, site not specified (2) CHF exacerbation Current Visit: Yes Status: Acute Assessment and plan: - Echo on 09/05/17 showed LVEF 25-30% with moderate LV diastolic dysfunction. - Patient reports worsening dyspnea on exertion and weight gain of 13 lb over a week prior to admission. BNP 1328. - Improves as patient reports better breathing. Net -2340 mL since admission. - Will hold Lasix IV for now given worsening renal function today. Consider resume in lower dosage if renal function improves. - Strict I/O and daily weight. Qualifiers: Heart failure type: combined systolic and diastolic Qualified Code(s): I50.43 - Acute on chronic combined systolic (congestive) and diastolic ( congestive) heart failure (3) Elevated troponin Current Visit: No Status: Acute Assessment and plan: - Troponin 0.06, 0.10, 0.08. - Likely related patient's significant CHF history given patient has chronic mild troponin elevation per lab since September 2016. (4) CAD (coronary artery disease) Current Visit: No Status: Chronic Assessment and plan: - Known history of CAD s/p PCI. - Continue aspirin, Brilinta, metoprolol, Lipitor. Qualifiers: Coronary Disease-Associated Artery/Lesion type: [place] artery [place] vs. transplanted heart: [place] heart Associated angina: without angina Qualified Code(s): I25.10 - Atherosclerotic heart disease of [place] coronary artery without angina pectoris (5) Diabetes Current Visit: No Status: Chronic Assessment and plan: - Continue insulin sliding scale and glucose monitoring. Qualifiers: Diabetes mellitus type: type 2 Diabetes mellitus chcf insulin use: without chcf use Diabetes mellitus complication status: without complication Qualified Code(s): E11.9 - Type 2 diabetes mellitus without complications (6) H/O deep venous thrombosis Current Visit: Yes Status: Acute Assessment and plan: - Patient reports having history of blood clot in right upper extremity in the past. - Unilateral upper extremity venous duplex exam on 09/15/17 found positive SVT on right Cephalic vein below elbow but negative for DVT - Currently on SQ heparin along with Coumadin (INR 1.3 today) (7) DVT prophylaxis Current Visit: Yes Status: Acute Assessment and plan: -SQ heparin. - Time Spent With Patient Total time spent is greater than 50% in coordination of care (as documented) at patient's floor/unit and/or counseling patient: - Subjective Interval history: Patient was seen and examined this morning. Patient still has some shortness of breath, abdominal sweeling and pain/burning on urination but feels overall better compared to yesterday. Patient denies fever, chills, nausea, vomiting, diarrhea. - Constitutional Vitals: Temp Pulse Resp BP Pulse Ox 97.9 F 81 14 139/88 96 09/16/17 07:16 09/16/17 07:16 09/16/17 07:36 09/16/17 07:16 09/16/17 07:36 General appearance: Present: cooperative, A&O X 3, no acute distress, answers questions appropriately - Head Head exam: Present: normal inspection - Eye Eye exam: Present: EOMI - Neck Neck exam general surgery: Present: normal inspection, trachea midline - Respiratory Respiratory exam: Present: CTAB - Cardiovascular Cardiovascular exam: Present: RRR, +S1, +S2 - GI/Abdominal GI/Abdominal exam: Present: normal bowel sounds, soft. Absent: tenderness - Extremities Exam Extremities exam: Absent: cyanotic, pedal edema - Neurological Exam Neurological exam: Present: alert, no focal deficits. Absent: facial droop, speech deficit - Skin Skin exam: Present: dry, warm Internal Medicine: Result - Labs CBC & Chem 7: 09/16/17 04:58 09/16/17 04:58 Labs: Short CBC 09/16/17 Range/Units 04:58 WBC 7.4 (4.3-11.1) K/mcL Hgb 12.8 (11.5-15.4) g/dL Hct 40.6 (35.3-44.9) % Plt Count 202 (140-400) K/mcL Neutrophils # 5.9 (1.6-8.9) K/mcL BMP 09/16/17 04:58 Sodium 136 Potassium 3.6 Chloride 102 Carbon Dioxide 25 BUN 28 H Creatinine 1.35 H Glucose 214 H Calcium 8.5 L - ABG Interpretation ABG results: PT/INR, D-dimer PT 14.5 Seconds (9.4-12.1) H 09/16/17 04:58 Consult Discharge Plan - Plan Referrals: Kassy Adorno CNP [Primary Care Provider] - <Neeraj Ramírez - Last Filed: 09/16/17 17:41> Date of Encounter: 09/16/17 - Assessment and plan (1) CHF exacerbation Current Visit: Yes Status: Acute Qualifiers: Heart failure type: combined systolic and diastolic Qualified Code(s): I50.43 - Acute on chronic combined systolic (congestive) and diastolic ( congestive) heart failure (2) UTI (urinary tract infection) Current Visit: Yes Status: Acute Qualifiers: Urinary tract infection type: acute cystitis Hematuria presence: without hematuria Qualified Code(s): N30.00 - Acute cystitis without hematuria (3) ESBL (extended spectrum beta-lactamase) producing bacteria infection Current Visit: Yes Status: Acute (4) HTN (hypertension) Current Visit: No Status: Chronic Qualifiers: Hypertension type: essential hypertension Qualified Code(s): I10 - Essential (primary) hypertension (5) Diabetes Current Visit: No Status: Chronic Qualifiers: Diabetes mellitus type: type 2 Diabetes mellitus [employer] insulin use: without chcf use Diabetes mellitus complication status: without complication Qualified Code(s): E11.9 - Type 2 diabetes mellitus without complications (6) Elevated troponin Current Visit: No Status: Resolved (7) CAD (coronary artery disease) Current Visit: No Status: Chronic Qualifiers: Coronary Disease-Associated Artery/Lesion type: [place] artery [place] vs. transplanted heart: [place] Associated angina: without angina Qualified Code(s): I25.10 - Atherosclerotic heart disease of [place] coronary artery without angina pectoris (8) H/O deep venous thrombosis Current Visit: Yes Status: Acute (9) DVT prophylaxis Current Visit: Yes Status: Acute - Time Spent With Patient Total time spent is greater than 50% in coordination of care (as documented) at patient's floor/unit and/or counseling patient: - Constitutional Vitals: Temp Pulse Resp BP Pulse Ox 98.9 F 98 15 137/90 91 09/16/17 16:13 09/16/17 16:13 09/16/17 16:13 09/16/17 16:13 09/16/17 16:13 Internal Medicine: Result - Labs CBC & Chem 7: 09/16/17 04:58 09/16/17 04:58 Labs: Short CBC 09/16/17 Range/Units 04:58 WBC 7.4 (4.3-11.1) K/mcL Hgb 12.8 (11.5-15.4) g/dL Hct 40.6 (35.3-44.9) % Plt Count 202 (140-400) K/mcL Neutrophils # 5.9 (1.6-8.9) K/mcL BMP 09/16/17 04:58 Sodium 136 Potassium 3.6 Chloride 102 Carbon Dioxide 25 BUN 28 H Creatinine 1.35 H Glucose 214 H Calcium 8.5 L - ABG Interpretation ABG results: PT/INR, D-dimer PT 14.5 Seconds (9.4-12.1) H 09/16/17 04:58 - Attending Attestation I examined this patient and my medical decision-making was reviewed with the Resident Physician on 09/16/17. I agree with the documented findings, disposition and treatment plan as described except to the extent set forth below. Ms Mejía is currently admitted for acute exac CHF and UTI with ESBL E coli. She remains moderate to high risk due to potential for worsening clinical status. Ms Mejía is resting in bed. No fever or chills. No cough. Breathing overall has improved. On IV abx for UTI. No GI issues. Exam alert Comfortable Mucus membranes dry Heart reg No wheeze Abd soft I/P 1. ESBL E coli UTI 2. CHF Further diagnoses and plan as above.
--- NOTE | 2017-09-16 13:18 | Electrocardiograph Report ---
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
[2017-09-16] MEDS: *HR* Heparin 5,000 UNIT/ML VIAL SQ SCH ×2 (14:27→22:00)
[2017-09-16] MEDS: GuaiFENesin/Codeine Oral Soln 5 ML UDC PO PRN ×2 (16:25→22:08)
[2017-09-16] MEDS ORDERED: *HR* Warfarin 7.5 MG TABLET PO ONE (18:00)
[2017-09-16] MEDS: Aspirin 81 MG TAB.CHEW PO SCH (20:26)
[2017-09-16] MEDS: *HR* Ticagrelor 90 MG TABLET PO SCH (20:27)
[2017-09-16] MEDS: Spironolactone 25 MG TABLET PO SCH (20:27)
[2017-09-17] MEDS: Ipratropium/Albuterol Neb 3 ML IH SCH ×6 (03:58→23:30)
[2017-09-17] MEDS: *HR* HYDROcodone/Acet 5/325 mg TABLET PO PRN ×3 (04:47→18:46)
[2017-09-17 05:00] LABS: INR 1.5
[2017-09-17 05:01] LABS: Basophils # 0.1 K/mcL (0.0-0.2); Basophils % 0.7 %; Eosinophils # 0.1 K/mcL (0.0-0.6); Hematocrit 41.1 % (35.3-44.9); Hemoglobin 12.9 g/dL (11.5-15.4); Immature Granulocytes % 0.6 % (0-4); Lymphocytes # 0.7 K/mcL (0.6-4.6); Lymphocytes % 10.7 %; Mean Corpuscular HGB Conc 31.4 g/dL (31.6-35.5); Mean Corpuscular Hemoglobin 26.1 pg (28.0-33.3); Mean Platelet Volume 9.6 fL (9.4-12.4); Monocytes # 0.5 K/mcL (0.0-1.3); Monocytes % 6.5 %; Neutrophils # 5.6 K/mcL (1.6-8.9); Platelet Count 190 K/mcL (140-400); Red Blood Count 4.95 M/mcL (3.82-4.97); Segmented Neutrophils % 80.5 %
[2017-09-17 05:14] LABS: Calcium 8.2 mg/dL (8.6-10.3); Potassium 4.4 mEq/L (3.5-5.1)
[2017-09-17] MEDS: *HR* Heparin 5,000 UNIT/ML VIAL SQ SCH ×3 (05:42→21:22)
[2017-09-17] MEDS: Insulin LISPRO 300 UNITS/3 ML VIAL SQ SCH ×4 (08:13→20:36)
[2017-09-17] MEDS: Piperacillin/Tazobactam 3.375 GM in 0.9 % Sodium Chloride Mini Bag 100 ML IVPB SCH ×2 (08:14→16:35)
[2017-09-17] MEDS: Metoprolol XL (24 HR) Succ 50 MG TAB.ER.24H PO SCH ×2 (08:15→20:40)
[2017-09-17] MEDS: *HR* Promethazine 25 MG/ML VIAL IVP PRN ×3 (09:54→18:47)
[2017-09-17] MEDS ORDERED: 0.9 % Sodium Chloride 500 ML IVC ONE (10:55)
--- NOTE | 2017-09-17 10:56 | Internal Med Progress Note ---
<Willian Marte - Last Filed: 09/17/17 15:55> Date of Encounter: 09/17/17 Time of Encounter: 10:30 - Assessment and plan (1) UTI (urinary tract infection) Current Visit: No Status: Acute Assessment and plan: - Initially presents with burning and pain on urination with WBC 11.4. - Urine culture from 09/14/17 grew ESBL-positive ESBL sensitive to gentamicin, ertapenem, meropenem, Zosyn, tigecycline, tobramycin. - Continues to improve as WBC decreased to 6.9 today. - Continue IV Zosyn (Day 4). Plan to have total 10-day course of treatment. Patient will likely need home antibiotic infusion after discharge. Qualifiers: Urinary tract infection type: site unspecified Hematuria presence: without hematuria Qualified Code(s): N39.0 - Urinary tract infection, site not specified (2) CHF exacerbation Current Visit: Yes Status: Acute Assessment and plan: - Echo on 09/05/17 showed LVEF 25-30% with moderate LV diastolic dysfunction. - Patient reports worsening dyspnea on exertion and weight gain of 13 lb over a week prior to admission. BNP 1328. - Improves as patient reports better breathing. Net -3500 mL since admission. - Will hold Lasix IV for now given renal function today. Consider resume in lower dosage if renal function improves. - Strict I/O and daily weight. 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 - Likely related patient's significant CHF history given patient has chronic mild troponin elevation per lab since September 2016. (4) CAD (coronary artery disease) Current Visit: No Status: Chronic Assessment and plan: - Known history of CAD s/p PCI. - Continue aspirin, Brilinta, metoprolol, Lipitor. Qualifiers: Coronary Disease-Associated Artery/Lesion type: [place] artery [place] vs. transplanted heart: [place] heart Associated angina: without angina Qualified Code(s): I25.10 - Atherosclerotic heart disease of [place] coronary artery without angina pectoris (5) Diabetes Current Visit: No Status: Chronic Assessment and plan: - Continue insulin sliding scale and glucose monitoring. Qualifiers: Diabetes mellitus type: type 2 Diabetes mellitus superintendent container terminal insulin use: without penitentiary use Diabetes mellitus complication status: without complication Qualified Code(s): E11.9 - Type 2 diabetes mellitus without complications (6) H/O deep venous thrombosis Current Visit: Yes Status: Acute Assessment and plan: - Patient reports having history of blood clot in right upper extremity in the past. - Unilateral upper extremity venous duplex exam on 09/15/17 found positive SVT on right Cephalic vein below elbow but negative for DVT - Currently on SQ heparin along with Coumadin (INR 1.5 today) (7) DVT prophylaxis Current Visit: Yes Status: Acute Assessment and plan: -SQ heparin. - Time Spent With Patient Total time spent is greater than 50% in coordination of care (as documented) at patient's floor/unit and/or counseling patient: - Subjective Interval history: Patient was seen and examined this morning. Patient reports improvement on her breathing, abdominal sweeling and discomfort on urination. Patient denies fever , chills, chest pain, nausea, vomiting, diarrhea. - Constitutional Vitals: Temp Pulse Resp BP Pulse Ox 98.4 F 94 16 123/79 93 09/17/17 07:19 09/17/17 07:19 09/17/17 07:26 09/17/17 07:19 09/17/17 07:26 General appearance: Present: cooperative, A&O X 3, no acute distress, answers questions appropriately - Head Head exam: Present: normal inspection - Eye Eye exam: Present: EOMI - Neck Neck exam general surgery: Present: normal inspection, trachea midline - Respiratory Respiratory exam: Present: CTAB - Cardiovascular Cardiovascular exam: Present: RRR, +S1, +S2 - GI/Abdominal GI/Abdominal exam: Present: normal bowel sounds, soft. Absent: tenderness - Extremities Exam Extremities exam: Absent: cyanotic, pedal edema - Neurological Exam Neurological exam: Present: alert, no focal deficits. Absent: facial droop, speech deficit - Skin Skin exam: Present: dry, warm Internal Medicine: Result - Labs CBC & Chem 7: 09/17/17 03:50 09/17/17 03:50 Labs: Short CBC 09/17/17 Range/Units 03:50 WBC 6.9 (4.3-11.1) K/mcL Hgb 12.9 (11.5-15.4) g/dL Hct 41.1 (35.3-44.9) % Plt Count 190 (140-400) K/mcL Neutrophils # 5.6 (1.6-8.9) K/mcL BMP 09/17/17 03:50 Sodium 135 L Potassium 4.4 Chloride 101 Carbon Dioxide 24 BUN 29 H Creatinine 1.31 H Glucose 209 H Calcium 8.2 L - ABG Interpretation ABG results: PT/INR, D-dimer PT 16.0 Seconds (9.4-12.1) H 09/17/17 03:50 - VTE Documentation of Mechanical Device: Intermittent pneumatic compression device Consult Discharge Plan - Plan Referrals: Kassy Adorno CNP [Primary Care Provider] - <Neeraj Ramírez - Last Filed: 09/17/17 17:45> Date of Encounter: 09/17/17 - Assessment and plan (1) UTI (urinary tract infection) Current Visit: Yes Status: Acute Qualifiers: Urinary tract infection type: acute cystitis Hematuria presence: without hematuria Qualified Code(s): N30.00 - Acute cystitis without hematuria (2) ESBL (extended spectrum beta-lactamase) producing bacteria infection Current Visit: Yes Status: Acute (3) CHF exacerbation Current Visit: Yes Status: Acute Qualifiers: Heart failure type: combined systolic and diastolic Qualified Code(s): I50.43 - Acute on chronic combined systolic (congestive) and diastolic ( congestive) heart failure (4) HTN (hypertension) Current Visit: No Status: Chronic Qualifiers: Hypertension type: essential hypertension Qualified Code(s): I10 - Essential (primary) hypertension (5) Diabetes Current Visit: No Status: Chronic Qualifiers: Diabetes mellitus type: type 2 Diabetes mellitus superintendent container terminal insulin use: without superintendent container terminal use Diabetes mellitus complication status: without complication Qualified Code(s): E11.9 - Type 2 diabetes mellitus without complications (6) CAD (coronary artery disease) Current Visit: No Status: Chronic Qualifiers: Coronary Disease-Associated Artery/Lesion type: [place] artery [place] vs. transplanted heart: [place] heart Associated angina: without angina Qualified Code(s): I25.10 - Atherosclerotic heart disease of [place] coronary artery without angina pectoris (7) H/O deep venous thrombosis Current Visit: Yes Status: Acute (8) DVT prophylaxis Current Visit: Yes Status: Acute - Time Spent With Patient Total time spent is greater than 50% in coordination of care (as documented) at patient's floor/unit and/or counseling patient: - Constitutional Vitals: Temp Pulse Resp BP Pulse Ox 98.3 F 80 16 129/84 94 09/17/17 15:11 09/17/17 15:11 09/17/17 15:20 09/17/17 15:11 09/17/17 15:20 Internal Medicine: Result - Labs CBC & Chem 7: 09/17/17 03:50 09/17/17 03:50 Labs: Short CBC 09/17/17 Range/Units 03:50 WBC 6.9 (4.3-11.1) K/mcL Hgb 12.9 (11.5-15.4) g/dL Hct 41.1 (35.3-44.9) % Plt Count 190 (140-400) K/mcL Neutrophils # 5.6 (1.6-8.9) K/mcL BMP 09/17/17 03:50 Sodium 135 L Potassium 4.4 Chloride 101 Carbon Dioxide 24 BUN 29 H Creatinine 1.31 H Glucose 209 H Calcium 8.2 L - ABG Interpretation ABG results: PT/INR, D-dimer PT 16.0 Seconds (9.4-12.1) H 09/17/17 03:50 - Attending Attestation I examined this patient and my medical decision-making was reviewed with the Resident Physician on 09/17/17. I agree with the documented findings, disposition and treatment plan as described except to the extent set forth below. Ms Mejía is currently admitted for acute ESBL E coli UTI. She remains moderate to high risk due to potential for worsening clinical status. Ms Mejía is doing OK. She is having some pain and nausea. No fever or chills. Appetite is OK. No diarrhea. Exam alert Comfortable Mucus membranes dry Heart reg No wheeze abd soft I/P 1. ESBL e coli UTI 2. CHF Further diagnoses and plan as above.
[2017-09-17] MEDS: GuaiFENesin/Codeine Oral Soln 5 ML UDC PO PRN (17:45)
[2017-09-17] MEDS ORDERED: *HR* Warfarin 7.5 MG TABLET PO ONE (18:00)
[2017-09-17] MEDS: Aspirin 81 MG TAB.CHEW PO SCH (20:35)
[2017-09-17] MEDS: *HR* Ticagrelor 90 MG TABLET PO SCH (20:36)
[2017-09-17] MEDS: Spironolactone 25 MG TABLET PO SCH (20:36)
[2017-09-18] MEDS: GuaiFENesin/Codeine Oral Soln 5 ML UDC PO PRN (00:12)
[2017-09-18] MEDS: Piperacillin/Tazobactam 3.375 GM in 0.9 % Sodium Chloride Mini Bag 100 ML IVPB SCH ×2 (00:12→09:06)
[2017-09-18] MEDS: *HR* Promethazine 25 MG/ML VIAL IVP PRN (01:30)
[2017-09-18] MEDS: Ipratropium/Albuterol Neb 3 ML IH SCH ×3 (03:45→11:22)
[2017-09-18 05:07] LABS: Basophils # 0.1 K/mcL (0.0-0.2); Basophils % 0.7 %; Eosinophils # 0.1 K/mcL (0.0-0.6); Eosinophils % 0.7 %; Hematocrit 42.5 % (35.3-44.9); Hemoglobin 12.9 g/dL (11.5-15.4); Immature Granulocytes % 0.7 % (0-4); Lymphocytes # 1.6 K/mcL (0.6-4.6); Lymphocytes % 23.5 %; Mean Corpuscular HGB Conc 30.4 g/dL (31.6-35.5); Mean Corpuscular Hemoglobin 25.5 pg (28.0-33.3); Mean Corpuscular Volume 84.2 fL (83.0-100.0); Mean Platelet Volume 9.6 fL (9.4-12.4); Monocytes # 0.5 K/mcL (0.0-1.3); Monocytes % 6.9 %; Neutrophils # 4.5 K/mcL (1.6-8.9); Nucleated Red Blood Cells 0.3 /100 WBC (0); Platelet Count 192 K/mcL (140-400); Red Blood Count 5.05 M/mcL (3.82-4.97); Red Cell Distribution Width 18.4 % (11.5-14.5); Segmented Neutrophils % 67.5 %
[2017-09-18 05:17] LABS: Calcium 8.5 mg/dL (8.6-10.3); Potassium 4.8 mEq/L (3.5-5.1)
[2017-09-18 05:21] LABS: INR 1.6; Prothrombin Time 17.4 Seconds (9.4-12.1)
[2017-09-18] MEDS: *HR* Heparin 5,000 UNIT/ML VIAL SQ SCH ×2 (05:40→12:43)
[2017-09-18] MEDS ORDERED: Ondansetron 4 MG/2 ML VIAL IVP PRN (08:12)
[2017-09-18] MEDS ORDERED: Ertapenem 1,000 MG in 0.9 % Sodium Chloride Mini Bag 100 ML IVPB SCH (09:00)
[2017-09-18] MEDS: Insulin LISPRO 300 UNITS/3 ML VIAL SQ SCH ×2 (09:05→11:30)
[2017-09-18] MEDS: *HR* HYDROcodone/Acet 5/325 mg TABLET PO PRN (09:06)
[2017-09-18] MEDS: Metoprolol XL (24 HR) Succ 50 MG TAB.ER.24H PO SCH (09:14)
--- NOTE | 2017-09-18 09:18 | Discharge Summary ---
<Willian Marte - Last Filed: 09/18/17 16:54> Date of Encounter: 09/18/17 Time of Encounter: 08:30 - Discharge Diagnosis (1) UTI (urinary tract infection) Priority: Primary Status: Acute Qualifiers: Urinary tract infection type: site unspecified Hematuria presence: without hematuria Qualified Code(s): N39.0 - Urinary tract infection, site not specified (2) CHF exacerbation Priority: Primary Status: Acute Qualifiers: Heart failure type: combined systolic and diastolic Qualified Code(s): I50.43 - Acute on chronic combined systolic (congestive) and diastolic ( congestive) heart failure (3) CAD (coronary artery disease) Priority: Secondary Status: Chronic Qualifiers: Coronary Disease-Associated Artery/Lesion type: [place] artery [place] vs. transplanted heart: [place] heart Associated angina: without angina Qualified Code(s): I25.10 - Atherosclerotic heart disease of [place] coronary artery without angina pectoris (4) Diabetes Priority: Secondary Status: Chronic Qualifiers: Diabetes mellitus type: type 2 Diabetes mellitus [place] insulin use: without [place] use Diabetes mellitus complication status: without complication Qualified Code(s): E11.9 - Type 2 diabetes mellitus without complications (5) H/O deep venous thrombosis Priority: Secondary Status: Acute Hospital course: Ms. Mejía is a 52 year old female with PMH of CAD s/p PCI, combined CHF (Echo on 09/05/17 showed LVEF 25-30% with moderate LV diastolic dysfunction.), DVT on Coumadin, HTN, DM, HLD, anxiety and history of recurrent ESBL(+) E. coli UTI who presented with complaint of dyspnea on exertion, weight gain and dysuria. Patient was noted to have WBC 11.4, BNP 1328 and UA positive for both nitrite and leukocyte esterase. Patient was noted to have elevated troponin at 0.06, 0.10, 0.08 which appear to be chronic. Patient was admitted on 09/14/17 for CHF exacerbation and UTI. Patient was started on IV Lasix and IV Zosyn. Urine culture from 09/14/17 grew ESBL(+) E. coli sensitive to gentamicin, ertapenem, meropenem, Zosyn, tigecycline, tobramycin. Patient's shortness of breath, abdominal swelling and dysuria improve over time since admission and has net - 2980 mL since. Patient was switched to IV ertapenem on 09/18/17 as infectious disease recommended that in the past. Patient had EPIV placed on 09/18/17. Given patient improves clinically and remains hemodynamically stable, patient can be discharged home with home health and 10 more days of ertapenem 1,000 mg IV daily home infusion. Patient was recommended to follow up with her primary care physician within a week regarding her hospitalization. Patient was also recommended to follow up with Dr. Longoria of [place] cardiology regarding her congestive heart failure. Patient expressed her understanding and agreement with the discharge plan. All questions were answered. Discharge discussed with: patient - Time Spent with Patient Total time spent providing and/or coordinating discharge services: Greater than 30 minutes (40 minutes) - Discharge Medications Prescriptions: Ertapenem [INVanz] 1,000 mg IVPB DAILY #10 vial Home Medications: Furosemide [Lasix] 20 mg PO BID 09/06/16 [History] Spironolactone [Aldactone] 25 mg PO HS 09/06/16 [History] Warfarin [Coumadin] 5 mg PO QPM 09/16/16 [History] Aspirin 81 mg PO HS 04/24/17 [History] Ticagrelor [Brilinta] 90 mg PO HS 04/24/17 [History] Albuterol Sulfate [Albuterol Inhaler] 2 puff IH Q6H PRN 09/14/17 [History] Atorvastatin Calcium [Lipitor] 20 mg PO HS 09/14/17 [History] Lisinopril [Zestril] 10 mg PO DAILY 09/14/17 [History] Metformin HCl [Metformin HCl ER] 1,000 mg PO DAILY 09/14/17 [History] Metoprolol XL (24 HR) Succ [Toprol Xl] 50 mg PO BID 09/14/17 [History] Ertapenem [INVanz] 1,000 mg IVPB DAILY #10 vial 09/18/17 [Rx] Allergies/Adverse Reactions: 3 Allergy/AdvReac Type Severity Reaction Status Date / Time Sulfa (Sulfonamide Allergy Hives/nause Verified 09/14/17 18:41 Antibiotics) a chocolate Allergy Hives Uncoded 09/14/17 18:41 Date of admission: 09/14/17 23:04 Primary care physician: Kassy Adorno CNP Consults: 09/18/17 08:10 Consult to Invasive Line Access Team [CONS] Routine Reason for Consult: ESBL(+) E. coli UTI needs 10-day course of IV ertapenem. Line Type: EPIV PICC line indications: snf Med/Antibiotic Discharging clinician: Willian Marte Anticipated date of discharge: 09/18/17 - Constitutional Vitals: Temp Pulse Resp BP Pulse Ox 98.4 F 73 15 112/81 95 09/18/17 07:41 09/18/17 07:41 09/18/17 07:41 09/18/17 07:41 09/18/17 07:41 General appearance: Present: A&O X 3, no acute distress, answers questions appropriately - Head Head exam: Present: normal inspection - Eye Eye exam: Present: EOMI - Neck Neck exam general surgery: Present: normal inspection, trachea midline - Respiratory Respiratory exam: Present: decreased breath sounds - Cardiovascular Cardiovascular exam: Present: RRR, +S1, +S2 - GI/Abdominal GI/Abdominal exam: Present: normal bowel sounds, soft, tenderness (Diffuse, about the same as yesterday) - Extremities Exam Extremities exam: Absent: cyanotic, pedal edema - Neurological Exam Neurological exam: Present: alert, no focal deficits. Absent: facial droop, speech deficit - Skin Skin exam: Present: dry, warm - Patient Status Disposition: Home Health Service Condition: Fair Functional capacity at discharge: independent ambulation Overall status at discharge: patient is progressing back to baseline - Discharge Instructions Instructions: Heart Failure (DC), Urinary Tract Infection in Women (DC) Follow Up With: Kassy Adorno CNP [Primary Care Provider] - (PLEASE SCHEDULE A FOLLOW UP APPT WITHIN 7 DAYS. HAVE YOUR INR CHECKED ON 09/20/17. KASSY ADORNO CNP TO FOLLOW YOUR INR.) Delonte Longoria DO [Partnered Physician] - (pt likes to have sooner appointment with Dr. Longoria given her hospitalization for CHF exacerbation.) Additional Instructions: Please finish 10 more days of ertapenem 1,000 mg IV daily for your ESBL positive UTI. Please follow up with your primary care physician within a week regarding your hospitalization. Please follow up with Dr. Longoria of [place] cardi[facility] regarding your hospitalization for congestive heart failure. - Diet and Activity Activity: increase activity as tolerated Diet: low fat, low cholesterol, low salt diet - VTE Documentation of Mechanical Device: Intermittent pneumatic compression device <Neeraj Ramírez Eulalia - Last Filed: 09/18/17 19:22> Date of Encounter: 09/18/17 - Discharge Diagnosis (1) CHF exacerbation Status: Acute Qualifiers: Heart failure type: combined systolic and diastolic Qualified Code(s): I50.43 - Acute on chronic combined systolic (congestive) and diastolic ( congestive) heart failure (2) UTI (urinary tract infection) Priority: Primary Status: Acute Qualifiers: Urinary tract infection type: acute cystitis Hematuria presence: without hematuria Qualified Code(s): N30.00 - Acute cystitis without hematuria (3) ESBL (extended spectrum beta-lactamase) producing bacteria infection Priority: Primary Status: Acute (4) HTN (hypertension) Priority: Secondary Status: Chronic Qualifiers: Hypertension type: essential hypertension Qualified Code(s): I10 - Essential (primary) hypertension (5) Diabetes Status: Chronic Qualifiers: Diabetes mellitus type: type 2 Diabetes mellitus jail insulin use: without jail use Diabetes mellitus complication status: without complication Qualified Code(s): E11.9 - Type 2 diabetes mellitus without complications (6) CAD (coronary artery disease) Status: Chronic Qualifiers: Coronary Disease-Associated Artery/Lesion type: [place] artery [place] vs. transplanted heart: [place] heart Associated angina: without angina Qualified Code(s): I25.10 - Atherosclerotic heart disease of [place] coronary artery without angina pectoris (7) H/O deep venous thrombosis Status: Acute (8) Tobacco abuse Priority: Secondary Status: Chronic Hospital course: Ms. Mejía is a 52 year old female - Time Spent with Patient Total time spent providing and/or coordinating discharge services: 38min Date of admission: 09/14/17 23:04 Primary care physician: Kassy Adorno CNP Consults: 09/18/17 08:10 Consult to Invasive Line Access Team [CONS] Routine Reason for Consult: ESBL(+) E. coli UTI needs 10-day course of IV ertapenem. Line Type: EPIV PICC line indications: snf Med/Antibiotic 09/18/17 09:18 Consult to Civil Drafting Technician [CONS] Routine Reason for SW Consult: discharge planning; IV antibx therapy x 10 days - Constitutional Vitals: Temp Pulse Resp BP Pulse Ox 98.2 F 77 15 109/68 95 09/18/17 11:12 09/18/17 11:12 09/18/17 11:12 09/18/17 11:12 09/18/17 11:12 - Attending Attestation I examined this patient and my medical decision-making was reviewed with the Resident Physician on 09/18/17. I agree with the documented findings, disposition and treatment plan as described except to the extent set forth below. Ms Mejía has been admitted for acute exac CHF and UTI. She has been tolerating IV abx and will have at home. She still has some abd pain - improved with meds. No fever today. She is ready for discharge home with HHC and abx. Exam alert Comfortable at this time Mucus membranes dry Heart reg No wheeze abd soft Plan D/C home today to complete IV abx
[2017-09-18 11:17] VITALS: BP 109/68
--- NOTE | 2017-09-18 11:37 | Physician Discharge Referral ---
Home Health/Hosp Referral Info Transfer to: Home Health Provider in Charge Post Discharge: PCP - Diagnosis (1) UTI (urinary tract infection) Priority: Primary Status: Acute (2) CHF exacerbation Priority: Primary Status: Acute (3) Elevated troponin Priority: Secondary Status: Resolved (4) CAD (coronary artery disease) Priority: Secondary Status: Chronic (5) Diabetes Priority: Secondary Status: Chronic (6) H/O deep venous thrombosis Priority: Secondary Status: Acute - Respiratory Orders Smoking Cessation: Smoking cessation has been advised. For more information, call the [place] Tobacco Quit Line at 7-008-AGSP-NOW. - Diet/Nutrition Diet/Nutrition Orders: No Added Salt (MICHELLE), Cardiac, No Concentrated Sweets - Activity Activity Orders: Ambulate - Services Needed Following services are medically necessary services: Nursing, Home Health Aide, Home Infusion (Ertapenem 1,000 mg IV daily for 10 more days.) - Transfer Medications Prescriptions: Ertapenem [INVanz] 1,000 mg IVPB DAILY #10 vial Home Medications: Furosemide [Lasix] 20 mg PO BID 09/06/16 [History] Spironolactone [Aldactone] 25 mg PO HS 09/06/16 [History] Warfarin [Coumadin] 5 mg PO QPM 09/16/16 [History] Aspirin 81 mg PO HS 04/24/17 [History] Ticagrelor [Brilinta] 90 mg PO HS 04/24/17 [History] Albuterol Sulfate [Albuterol Inhaler] 2 puff IH Q6H PRN 09/14/17 [History] Atorvastatin Calcium [Lipitor] 20 mg PO HS 09/14/17 [History] Lisinopril [Zestril] 10 mg PO DAILY 09/14/17 [History] Metformin HCl [Metformin HCl ER] 1,000 mg PO DAILY 09/14/17 [History] Metoprolol XL (24 HR) Succ [Toprol Xl] 50 mg PO BID 09/14/17 [History] Ertapenem [INVanz] 1,000 mg IVPB DAILY #10 vial 09/18/17 [Rx] Allergies/Adverse Reactions: 3 Allergy/AdvReac Type Severity Reaction Status Date / Time Sulfa (Sulfonamide Allergy Hives/nause Verified 09/14/17 18:41 Antibiotics) a chocolate Allergy Hives Uncoded 04/05/18 18:41 Certification: Further, I certify that my clinical findings support that this patient is homebound (i.e. absences from home require considerable and taxing effort and are for medical reasons or evangelical services or infrequently or short duration when for other reasons) because: Homebound Reason: Patient requires assistance of a person or device to safely leave home Attestation: My signature below is to certify that this patient is under my care and that I, or nurse practitioner, or a physician's medical assistant float working with me, has a face-to -face encounter with this patient.
[2017-09-18] MEDS ORDERED: *HR* Warfarin 7.5 MG TABLET PO ONE (18:00)
== END 2017-09-18 15:42 | disposition home health service (06) | DRG 689 ==
LOC: EMEROO 18:34 → 2NENU 18:34
PROVIDERS: ADMIT Family Medicine; ATTEND Internal Medicine

== ENCOUNTER 2018-08-02 16:34 | Inpatient (IN) ==
[2018-08-02] MEDS ORDERED: 0.9 % Sodium Chloride 1,000 ML IVC ONE ×2 (16:57→17:33)
[2018-08-02] MEDS ORDERED: methylPREDNISolone 125 MG/2 ML VIAL IVP ONE (16:58)
[2018-08-02] MEDS ORDERED: Ipratropium/Albuterol Neb 3 ML IH ONE (16:58)
[2018-08-02] MEDS ORDERED: 0.9 % Sodium Chloride 1,000 ML IVC SCH (17:00)
[2018-08-02] MEDS ORDERED: Isovue-370 500 ML BOTTLE IVP ONE ×2 (17:18→21:48)
[2018-08-02 17:25] LABS: Basophils # 0.1 K/mcL (0.0-0.2); Basophils % 0.9 %; Eosinophils # 0.1 K/mcL (0.0-0.6); Eosinophils % 0.6 %; Hematocrit 50.7 % (35.3-44.9); Hemoglobin 16.8 g/dL (11.5-15.4); Immature Granulocytes % 0.7 % (0-4); Lymphocytes # 1.9 K/mcL (0.6-4.6); Lymphocytes % 17.5 %; Mean Corpuscular HGB Conc 33.1 g/dL (31.6-35.5); Mean Corpuscular Hemoglobin 29.8 pg (28.0-33.3); Mean Corpuscular Volume 90.1 fL (83.0-100.0); Mean Platelet Volume 9.3 fL (9.4-12.4); Monocytes # 0.7 K/mcL (0.0-1.3); Monocytes % 5.9 %; Neutrophils # 8.3 K/mcL (1.6-8.9); Platelet Count 262 K/mcL (140-400); Red Blood Count 5.63 M/mcL (3.82-4.97); Red Cell Distribution Width 14.3 % (11.5-14.5); Segmented Neutrophils % 74.4 %
[2018-08-02 17:52] LABS: Bilirubin,Urine Negative (Negative); Blood,Urine Trace (Negative); Clarity,Urine Cloudy (Clear); Color,Urine Yellow (Yellow); Glucose,Urine (UA) Normal (Normal); Ketones,Urine Negative (Negative); Leukocyte Esterase,Urine Large (Negative); Nitrite,Urine Negative (Negative); PH,Urine 6.5 pH Units (5.0-8.0); Protein,Urine Trace mg/dL (Neg-Trace); Specific Gravity,Urine 1.016 (1.010-1.025); Urobilinogen,Urine Normal (Normal)
[2018-08-02 17:54] LABS: Bacteria,Urine Moderate per hpf (None-Few); Hyaline Casts,Urine None Seen per lpf (None-Few); Squamous Epithelial Cell,Urine Many per lpf (None-Few); WBC,Urine TNTC per hpf (0-3)
--- NOTE | 2018-08-02 18:06 | Emergency Department Note ---
Addendum entered and electronically signed by Rosa Isela Salinas DO 08/02/18 22:06: Patient's repeat lactic acid elevated at 5.4 even after fluid resuscitation. Updated the hospitalist about patient's laboratory findings. They request a repeat troponin and CT of the abdomen and pelvis. These of been ordered. Patient also has had multiple drug resistant urinary tract infections in the past which have been sensitive to Zosyn therefore Zosyn was added for antibiotic regimen. Bedside ultrasound was completed and did not show any pericardial effusion. Patient to be admitted to stepdown unit at this time. She remains hemodynamically stable. Original Note: Disposition Clinical Impression: Elevated troponin, Shortness of breath Sepsis Qualifiers: Sepsis type: sepsis due to unspecified organism Qualified Code(s): A41.9 - Sepsis, unspecified organism UTI (urinary tract infection) Qualifiers: Urinary tract infection type: site unspecified Hematuria presence: without hematuria Qualified Code(s): N39.0 - Urinary tract infection, site not specified Disposition: Admitted As Inpatient Condition: Fair General Adult HPI - General Chief complaint: ED Shortness of Breath/Dyspnea Stated complaint: pnuemonia/JO Time Seen by Provider: 08/02/18 16:37 Source: patient Mode of arrival: ambulatory Limitations: no limitations Nursing Notes Reviewed: Yes Vital Signs Reviewed: Yes - History of Present Illness HPI Narrative: 52-year-old female with significant past medical history of congestive heart failure and COPD presenting to the emergency department chief complaint shortness of breath. Patient states for approximately 10 days she has had increasing shortness of breath. She was seen by her primary care physician and diagnosed with pneumonia given a seven-day course of Levaquin but she has continued to have shortness of breath. She denies any chest pain, vomiting, abdominal pain or diarrhea. She states she felt febrile last evening but did not take her temperature. She states that she lays down she feels some shortness of breath and this is usually associated with her congestive heart failure but she has not had any swelling or weight gain at home. Patient also discloses sputum production. Denies any known sick contacts. Pain Scale: 0 - Related Data Home Medications Medication Instructions Recorded Confirmed Furosemide [Lasix] 40 mg PO BID 09/06/16 02/20/18 Spironolactone [Aldactone] 25 mg PO HS 09/06/16 02/20/18 Aspirin 81 mg PO HS 04/24/17 02/20/18 Lisinopril [Zestril] 40 mg PO DAILY 09/14/17 03/05/18 Metformin HCl [Metformin ER 1,000 mg PO DAILY 09/14/17 02/20/18 Gastric] Metoprolol XL (24 HR) Succ [Toprol 50 mg PO BID 09/14/17 02/20/18 Xl] Ondansetron HCl [Zofran] 4 mg PO Q8H PRN 11/28/17 02/20/18 Albuterol Sulfate [Ventolin Hfa] 2 inh PO PRN PRN 02/20/18 02/20/18 Atorvastatin Calcium [Lipitor] 20 mg PO 02/20/18 Escitalopram [Lexapro] 20 mg PO DAILY 02/20/18 03/05/18 Ketoconazole Shampoo [Nizoral 1 applic TP PRN PRN 02/20/18 02/20/18 Shampoo] Previous Rx's Medication Instructions Recorded Ticagrelor [Brilinta] 60 mg PO BID #60 tablet 11/28/17 cephALEXin [Keflex] 500 mg PO QID #40 capsule 03/19/18 Promethazine [Phenergan] 25 mg PO Q6HR PRN #10 tablet 07/06/18 Allergies Allergy/AdvReac Type Severity Reaction Status Date / Time Sulfa (Sulfonamide Allergy Hives/nause Verified 07/06/18 18:26 Antibiotics) a chocolate Allergy Hives Uncoded 07/06/18 18:26 All systems ED: reviewed and negative except as stated. Constitutional: Reports: fever (Subjective) Eyes: Reports: as per HPI ENT ED: Reports: as per HPI Cardiovascular: Denies: chest pain Respiratory: Reports: dyspnea, sputum production Gastrointestinal: Denies: abdominal pain Genitourinary: Reports: as per HPI Musculoskeletal: Reports: as per HPI Integumentary: Reports: as per HPI Neurological: Reports: as per HPI Psychiatric: Reports: as per HPI Endocrine: Reports: as per HPI Hematological/Lymphatic: Reports: as per HPI Allergic/Immunologic: Reports: as per HPI Past Medical History - Past Medical History Attestation: Yes The following information was validated with the patient. 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 No wheezing, stridor or respiratory distress) - Cardiovascular Cardiovascular exam: Present: normal rhythm, tachycardia, normal heart sounds - Abdominal Exam Abdominal exam: Present: soft, Non-Tender. Absent: distention, guarding, rebound - Extremities Exam Extremities exam: Present: full ROM - Neurological Exam Neurological exam: Present: alert, oriented X3 - Psychiatric Psychiatric exam: Present: normal affect - Skin Skin exam: Present: warm Course Course Narrative: 52-year-old female presenting to the emergency department chief complaint shortness of breath. Patient was recently treated with Levaquin as an outpatient for pneumonia. She is concerned with either possibly worsened or she is having congestive heart failure episode. In the room the patient is tachycardic and mildly hypotensive with a systolic blood pressure in the 90s. Her physical exam is significant for decreased breath sounds bilaterally and dry mucous membranes. Abdomen is soft and nontender. She does not have any edema in the bilateral lower extremities at the abdomen. At this time concern for sep sis due to pneumonia. We will obtain blood cultures, basic labs along with fluid resuscitation and chest x-ray. Disposition pending results. Patient agrees with this plan. We will also provide her with breathing treatments and steroids. - Reevaluation(s) Reevaluation #1: Patient's chest x-ray shows no acute finding. Due to patient's tachycardia and tachypnea we will plan to perform a CTA of the chest. Patient agrees with this plan. She remains hemodynamically stable. Disposition pending. Reevaluation #2: Patient CTA of the chest does not show any acute abnormality. Urinalysis shows urinary tract infection. Troponin elevated at 0.77. At this time concern for severe sepsis of an organ damage. We will provide the patient with ceftriaxone and plan to admit her for further evaluation and treatment. Patient means alert and oriented 3 and hemodynamically stable. Patient agrees with this plan. I spoke with the hospitalist on-call who agrees to accept the patient at this time. Vital Signs Temperature 97.4 F L 08/02/18 16:42 Pulse Rate 110 08/02/18 16:42 Respiratory Rate 20 08/02/18 16:42 Blood Pressure 92/58 08/02/18 16:42 O2 Sat by Pulse Oximetry 94 08/02/18 16:42 Temperature 97.4 F L 08/02/18 16:42 Pulse Rate 110 08/02/18 19:26 Respiratory Rate 20 08/02/18 19:26 Blood Pressure 152/90 08/02/18 19:26 O2 Sat by Pulse Oximetry 95 08/02/18 19:26 Oxygen Delivery Oxygen Delivery Room Air Medical Decision Making - Lab Data Result diagrams: 08/02/18 17:06 08/02/18 18:01 Lab Results 08/02/18 08/02/18 08/02/18 Range/Units 17:06 17:06 17:06 WBC 11.1 (4.3-11.1) K/mcL RBC 5.63 H (3.82-4.97) M/mcL Hgb 16.8 H (11.5-15.4) g/dL Hct 50.7 H (35.3-44.9) % MCV 90.1 (83.0-100.0) fL MCH 29.8 (28.0-33.3) pg MCHC 33.1 (31.6-35.5) g/dL RDW 14.3 (11.5-14.5) % Plt Count 262 (140-400) K/mcL MPV 9.3 L (9.4-12.4) fL Immature Gran % 0.7 (0-4) % Seg Neutrophils % 74.4 % Lymphocytes % 17.5 % Monocytes % 5.9 % Eosinophils % 0.6 % Basophils % 0.9 % Neutrophils # 8.3 (1.6-8.9) K/mcL Lymphocytes # 1.9 (0.6-4.6) K/mcL Monocytes # 0.7 (0.0-1.3) K/mcL Eosinophils # 0.1 (0.0-0.6) K/mcL Basophils # 0.1 (0.0-0.2) K/mcL Sodium (136-145) mEq/L Potassium (3.5-5.1) mEq/L Chloride (98-107) mEq/L Carbon Dioxide (23-29) mEq/L BUN (6-20) mg/dL Creatinine (0.60-1.20) mg/dL Est GFR ( Amer) (> 60) Est GFR (Non-Af Amer) (> 60) BUN/Creatinine Ratio (6-26) Glucose (70-105) mg/dL Calculated Osmolality (280-300) Lactic Acid 2.8 H (0.5-2.2) mmol/L Calcium (8.6-10.3) mg/dL Total Bilirubin (0.3-1.0) mg/dL Direct Bilirubin (0.0-0.2) mg/dL Indirect Bilirubin (0.0-1.2) mg/dL AST (13-39) Units/L ALT (7-52) Units/L Alkaline Phosphatase (34-104) Units/L Troponin I (< 0.04) ng/mL Serum Total Protein (6.4-8.9) g/dL Albumin (3.5-5.7) g/dL Globulin (2.4-3.5) g/dL Albumin/Globulin Ratio (1.1-2.2) Urine Color (Yellow) Urine Clarity (Clear) Urine pH (5.0-8.0) pH Units Ur Specific [place] (1.010-1.025) Urine Protein (Neg-Trace) mg/dL Urine Glucose (UA) (Normal) mg/dL Urine Ketones (Negative) mg/dL Urine Blood (Negative) Urine Nitrite (Negative) Urine Bilirubin (Negative) Urine Urobilinogen (Normal) mg/dL Ur Leukocyte Esterase (Negative) Urine Microscopic RBC (0-3) per hpf Urine Microscopic WBC (0-3) per hpf Ur Squamous Epith Cells (None-Few) per lpf Urine Bacteria (None-Few) per hpf Hyaline Casts (None-Few) per lpf Ur Culture Indicated? (NO) Specimen Rejected Volume 08/02/18 08/02/18 Range/Units 17:37 18:01 WBC (4.3-11.1) K/mcL RBC (3.82-4.97) M/mcL Hgb (11.5-15.4) g/dL Hct (35.3-44.9) % MCV (83.0-100.0) fL MCH (28.0-33.3) pg MCHC (31.6-35.5) g/dL RDW (11.5-14.5) % Plt Count (140-400) K/mcL MPV (9.4-12.4) fL Immature Gran % (0-4) % Seg Neutrophils % % Lymphocytes % % Monocytes % % Eosinophils % % Basophils % % Neutrophils # (1.6-8.9) K/mcL Lymphocytes # (0.6-4.6) K/mcL Monocytes # (0.0-1.3) K/mcL Eosinophils # (0.0-0.6) K/mcL Basophils # (0.0-0.2) K/mcL Sodium 142 (136-145) mEq/L Potassium 3.3 L (3.5-5.1) mEq/L Chloride 107 (98-107) mEq/L Carbon Dioxide 22 L (23-29) mEq/L BUN 10 (6-20) mg/dL Creatinine 0.94 (0.60-1.20) mg/dL Est GFR ( Amer) > 60 (> 60) Est GFR (Non-Af Amer) > 60 (> 60) BUN/Creatinine Ratio 11 (6-26) Glucose 94 (70-105) mg/dL Calculated Osmolality 293 (280-300) Lactic Acid (0.5-2.2) mmol/L Calcium 8.7 (8.6-10.3) mg/dL Total Bilirubin 0.5 (0.3-1.0) mg/dL Direct Bilirubin 0.1 (0.0-0.2) mg/dL Indirect Bilirubin 0.4 (0.0-1.2) mg/dL AST 21 (13-39) Units/L ALT 14 (7-52) Units/L Alkaline Phosphatase 102 (34-104) Units/L Troponin I 0.77 H* (< 0.04) ng/mL Serum Total Protein 6.3 L (6.4-8.9) g/dL Albumin 3.7 (3.5-5.7) g/dL Globulin 2.6 (2.4-3.5) g/dL Albumin/Globulin Ratio 1.4 (1.1-2.2) Urine Color Yellow (Yellow) Urine Clarity Cloudy A (Clear) Urine pH 6.5 (5.0-8.0) pH Units Ur Specific [place] 1.016 (1.010-1.025) Urine Protein Trace (Neg-Trace) mg/dL Urine Glucose (UA) Normal (Normal) mg/dL Urine Ketones Negative (Negative) mg/dL Urine Blood Trace H (Negative) Urine Nitrite Negative (Negative) Urine Bilirubin Negative (Negative) Urine Urobilinogen Normal (Normal) mg/dL Ur Leukocyte Esterase Large H (Negative) Urine Microscopic RBC 5-15 H (0-3) per hpf Urine Microscopic WBC TNTC H (0-3) per hpf Ur Squamous Epith Cells Many H (None-Few) per lpf Urine Bacteria Moderate H (None-Few) per hpf Hyaline Casts None Seen (None-Few) per lpf Ur Culture Indicated? NO. A (NO) Specimen Rejected - EKG Data EKG #1 EKG attestation: Yes I reviewed and interpreted this EKG. EKG results narrative: Sinus rhythm. 96 bpm. HI interval 126, QRS 101, QTC 512. No sign of acute ST segment elevation or ischemia.
--- NOTE | 2018-08-02 18:20 | Emergency Department Note ---
Disposition Clinical Impression: Sepsis, UTI (urinary tract infection), Elevated troponin, Shortness of breath Disposition: Admitted As Inpatient Condition: Fair General Adult HPI - General Chief complaint: ED Shortness of Breath/Dyspnea Stated complaint: pnuemonia/JO Time Seen by Provider: 08/02/18 16:37 Source: patient Mode of arrival: ambulatory Limitations: no limitations - History of Present Illness Pain Scale: 0 - Related Data Home Medications Medication Instructions Recorded Confirmed Furosemide [Lasix] 40 mg PO BID 09/06/16 02/20/18 Spironolactone [Aldactone] 25 mg PO HS 09/06/16 02/20/18 Aspirin 81 mg PO HS 04/24/17 02/20/18 Lisinopril [Zestril] 40 mg PO DAILY 09/14/17 03/05/18 Metformin HCl [Metformin ER 1,000 mg PO DAILY 09/14/17 02/20/18 Gastric] Metoprolol XL (24 HR) Succ [Toprol 50 mg PO BID 09/14/17 02/20/18 Xl] Ondansetron HCl [Zofran] 4 mg PO Q8H PRN 11/28/17 02/20/18 Albuterol Sulfate [Ventolin Hfa] 2 inh PO PRN PRN 02/20/18 02/20/18 Atorvastatin Calcium [Lipitor] 20 mg PO 02/20/18 Escitalopram [Lexapro] 20 mg PO DAILY 02/20/18 03/05/18 Ketoconazole Shampoo [Nizoral 1 applic TP PRN PRN 02/20/18 02/20/18 Shampoo] Previous Rx's Medication Instructions Recorded Ticagrelor [Brilinta] 60 mg PO BID #60 tablet 11/28/17 cephALEXin [Keflex] 500 mg PO QID #40 capsule 03/19/18 Promethazine [Phenergan] 25 mg PO Q6HR PRN #10 tablet 07/06/18 Allergies Allergy/AdvReac Type Severity Reaction Status Date / Time Sulfa (Sulfonamide Allergy Hives/nause Verified 07/06/18 18:26 Antibiotics) a chocolate Allergy Hives Uncoded 07/06/18 18:26 Constitutional: Reports: fever (Subjective) Eyes: Reports: as per HPI ENT ED: Reports: as per HPI Cardiovascular: Denies: chest pain Respiratory: Reports: dyspnea, sputum production Gastrointestinal: Denies: abdominal pain Genitourinary: Reports: as per HPI Musculoskeletal: Reports: as per HPI Integumentary: Reports: as per HPI Neurological: Reports: as per HPI Psychiatric: Reports: as per HPI Endocrine: Reports: as per HPI Hematological/Lymphatic: Reports: as per HPI Allergic/Immunologic: Reports: as per HPI Past Medical History - Past Medical History Medical history: Reports: diabetes, hypertension, kidney stones, myocardial infarction Surgical history: Reports: appendectomy, colectomy, ureteral stent Psychiatric history: Reports: anxiety, bipolar, depression 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 , 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 , 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 - Social History Smoking Status: Current every day smoker Smokeless Tobacco Status: No Alcohol use: Reports: occasionally Drug use: Reports: none Physical Exam - General Limitations: no limitations General appearance: alert, in no apparent distress Course Vital Signs Temperature 97.4 F L 08/02/18 16:42 Pulse Rate 110 08/02/18 16:42 Respiratory Rate 20 08/02/18 16:42 Blood Pressure 92/58 08/02/18 16:42 O2 Sat by Pulse Oximetry 94 08/02/18 16:42 Temperature 97.4 F L 08/02/18 16:42 Pulse Rate 110 08/02/18 19:26 Respiratory Rate 20 08/02/18 19:26 Blood Pressure 152/90 08/02/18 19:26 O2 Sat by Pulse Oximetry 95 08/02/18 19:26 Oxygen Delivery Oxygen Delivery Room Air Medical Decision Making - Lab Data Result diagrams: 08/02/18 17:06 08/02/18 18:01 Lab Results 08/02/18 08/02/18 08/02/18 Range/Units 17:06 17:06 17:06 WBC 11.1 (4.3-11.1) K/mcL RBC 5.63 H (3.82-4.97) M/mcL Hgb 16.8 H (11.5-15.4) g/dL Hct 50.7 H (35.3-44.9) % MCV 90.1 (83.0-100.0) fL MCH 29.8 (28.0-33.3) pg MCHC 33.1 (31.6-35.5) g/dL RDW 14.3 (11.5-14.5) % Plt Count 262 (140-400) K/mcL MPV 9.3 L (9.4-12.4) fL Immature Gran % 0.7 (0-4) % Seg Neutrophils % 74.4 % Lymphocytes % 17.5 % Monocytes % 5.9 % Eosinophils % 0.6 % Basophils % 0.9 % Neutrophils # 8.3 (1.6-8.9) K/mcL Lymphocytes # 1.9 (0.6-4.6) K/mcL Monocytes # 0.7 (0.0-1.3) K/mcL Eosinophils # 0.1 (0.0-0.6) K/mcL Basophils # 0.1 (0.0-0.2) K/mcL Sodium (136-145) mEq/L Potassium (3.5-5.1) mEq/L Chloride (98-107) mEq/L Carbon Dioxide (23-29) mEq/L BUN (6-20) mg/dL Creatinine (0.60-1.20) mg/dL Est GFR ( Amer) (> 60) Est GFR (Non-Af Amer) (> 60) BUN/Creatinine Ratio (6-26) Glucose (70-105) mg/dL Calculated Osmolality (280-300) Lactic Acid 2.8 H (0.5-2.2) mmol/L Calcium (8.6-10.3) mg/dL Total Bilirubin (0.3-1.0) mg/dL Direct Bilirubin (0.0-0.2) mg/dL Indirect Bilirubin (0.0-1.2) mg/dL AST (13-39) Units/L ALT (7-52) Units/L Alkaline Phosphatase (34-104) Units/L Troponin I (< 0.04) ng/mL Serum Total Protein (6.4-8.9) g/dL Albumin (3.5-5.7) g/dL Globulin (2.4-3.5) g/dL Albumin/Globulin Ratio (1.1-2.2) Urine Color (Yellow) Urine Clarity (Clear) Urine pH (5.0-8.0) pH Units Ur Specific [place] (1.010-1.025) Urine Protein (Neg-Trace) mg/dL Urine Glucose (UA) (Normal) mg/dL Urine Ketones (Negative) mg/dL Urine Blood (Negative) Urine Nitrite (Negative) Urine Bilirubin (Negative) Urine Urobilinogen (Normal) mg/dL Ur Leukocyte Esterase (Negative) Urine Microscopic RBC (0-3) per hpf Urine Microscopic WBC (0-3) per hpf Ur Squamous Epith Cells (None-Few) per lpf Urine Bacteria (None-Few) per hpf Hyaline Casts (None-Few) per lpf Ur Culture Indicated? (NO) Specimen Rejected Volume 08/02/18 08/02/18 08/02/18 Range/Units 17:37 18:01 20:50 WBC (4.3-11.1) K/mcL RBC (3.82-4.97) M/mcL Hgb (11.5-15.4) g/dL Hct (35.3-44.9) % MCV (83.0-100.0) fL MCH (28.0-33.3) pg MCHC (31.6-35.5) g/dL RDW (11.5-14.5) % Plt Count (140-400) K/mcL MPV (9.4-12.4) fL Immature Gran % (0-4) % Seg Neutrophils % % Lymphocytes % % Monocytes % % Eosinophils % % Basophils % % Neutrophils # (1.6-8.9) K/mcL Lymphocytes # (0.6-4.6) K/mcL Monocytes # (0.0-1.3) K/mcL Eosinophils # (0.0-0.6) K/mcL Basophils # (0.0-0.2) K/mcL Sodium 142 (136-145) mEq/L Potassium 3.3 L (3.5-5.1) mEq/L Chloride 107 (98-107) mEq/L Carbon Dioxide 22 L (23-29) mEq/L BUN 10 (6-20) mg/dL Creatinine 0.94 (0.60-1.20) mg/dL Est GFR ( Amer) > 60 (> 60) Est GFR (Non-Af Amer) > 60 (> 60) BUN/Creatinine Ratio 11 (6-26) Glucose 94 (70-105) mg/dL Calculated Osmolality 293 (280-300) Lactic Acid 5.4 H* (0.5-2.2) mmol/L Calcium 8.7 (8.6-10.3) mg/dL Total Bilirubin 0.5 (0.3-1.0) mg/dL Direct Bilirubin 0.1 (0.0-0.2) mg/dL Indirect Bilirubin 0.4 (0.0-1.2) mg/dL AST 21 (13-39) Units/L ALT 14 (7-52) Units/L Alkaline Phosphatase 102 (34-104) Units/L Troponin I 0.77 H* (< 0.04) ng/mL Serum Total Protein 6.3 L (6.4-8.9) g/dL Albumin 3.7 (3.5-5.7) g/dL Globulin 2.6 (2.4-3.5) g/dL Albumin/Globulin Ratio 1.4 (1.1-2.2) Urine Color Yellow (Yellow) Urine Clarity Cloudy A (Clear) Urine pH 6.5 (5.0-8.0) pH Units Ur Specific [place] 1.016 (1.010-1.025) Urine Protein Trace (Neg-Trace) mg/dL Urine Glucose (UA) Normal (Normal) mg/dL Urine Ketones Negative (Negative) mg/dL Urine Blood Trace H (Negative) Urine Nitrite Negative (Negative) Urine Bilirubin Negative (Negative) Urine Urobilinogen Normal (Normal) mg/dL Ur Leukocyte Esterase Large H (Negative) Urine Microscopic RBC 5-15 H (0-3) per hpf Urine Microscopic WBC TNTC H (0-3) per hpf Ur Squamous Epith Cells Many H (None-Few) per lpf Urine Bacteria Moderate H (None-Few) per hpf Hyaline Casts None Seen (None-Few) per lpf Ur Culture Indicated? NO. A (NO) Specimen Rejected Critical Care Time Critical Care Time: Yes Total Critical Care Time: 45 Attestation: Critical care performed: Time is exclusive of separately billable procedures. Time includes: direct patient care, patient reassessment, coordination of patient care, interpretation of data (laboratory data, radiology data, and respiratory data), review of patient's medical records, medical consultation and documentation of patient care. Procedures included in critical care time: Procedures excluded from critical care time: Attestation Statement - Attestation Attestation: I examined this patient and my medical decision-making was reviewed with the Resident Physician. I agree with the documented findings, disposition and treatment plan as described except to the extent set forth below. Patient to the ED complaining of not feeling well. Short of breath. Cough. Recently diagnosed with flu. Tamiflu. On examination she has diminished lung sounds. Abdomen soft with some mild diffuse tenderness. Plan. Patient will leukocytosis. Tachycardic. We will check a CTA. The patient CTA shows no PE. Patient's repeat lactic acid was elevated. I did discuss with the hospitalist and update him on her status. He is requesting a CT abdomen pelvis. Patient was reevaluated. She is improved. She feels better. Her abdomen is still soft. Bedside ultrasound performed by Dr. jaramillo with my supervision. Confusion. Mild hypokinesis. Patient will be sent to [facility] floor. Chest X-Ray 08/02/18 16:48 IMPRESSION: No acute cardiopulmonary disease. D/ / Eduardo Tobar MD / Eduardo Tobar MD Interpreting Provider: Eduardo Tobar MD Chest CTA 08/02/18 17:18 IMPRESSION: 1. No evidence of acute pulmonary embolism or acute aortic disease. 2. Cardiomegaly but no evidence of pericardial effusion. 3. Mild mediastinal and hilar adenopathy which appear stable. 4. Emphysema and mild atelectatic changes in the region of the lingula. No acute process. D/ / 08/02/2018 20:31:33 Estefany Figueroa MD / kevon Interpreting Provider: Estefany Figueroa MD
[2018-08-02] MEDS ORDERED: cefTRIAXone 1,000 MG in Water for inj. (sterile) 20 ML 10 ML IVP ONE (18:21)
[2018-08-02 18:55] LABS: Alanine Aminotransferase 14 Units/L (7-52); Albumin 3.7 g/dL (3.5-5.7); Albumin/Globulin Ratio 1.4 (1.1-2.2); Alkaline Phosphatase 102 Units/L (34-104); Aspartate Amino Transferase 21 Units/L (13-39); BUN/Creatinine Ratio 11 (6-26); Bilirubin,Direct 0.1 mg/dL (0.0-0.2); Bilirubin,Indirect 0.4 mg/dL (0.0-1.2); Bilirubin,Total 0.5 mg/dL (0.3-1.0); Blood Urea Nitrogen 10 mg/dL (6-20); Calcium 8.7 mg/dL (8.6-10.3); Carbon Dioxide 22 mEq/L (23-29); Chloride 107 mEq/L (98-107); Globulin 2.6 g/dL (2.4-3.5); Glucose 94 mg/dL (70-105); Osmolality,Calculated 293 (280-300); Potassium 3.3 mEq/L (3.5-5.1); Sodium 142 mEq/L (136-145); Total Protein 6.3 g/dL (6.4-8.9); eGFR For Non-African Americans > 60 (> 60)
[2018-08-02 19:06] LABS: Troponin I 0.77 ng/mL (< 0.04)
[2018-08-02] MEDS ORDERED: Aspirin 325 MG TABLET PO ONE (20:48)
[2018-08-02] MEDS ORDERED: GuaiFENesin/Dextromethorphan TABLET PO STA (21:05)
[2018-08-02] MEDS ORDERED: 0.9 % Sodium Chloride 500 ML IVC ONE (21:30)
[2018-08-02] MEDS ORDERED: Piperacillin/Tazobactam 3.375 GM in 0.9 % Sodium Chloride Mini Bag 100 ML IVPB ONE (21:50)
[2018-08-02] MEDS ORDERED: Ipratropium/Albuterol Neb 3 ML IH PRN (22:24)
--- NOTE | 2018-08-02 22:29 | Internal Med History&Physical ---
<Brandon Brian - Last Filed: 08/03/18 04:11> Date of Encounter: 08/03/18 Time of Encounter: 22:23 Internal Medicine - H&P: HPI Chief complaint: dyspnea, generalized malaise Admitted From: Emergency Dept History of present illness: Ms. Mejía is a 52 year old female who presented to the emergency department today with concern for 2 weeks of generalized not feeling well. Patient also reports having shortness of breath, cough, but no sputum production. she describes it as getting more short of breath when lying down at night. She reports out she has history of coronary artery disease. States that she had 3 stents placed one year ago by Dr. Longoria. Patient reports she was seen by primary care and diagnosed with pneumonia. She was on Levaquin. Patient has also been reporting some increasing abdominal distention as well as suprapubic pain in her abdomen. Patient denies any urinary frequency or urgency. She does report having frequent urinary tract infections. Patient denies any flank pain. She does report intermittent fevers. Patient has any chest pain, pressure, tightness. Patient had CT angiogram today which did not reveal any evidence of pulmonary embolism, pneumonia, it did reveal cardiomegaly. There was no pleural effusions evident. Patient received 3.5 L of fluids in the emergency department. Patient has elevated troponins 0.77. EKG had nonspecific changes. Patient denies any history of COPD, but she has a long history of smoking. She was given 125 Solu-Medrol as well as DuoNeb's in the emergency department. 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 Psychiatric history: anxiety, bipolar, depression - Past Surgical History Surgical History: appendectomy, colectomy, ureteral stent Additional surgical history: surgery on neck for herinated disc, 3 cardiac stents, right ankle, lithotripsy - Social History Smoking Status: Current every day smoker Smokeless Tobacco Status: No Alcohol use: occasionally Drug use: none - Family History Mother Adopted: No Living Status: Still Living Hx Family Cardiac Disorders: Yes (father,grandfather) Hx Family Respiratory Disorders: No Hx Family Cancer: No Hx Family GI Disorders: Yes (self) Hx Family Endocrine Disorder: Yes (diabetes mother) Hx Family Neuromuscular Disorders: No Hx Family Neurologic Disorders: Yes (grandmother) Hx Family HEENT Disorders: No Hx Family Autoimmune Disorders: Yes (cousin lupus) Internal Medicine - H&P: Meds Furosemide [Lasix] 40 mg PO BID 09/06/16 [History] Spironolactone [Aldactone] 25 mg PO HS 09/06/16 [History] Aspirin 81 mg PO HS 04/24/17 [History] Lisinopril [Zestril] 40 mg PO DAILY 09/14/17 [History] Metformin HCl [Metformin ER Gastric] 1,000 mg PO DAILY 09/14/17 [History] Metoprolol XL (24 HR) Succ [Toprol Xl] 50 mg PO BID 09/14/17 [History] Ondansetron HCl [Zofran] 4 mg PO Q8H PRN 11/28/17 [History] Ticagrelor [Brilinta] 60 mg PO BID #60 tablet 11/28/17 [Rx] Albuterol Sulfate [Ventolin Hfa] 2 inh PO PRN PRN 02/20/18 [History] Atorvastatin Calcium [Lipitor] 20 mg PO 02/20/18 [History] Escitalopram [Lexapro] 20 mg PO DAILY 02/20/18 [History] Ketoconazole Shampoo [Nizoral Shampoo] 1 applic TP PRN PRN 02/20/18 [History] cephALEXin [Keflex] 500 mg PO QID #40 capsule 03/19/18 [Rx] Promethazine [Phenergan] 25 mg PO Q6HR PRN #10 tablet 07/06/18 [Rx] Allergy/AdvReac Type Severity Reaction Status Date / Time Sulfa (Sulfonamide Allergy Hives/nause Verified 07/06/18 18:26 Antibiotics) a chocolate Allergy Hives Uncoded 07/06/18 18:26 All Systems PM: A 10-system review of systems was performed and is negative for pertinent findings except as documented above in the HPI. - Constitutional Constitutional: fatigue, fever(s), malaise - Cardiovascular Cardiovascular ROS IM: dyspnea, orthopnea, no chest pain, no lightheadedness - Respiratory Respiratory: cough - Gastrointestinal Gastrointestinal: abdominal pain, excessive flatus - Constitutional Vitals: Temp Pulse Resp BP Pulse Ox 97.4 F L 110 20 152/90 95 08/02/18 16:42 08/02/18 19:26 08/02/18 19:26 08/02/18 19:26 08/02/18 19:26 General appearance: Present: A&O X 3, pleasant, no acute distress Exam: Patient not in any acute distress - Head Head exam: Present: atraumatic, normocephalic - ENT ENT exam: Present: normal oropharynx - Neck Neck exam general surgery: Present: supple, trachea midline - Respiratory Respiratory exam: Present: rales (mild throughout). Absent: wheezes - Cardiovascular Cardiovascular exam: Present: RRR - GI/Abdominal GI/Abdominal exam: Present: distended, tenderness (Mild suprapubic). Absent: firm - Extremities Exam Extremities exam: Absent: calf tenderness, pedal edema - Neurological Exam Neurological exam: Present: alert, CN II-XII intact, oriented X3, no focal deficits - Psychiatric Psychiatric exam: Present: normal affect, normal mood - Skin Skin exam: Present: normal color Internal Med - H&P Results - Labs CBC & Chem 7: 08/03/18 01:19 08/02/18 18:01 Labs: Short CBC 08/02/18 Range/Units 17:06 WBC 11.1 (4.3-11.1) K/mcL Hgb 16.8 H (11.5-15.4) g/dL Hct 50.7 H (35.3-44.9) % Plt Count 262 (140-400) K/mcL Neutrophils # 8.3 (1.6-8.9) K/mcL BMP 08/02/18 18:01 Sodium 142 Potassium 3.3 L Chloride 107 Carbon Dioxide 22 L BUN 10 Creatinine 0.94 Glucose 94 Calcium 8.7 Cardiac Enzymes 08/02/18 Range/Units 18:01 Troponin I 0.77 H* (< 0.04) ng/mL Liver Function 08/02/18 Range/Units 18:01 Total Bilirubin 0.5 (0.3-1.0) mg/dL Direct Bilirubin 0.1 (0.0-0.2) mg/dL AST 21 (13-39) Units/L ALT 14 (7-52) Units/L Alkaline Phosphatase 102 (34-104) Units/L Albumin 3.7 (3.5-5.7) g/dL Urine 08/02/18 Range/Units 17:37 Urine Color Yellow (Yellow) Urine Clarity Cloudy A (Clear) Urine pH 6.5 (5.0-8.0) pH Units Ur Specific [place] 1.016 (1.010-1.025) Urine Protein Trace (Neg-Trace) mg/dL Urine Glucose (UA) Normal (Normal) mg/dL - Impressions ITS Impressions Chest X-Ray 08/02/18 16:48 IMPRESSION: No acute cardiopulmonary disease. D/ / Eduardo Tobar MD / Eduardo Tobar MD Interpreting Provider: Eduardo Tobar MD Chest CTA 08/02/18 17:18 IMPRESSION: 1. No evidence of acute pulmonary embolism or acute aortic disease. 2. Cardiomegaly but no evidence of pericardial effusion. 3. Mild mediastinal and hilar adenopathy which appear stable. 4. Emphysema and mild atelectatic changes in the region of the lingula. No acute process. D/ / 08/02/2018 20:31:33 Estefany Figueroa MD / kevon Interpreting Provider: Estefany Figueroa MD - Assessment and plan (1) Dehydration Current Visit: Yes Status: Acute Assessment and plan: Patient significantly dehydrated in the emergency department in the setting of urinary tract infection, recent diagnosis of influenza, pneumonia, while being on Lasix 40 mg twice a day. She received 3-1/2 L of fluids via normal saline. Patient does not have an acute kidney injury at this time. She was all a cure, but has been urinating well since administration of fluids. Patient has elevated lactic acid. Initially, it was 2.8, elevated at 5.4, but is now 4.1. Patient does have urinary tract infection is most likely the source of her dehydration as she has not been feeling well with associated suprapubic abdominal tenderness. This could be contributing as well. - Patient received Zosyn for UTI - 3.5 Liters of fluids for resuscitation - Patient receiving 125 mL of normal saline per hour - Repeat lactic acid at 7am - CT scan of the abdomen and pelvis negative for abdominopelvic abnormality - CTA of the chest negative for PE, does reveal cardiomegaly (2) UTI (urinary tract infection) Current Visit: Yes Status: Acute Assessment and plan: Patient had one dose of Zosyn in the emergency department. - Zosyn 3.375g every 12 hours Qualifiers: Urinary tract infection type: acute cystitis Hematuria presence: with hematuria Qualified Code(s): N30.01 - Acute cystitis with hematuria (3) Elevated troponin Current Visit: Yes Status: Acute Assessment and plan: Troponin of 0.77, 0.74 respecitvely. Patient has been reporting orthopnea. She had an echocardiogram performed about 6 months ago revealing ejection fraction of 40-45%. Patient without any ischemic ST changes on ECG. Concern is that kristi austin's orthopnea is chest pain equivalent as she is a female, with tight 2 diabetes mellitus. I performed bedside cardiac ultrasound which did not reveal any gross wall motion abnormalities, pericardial effusion, or significant decline in ejection fraction that was reported on the previous echocardiogram. - Repeat troponin at 0400 - Echocardiogram tomorrow - Consult cardiology -Low-dose heparin via ACS protocol -Patient received 324 mg chewable aspirin and emergency department -Patient started on her home brilinta, metoprolol, spironolactone, metoprolol, lisinopril -We will hold the Lasix at this time (4) HTN (hypertension) Current Visit: No Status: Chronic Assessment and plan: See above, patient given her home medications Qualifiers: Hypertension type: essential hypertension Qualified Code(s): I10 - Essential (primary) hypertension (5) Elevated lactic acid level Current Visit: Yes Status: Acute Assessment and plan: See above, trending downward, repeat lactate at 7 AM (6) DVT prophylaxis Current Visit: Yes Status: Acute Assessment and plan: Patient currently on heparin for ACS protocol - Time Spent With Patient Total time spent is greater than 50% in coordination of care (as documented) at patient's floor/unit and/or counseling patient: <Osito Tolbert - Last Filed: 08/03/18 06:44> Date of Encounter: 08/03/18 Internal Medicine - H&P: HPI History of present illness: Ms. Mejía is a 52 year old female All Systems PM: A 10-system review of systems was performed and is negative for pertinent findings except as documented above in the HPI. - Constitutional Vitals: Temp Pulse Resp BP Pulse Ox 98.3 F 93 18 141/91 92 08/03/18 03:58 08/03/18 03:58 08/03/18 03:58 08/03/18 03:58 08/03/18 03:58 Internal Med - H&P Results - Labs CBC & Chem 7: 08/03/18 01:19 08/02/18 18:01 Labs: Short CBC 08/02/18 08/03/18 Range/Units 17:06 01:19 WBC 11.1 5.9 (4.3-11.1) K/mcL Hgb 16.8 H 15.1 D (11.5-15.4) g/dL Hct 50.7 H 46.7 H (35.3-44.9) % Plt Count 262 250 (140-400) K/mcL Neutrophils # 8.3 (1.6-8.9) K/mcL BMP 08/02/18 18:01 Sodium 142 Potassium 3.3 L Chloride 107 Carbon Dioxide 22 L BUN 10 Creatinine 0.94 Glucose 94 Calcium 8.7 Cardiac Enzymes 08/02/18 08/02/18 08/03/18 Range/Units 18:01 21:54 05:41 Troponin I 0.77 H* 0.64 H* 0.48 H* (< 0.04) ng/mL Liver Function 08/02/18 Range/Units 18:01 Total Bilirubin 0.5 (0.3-1.0) mg/dL Direct Bilirubin 0.1 (0.0-0.2) mg/dL AST 21 (13-39) Units/L ALT 14 (7-52) Units/L Alkaline Phosphatase 102 (34-104) Units/L Albumin 3.7 (3.5-5.7) g/dL Urine 08/02/18 Range/Units 17:37 Urine Color Yellow (Yellow) Urine Clarity Cloudy A (Clear) Urine pH 6.5 (5.0-8.0) pH Units Ur Specific [place] 1.016 (1.010-1.025) Urine Protein Trace (Neg-Trace) mg/dL Urine Glucose (UA) Normal (Normal) mg/dL - Impressions ITS Impressions Chest X-Ray 08/02/18 16:48 IMPRESSION: No acute cardiopulmonary disease. D/ / Eduardo Tobar MD / Eduardo Tobar MD Interpreting Provider: Eduardo Tobar MD Chest CTA 08/02/18 17:18 IMPRESSION: 1. No evidence of acute pulmonary embolism or acute aortic disease. 2. Cardiomegaly but no evidence of pericardial effusion. 3. Mild mediastinal and hilar adenopathy which appear stable. 4. Emphysema and mild atelectatic changes in the region of the lingula. No acute process. D/ / 08/02/2018 20:31:33 Estefany Figueroa MD / kevon Interpreting Provider: Estefany Figueroa MD Abdomen/Pelvis CT 08/02/18 21:48 IMPRESSION: No acute abnormality identified. D/ / Alexandro East MD / Alexandro East MD Interpreting Provider: Alexandro East MD - Time Spent With Patient Total time spent is greater than 50% in coordination of care (as documented) at patient's floor/unit and/or counseling patient: - Attending Attestation I saw and evaluated the patient. I reviewed the residents note, performed my own physical examination and agree with findings and plan as documented in the residents note. Patient seen and examined on 08/03/18. Patient presented with UTI, elevated lactic acid and troponin. Levels trending down at this point, most recent lactic acid 4.1, down from 5.4. Troponin decreased from 0. 64 to 0.48. We will continue to monitor. Patient receiving fluids and heparin drip. Will consult cardiology in the morning, repeat lactic acid at 7am. Continue antibiotics.
[2018-08-02 22:35] LABS: Troponin I 0.64 ng/mL (< 0.04)
[2018-08-02] MEDS: Metoprolol XL (24 HR) Succ 50 MG TAB.ER.24H PO SCH (23:02)
[2018-08-02 23:09] LABS: Thyroid Stimulating Hormone 0.522 mcIU/mL (0.340-5.600)
[2018-08-02] MEDS ORDERED: Ondansetron 4 MG/2 ML VIAL IVP ONE (23:58)
[2018-08-03] MEDS ORDERED: *HR* Heparin 5,000 UNIT/ML VIAL IVP PRN (01:05)
[2018-08-03] MEDS ORDERED: *HR* Heparin 5,000 UNIT/ML VIAL IVP ONE (01:05)
[2018-08-03 01:30] LABS: Hematocrit 46.7 % (35.3-44.9); Mean Corpuscular HGB Conc 32.3 g/dL (31.6-35.5); Mean Corpuscular Hemoglobin 29.5 pg (28.0-33.3); Mean Corpuscular Volume 91.4 fL (83.0-100.0); Mean Platelet Volume 9.2 fL (9.4-12.4); Platelet Count 250 K/mcL (140-400); Red Blood Count 5.11 M/mcL (3.82-4.97); Red Cell Distribution Width 14.4 % (11.5-14.5)
[2018-08-03 01:32] LABS: Hemoglobin 15.1 g/dL (11.5-15.4)
[2018-08-03 01:38] LABS: Prothrombin Time 11.3 Seconds (9.4-12.1)
[2018-08-03] MEDS: Heparin 25,000 UNIT/500 ML D5W 25,000 UNIT/500 ML BAG IVC SCH (02:07)
[2018-08-03] MEDS: Melatonin 3 MG TABLET PO PRN ×2 (02:07→19:52)
[2018-08-03] MEDS ORDERED: 0.9 % Sodium Chloride 1,000 ML IVC SCH (03:45)
[2018-08-03] MEDS: GuaiFENesin/Dextromethorphan TABLET PO PRN ×2 (04:34→09:25)
[2018-08-03 06:31] LABS: Basophils % 0.4 %; Hematocrit 43.4 % (35.3-44.9); Hemoglobin 13.8 g/dL (11.5-15.4); Immature Granulocytes % 0.7 % (0-4); Lymphocytes # 0.6 K/mcL (0.6-4.6); Lymphocytes % 10.2 %; Mean Corpuscular HGB Conc 31.8 g/dL (31.6-35.5); Mean Corpuscular Hemoglobin 29.8 pg (28.0-33.3); Mean Corpuscular Volume 93.7 fL (83.0-100.0); Mean Platelet Volume 9.5 fL (9.4-12.4); Monocytes # 0.1 K/mcL (0.0-1.3); Monocytes % 1.6 %; Neutrophils # 4.8 K/mcL (1.6-8.9); Platelet Count 216 K/mcL (140-400); Red Blood Count 4.63 M/mcL (3.82-4.97); Red Cell Distribution Width 14.6 % (11.5-14.5); Segmented Neutrophils % 87.1 %
[2018-08-03 06:46] LABS: BUN/Creatinine Ratio 12 (6-26); Blood Urea Nitrogen 14 mg/dL (6-20); Calcium 8.6 mg/dL (8.6-10.3); Carbon Dioxide 20 mEq/L (23-29); Chloride 105 mEq/L (98-107); Glucose 195 mg/dL (70-105); Osmolality,Calculated 292 (280-300); Potassium 4.6 mEq/L (3.5-5.1); Sodium 138 mEq/L (136-145); eGFR For Non-African Americans 51 (> 60)
--- NOTE | 2018-08-03 08:48 | Internal Med Progress Note ---
Hospitalist Progress Note - Encounter Date of Encounter: 08/03/18 Time of Encounter: 09:21 - Subjective Interval History: Patient seen and examined this morning at bedside. No acute overnight events. Currently denies any chest pain, shortness of breath. Has mild suprapubic pain. Came in with cough associated with some chest discomfort. Recently treated for pneumonia with Levaquin. - Exam Vitals: Temp Pulse Resp BP Pulse Ox 98.4 F 92 18 133/97 92 08/03/18 06:56 08/03/18 06:56 08/03/18 06:56 08/03/18 06:56 08/03/18 03:58 Exam: General: In no acute distress. Conversant. Obese. Respiratory exam: CTAB, no accessory muscle use, rales, rhonchi, wheezes Cardiovascular exam: RRR, +S1, +S2. no murmur, gallop, rubs. GI/Abdominal exam: mild suprapubic tenderness, Non-distended, normal bowel sounds, soft, no peritoneal signs. Extremities exam: full ROM, trace pedal edema, warm, pulses palpable in b/l lower extremities. no calf tenderness Neurological exam: CN II-XII intact, AO X3, no focal deficits. no pronater drift, facial droop, speech deficit Skin exam: No skin rash, ulcer, purpura or ecchymosis. - Summary of Assessment and Plan Summary of Assessment and Plan: Elevated lactic acid - Initially with some hypotention and dehydration - Also with abnormal UA with some suspicion of UTI. Recently treated Pneumonia with levaquin - s/p 3-1/2 L NS and started on Zosyn. - lactic acid came down to 4.1. f/u lactic acid. - CT abd/pelvis without any abnormality. CTA of the chest negative for PE - Possible from metformin given still elevated after BP normalization and IVF vs UTI - c/w zosyn for now. stop IVF. f/u blood and urine cultures Elevated troponin - with some shortness of breath - ECHO last 6 months ago with EF 40-45%. - troponin downtrending wit 0.48 currently - Patient with history of CAD with last stent about a year ago. Confirm home medications and dosages. - f/u ECHO ordered. c/w heparin drip. - Cardiology consulted. Recommendation appreciated. DVT prophylaxis - on heparin for ACS protocol - Time Spent with Patient Total time spent is greater than 50% in coordination of care (as documented) at patient's floor/unit and/or counseling patient: Internal Medicine: Result - Labs CBC & Chem 7: 08/03/18 05:41 08/03/18 05:41 Labs: Short CBC 08/02/18 08/03/18 08/03/18 Range/Units 17:06 01:19 05:41 WBC 11.1 5.9 5.5 (4.3-11.1) K/mcL Hgb 16.8 H 15.1 D 13.8 (11.5-15.4) g/dL Hct 50.7 H 46.7 H 43.4 (35.3-44.9) % Plt Count 262 250 216 (140-400) K/mcL Neutrophils # 8.3 4.8 (1.6-8.9) K/mcL BMP 08/02/18 08/03/18 18:01 05:41 Sodium 142 138 Potassium 3.3 L 4.6 D Chloride 107 105 Carbon Dioxide 22 L 20 L BUN 10 14 Creatinine 0.94 1.13 Glucose 94 195 H Calcium 8.7 8.6 Cardiac Enzymes 08/02/18 08/02/18 08/03/18 Range/Units 18:01 21:54 05:41 Troponin I 0.77 H* 0.64 H* 0.48 H* (< 0.04) ng/mL Liver Function 08/02/18 Range/Units 18:01 Total Bilirubin 0.5 (0.3-1.0) mg/dL Direct Bilirubin 0.1 (0.0-0.2) mg/dL AST 21 (13-39) Units/L ALT 14 (7-52) Units/L Alkaline Phosphatase 102 (34-104) Units/L Albumin 3.7 (3.5-5.7) g/dL Urine 08/02/18 Range/Units 17:37 Urine Color Yellow (Yellow) Urine Clarity Cloudy A (Clear) Urine pH 6.5 (5.0-8.0) pH Units Ur Specific [place] 1.016 (1.010-1.025) Urine Protein Trace (Neg-Trace) mg/dL Urine Glucose (UA) Normal (Normal) mg/dL - ABG Interpretation ABG results: PT/INR, D-dimer PT 11.3 Seconds (9.4-12.1) 08/03/18 01:19 - Impressions Impressions Chest X-Ray 08/02/18 16:48 IMPRESSION: No acute cardiopulmonary disease. D/ / Eduardo Tobar MD / Eduardo Tobar MD Interpreting Provider: Eduardo Tobar MD Chest CTA 08/02/18 17:18 IMPRESSION: 1. No evidence of acute pulmonary embolism or acute aortic disease. 2. Cardiomegaly but no evidence of pericardial effusion. 3. Mild mediastinal and hilar adenopathy which appear stable. 4. Emphysema and mild atelectatic changes in the region of the lingula. No acute process. D/ / 08/02/2018 20:31:33 Estefany Figueroa MD / kevon Interpreting Provider: Estefany Figueroa MD Abdomen/Pelvis CT 08/02/18 21:48 IMPRESSION: No acute abnormality identified. D/ / Alexandro East MD / Alexandro East MD Interpreting Provider: Alexandro East MD Consult Discharge Plan - Plan Referrals: Kassy Adorno CNP [Primary Care Provider] - 08/08/18 3:00 pm ()
[2018-08-03] MEDS: Lisinopril 20 MG TABLET PO SCH (09:25)
[2018-08-03] MEDS: Piperacillin/Tazobactam 3.375 GM in 0.9 % Sodium Chloride Mini Bag 100 ML IVPB SCH ×2 (09:25→15:10)
[2018-08-03] MEDS: Metoprolol XL (24 HR) Succ 50 MG TAB.ER.24H PO SCH ×2 (09:25→19:52)
[2018-08-03] MEDS: Aspirin 81 MG TAB.CHEW PO SCH (09:25)
[2018-08-03] MEDS: TICAGRELOR 60 MG PO SCH ×2 (09:26→19:50)
--- NOTE | 2018-08-03 09:28 | Cardiology Consult Note ---
<Jatinder Page - Last Filed: 08/03/18 13:22> Date of Encounter: 08/03/18 Time of Encounter: 09:24 Assessment and Plan Discussion w patient/family: The assessment and plan as outlined above was discussed with the patient and/or family members who expressed understanding and agreement. All questions were answered. Thank you for involving us in the care of your patient. Please call with any questions. History of Present Illness Consult date: 08/03/18 Consult reason: Elevated troponin Chief complaint: Shortness of breath History of present illness: Ms. Mejía is a 52 year old female presenting to [facility] ED on August 02 2018 for a 10 day history of shortness of breath. Patient states that she was seen by her PCP last week and was put on 10 day course of Levaquin which did not provide relief of her symptoms. In addition to shortness of breath the patient is admitting to orthopnea Significant past medical history includes CHF, diabetes, hypertension, previous UT, CAD with 3 stent placement last year in Dr. Longoria, anxiety, bipolar disorder, depression. Social history includes daily smoker. Significant medications include Lasix, Aldactone, aspirin, lisinopril, Toprol, Lipitor, Proventil. Chest x-ray performed in ED negative for acute cardiopulmonary process. CTA shows no pulmonary embolism but does note mild mediastinal and hilar adenopathy as well as emphysema and atelectatic change in the lingula Significant laboratory findings include elevated troponin initially at 0.77 trending downward and currently 0.48 Lactic acid initially elevated to 2.8, peaked 5.4 and is now trending downward 4.1. BNP elevated at 668. EKG performed in ED is noted by ED physician to a sinus rhythm at 96 bpm without evidence of ischemia. Patient was started on heparin drip was given 324 mg of aspirin while in the ED Bedside ultrasound in ED was negative for pericardial effusion Patient seen and evaluated at bedside. Upon initial evaluation, patient is sitting upright in hospital bed, she is awake, alert, engaged conversation answering questions appropriately without conversational dyspnea. She is in no acute distress, she is noncyanotic, nondiaphoretic, and there are no overt focal neurological deficits appreciated. Patient currently admits to abdominal pain and nausea which is preventing her from eating Patient denies chest pain, shortness of breath, neck or back pain, difficulty with ambulation, lightheadedness/dizziness, or paresthesias. Patient has no other concerns or complaints at this time. > Echocardiogram shows a reduced EF of 35-40% with new wall motion abnormalities > Repeat echo on Monday WITH contrast to reevaluate > Plan to cath if continued abnormality > We will follow peripherally until that time. 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 Psychiatric history: anxiety, bipolar, depression - Past Surgical History Surgical History: appendectomy, colectomy, ureteral stent Additional surgical history: surgery on neck for herinated disc, 3 cardiac stents, right ankle, lithotripsy - Social History Smoking Status: Current every day smoker Smokeless Tobacco Status: No Alcohol use: occasionally Drug use: none - Family History Mother Adopted: No Living Status: Still Living Hx Family Cardiac Disorders: Yes (father,grandfather) Hx Family Respiratory Disorders: No Hx Family Cancer: No Hx Family GI Disorders: Yes (self) Hx Family Endocrine Disorder: Yes (diabetes mother) Hx Family Neuromuscular Disorders: No Hx Family Neurologic Disorders: Yes (grandmother) Hx Family HEENT Disorders: No Hx Family Autoimmune Disorders: Yes (cousin lupus) Medications and Allergies Furosemide [Lasix] 40 mg PO BID 09/06/16 [History] Spironolactone [Aldactone] 25 mg PO HS 09/06/16 [History] Aspirin 81 mg PO HS 04/24/17 [History] Lisinopril [Zestril] 40 mg PO DAILY 09/14/17 [History] Metformin HCl [Metformin ER Gastric] 1,000 mg PO DAILY 09/14/17 [History] Metoprolol XL (24 HR) Succ [Toprol Xl] 50 mg PO BID 09/14/17 [History] Ondansetron HCl [Zofran] 4 mg PO Q8H PRN 11/28/17 [History] Ticagrelor [Brilinta] 60 mg PO BID #60 tablet 11/28/17 [Rx] Albuterol Sulfate [Ventolin Hfa] 2 inh PO PRN PRN 02/20/18 [History] Atorvastatin Calcium [Lipitor] 20 mg PO 02/20/18 [History] Escitalopram [Lexapro] 20 mg PO DAILY 02/20/18 [History] Ketoconazole Shampoo [Nizoral Shampoo] 1 applic TP PRN PRN 02/20/18 [History] cephALEXin [Keflex] 500 mg PO QID #40 capsule 03/19/18 [Rx] Promethazine [Phenergan] 25 mg PO Q6HR PRN #10 tablet 07/06/18 [Rx] Allergy/AdvReac Type Severity Reaction Status Date / Time Sulfa (Sulfonamide Allergy Hives/nause Verified 07/06/18 18:26 Antibiotics) a chocolate Allergy Hives Uncoded 07/06/18 18:26 All Systems Review: The remainder of the systems were reviewed and are negative Review of Systems: As per history of present illness. All systems reviewed and negative except as stated. Physical Examination Vital Signs, Last 4 Hours Temp Pulse Resp BP 08/03/18 06:56 98.4 F 92 18 133/97 General: Conversant, No Apparent Distress HEENT: Atraumatic, Normocephaly, Mucus Membranes Moist Neck: No JVD Cardiac: Reg Rate and Rhythm, Normal S1 and S2, No Murmur Lungs: Other (Faint crackles noted in the right lung base. Otherwise clear to auscultation bilaterally) Neuro: Alert and responsive, No focal deficits noted Abdomen: Other (Diffuse tenderness to abdominal palpation) Skin: No rashes noted on visualized skin Musculoskeletal: No Chest Wall Tenderness Extremities: No Clubbing, No Cyanosis, No Edema, Normal Pulses Results 08/03/18 05:41 08/03/18 05:41 Lab Results 08/02/18 08/02/18 08/02/18 17:06 18:01 21:54 WBC 11.1 Hgb 16.8 H Hct 50.7 H Plt Count 262 INR Sodium 142 Potassium 3.3 L Chloride 107 Carbon Dioxide 22 L BUN 10 Creatinine 0.94 Glucose 94 Calcium 8.7 Magnesium Total Bilirubin 0.5 AST 21 ALT 14 Alkaline Phosphatase 102 Troponin I 0.77 H* 0.64 H* B-Natriuretic Peptide TSH 0.522 08/03/18 08/03/18 08/03/18 01:19 01:19 05:41 WBC 5.9 5.5 Hgb 15.1 D 13.8 Hct 46.7 H 43.4 Plt Count 250 216 INR 1.0 Sodium Potassium Chloride Carbon Dioxide BUN Creatinine Glucose Calcium Magnesium Total Bilirubin AST ALT Alkaline Phosphatase Troponin I B-Natriuretic Peptide TSH 08/03/18 08/03/18 08/03/18 05:41 05:41 05:41 WBC Hgb Hct Plt Count INR Sodium 138 Potassium 4.6 D Chloride 105 Carbon Dioxide 20 L BUN 14 Creatinine 1.13 Glucose 195 H Calcium 8.6 Magnesium Total Bilirubin AST ALT Alkaline Phosphatase Troponin I 0.48 H* B-Natriuretic Peptide 668 H TSH 08/03/18 05:41 WBC Hgb Hct Plt Count INR Sodium Potassium Chloride Carbon Dioxide BUN Creatinine Glucose Calcium Magnesium 1.9 Total Bilirubin AST ALT Alkaline Phosphatase Troponin I B-Natriuretic Peptide TSH - Imaging and Cardiology Echo: pending - EKG Interpretation EKG results cardiology: personally reviewed, sinus rhythm, no diagnostic ischemia (Sinus Tach -107bpm. Prolonged QT 527ms.) Consult Discharge Plan - Plan Referrals: Kassy Adorno CNP [Primary Care Provider] - 08/08/18 3:00 pm () <Nirali Jewell - Last Filed: 08/03/18 14:35> Date of Encounter: 08/03/18 - Attending Attestation Patient was seen and evaluated independently by me. Findings, assessment and plan were discussed at length with patient, questions answered. Agree with nurse practitioner's/resident's documentation. Addition as follows, 52 yoCF ho CAD EFRAIN to LAD and LCx, HFrEF EF 40-45% , HTN, DM. P/w generalized fatigue after 10 days of levoquin for PNA. Imp sepsis/SIRS, UTI, dehydration. Consulted for trop peak 0.8. CTA neg for PE. ECG S tachy, prlonged QTc. TTE w/o LV contrast EF 35-40% with hypokinesis of both mid-basal anterior and mid-basal inferior. VSS, scattered rhonchi, RR, no LED edema. A: Sepsis NSTEMI, type II vs type I CAD ho EFRAIN to LAD and LCx, RWMA of two coronary artery territory HFrEF, euvolemia, P: c/w heparin drip, ASA, statin, rubén, BB repeat limited echo with LV contrast, if focal wall motion abn persists, consider C I/O even Nirali Jewell MD, PhD Assessment and Plan Discussion w patient/family: The assessment and plan as outlined above was discussed with the patient and/or family members who expressed understanding and agreement. All questions were answered. Thank you for involving us in the care of your patient. Please call with any questions. History of Present Illness History of present illness: Ms. Mejía is a 52 year old female All Systems Review: The remainder of the systems were reviewed and are negative Physical Examination Vital Signs, Last 4 Hours Temp Pulse Resp BP Pulse Ox 08/03/18 11:05 98.3 F 89 18 128/75 93 08/03/18 10:53 98.3 F 89 18 128/75 93 Results 08/03/18 05:41 08/03/18 05:41 Lab Results 08/02/18 08/02/18 08/02/18 17:06 18:01 21:54 WBC 11.1 Hgb 16.8 H Hct 50.7 H Plt Count 262 INR Sodium 142 Potassium 3.3 L Chloride 107 Carbon Dioxide 22 L BUN 10 Creatinine 0.94 Glucose 94 Calcium 8.7 Magnesium Total Bilirubin 0.5 AST 21 ALT 14 Alkaline Phosphatase 102 Troponin I 0.77 H* 0.64 H* B-Natriuretic Peptide TSH 0.522 08/03/18 08/03/18 08/03/18 01:19 01:19 05:41 WBC 5.9 5.5 Hgb 15.1 D 13.8 Hct 46.7 H 43.4 Plt Count 250 216 INR 1.0 Sodium Potassium Chloride Carbon Dioxide BUN Creatinine Glucose Calcium Magnesium Total Bilirubin AST ALT Alkaline Phosphatase Troponin I B-Natriuretic Peptide TSH 08/03/18 08/03/18 08/03/18 05:41 05:41 05:41 WBC Hgb Hct Plt Count INR Sodium 138 Potassium 4.6 D Chloride 105 Carbon Dioxide 20 L BUN 14 Creatinine 1.13 Glucose 195 H Calcium 8.6 Magnesium Total Bilirubin AST ALT Alkaline Phosphatase Troponin I 0.48 H* B-Natriuretic Peptide 668 H TSH 08/03/18 05:41 WBC Hgb Hct Plt Count INR Sodium Potassium Chloride Carbon Dioxide BUN Creatinine Glucose Calcium Magnesium 1.9 Total Bilirubin AST ALT Alkaline Phosphatase Troponin I B-Natriuretic Peptide TSH
[2018-08-04] MEDS: Piperacillin/Tazobactam 3.375 GM in 0.9 % Sodium Chloride Mini Bag 100 ML IVPB SCH ×4 (00:03→22:48)
[2018-08-04 03:51] LABS: Basophils % 0.4 %; Eosinophils % 0.1 %; Hematocrit 44.5 % (35.3-44.9); Hemoglobin 14.3 g/dL (11.5-15.4); Immature Granulocytes % 0.7 % (0-4); Lymphocytes # 1.7 K/mcL (0.6-4.6); Lymphocytes % 17.3 %; Mean Corpuscular HGB Conc 32.1 g/dL (31.6-35.5); Mean Corpuscular Hemoglobin 29.9 pg (28.0-33.3); Mean Corpuscular Volume 92.9 fL (83.0-100.0); Mean Platelet Volume 9.2 fL (9.4-12.4); Monocytes # 0.6 K/mcL (0.0-1.3); Monocytes % 5.9 %; Neutrophils # 7.5 K/mcL (1.6-8.9); Platelet Count 187 K/mcL (140-400); Red Blood Count 4.79 M/mcL (3.82-4.97); Red Cell Distribution Width 14.7 % (11.5-14.5); Segmented Neutrophils % 75.6 %
[2018-08-04 04:08] LABS: Calcium 8.6 mg/dL (8.6-10.3); Potassium 4.7 mEq/L (3.5-5.1)
[2018-08-04] MEDS: Heparin 25,000 UNIT/500 ML D5W 25,000 UNIT/500 ML BAG IVC SCH (04:14)
--- NOTE | 2018-08-04 09:04 | Internal Med Progress Note ---
Hospitalist Progress Note - Encounter Date of Encounter: 08/04/18 Time of Encounter: 08:47 - Subjective Interval History: Patient seen and examined this morning at bedside. No acute overnight events. Currently denies any chest pain, shortness of breath. Had 3 episode of loose BM. with mild suprapubic pain. Denies nausea or vomiting. - Exam Vitals: Temp Pulse Resp BP Pulse Ox 98.9 F 89 16 135/108 90 08/04/18 06:52 08/04/18 07:39 08/04/18 07:39 08/04/18 07:39 08/04/18 06:52 Exam: General: In no acute distress. Conversant. Obese. Respiratory exam: CTAB, no accessory muscle use, rales, rhonchi, wheezes Cardiovascular exam: RRR, +S1, +S2. no murmur, gallop, rubs. GI/Abdominal exam: mild suprapubic tenderness, Non-distended, normal bowel sounds, soft, no peritoneal signs. Extremities exam: full ROM, trace pedal edema, warm, pulses palpable in b/l lower extremities. no calf tenderness Neurological exam: CN II-XII intact, AO X3, no focal deficits. no pronater drift, facial droop, speech deficit Skin exam: No skin rash, ulcer, purpura or ecchymosis. - Summary of Assessment and Plan Summary of Assessment and Plan: Sepsis - Initially with tachycardia, Elevated lactic acid and some hypotension - abnormal UA with some suspicion of UTI. Recently treated Pneumonia with levaquin - CT abd/pelvis without any abnormality. CTA of the chest negative for PE - s/p IVF and started on Zosyn. - lactic acid normalized - likely related to UTI - c/w zosyn for now. stop IVF. f/u blood and urine cultures. Urine growing GNR Diarrhea - Concern for c.diff. has history of it many years ago - Send C.diff testing Elevated troponin - with some shortness of breath - ECHO last 6 months ago with EF 40-45%. - troponin downtrending last 0.48 - Patient with history of CAD with last stent about a year ago. - ECHO with refuce EF of 35-40% with new wall motion abnormalities. Plan for repeat echo on Monday with contrast. May need cath. - c/w heparin drip. - Cardiology following Diabetes - diabetic diet, sliding scale insulin and accuchecks - hold home oral hypoglycemics DVT prophylaxis - on heparin for ACS protocol - Time Spent with Patient Total time spent is greater than 50% in coordination of care (as documented) at patient's floor/unit and/or counseling patient: Internal Medicine: Result - Labs CBC & Chem 7: 08/04/18 03:20 08/04/18 03:20 Labs: Short CBC 08/04/18 Range/Units 03:20 WBC 9.9 D (4.3-11.1) K/mcL Hgb 14.3 (11.5-15.4) g/dL Hct 44.5 (35.3-44.9) % Plt Count 187 (140-400) K/mcL Neutrophils # 7.5 (1.6-8.9) K/mcL BMP 08/04/18 03:20 Sodium 138 Potassium 4.7 Chloride 107 Carbon Dioxide 23 BUN 19 Creatinine 1.16 Glucose 168 H Calcium 8.6 - ABG Interpretation ABG results: PT/INR, D-dimer PT 11.3 Seconds (9.4-12.1) 08/03/18 01:19 - Impressions Impressions Echocardiogram 08/03/18 22:25 Impressions: LVEF 35-40%. Moderately dilated left ventricle. Mild concentric left ventricular hypertrophy. Moderate left ventricular diastolic dysfunction. Normal right ventricular structure and function. Moderately dilated left atrium. Mild-moderate mitral regurgitation. Moderate pulmonary hypertension. Left Ventricular Wall Motion: Rest Echo Findings The mid anterior, basal anterior, apical lateral, basal anterior lateral, mid inferior lateral and basal inferior lateral daniels were hypokinetic. The mid anterior lateral wall was not visualized. All other wall segments showed normal motion. Findings: Study Quality * Technically sub-optimal due to poor echocardiographic windows. ECG Findings * Normal sinus rhythm. Left Ventricle * LVEF 35-40%. * Moderately dilated left ventricle. * Mild concentric left ventricular hypertrophy. * Moderate left ventricular diastolic dysfunction. * Definity echo contrast was not used. Right Ventricle * Normal right ventricular structure and function. Left Atrium * Moderately dilated left atrium. Right Atrium * Normal right atrial size. Interatrial Septum * Interatrial septum not well evaluated. Aortic Valve * Aortic valve not well visualized. * No aortic regurgitation. * No aortic stenosis. Mitral Valve * Normal mitral valve structure. * No mitral stenosis. * Mild-moderate mitral regurgitation. Tricuspid Valve * Mild tricuspid regurgitation. * Moderate pulmonary hypertension. * Estimated RVSP is 61 mmHg. * Estimated RA pressure is 10 mmHg. * Normal tricuspid valve structure. * No tricuspid stenosis. Pulmonic Valve * Pulmonic valve not well visualized. Aorta * Normally sized aortic root. Pericardium * The pericardium appears normal. IVC * The IVC is dilated. Pulmonary Artery * Pulmonary artery not well visualized. Consult Discharge Plan - Plan Referrals: Kassy Adorno CNP [Primary Care Provider] - 08/08/18 3:00 pm ()
[2018-08-04] MEDS: Aspirin 81 MG TAB.CHEW PO SCH (09:23)
[2018-08-04] MEDS: Metoprolol XL (24 HR) Succ 50 MG TAB.ER.24H PO SCH ×2 (09:23→20:22)
[2018-08-04] MEDS: Lisinopril 20 MG TABLET PO SCH (09:23)
[2018-08-04] MEDS: TICAGRELOR 60 MG PO SCH ×2 (09:27→20:21)
[2018-08-04 10:20] LABS: Troponin I 0.48 ng/mL (< 0.04)
[2018-08-04] MEDS ORDERED: Ondansetron 4 MG/2 ML VIAL IVP PRN (11:18)
[2018-08-04] MEDS: Insulin LISPRO 300 UNITS/3 ML VIAL SQ SCH ×2 (12:05→17:07)
[2018-08-04] MEDS: Ondansetron 4 MG/2 ML VIAL IVP PRN (19:35)
--- NOTE | 2018-08-04 20:27 | Electrocardiograph Report ---
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
--- NOTE | 2018-08-04 20:34 | Electrocardiograph Report ---
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
[2018-08-05] MEDS: Ondansetron 4 MG/2 ML VIAL IVP PRN ×3 (05:00→18:24)
[2018-08-05 05:52] LABS: Basophils # 0.1 K/mcL (0.0-0.2); Basophils % 0.7 %; Eosinophils # 0.1 K/mcL (0.0-0.6); Eosinophils % 0.7 %; Hemoglobin 13.8 g/dL (11.5-15.4); Immature Granulocytes % 1.1 % (0-4); Lymphocytes # 1.9 K/mcL (0.6-4.6); Lymphocytes % 17.3 %; Mean Corpuscular HGB Conc 32.9 g/dL (31.6-35.5); Mean Corpuscular Hemoglobin 30.1 pg (28.0-33.3); Mean Corpuscular Volume 91.5 fL (83.0-100.0); Mean Platelet Volume 9.6 fL (9.4-12.4); Monocytes # 0.7 K/mcL (0.0-1.3); Monocytes % 6.7 %; Neutrophils # 7.9 K/mcL (1.6-8.9); Nucleated Red Blood Cells 0.2 /100 WBC (0); Platelet Count 163 K/mcL (140-400); Red Blood Count 4.59 M/mcL (3.82-4.97); Red Cell Distribution Width 15.1 % (11.5-14.5); Segmented Neutrophils % 73.5 %
[2018-08-05] MEDS: *HR* Heparin 5,000 UNIT/ML VIAL IVP PRN (06:09)
[2018-08-05 06:10] LABS: BUN/Creatinine Ratio 18 (6-26); Blood Urea Nitrogen 18 mg/dL (6-20); Calcium 8.4 mg/dL (8.6-10.3); Carbon Dioxide 22 mEq/L (23-29); Chloride 107 mEq/L (98-107); Glucose 139 mg/dL (70-105); Osmolality,Calculated 288 (280-300); Sodium 137 mEq/L (136-145); eGFR For Non-African Americans 58 (> 60)
[2018-08-05] MEDS: Heparin 25,000 UNIT/500 ML D5W 25,000 UNIT/500 ML BAG IVC SCH (06:16)
[2018-08-05] MEDS: Metoprolol XL (24 HR) Succ 50 MG TAB.ER.24H PO SCH ×2 (07:53→21:49)
[2018-08-05] MEDS: Lisinopril 20 MG TABLET PO SCH (07:53)
[2018-08-05] MEDS: Aspirin 81 MG TAB.CHEW PO SCH (07:53)
[2018-08-05] MEDS: Piperacillin/Tazobactam 3.375 GM in 0.9 % Sodium Chloride Mini Bag 100 ML IVPB SCH (07:56)
[2018-08-05] MEDS: TICAGRELOR 60 MG PO SCH ×2 (08:00→21:52)
[2018-08-05] MEDS: Insulin LISPRO 300 UNITS/3 ML VIAL SQ SCH ×3 (08:07→17:26)
--- NOTE | 2018-08-05 11:47 | Internal Med Progress Note ---
Hospitalist Progress Note - Encounter Date of Encounter: 08/05/18 Time of Encounter: 11:31 - Subjective Interval History: Patient seen and examined this morning at bedside. No acute overnight events. Had some nausea. Denies any chest pain, shortness of breath. Had 6-8 episode of loose BM yesterday. with mild suprapubic pain. Afebrile - Exam Vitals: Temp Pulse Resp BP Pulse Ox 98.7 F 83 20 143/85 91 08/05/18 11:16 08/05/18 11:16 08/05/18 11:16 08/05/18 11:16 08/05/18 11:16 Exam: General: In no acute distress. Conversant. Obese. Respiratory exam: CTAB, no accessory muscle use, rales, rhonchi, wheezes Cardiovascular exam: RRR, +S1, +S2. no murmur, gallop, rubs. GI/Abdominal exam: mild suprapubic tenderness, Non-distended, increased bowel sounds, soft, no peritoneal signs. Extremities exam: full ROM, trace pedal edema, warm, pulses palpable in b/l lower extremities. no calf tenderness Neurological exam: CN II-XII intact, AO X3, no focal deficits. no pronater drift, facial droop, speech deficit Skin exam: No skin rash, ulcer, purpura or ecchymosis. - Summary of Assessment and Plan Summary of Assessment and Plan: Sepsis - Initially with tachycardia, Elevated lactic acid and some hypotension - abnormal UA with some suspicion of UTI. Recently treated Pneumonia with levaquin. - CT abd/pelvis without any abnormality. CTA of the chest negative for PE or consolidation. - s/p IVF and started on Zosyn. - lactic acid normalized after IVF. - likely related to UTI. Was also on metformin. - Urine now with ESBL. Will change to ertapenam given her pervious - switch zosyn to ertapenam for now. Will get ID consult tomorrow. f/u blood culture NGTD 08/02/18 Diarrhea - Concern for c.diff. has history of it many years ago - Send C.diff testing ordered yesterday. Still pending - hemodynamically stable. Start gentle IV hydration with NS at 50 cc/hr Elevated troponin - ECHO last 6 months ago with EF 40-45%. - troponin downtrending - Patient with history of CAD with last stent about a year ago. - New ECHO with reduced EF of 35-40% with new wall motion abnormalities. Plan for repeat echo with contrast on Monday with contrast. May need cath. - c/w heparin drip. NPO after midnight - Cardiology following Diabetes - diabetic diet, sliding scale insulin and accuchecks - hold home oral hypoglycemics DVT prophylaxis - on heparin for ACS protocol - Time Spent with Patient Total time spent is greater than 50% in coordination of care (as documented) at patient's floor/unit and/or counseling patient: Internal Medicine: Result - Labs CBC & Chem 7: 08/05/18 05:42 08/05/18 05:42 Labs: Short CBC 08/05/18 Range/Units 05:42 WBC 10.7 (4.3-11.1) K/mcL Hgb 13.8 (11.5-15.4) g/dL Hct 42.0 (35.3-44.9) % Plt Count 163 (140-400) K/mcL Neutrophils # 7.9 (1.6-8.9) K/mcL BMP 08/05/18 05:42 Sodium 137 Potassium 4.0 Chloride 107 Carbon Dioxide 22 L BUN 18 Creatinine 1.01 Glucose 139 H Calcium 8.4 L Cardiac Enzymes 08/05/18 Range/Units 05:42 Troponin I 0.33 H* (< 0.04) ng/mL - ABG Interpretation ABG results: PT/INR, D-dimer PT 11.3 Seconds (9.4-12.1) 08/03/18 01:19 Consult Discharge Plan - Plan Referrals: Kassy Adorno CNP [Primary Care Provider] - 08/08/18 3:00 pm ()
[2018-08-05] MEDS: Lactobacillus 1 EACH CAP.SPRINK PO SCH (15:27)
[2018-08-05] MEDS: 0.9 % Sodium Chloride 1,000 ML IVC SCH (15:27)
[2018-08-05] MEDS: Ertapenem 1,000 MG in 0.9 % Sodium Chloride Mini Bag 100 ML IVPB SCH (15:28)
[2018-08-06] MEDS: Heparin 25,000 UNIT/500 ML D5W 25,000 UNIT/500 ML BAG IVC SCH (04:41)
[2018-08-06] MEDS: Insulin LISPRO 300 UNITS/3 ML VIAL SQ SCH ×3 (07:41→16:26)
--- NOTE | 2018-08-06 07:41 | Pre-Sedation Evaluation ---
Pre-sedation evaluation - Pre-sedation checklist Date of procedure: 08/06/18 Procedure: heart cath Recent Vitals: Last Vital Signs Temp 98.0 F 08/06/18 04:40 Pulse 90 08/06/18 04:40 Resp 16 08/06/18 04:40 BP 148/99 08/06/18 04:40 Pulse Ox 93 08/06/18 04:40 H&P (including ROS) documented in medical record: Yes Previous reaction to sedatives/anesthetics: Unknown Dietary Status: NPO after Midnight Dentition: No loose teeth or bridges ASA Classification *see protocol: CLASS II-Mild systemic disease Cardiac Registry (Cardio Only) - Functional Capacity Functional Capacity: >=4 METS with symptoms - Clincal Frailty Scale Clinical Frailty Scale: Managing Well
[2018-08-06] MEDS: Aspirin 81 MG TAB.CHEW PO SCH (08:17)
[2018-08-06] MEDS: Lactobacillus 1 EACH CAP.SPRINK PO SCH (08:17)
[2018-08-06] MEDS: Lisinopril 20 MG TABLET PO SCH (08:17)
[2018-08-06] MEDS: Ondansetron 4 MG/2 ML VIAL IVP PRN ×3 (08:17→22:05)
[2018-08-06] MEDS: Ertapenem 1,000 MG in 0.9 % Sodium Chloride Mini Bag 100 ML IVPB SCH (08:18)
[2018-08-06] MEDS: Metoprolol XL (24 HR) Succ 50 MG TAB.ER.24H PO SCH ×2 (08:18→20:05)
[2018-08-06] MEDS: TICAGRELOR 60 MG PO SCH (08:23)
[2018-08-06] MEDS ORDERED: *HR* Dextrose 50 % in Water (Syg) 50 ML SYRINGE IVP PRN (08:32)
[2018-08-06] MEDS ORDERED: D5% in Water 1,000 ML IVC PRN (08:32)
[2018-08-06] MEDS ORDERED: Dextrose 4 GM Chewable Tablets PO PRN ×2 (08:32)
[2018-08-06] MEDS ORDERED: Dextrose Gel 15 GM/37.5 ML TUBE PO PRN ×2 (08:32)
--- NOTE | 2018-08-06 10:26 | Cardiology Progress Note ---
Date of Encounter: 08/06/18 Time of Encounter: 08:45 Assessment and Plan (1) Sepsis Current Visit: Yes Status: Acute Per cardiology: -admitted with sepsis, UTI. -Management per primary service. Qualifiers: Sepsis type: sepsis due to unspecified organism Qualified Code(s): A41.9 - Sepsis, unspecified organism (2) Elevated troponin Current Visit: No Status: Acute Per cardiology: -Troponins 0.77, 0.64, 0.48, 0.48, 0.33 in the setting of sepsis, UTI. -ECG with no acute ischemic changes. -Denies chest pain. -Known history of CAD, last [facility] 11/2017 with 40% proximal LAD, 50% ISR mid LAD FFR 0.89 (nut functionally significant), proximal circumflex with patent stent, mid circumflex with patent stent, 25% proximal RCA, 25% mid RCA. -08/03/18 with LVEF 35-40%, mid anterior, basal anterior, apical lateral, basal anterior lateral, mid inferior lateral, and basal inferior lateral daniels hypokinetic. -03/2018 TTE with LVEF 40-45%, mid inferior septal, basal inferior septal, and mid anterior septal wall hypokinetic. -08/2017 LVEF 25-30%, global and regional wall motion abnormalities. -On asa, statin, BB, mark inhibitor, heparin drip. -Suspect troponins demand ischemia related to sepsis, however has new wall motion abnormalities. Patient has been recommended for repeat limited TTE today with definity to evaluate LVEF and wall motion. -If repeat TTE similar previous, no further inpatient cardiac testing warranted, can discontinue heparin drip. -IF wall motion remains different, consider [facility] inpatient. -Further recs pending repeat limited TTE, inpatient. (3) Ischemic cardiomyopathy Current Visit: Yes Status: Chronic Per cardiology: -Known ICM. -ON BB, mark inhibitor. -Euvolemic on exam. -Continue current medical therapy. Discussion w patient/family: The assessment and plan as outlined above was discussed with the patient who expressed understanding and agreement. All questions were answered. Thank you for involving us in the care of your patient. Please call with any questions. Discussed and reviewed with . Subjective Principal diagnosis: UTI, sepsis Interval history: Patient states she feels "ok" today. Denies chest pain. Denies shortness of breath. Objective Vital Signs, Last 4 Hours Temp Pulse Resp BP Pulse Ox 08/06/18 07:59 98.6 F 90 16 164/108 92 General: Conversant, No Apparent Distress HEENT: Atraumatic, Normocephaly, Mucus Membranes Moist Neck: No JVD, Normal carotid pulses Cardiac: Reg Rate and Rhythm, Normal S1 and S2, No Murmur Lungs: Normal Breath Sounds, No Wheeze, Rales, Rhonchi Neuro: Alert and responsive, No focal deficits noted Abdomen: Soft, Non-Tender Skin: No rashes noted on visualized skin Musculoskeletal: No Chest Wall Tenderness Extremities: No Clubbing, No Cyanosis, No Edema, Normal Pulses Results 08/05/18 05:42 08/05/18 05:42 Active Medications Albuterol/Ipratropium (Duoneb) 3 ml IH [id number] PRN PRN Reason: Shortness Of Breath/Wheezing Stop: 02/01/19 22:25 Aspirin (Aspirin) 81 mg PO DAILY NANDO Stop: 02/02/19 09:01 Last Admin: 08/06/18 08:17 Dose: 81 mg Atorvastatin Calcium (Lipitor) 40 mg PO HS NANDO Stop: 02/03/19 21:01 Last Admin: 08/05/18 21:49 Dose: 40 mg Dextrose (Glucose Tablets) 28 gm PO ONCE PRN PRN Reason: Hypoglycemia Stop: 02/05/19 08:33 Dextrose (Glucose Tablets) 16 gm PO ONCE PRN PRN Reason: Hypoglycemia Stop: 02/05/19 08:33 Dextrose/Water (Dextrose 50% (Syg)) 25 ml IVP AD PRN PRN Reason: Hypoglycemia Stop: 02/05/19 08:33 Escitalopram Oxalate (Lexapro) 20 mg PO DAILY NANDO Stop: 02/02/19 09:01 Last Admin: 08/06/18 08:17 Dose: 20 mg Glucagon (Glucagen) 1 mg IM ONCE PRN PRN Reason: Hypoglycemia Stop: 02/05/19 08:33 Glucose (Gluctose) 15 gm PO ONCE PRN PRN Reason: Hypoglycemia Stop: 02/05/19 08:33 Glucose (Gluctose) 30 gm PO ONCE PRN PRN Reason: Hypoglycemia Stop: 02/05/19 08:33 Guaifenesin (Mucinex Dm) 1 each PO BID PRN PRN Reason: Cough Stop: 02/02/19 01:49 Last Admin: 08/03/18 09:25 Dose: 1 each Heparin Sodium (Porcine) (Heparin) 4,000 unit IVP Q6HR PRN PRN Reason: SEE COMMENTS Stop: 02/02/19 01:06 Heparin Sodium (Porcine) (Heparin) 2,000 unit IVP Q6H PRN PRN Reason: SEE COMMENTS Stop: 02/02/19 01:06 Last Admin: 08/05/18 06:09 Dose: 2,000 unit Heparin Sodium/Dextrose (Heparin 25,000 Unit/500 Ml D5w) 25,000 unit in 500 mls @ 20.034 mls/hr IVC .Q24H NANDO; Protocol Stop: 02/02/19 01:16 Last Admin: 08/06/18 04:41 Dose: 12.89 unit/kg/hr, 23.7 mls/hr Ertapenem 1,000 mg/ Sodium (Chloride) 100 mls @ 100 mls/hr IVPB DAILY NANDO Stop: 02/04/19 12:01 Last Admin: 08/06/18 08:18 Dose: 100 mls/hr Sodium Chloride (0.9 % Sodium Chloride) 1,000 mls @ 50 mls/hr IVC .Q20H NANDO Stop: 02/04/19 12:01 Last Admin: 08/05/18 15:27 Dose: 50 mls/hr Dextrose (Dextrose 5%) 1,000 mls @ 100 mls/hr IVC .Q10H PRN PRN Reason: HYPOGLYCEMIA Stop: 02/05/19 08:33 Insulin Human Lispro (Humalog) 0 units SQ TIDAC NANDO; Protocol Stop: 02/03/19 11:31 Last Admin: 08/06/18 07:41 Dose: Not Given Lactobacillus Acidophilus/Rhamnosus (Culturelle) 2 each PO DAILY NANDO Stop: 02/04/19 12:01 Last Admin: 08/06/18 08:17 Dose: 2 each Lisinopril (Zestril) 40 mg PO DAILY NANDO; Protocol Stop: 02/02/19 09:01 Last Admin: 08/06/18 08:17 Dose: 40 mg Melatonin (Melatonin) 3 mg PO HS PRN PRN Reason: Insomnia Stop: 02/02/19 01:43 Last Admin: 08/03/18 19:52 Dose: 3 mg Metoprolol Succinate (Toprol Xl) 50 mg PO BID [facility] Stop: 02/01/19 22:46 Last Admin: 08/06/18 08:18 Dose: 50 mg Ondansetron HCl (Zofran) 4 mg IVP Q6H PRN; Protocol PRN Reason: Nausea And Vomiting Stop: 02/03/19 11:19 Last Admin: 08/06/18 08:17 Dose: 4 mg Pharmacy Profile Note (Patient Taking Own Medication) 1 each PO BID [facility] Stop: 02/02/19 09:01 Last Admin: 08/06/18 08:23 Dose: Not Given Promethazine HCl (Phenergan) 25 mg PO Q6HR PRN PRN Reason: Nausea And Vomiting Stop: 02/02/19 11:36 Last Admin: 08/05/18 15:27 Dose: 25 mg Laboratory Tests 08/02/18 08/02/18 08/02/18 17:06 18:01 21:54 Creatinine Lactic Acid 2.8 H Troponin I 0.77 H* 0.64 H* 08/03/18 08/04/18 08/05/18 05:41 03:20 05:42 Creatinine 1.01 Lactic Acid Troponin I 0.48 H* 0.48 H* 08/05/18 05:42 Creatinine Lactic Acid Troponin I 0.33 H* - Imaging and Cardiology Chest Xray: report reviewed Echo: pending, report reviewed Cardiac cath: report reviewed - EKG Interpretation EKG results cardiology: other (Telemetry reviewed with average HR previous 12 hours noted to eb 91, SR. PVCs, PACs noted. One short run of atrial tachycardia noted.) Consult Discharge Plan - Plan Referrals: Kassy Adorno CNP [Primary Care Provider] - 08/08/18 3:00 pm ()
--- NOTE | 2018-08-06 10:44 | Infectious Disease Consult ---
Date of Encounter: 08/06/18 Time of Encounter: 12:00 Assessment and Plan (1) Sepsis Status: Acute Assessment and plan: The patient had 2 sepsis criteria. Etiology unclear: URI vs. bronchitis vs. other. Low index of suspicion for UTI causing the patient's symptoms. Improved. Afebrile since admission. Tachycardia has resolved. Blood cultures drawn 08/02/18 are no growth to date 2 sets. Recommendations: Await blood cultures to finalize. Send stool for C. diff. Repeat urine culture now. Check respiratory infectious panel. C diff precautions per policy. Can discontinue if C. diff negative. Start probiotics. Discontinue Ertapenem. The patient is likely colonized and there is no convincing evidence that the patient has symptoms related to a UTI and her symptoms are unchanged despite 4 days of adequate antibiotic therapy. Monitor closely for worsening of clinical symptoms. Qualifiers: Sepsis type: sepsis due to unspecified organism Qualified Code(s): A41.9 - Sepsis, unspecified organism (2) UTI (urinary tract infection) Status: Acute Assessment and plan: Chronic colonization versus true infection. The patient does report some lower abdominal pain, but states it has not really gotten any better with antibiotics as admission. Her urine cultures are positive for Escherichia coli ESBL dating all the way back to August 2016. Recently treated with oral fosfomycin by her PCP with minimal improvement. CT of the abdomen and pelvis negative for pyelonephritis or findings indicative of cystitis. Currently on IV ertapenem. Qualifiers: Urinary tract infection type: acute cystitis Hematuria presence: with hematuria Qualified Code(s): N30.01 - Acute cystitis with hematuria (3) Diarrhea Status: Acute Assessment and plan: Likely secondary to recent antibiotic use. Reports up to 10 loose watery bowel movements per day. Given the patient's recent antibiotic use, concern for C. difficile. Qualifiers: Diarrhea type: presumed infectious Qualified Code(s): R19.7 - Diarrhea, unspecified (4) Elevated lactic acid level Status: Acute Assessment and plan: Dehydration versus sepsis. Resolved. (5) Shortness of breath Status: Acute Assessment and plan: Etiology: Unclear. Bronchitis versus COPD versus other. The patient does have an elevated troponin so there could be an element of CAD causing her shortness of breath. Chest x-ray negative for acute cardiopulmonary abnormality. CTA of the chest negative. Flu antigen swab negative. Check RIP. (6) Elevated troponin Status: Acute Assessment and plan: Troponin peaked at 0.77. Cardiology consult. Planning for echocardiogram with contrast today and possible left heart catheter. (7) Dehydration Status: Acute Assessment and plan: Tachycardic and hypotensive on admission. Likely secondary to poor by mouth intake and diarrhea. Improved. (8) Ischemic cardiomyopathy Status: Chronic Assessment and plan: TTE shows an EF of 35-40%. Cardiology consulted and following. (9) HTN (hypertension) Status: Chronic Qualifiers: Hypertension type: essential hypertension Qualified Code(s): I10 - Essential (primary) hypertension (10) CAD (coronary artery disease) Status: Chronic Qualifiers: Coronary Disease-Associated Artery/Lesion type: [place] artery [place] vs. transplanted heart: [place] heart Associated angina: without angina Qualified Code(s): I25.10 - Atherosclerotic heart disease of [place] coronary artery without angina pectoris (11) Diabetes Status: Chronic Assessment and plan: Recommend strict glucose control. Qualifiers: Diabetes mellitus type: type 2 Diabetes mellitus terminal make up operator insulin use: without terminal make up operator use Diabetes mellitus complication status: without complication Qualified Code(s): E11.9 - Type 2 diabetes mellitus without complications (12) Obesity (BMI 30-39.9) Status: Chronic Infectious Disease HPI - Data of Consult Patient: known to practice within the last 3 years Consult date: 08/06/18 Requesting Physician: Barbara English MD Primary Care Provider: Kassy Adorno CNP - Consult Narrative Reason for consult: MDR UTI History of present illness: Ms. Mejía is a 52 year old female with a past medical history of CHF, COPD, DM, HTN. kidney stones, DE, anxiety, depression, recurrent UTI. The patient was admitted to the hospital 08/02/18 for sepsis, elevated troponin, UTI, and JO. We are consulted 08/06/18 for antibiotic recommendations for MDR UTI. Briefly, the patient is a 52-year-old female with past medical history as stated above. The patient is known to the ID service as we were consulted on her case back in 1999. The patient presented to the emergency department on the day of admission with a 10 day history of shortness of breath. She had previously been seen by her PCP and diagnosed with pneumonia and bronchitis was treated with a seven-day course of Levaquin. Her symptoms persisted so she presented to the emergency department for evaluation. Upon arrival, she was afebrile. She was tachycardic and mildly hypotensive. Laboratory studies revealed a normal white blood cell count and kidney function. She did have lactic acidosis and an elevated troponin. Urinalysis was positive for leukocyte esterase, too numerous to count white blood cells and moderate bacteria, but also had many epithelial cells. She had a chest x-ray and CTA of the chest that were negative. Flu antigen swab was negative. She had a CT of the abdomen and pelvis that was negative for acute abnormality. Blood cultures were obtained 2 sets which are no growth to date. She received a dose of IV Rocephin and was admitted to the hospital for further evaluation. Since admission, the patient has remained afebrile. Tachycardia has resolved. Her white blood cell count has remained normal. She had a transthoracic echocardiogram showed an EF of 35-40%. Cardiology was consulted due to her elevated troponin and she is scheduled to undergo a left heart catheter later today. Her lactic acidosis has resolved. She had a urine culture that came back positive for Escherichia coli ESBL. Currently, she is on IV ertapenem. We have been asked to evaluate and make further recommendations. During my exam today, the patient tells me that for the past couple of weeks she has felt generally unwell. Review the records indicates that she was seen by her PCP and had a chest x-ray that showed bilateral perihilar infiltrates. She was treated with 7 days of Levaquin but has had continued shortness of breath and generally feeling unwell. She reports subjective fevers, but denies any chills or rigors. Denies headache or neck pain. Reports chronic nasal congestion with discharge. She denies any earache or sore throat. She denies any pain in her chest reports shortness of breath, worse with exertion. She reports her chronic moist cough that was worse than baseline. She denies any nausea or vomiting or constipation. She reports she has a history of irritable bowel syndrome and states she has had diarrhea that is worse than her baseline. She reports 8-9 loose stools per day. She reports some lower abdominal pain and urethral pressure, but denies any dysuria or urinary frequency. She states her appetite and okay. She denies any oral thrush or any skin lesions. She denies any back or flank pain. She denies any pain in her joints or extremities. The patient lives at home alone. She does not work outside the home. She smokes less than half pack cigarettes per day. She denies any alcohol or illicit drug use. She denies any recent travel. She denies any chronic infectious diseases. CC: Barbara English MD Past Med Surg Social Fam HX - Past Medical History Attestation: Yes The following information was validated with the patient. Source: patient, old records reviewed, nursing notes reviewed Medical history: diabetes, hypertension, kidney stones, myocardial infarction Additional medical history: 3- herinated disc in neck, 3 heart stents, blood clot in right arm-09/16/16 r/t iv., hypokalemia, IBS, NARCOTIC ABUSE, SEIZURES, MENORHHAGIA, SOB, BLOOD CLOT RIGHT ARM. Psychiatric history: anxiety, bipolar, depression - Past Surgical History Surgical History: appendectomy, colectomy, ureteral stent Additional surgical history: surgery on neck for herinated disc, 3 cardiac stents, right ankle, lithotripsy - Social History Smoking Status: Current every day smoker Packs per day: 0.5 Smokeless Tobacco Status: No Alcohol use: occasionally Drug use: none Occupational status: unemployed Current living situation: Home - Independent Activity Level: Independent ambulation Recent Out of Country Travel Within the Last 8 Weeks: No Exposure or Possible Exposure to Illness During Travel: No - Family History Mother Adopted: No Living Status: Still Living Hx Family Cardiac Disorders: Yes (father,grandfather) Hx Family Respiratory Disorders: No Hx Family Cancer: No Hx Family GI Disorders: Yes (self) Hx Family Endocrine Disorder: Yes (diabetes mother) Hx Family Neuromuscular Disorders: No Hx Family Neurologic Disorders: Yes (grandmother) Hx Family HEENT Disorders: No Hx Family Autoimmune Disorders: Yes (cousin lupus) Infectious Disease-CN:Meds RX: Aspirin 81 mg PO HS 04/24/17 [History] Escitalopram [Lexapro] 20 mg PO DAILY 08/03/18 [History] RX: Furosemide [Lasix] 40 mg PO DAILY 08/03/18 [History] RX: Lisinopril [Zestril] 20 mg PO DAILY 08/03/18 [History] See Pharmacy Note 08/03/18 [History] Allergy/AdvReac Type Severity Reaction Status Date / Time Sulfa (Sulfonamide Allergy Hives/nause Verified 08/03/18 14:39 Antibiotics) a chocolate Allergy Hives Uncoded 08/03/18 14:39 All systems: reviewed and no additional remarkable complaints except as stated Exam - Constitutional Vitals: Temp Pulse Resp BP Pulse Ox 98.6 F 90 16 164/108 92 08/06/18 07:59 08/06/18 07:59 08/06/18 07:59 08/06/18 07:59 08/06/18 07:59 General appearance: cooperative, no acute distress, obese - Head Head exam: Present: atraumatic, normal inspection, normocephalic - Eye Eye exam: Present: EOMI, normal appearance, PERRL Pupils: Present: normal accommodation - ENT ENT exam: Present: mucous membranes moist - Neck Neck exam: Present: normal inspection - Respiratory Respiratory exam: Present: CTAB. Absent: rales, respiratory distress, rhonchi, wheezes - Cardiovascular Cardiovascular exam: Present: RRR, +S1, +S2 - GI/Abdominal GI/Abdominal exam: Present: distended (Obese), normal bowel sounds, soft, tenderness (Lower abdomen) - Extremities Exam Extremities exam: Present: normal inspection. Absent: joint swelling, pedal edema, tenderness - Back Exam Back exam: Absent: CVA tenderness (L), CVA tenderness (R) - Neurological Exam Neurological exam: Present: alert, oriented X3, no focal deficits - Psychiatric Psychiatric exam: Present: normal affect, normal mood - Skin Skin exam: Present: dry, intact, normal color, warm Infectious Disease CN: Results - Labs CBC & Chem 7: 08/07/18 08:36 08/07/18 08:36 Cultures: Cultures 08/03/18 00:00 Urine Culture - Final Urine,Clean Catch Escherichia coli ESBL 08/02/18 23:20 Influenza Types A,B Antigen - Final Nasopharyngeal 08/02/18 17:23 Blood Culture - Preliminary Peripheral Venipuncture Culture is incubating and being continuously monitored for growth. Final report to follow. 08/02/18 17:31 Blood Culture - Preliminary Peripheral Venipuncture Culture is incubating and being continuously monitored for growth. Final report to follow. Serology: Serology 08/02/18 Range/Units 17:37 Urine Color Yellow (Yellow) Urine Clarity Cloudy A (Clear) Urine pH 6.5 (5.0-8.0) pH Units Ur Specific Ash 1.016 (1.010-1.025) Urine Protein Trace (Neg-Trace) mg/dL Urine Glucose (UA) Normal (Normal) mg/dL Urine Ketones Negative (Negative) mg/dL Urine Blood Trace H (Negative) Urine Nitrite Negative (Negative) Urine Bilirubin Negative (Negative) Urine Urobilinogen Normal (Normal) mg/dL Ur Leukocyte Esterase Large H (Negative) Urine Microscopic RBC 5-15 H (0-3) per hpf Urine Microscopic WBC TNTC H (0-3) per hpf Ur Squamous Epith Cells Many H (None-Few) per lpf Urine Bacteria Moderate H (None-Few) per hpf Hyaline Casts None Seen (None-Few) per lpf Ur Culture Indicated? NO. A (NO) Consult Discharge Plan - Plan Referrals: Kassy Adorno CNP [Primary Care Provider] - 08/08/18 3:00 pm () - Attending Attestation I have personally performed a face to face evaluation on this patient. I have reviewed and agree with the care plan. History and Exam by me shows: This is an addendum to original report dictated by Elisa Piper CNP. Please refer to Mariel ortiz for full details. Patient is a 50-year-old woman that we have seen in the past due to multidrug resistant UTI. Patient came in this time complaining of shortness of breath cough, URI symptoms, pressure on urination. Patient was admitted was noted to be septic. The patient did have a urine culture done as an outpatient and that was multidrug resistant ESBL with no oral options. At that time patient was started on fosfomycin by my nurse practitioner. She received 1 dose. Apparently she started to have symptoms. Since admission patient has been on Zosyn switched to ertapenem so she is received 4 days of IV antibiotics that she has continues to be symptomatic until recently sent pressure with urination. Assessment and plan: 1.sepsis 2.urinary tract infection 3.dysuria 4.diarrhea 5.diabetes mellitus 6.coronary artery disease Recommendations: Await blood cultures to finalize. Send stool for C. diff. Repeat urine culture now. Check respiratory infectious panel. C diff precautions per policy. Can discontinue if C. diff negative. Start probiotics. Discontinue Ertapenem. The patient is likely colonized and there is no convincing evidence that the patient has symptoms related to a UTI and her symptoms are unchanged despite 4 days of adequate antibiotic therapy. Monitor closely for worsening of clinical symptoms.
--- NOTE | 2018-08-06 11:42 | Internal Med Progress Note ---
Hospitalist Progress Note - Encounter Date of Encounter: 08/06/18 Time of Encounter: 09:23 - Subjective Interval History: Patient seen and examined this morning at bedside. No acute overnight events. Patient continues to have diarrhea. Complains of mild abdominal pain. Denies any difficulty breathing chest pain or difficulty passing urine - Exam Vitals: Temp Pulse Resp BP Pulse Ox 98.6 F 90 16 164/108 92 08/06/18 07:59 08/06/18 07:59 08/06/18 07:59 08/06/18 07:59 08/06/18 07:59 Exam: General: In no acute distress. Conversant. Obese. Respiratory exam: CTAB, no accessory muscle use, rales, rhonchi, wheezes Cardiovascular exam: RRR, +S1, +S2. no murmur, gallop, rubs. GI/Abdominal exam: mild suprapubic tenderness, mild RUQ and RLQ tenderness. Non- distended, increased bowel sounds, soft, no peritoneal signs. Extremities exam: trace pedal edema, warm, pulses palpable in b/l lower extr emities. no calf tenderness Neurological exam: CN II-XII intact, AO X3, no focal deficits. no pronater drift, facial droop, speech deficit Skin exam: No skin rash, ulcer, purpura or ecchymosis. - Summary of Assessment and Plan Summary of Assessment and Plan: Sepsis - Initially with tachycardia, Elevated lactic acid and some hypotension - abnormal UA with some suspicion of UTI. Recently treated Pneumonia with levaquin. - CT abd/pelvis without any abnormality. CTA of the chest negative for PE or consolidation. - s/p IVF and started on Zosyn. - lactic acid normalized after IVF. - ID consulted. appreciate recommendation. Have low index of suspicion of UTI. Urine grew ESBL. Ertapenem discontinued as likely colonized. - Lactic acidosis possibly from metformin. UTI - Loss suspicion of UTI vs colonization - ertpanenam discontinued - monitor for now. Diarrhea - Concern for c.diff. has history of it many years ago - Send C.diff testing ordered yesterday. Still pending - hemodynamically stable. c/w gentle IV hydration with NS at 50 cc/hr Elevated troponin - ECHO last 6 months ago with EF 40-45%. - troponin downtrending - Patient with history of CAD with last stent about a year ago. - New ECHO with reduced EF of 35-40% with new wall motion abnormalities. - Plan for repeat echo with contrast today. - c/w heparin drip. - Cardiology following Diabetes - diabetic diet, sliding scale insulin and accuchecks - hold home oral hypoglycemics DVT prophylaxis - on heparin for ACS protocol - Time Spent with Patient Total time spent is greater than 50% in coordination of care (as documented) at patient's floor/unit and/or counseling patient: Internal Medicine: Result - Labs CBC & Chem 7: 08/05/18 05:42 08/05/18 05:42 - ABG Interpretation ABG results: PT/INR, D-dimer PT 11.3 Seconds (9.4-12.1) 08/03/18 01:19 Consult Discharge Plan - Plan Referrals: Kassy Adorno CNP [Primary Care Provider] - 08/08/18 3:00 pm ()
[2018-08-06] MEDS ORDERED: Perflutren Lipid Microsphere 1.3 ML in 0.9 % Sodium Chloride 8.7 ML IVP ONE (13:48)
[2018-08-06] MEDS: 0.9 % Sodium Chloride 1,000 ML IVC SCH (14:00)
[2018-08-06 18:41] LABS: Adenovirus Not Detected (Not Detect); Bordetella Pertussis Not Detected (Not Detect); Chlamydophila pneumoniae Not Detected (Not Detect); Coronavirus 229E Not Detected (Not Detect); Coronavirus HKU1 Not Detected (Not Detect); Coronavirus NL63 Not Detected (Not Detect); Coronavirus OC43 Not Detected (Not Detect); Human Metapneumovirus Not Detected (Not Detect); Human Rhinovirus/Enterovirus Not Detected (Not Detect); Influenza A Subtype 2009 H1 Not Detected (Not Detect); Influenza A Untypeable Not Detected (Not Detect); Influenza B Not Detected (Not Detect); Mycoplasma pneumoniae Not Detected (Not Detect); Parainfluenza Virus 1 Not Detected (Not Detect); Parainfluenza Virus 2 Not Detected (Not Detect); Parainfluenza Virus 3 Not Detected (Not Detect); Parainfluenza Virus 4 Not Detected (Not Detect); Respiratory Syncytial Virus Not Detected (Not Detect)
[2018-08-06] MEDS: Melatonin 3 MG TABLET PO PRN (22:05)
[2018-08-06] MEDS: *HR* Heparin 5,000 UNIT/ML VIAL IVP PRN (22:53)
[2018-08-07] MEDS: Heparin 25,000 UNIT/500 ML D5W 25,000 UNIT/500 ML BAG IVC SCH (01:43)
[2018-08-07] MEDS: Insulin LISPRO 300 UNITS/3 ML VIAL SQ SCH ×3 (07:31→16:28)
[2018-08-07] MEDS: Lisinopril 20 MG TABLET PO SCH (07:38)
[2018-08-07] MEDS: *HR* Heparin 5,000 UNIT/ML VIAL IVP PRN (07:38)
[2018-08-07] MEDS: Aspirin 81 MG TAB.CHEW PO SCH (07:38)
[2018-08-07] MEDS: Lactobacillus 1 EACH CAP.SPRINK PO SCH (07:38)
[2018-08-07] MEDS: Metoprolol XL (24 HR) Succ 50 MG TAB.ER.24H PO SCH ×2 (07:38→21:27)
[2018-08-07 09:16] LABS: Basophils # 0.1 K/mcL (0.0-0.2); Basophils % 0.7 %; Eosinophils # 0.1 K/mcL (0.0-0.6); Eosinophils % 0.7 %; Hematocrit 41.2 % (35.3-44.9); Hemoglobin 13.4 g/dL (11.5-15.4); Immature Granulocytes % 1.1 % (0-4); Lymphocytes # 1.3 K/mcL (0.6-4.6); Lymphocytes % 13.6 %; Mean Corpuscular HGB Conc 32.5 g/dL (31.6-35.5); Mean Corpuscular Hemoglobin 30.2 pg (28.0-33.3); Mean Platelet Volume 10.4 fL (9.4-12.4); Monocytes # 0.7 K/mcL (0.0-1.3); Monocytes % 7.7 %; Neutrophils # 7.2 K/mcL (1.6-8.9); Nucleated Red Blood Cells 0.3 /100 WBC (0); Platelet Count 160 K/mcL (140-400); Red Blood Count 4.43 M/mcL (3.82-4.97); Red Cell Distribution Width 15.4 % (11.5-14.5); Segmented Neutrophils % 76.2 %
[2018-08-07 09:33] LABS: BUN/Creatinine Ratio 14 (6-26); Blood Urea Nitrogen 11 mg/dL (6-20); Calcium 8.3 mg/dL (8.6-10.3); Carbon Dioxide 25 mEq/L (23-29); Chloride 106 mEq/L (98-107); Glucose 145 mg/dL (70-105); Osmolality,Calculated 288 (280-300); Potassium 3.9 mEq/L (3.5-5.1); Sodium 138 mEq/L (136-145); eGFR For Non-African Americans > 60 (> 60)
[2018-08-07] MEDS: 0.9 % Sodium Chloride 1,000 ML IVC SCH (09:37)
--- NOTE | 2018-08-07 09:54 | Infectious Disease Progress No ---
Date of Encounter: 08/07/18 Time of Encounter: 09:30 - Assessment and Plan (1) Sepsis Current Visit: No Status: Acute The patient had 2 sepsis criteria. Etiology unclear: URI vs. bronchitis vs. other. Low index of suspicion for UTI causing the patient's symptoms. Improved. Afebrile since admission. Tachycardia has resolved. Blood cultures drawn 08/02/18 are no growth to date 2 sets. Recommendations: Await blood cultures to finalize. Await repeat urine culture. Send stool for C. diff if the patient has >/= 4 loose watery stools in 24 hour period. Continue probiotics. Continue to observe off antibiotics. The patient is likely colonized and there is no convincing evidence that the patient has symptoms related to a UTI and her symptoms are unchanged despite 4 days of adequate antibiotic therapy. Consider urology to evaluate. Monitor closely for worsening of clinical symptoms. No further recommendations from the ID team. We will sign off. Please re-consult PRN. Qualifiers: Qualified Code(s): A41.9 - Sepsis, unspecified organism (2) UTI (urinary tract infection) Current Visit: Yes Status: Acute Chronic colonization versus true infection. The patient does report some lower abdominal pain, but states it has not really gotten any better with antibiotics as admission. Her urine cultures are positive for Escherichia coli ESBL dating all the way back to August 2016. Recently treated with oral fosfomycin by her PCP with minimal improvement. CT of the abdomen and pelvis negative for pyelonephritis or findings indicative of cystitis. Completed 5 days of Ertapenem. Patient denies symptoms at this time. Qualifiers: Qualified Code(s): N30.01 - Acute cystitis with hematuria (3) Diarrhea Current Visit: Yes Status: Resolved Likely secondary to recent antibiotic use. Reports up to 10 loose watery bowel movements per day at home. States she had three yesterday. Given the patient's recent antibiotic use, concern for C. difficileWill check if patient meets criteria for testing (>/= 4 loose watery stools in 24 hour period). Continue probiotics. Qualifiers: Qualified Code(s): R19.7 - Diarrhea, unspecified (4) Elevated lactic acid level Current Visit: Yes Status: Acute Dehydration versus sepsis. Resolved. (5) Shortness of breath Current Visit: Yes Status: Acute Etiology: Unclear. Bronchitis versus COPD versus cardiac origin vs. other. The patient does have an elevated troponin so there could be an element of CAD causing her shortness of breath. Chest x-ray negative for acute cardiopulmonary abnormality. CTA of the chest negative. Flu antigen swab negative. RIP negative. LHC planned for later today. (6) Elevated troponin Current Visit: Yes Status: Acute Troponin peaked at 0.77. Cardiology consult. TTE showed EF 35%-40%. LHC today. (7) Dehydration Current Visit: Yes Status: Acute Tachycardic and hypotensive on admission. Likely secondary to poor by mouth intake and diarrhea. Improved. (8) Ischemic cardiomyopathy Current Visit: Yes Status: Chronic TTE shows an EF of 35-40%. Cardiology consulted and following. (9) HTN (hypertension) Current Visit: No Status: Chronic Qualifiers: Qualified Code(s): I10 - Essential (primary) hypertension (10) CAD (coronary artery disease) Current Visit: Yes Status: Chronic Qualifiers: Qualified Code(s): I25.10 - Atherosclerotic heart disease of [place] coronary artery without angina pectoris (11) Diabetes Current Visit: No Status: Chronic Recommend strict glucose control. Qualifiers: Qualified Code(s): E11.9 - Type 2 diabetes mellitus without complications (12) Obesity (BMI 30-39.9) Current Visit: No Status: Chronic - Subjective Interval history: Patient seen and examined. No acute events noted overnight. Patient scheduled for [facility] later today. States she is tired. Denies pain. States breathing is better, but still has a non-productive cough and some mild JO on exertion. She reports some nausea. States she is not hungry. Currently NPO for C. Denies abdominal pain or urinary complaints. Denies flank or back pain. Denies oral thrush or skin rashes. Reports 3 loose stools yesterday, none so far today. Infect Dis PN-Objective Data - Labs CBC & Chem 7: 08/09/18 04:37 08/09/18 04:37 Labs: Laboratory Results - last 24 hr 08/06/18 08/06/18 08/06/18 11:51 16:23 16:24 WBC RBC Hgb Hct MCV MCH MCHC RDW Plt Count MPV Immature Gran % Seg Neutrophils % Lymphocytes % Monocytes % Eosinophils % Basophils % Neutrophils # Lymphocytes # Monocytes # Eosinophils # Basophils # Nucleated RBCs/100 WBC Heparin Anti-Xa, Unfract Sodium Potassium Chloride Carbon Dioxide BUN Creatinine Est GFR ( Amer) Est GFR (Non-Af Amer) BUN/Creatinine Ratio Glucose POC Glucose 120 H 100 H Calculated Osmolality Calcium Chlamy pneumoniae PCR Not Detected Adenovirus (PCR) Not Detected B. pertussis DNA (PCR) Not Detected B.parapertussis DNA PCR Not Detected Coronavirus OC43 (PCR) Not Detected Coronavirus HKU1 (PCR) Not Detected Coronavirus 229E (PCR) Not Detected Coronavirus NL63 (PCR) Not Detected Human Metapneumovir PCR Not Detected Influenza A (H1) PCR Not Detected Influ A (H1N1/09) PCR Not Detected Influenza A (H3) PCR Not Detected Influenza A Untype (PCR) Not Detected Influenza Type B (PCR) Not Detected M.pneumoniae DNA (PCR) Not Detected Parainfluenza 1 (PCR) Not Detected Parainfluenza 2 (PCR) Not Detected Parainfluenza 3 (PCR) Not Detected Parainfluenza 4 (PCR) Not Detected RSV (PCR) Not Detected Entero/Rhino (PCR) Not Detected 08/06/18 08/06/18 08/07/18 19:11 21:24 05:24 WBC RBC Hgb Hct MCV MCH MCHC RDW Plt Count MPV Immature Gran % Seg Neutrophils % Lymphocytes % Monocytes % Eosinophils % Basophils % Neutrophils # Lymphocytes # Monocytes # Eosinophils # Basophils # Nucleated RBCs/100 WBC Heparin Anti-Xa, Unfract 0.21 L 0.27 L Sodium Potassium Chloride Carbon Dioxide BUN Creatinine Est GFR ( Amer) Est GFR (Non-Af Amer) BUN/Creatinine Ratio Glucose POC Glucose 186 H Calculated Osmolality Calcium Chlamy pneumoniae PCR Adenovirus (PCR) B. pertussis DNA (PCR) B.parapertussis DNA PCR Coronavirus OC43 (PCR) Coronavirus HKU1 (PCR) Coronavirus 229E (PCR) Coronavirus NL63 (PCR) Human Metapneumovir PCR Influenza A (H1) PCR Influ A (H1N1/09) PCR Influenza A (H3) PCR Influenza A Untype (PCR) Influenza Type B (PCR) M.pneumoniae DNA (PCR) Parainfluenza 1 (PCR) Parainfluenza 2 (PCR) Parainfluenza 3 (PCR) Parainfluenza 4 (PCR) RSV (PCR) Entero/Rhino (PCR) 08/07/18 08/07/18 08:36 08:36 WBC 9.5 RBC 4.43 Hgb 13.4 Hct 41.2 MCV 93.0 MCH 30.2 MCHC 32.5 RDW 15.4 H Plt Count 160 MPV 10.4 Immature Gran % 1.1 Seg Neutrophils % 76.2 Lymphocytes % 13.6 Monocytes % 7.7 Eosinophils % 0.7 Basophils % 0.7 Neutrophils # 7.2 Lymphocytes # 1.3 Monocytes # 0.7 Eosinophils # 0.1 Basophils # 0.1 Nucleated RBCs/100 WBC 0.3 H Heparin Anti-Xa, Unfract Sodium 138 Potassium 3.9 Chloride 106 Carbon Dioxide 25 BUN 11 Creatinine 0.79 Est GFR ( Amer) > 60 Est GFR (Non-Af Amer) > 60 BUN/Creatinine Ratio 14 Glucose 145 H POC Glucose Calculated Osmolality 288 Calcium 8.3 L Chlamy pneumoniae PCR Adenovirus (PCR) B. pertussis DNA (PCR) B.parapertussis DNA PCR Coronavirus OC43 (PCR) Coronavirus HKU1 (PCR) Coronavirus 229E (PCR) Coronavirus NL63 (PCR) Human Metapneumovir PCR Influenza A (H1) PCR Influ A (H1N1/09) PCR Influenza A (H3) PCR Influenza A Untype (PCR) Influenza Type B (PCR) M.pneumoniae DNA (PCR) Parainfluenza 1 (PCR) Parainfluenza 2 (PCR) Parainfluenza 3 (PCR) Parainfluenza 4 (PCR) RSV (PCR) Entero/Rhino (PCR) Cultures: Cultures 08/06/18 13:40 Urine Culture - Preliminary Urine,Clean Catch Culture is incubating. 08/03/18 00:00 Urine Culture - Final Urine,Clean Catch Escherichia coli ESBL 08/02/18 23:20 Influenza Types A,B Antigen - Final Nasopharyngeal 08/02/18 17:23 Blood Culture - Preliminary Peripheral Venipuncture Culture is incubating and being continuously monitored for growth. Final report to follow. 08/02/18 17:31 Blood Culture - Preliminary Peripheral Venipuncture Culture is incubating and being continuously monitored for growth. Final report to follow. Serology 08/06/18 08/02/18 Range/Units 16:24 17:37 Urine Color Yellow (Yellow) Urine Clarity Cloudy A (Clear) Urine pH 6.5 (5.0-8.0) pH Units Ur Specific [place] 1.016 (1.010-1.025) Urine Protein Trace (Neg-Trace) mg/dL Urine Glucose (UA) Normal (Normal) mg/dL Urine Ketones Negative (Negative) mg/dL Urine Blood Trace H (Negative) Urine Nitrite Negative (Negative) Urine Bilirubin Negative (Negative) Urine Urobilinogen Normal (Normal) mg/dL Ur Leukocyte Esterase Large H (Negative) Urine Microscopic RBC 5-15 H (0-3) per hpf Urine Microscopic WBC TNTC H (0-3) per hpf Ur Squamous Epith Cells Many H (None-Few) per lpf Urine Bacteria Moderate H (None-Few) per hpf Hyaline Casts None Seen (None-Few) per lpf Ur Culture Indicated? NO. A (NO) Chlamy pneumoniae PCR Not Detected (Not Detect) Adenovirus (PCR) Not Detected (Not Detect) B. pertussis DNA (PCR) Not Detected (Not Detect) B.parapertussis DNA PCR Not Detected (Not Detect) Coronavirus OC43 (PCR) Not Detected (Not Detect) Coronavirus HKU1 (PCR) Not Detected (Not Detect) Coronavirus 229E (PCR) Not Detected (Not Detect) Coronavirus NL63 (PCR) Not Detected (Not Detect) Human Metapneumovir PCR Not Detected (Not Detect) Influenza A (H1) PCR Not Detected (Not Detect) Influ A (H1N1/09) PCR Not Detected (Not Detect) Influenza A (H3) PCR Not Detected (Not Detect) Influenza A Untype (PCR) Not Detected (Not Detect) Influenza Type B (PCR) Not Detected (Not Detect) M.pneumoniae DNA (PCR) Not Detected (Not Detect) Parainfluenza 1 (PCR) Not Detected (Not Detect) Parainfluenza 2 (PCR) Not Detected (Not Detect) Parainfluenza 3 (PCR) Not Detected (Not Detect) Parainfluenza 4 (PCR) Not Detected (Not Detect) RSV (PCR) Not Detected (Not Detect) Entero/Rhino (PCR) Not Detected (Not Detect) - Impressions Impressions Echocardiogram Limited Views 08/06/18 02:00 Impressions: LVEF 30-35%. Moderately dilated left ventricle. Global left ventricular systolic dysfunction. There is no LV thrombus. Left Ventricular Wall Motion: Rest Echo Findings The apex, apical inferior, mid inferior, basal inferior, apical anterior, mid anterior, basal anterior, apical septal, mid inferior septal, basal inferior septal, apical lateral, mid anterior lateral, basal anterior lateral, mid anterior septal, mid inferior lateral, basal anterior septal and basal inferior lateral daniels were hypokinetic. Findings: Study Quality * Technically adequate exam. ECG Findings * Normal sinus rhythm. Left Ventricle * LVEF 30-35%. * Moderately dilated left ventricle. * Global left ventricular systolic dysfunction. * There is no LV thrombus. Exam - Constitutional Vitals: Temp Pulse Resp BP Pulse Ox 98.0 F 85 17 147/84 94 08/07/18 07:28 08/07/18 07:28 08/07/18 07:28 08/07/18 07:28 08/07/18 07:45 General appearance: cooperative, no acute distress, obese - Head Head exam: Present: atraumatic, normal inspection, normocephalic - Eye Eye exam: Present: normal appearance, PERRL Pupils: Present: normal accommodation - ENT ENT exam: Present: mucous membranes moist - Neck Neck exam: Present: normal inspection - Respiratory Respiratory exam: Present: CTAB. Absent: rales, respiratory distress, rhonchi, wheezes - Cardiovascular Cardiovascular exam: Present: RRR, +S1, +S2 - GI/Abdominal GI/Abdominal exam: Present: distended (obese), normal bowel sounds, soft. Absent: tenderness - Extremities Exam Extremities exam: Present: normal inspection. Absent: joint swelling, pedal edema, tenderness - Back Exam Back exam: Absent: CVA tenderness (L), CVA tenderness (R) - Neurological Exam Neurological exam: Present: alert, oriented X3, no focal deficits - Psychiatric Psychiatric exam: Present: normal affect, normal mood - Skin Skin exam: Present: dry, intact, normal color, warm Consult Discharge Plan - Plan Referrals: Kassy Adorno CNP [Primary Care Provider] - 08/17/18 9:00 am (Please follow up as schedule...) - Attending Attestation I have personally performed a face to face evaluation on this patient. I have reviewed and agree with the care plan. History and Exam by me shows: Assessment and plan: 1.sepsis 2.urinary tract infection 3.dysuria 4.diarrhea 5.diabetes mellitus 6.coronary artery disease Await blood cultures to finalize. Await repeat urine culture. Send stool for C. diff if the patient has >/= 4 loose watery stools in 24 hour period. Continue probiotics. Continue to observe off antibiotics. The patient is likely colonized and there is no convincing evidence that the patient has symptoms related to a UTI and her symptoms are unchanged despite 4 days of adequate antibiotic therapy. Consider urology to evaluate. Monitor closely for worsening of clinical symptoms. No further recommendations from the ID team. We will sign off. Please re-consult PRN.
--- NOTE | 2018-08-07 09:56 | Event Note ---
Date of Encounter: 08/07/18 Time of Encounter: 09:53 - Cardiology Event Note PLan for LHC today for elevated troponin, further decrease in LVEF. Risks versus benefits of LHC explained to patient and family, who state understanding and agreeable to proceed. Discussed with Dr.Jennifer Xiong. Further recommendations pending LHC.
--- NOTE | 2018-08-07 12:43 | Internal Med Progress Note ---
Hospitalist Progress Note - Encounter Date of Encounter: 08/07/18 Time of Encounter: 10:30 - Subjective Interval History: Patient lying down in bed. Denies any chest pain. Diarrhea has resolved. No shortness of breath. No palpitations. Patient has been nothing by mouth for left heart catheterization scheduled for today. She does continue to have lower quadrant abdominal and flank discomfort. - Exam Vitals: Temp Pulse Resp BP Pulse Ox 98.0 F 85 17 147/84 94 08/07/18 07:28 08/07/18 07:28 08/07/18 07:28 08/07/18 07:28 08/07/18 07:45 Exam: General: Patient is alert, no acute distress, oriented x 3, obese Respiratory: Good respiratory effort. Normal breath sounds. No wheezing or crackles. Cardiovascular: Regular rate and rhythm. s1 and s2 normal No clicks, rubs, gallops, or murmurs. Mild pedal edema Abdomen: Abdomen is lower quadrant tenderness. Bowel sounds are present Musculoskeletal: Spontaneously moving all extremities Skin: warm, dry, intact. Neuro: Alert oriented x 3 normal cranial nerves, no focal deficits - Assessment and Plan (1) Elevated troponin Current Visit: Yes Status: Acute Assessment and Plan: Could be from demand ischemia but patient does have severe coronary artery disease and cardiomyopathy. As such cardiology recommends left heart catheterization today. We will stop IV heparin drip per cardiology recomm endations. (2) CAD (coronary artery disease) Current Visit: Yes Status: Chronic Assessment and Plan: With elevated troponin. Echocardiogram showed decrease in the ejection fraction. With abnormal wall motion. As such cardiology recommends left heart catheterization today. Will follow results. (3) Diarrhea Current Visit: Yes Status: Resolved Assessment and Plan: No new episodes reported. (4) Sepsis Current Visit: Yes Status: Resolved Assessment and Plan: Possibly related to upper respiratory infection or bronchitis. Patient does have ESBL in urine but this appears to be colonized. Patient did receive 5 days of ertapenem therapy. No further indication for antibiotics. (5) Type 2 diabetes mellitus Current Visit: Yes Status: Chronic Assessment and Plan: Well-controlled blood sugars. Continue current insulin regimen (6) UTI (urinary tract infection) Current Visit: Yes Status: Suspected Assessment and Plan: Urine culture growing ESBL Escherichia coli. Most likely colonization. Patient did receive 5 days of ertapenem. No signs of pyelonephritis. No further indication for antibiotics at this time. DVT Prophylaxis: Patient is currently on IV heparin. We will transition to subcutaneous heparin once IV heparin drip was stopped. - Time Spent with Patient Total time spent is greater than 50% in coordination of care (as documented) at patient's floor/unit and/or counseling patient: Internal Medicine: Result - Labs CBC & Chem 7: 08/07/18 08:36 08/07/18 08:36 Labs: Short CBC 08/07/18 Range/Units 08:36 WBC 9.5 (4.3-11.1) K/mcL Hgb 13.4 (11.5-15.4) g/dL Hct 41.2 (35.3-44.9) % Plt Count 160 (140-400) K/mcL Neutrophils # 7.2 (1.6-8.9) K/mcL BMP 08/07/18 08:36 Sodium 138 Potassium 3.9 Chloride 106 Carbon Dioxide 25 BUN 11 Creatinine 0.79 Glucose 145 H Calcium 8.3 L - ABG Interpretation ABG results: PT/INR, D-dimer PT 11.3 Seconds (9.4-12.1) 08/03/18 01:19 - Impressions Impressions Echocardiogram Limited Views 08/06/18 02:00 Impressions: LVEF 30-35%. Moderately dilated left ventricle. Global left ventricular systolic dysfunction. There is no LV thrombus. Left Ventricular Wall Motion: Rest Echo Findings The apex, apical inferior, mid inferior, basal inferior, apical anterior, mid anterior, basal anterior, apical septal, mid inferior septal, basal inferior septal, apical lateral, mid anterior lateral, basal anterior lateral, mid anterior septal, mid inferior lateral, basal anterior septal and basal inferior lateral daniels were hypokinetic. Findings: Study Quality * Technically adequate exam. ECG Findings * Normal sinus rhythm. Left Ventricle * LVEF 30-35%. * Moderately dilated left ventricle. * Global left ventricular systolic dysfunction. * There is no LV thrombus. Consult Discharge Plan - Plan Referrals: Kassy Adorno CNP [Primary Care Provider] - 08/08/18 3:00 pm () (2) CAD (coronary artery disease) Qualifiers: Coronary Disease-Associated Artery/Lesion type: [place] artery [place] vs. 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
[2018-08-07] MEDS ORDERED: Heparin 1,000 UNITS/500 mL 500 ML ONE (14:25)
[2018-08-07] MEDS ORDERED: ISOVUE-370 200 ML INFUS..BTL ONE (14:25)
[2018-08-07] MEDS ORDERED: *HR* Heparin 10,000 UNIT/10 ML VIAL ONE (14:25)
[2018-08-07] MEDS ORDERED: 0.9 % Sodium Chloride 2,000 ML ONE (14:25)
--- NOTE | 2018-08-07 14:28 | Pre-Sedation Evaluation ---
Pre-sedation evaluation - Pre-sedation checklist Date of procedure: 08/07/18 Procedure: heart cath Recent Vitals: Last Vital Signs Temp 98.3 F 08/07/18 13:02 Pulse 84 08/07/18 13:02 Resp 17 08/07/18 13:02 BP 135/98 08/07/18 13:02 Pulse Ox 94 08/07/18 13:02 H&P (including ROS) documented in medical record: Yes Previous reaction to sedatives/anesthetics: No Dietary Status: NPO after Midnight Airway Assessment: Patient can open mouth completely, TMJ function normal, Micrognathia (under-bite, receding chin) absent, Neck with adequate range of motion Dentition: No loose teeth or bridges Possible difficult airway: No ASA Classification *see protocol: CLASS II-Mild systemic disease Plan of Care: Pt appropriate candidate for procedure/moderate/conscious sedation, Risks/benefits of procedure/sedation discussed w/ patient/family Cardiac Registry (Cardio Only) - Functional Capacity Functional Capacity: >=4 METS with symptoms - Clincal Frailty Scale Clinical Frailty Scale: Vulnerable
[2018-08-07] MEDS ORDERED: Nitroglycerin 1,000 MCG/10 ML VIAL IV ONE (14:32)
[2018-08-07] MEDS ORDERED: *HR* Midazolam HCl 2 MG/2 ML VIAL ONE (15:04)
[2018-08-07] MEDS ORDERED: *HR* FentaNYL (PF) 100 MCG/2 ML VIAL ONE (15:04)
--- NOTE | 2018-08-07 16:18 | Invasive Diagnostic Lab Proc ---
Name: Madison Mejía Date of Study: 08/07/2018 Date: 1965 Ht: 64.2in Medical Record#: [id number] Age: 52 Wt: 178.57lb Gender: Female BSA: 1.87 Order #: [id number] BMI: 30.49 Physicians Procedure Physician: Daniac Xiong MD, [facility] Referring MD: Referring MD: Staff Name Position Time In Paula Richardson RN Media Sales Consultant 02:40 PM Mallory Antonio RN Monitor 02:41 PM [facility], Maryan RT (R) Scrub 02:41 PM Indications Indication Non-Stemi Procedures Performed Procedure L HRT ARTERY/VENTRICLE ANGIO Pre-Procedure Checklist Informed consent is complete signed and on chart. H&P is on chart. ID band is on and ID verified with patient. Patient NPO for procedure The procedure was described for the patient and questions were answered. Blood Pressure: 167/100 ECG is on chart. Rhythm: NSR Plan of Care Patient will tolerate the procedure without complications. Adequate level of comfort will be maintained. Hemodynamics will remain stable Patient will recover from procedure without complications. Respiratory function will be maintained. Cardiac rhythm will remain stable. Patient temperature will be maintained. Patient and/or family have verbalized understanding of the procedure. Patient Education Chief Complaint/Reason for Test: Cardiac Cath Developmental Category: Adult (18-64 years) Developmentally Appropriate for Age: Yes Learning Barriers: None Education Needs: Procedure Education Method: Verbal Information Taught: Cardiac Cath Educational Evaluation: Able to repeat information Intravenous Access Time IV Size Location DC'd Fluid/Drip Rate Units RN 03:10 PM 20g 1 /" Patent On Arrival Rt Wrist 0.9NaCl 25 ml/hr Paula Richardson RN Allergies Sulfa (Sulfonamide Antibiotics) chocolate SULFA DRUGS Tomato [place] Vital Signs Time BP (mmHg) HR (bpm) O2 Sat. RR (bpm) LOC 03:10 PM / % 5 = Fully awake and oriented or at pre-proc level 03:18 PM / % 5 = Fully awake and oriented or at pre-proc level 03:10 PM 167 / 100 88 82 % 26 03:14 PM 162 / 108 87 98 % 26 03:19 PM 170 / 105 90 96 % 18 03:24 PM 161 / 103 111 90 % 17 03:29 PM 159 / 106 102 89 % 27 03:34 PM 158 / 107 100 96 % 19 Procedural Medications Time Medication Dose Units Method Given By 03:14 PM Oxygen 2 L/min nasal cannula Paula Richardson RN 03:14 PM Versed 2 mg Intravenous Paula Richardson RN 03:14 PM Fentanyl 50 mcg Intravenous Paula Richardson RN 03:21 PM Benadryl 25 mg Intravenous Paula Richardson RN 03:22 PM Lidocaine 2% 19 ml Subcutaneous Danica Xiong MD, FACC 03:25 PM Oxygen 4 L/min nasal cannula Paula Richardson RN 03:30 PM Oxygen 6 L/min Oxy Mask Paula Richardson RN 03:34 PM Oxygen 4 L/min Oxy Mask Paula Richardson RN ASA Classification: CLASS II- Mild systemic disease (i.e. well-controlled diabetes, hypertension, asthma, cigarette smoking) Kimi Score Preprocedure Postprocedure Activity 2- Moves 4 extremities sustained head lift Activity 2- Moves 4 extremities sustained head lift Circulation 2- SBP +/= 20 points of pre-anesthetic level Circulation 2- SBP +/= 20 points of pre-anesthetic level Consciousness 2- Awake and alert oriented x 3 Consciousness 2- Awake and alert oriented x 3 O2 Saturation 2- Able to maintain O2 satruation of 92% on room air O2 Saturation 2- Able to maintain O2 satruation of 92% on room air Respiratory 2- Able to deep breathe and cough well Respiratory 2- Able to deep breathe and cough well Total Score 10 Total Score 10 Contrast Agent: Isovue Diagnostic Contrast: 68 ml Total Contrast: 68 ml Fluoro Dose: 37 mGy Procedure Log Time Note Enter By 02:40 PM Pt arrived to [address] at 14:40 [facility] 02:41 PM Paula Richardson RN Position: Media Sales Consultant Time in: :40 02:41 PM Mallory Antonio RN Position: Monitor Time in: : 02:41 PM Maryan Thornton RT (R) Position: Scrub Time in: 14:41 02:41 PM Patient charges- Angio tray pack, Navilyst 3mm J, Pulse Oximetry and ACIST tubing and transducer dspell 02:42 PM Case Delayed No ell 03:08 PM Vitals capture started with the following parameters, Patient=Adult, Interval=5 min, Initial Zsbtskgr=056 mmHg, Deflation Rate=3 mmHg, Cuff placed on Right Arm 03:08 PM CathStat 03:10 PM HR=88 bpm, RBPB=069/100 mmhg, SpO2=82.0 %, Resp=26 B/min, EtCO2=35 mmHg, Comment=nsr 03:10 PM Time: 15:10 Patient comfortable and pain free: Yes scoates 03:10 PM Time: 15:10LOC: 5 = Fully awake and oriented or at pre-proc level scoates 03:10 PM Physician arrived 15:10 scoates 03:10 PM ASA Class CLASS II- Mild systemic disease (i.e. well-controlled diabetes, hypertension, asthma, cigarette smoking) scoates 03:10 PM Meet and greet completed scoates 03:10 PM Sign in performed according to hospital policy. Informed consent was obtained. scoates 03:11 PM Procedure start 15:11 scoates 03:14 PM HR=87 bpm, AFJD=915/108 mmhg, SpO2=98.0 %, Resp=26 B/min, EtCO2=37 mmHg, Comment=nsr 03:18 PM Time: 15:14 Oxygen on at 2 L/min per nasal cannula by Paula Richardson RN scoates 03:19 PM Time: 15:14 Versed 2 mg Intravenous Given by Paula Richardson RN scoates 03:19 PM Time: 15:14 Fentanyl 50 mcg Intravenous Given by Paula Richardson RN scoates 03:19 PM Time out was performed according to hospital policy. Conscious sedation and anesthesia was achieved (see medication log with in this report above) scoates 03:19 PM HR=90 bpm, ITJD=325/105 mmhg, SpO2=96.0 %, Resp=18 B/min, EtCO2=35 mmHg, Comment=nsr 03:19 PM Patient charges- Angio tray pack, Navilyst 3mm J, Pulse Oximetry and ACIST tubing and transducer scoates 03:19 PM Case Delayed no, inpatient scoates 03:19 PM Hair removed from procedure site in procedure lab using clippers. Bilateral groin prepped with Chloraprep by Mallory Antonio RN, then patient was draped. Skin intact. scoates 03:21 PM Time: 15:21 Benadryl 25 mg Intravenous Given by Paula Richardson RN scoates 03:21 PM Pressure channel 1 zeroed. 03:22 PM Time: 15:22 19 ml Lidocaine 2% to right groin Subcutaneous Given by Danica Xiong MD, [facility] scoates 03:23 PM Access obtained by percutaneous puncture. 5Fr 10cm Terumo Vesuvius sheath placed in right Femoral artery. [id number] scoates 03:23 PM 5Fr FL 4 catheter inserted over the wire DN scoates 03:23 PM Recorded Pressure: Ao, HR=92, Condition=Condition 1 (Aorta) Ao 110/84/97 03:23 PM LCA angiography performed in multiple views. scoates 03:24 PM DG=544 bpm, IHVP=980/103 mmhg, SpO2=90.0 %, Resp=17 B/min, Comment=nsr 03:25 PM Time: 15:25 Oxygen on at 3 L/min per nasal cannula by Paula Richardson RN scoates 03:26 PM Catheter removed scoates 03:26 PM 5Fr FR 4 catheter inserted over the wire DN scoates 03:26 PM Recorded Pressure: Ao, HR=99, Condition=Condition 1 (Aorta) Ao 119/97/108 03:26 PM RCA angiography performed in multiple views. scoates 03:26 PM Coronary Dominance: right scoates 03:27 PM Catheter removed scoates 03:27 PM Catheter crossed the aortic valve and was selectively placed in the left ventricle. Pressures recorded on pullback for left heart catheterization. scoates 03:27 PM Bolus angiogram of left Ventricle complete: 8 ml/sec for a total of 24 mls scoates 03:28 PM Pressure channel 1 zeroed. 03:28 PM Recorded Pressure: LV, ZJ=209, Condition=Condition 1 (Left Ventricle) LV 137/14/15 03:28 PM Recorded Pressure: LV, Ao, YW=884, Condition=Condition 1 (Left Ventricle) LV 103/55/63, (Aorta) Ao 114/94/104 03:29 PM SW=637 bpm, VFNJ=633/106 mmhg, SpO2=89.0 %, Resp=27 B/min, Comment=nsr 03:30 PM Time: 15:30 Oxygen on at 6 L/min per Oxy Mask by Paula Richardson RN scoates 03:30 PM Catheter removed scoates 03:32 PM Did you address RICHARD flow and Dominance? Yes scoates 03:33 PM Procedure completed at 15:33 08/07/2018 scoates 03:33 PM Sign out completed: Radiation Dose 306 mGy, 37.25 Gy/cm2 Fluoro Time: 1.6 Isovue 370 - 200ml contrast 68 ml given by Danica Xiong MD, FAC. Complications: None. The patient was discharged out of the nursery laborer in stable condition. Sedation minutes 19. Cardiac Rehab Consult needed: No. Confirmed administered medications: Yes scoates 03:33 PM Time: 15:18 Patient comfortable and pain free: Yes scoates 03:33 PM Time: 15:18LOC: 5 = Fully awake and oriented or at pre-proc level scoates 03:33 PM Isovue 370 - 200ml,1 Bottle(s) used. scoates 03:34 PM Time: 15:34 Oxygen on at 4 L/min per Oxy Mask by Paula Richardson RN scoates 03:34 PM MH=794 bpm, AVRB=493/107 mmhg, SpO2=96.0 %, Resp=19 B/min 03:38 PM Arterial sheath pulled, Mynx closure device used and was Successful [id number] S/N. scoates 03:38 PM Estimated Blood Loss: minimal scoates 03:38 PM Post ECG NSR scoates 03:39 PM Vitals capture stopped. 03:44 PM Post Blood Pressure 158/107 scoates 03:45 PM 15:45 Post Pulses Bilateral DP & PT 2+ scoates 03:46 PM Information taught Cardiac Cath and Mynx scoates 03:46 PM Education needs Procedure, Plan of Care, and Responsibilities of Patient in Care scoates 03:46 PM Learning barriers :None scoates 03:46 PM Education Methods Verbal scoates 03:46 PM Education evaluation Able to repeat information scoates 03:48 PM Site status No bleeding/hematoma - Rt Groin as reported by Sites, Maryan RT (R) at 15:46 scoates 03:48 PM Opsite applied scoates 03:49 PM Report given to mary EASTMAN Pt taken to 2A Room #51. 15:48 scoates 03:49 PM Plavix, Effient or Brilinta given No scoates 03:49 PM Delay to floor No scoates 03:49 PM Patient out of room: 15:49 scoates 03:49 PM Family placed in consult room. scoates 03:49 PM Complications: None scoates 03:54 PM Lesion found in Proximal RCA. Pre Stenosis: 30 Pre RICHARD Flow: scoates 03:54 PM Lesion found in Mid RCA. Pre Stenosis: 30 Pre RICHARD Flow: scoates 03:54 PM Lesion found in Proximal LAD. Pre Stenosis: 40 Pre RICHARD Flow: scoates 03:54 PM Lesion found in Mid LAD. Pre Stenosis: 40 Pre RICHARD Flow: scoates 04:00 PM Lesion found in Proximal Circumflex. Pre Stenosis: 20 Pre RICHARD Flow: scoates 04:00 PM Lesion found in Mid Circumflex. Pre Stenosis: 30 Pre RICHARD Flow: scoates Complications Complication None None Hemodynamics Pressures Site Systolic/A Wave Diastolic/V Wave Mean AO 110 84 97 AO 119 97 108 LV 137 14 15 LV 103 55 63 AO 114 94 104 Post Procedure Information Blood Pressure: 158/107 mmHg Rhythm: NSR Post procedural instructions were given Closure Device Time Device Success/Fail 08/07/2018 3:49:00 PM Mechanical Compression Successful Site Checks Time Location Status Staff Sheath In? Note 03:46 PM Rt Groin No bleeding/hematoma Sites, Maryan RT (R) Pulses Time Site Pre-Procedure Post-Procedure Note 08/07/2018 3:10:00 PM Bilateral DP & PT 2+ 08/07/2018 3:10:00 PM Bilateral radial 2+ 3:45:00 PM Bilateral DP & PT 2+ Updated by Mallory Marie RN on 08/07/2018 4:06:43 PM electronically signed on 08/07/2018 4:07:28 PM with status of Final
[2018-08-07] MEDS: Ondansetron 4 MG/2 ML VIAL IVP PRN (18:52)
[2018-08-07] MEDS: Melatonin 3 MG TABLET PO PRN (22:39)
[2018-08-08 06:07] LABS: Basophils # 0.1 K/mcL (0.0-0.2); Basophils % 0.6 %; Eosinophils # 0.1 K/mcL (0.0-0.6); Eosinophils % 1.3 %; Hematocrit 39.9 % (35.3-44.9); Hemoglobin 12.9 g/dL (11.5-15.4); Immature Granulocytes % 0.9 % (0-4); Lymphocytes # 1.5 K/mcL (0.6-4.6); Lymphocytes % 15.5 %; Mean Corpuscular HGB Conc 32.3 g/dL (31.6-35.5); Mean Corpuscular Volume 92.8 fL (83.0-100.0); Mean Platelet Volume 10.3 fL (9.4-12.4); Monocytes # 0.8 K/mcL (0.0-1.3); Monocytes % 8.2 %; Neutrophils # 7.2 K/mcL (1.6-8.9); Nucleated Red Blood Cells 0.2 /100 WBC (0); Platelet Count 147 K/mcL (140-400); Red Cell Distribution Width 15.6 % (11.5-14.5); Segmented Neutrophils % 73.5 %
[2018-08-08 06:25] LABS: BUN/Creatinine Ratio 14 (6-26); Blood Urea Nitrogen 12 mg/dL (6-20); Calcium 8.5 mg/dL (8.6-10.3); Carbon Dioxide 26 mEq/L (23-29); Chloride 109 mEq/L (98-107); Glucose 125 mg/dL (70-105); Osmolality,Calculated 291 (280-300); Potassium 3.9 mEq/L (3.5-5.1); Sodium 140 mEq/L (136-145); eGFR For Non-African Americans > 60 (> 60)
[2018-08-08] MEDS: Insulin LISPRO 300 UNITS/3 ML VIAL SQ SCH ×3 (07:58→17:18)
[2018-08-08] MEDS: GuaiFENesin/Dextromethorphan TABLET PO PRN (08:36)
[2018-08-08] MEDS: Metoprolol XL (24 HR) Succ 50 MG TAB.ER.24H PO SCH ×2 (08:45→20:32)
[2018-08-08] MEDS: Lactobacillus 1 EACH CAP.SPRINK PO SCH (08:45)
[2018-08-08] MEDS: Aspirin 81 MG TAB.CHEW PO SCH (08:45)
[2018-08-08] MEDS: Furosemide 40 MG TABLET PO SCH (10:24)
--- NOTE | 2018-08-08 11:27 | Internal Med Progress Note ---
Hospitalist Progress Note - Encounter Date of Encounter: 08/08/18 Time of Encounter: 09:00 - Subjective Interval History: Patient still feel tired, general fatigue. Said the shortness of breath has improved but not reach her baseline. Denies chest pain. No nausea or vomiting. No fever. - Exam Vitals: Temp Pulse Resp BP Pulse Ox 98.7 F 81 16 128/83 92 08/08/18 10:46 08/08/18 10:46 08/08/18 10:46 08/08/18 10:46 08/08/18 10:46 Exam: General: Patient is alert, no acute distress, oriented x 3, obese Respiratory: Good respiratory effort. Normal breath sounds. No wheezing or crackles. Cardiovascular: Regular rate and rhythm. s1 and s2 normal No clicks, rubs, gallops, or murmurs. Mild pedal edema Abdomen: Abdomen is lower quadrant tenderness. Bowel sounds are present Musculoskeletal: Spontaneously moving all extremities Skin: warm, dry, intact. Neuro: Alert oriented x 3 normal cranial nerves, no focal deficits - Assessment and Plan (1) Elevated troponin Current Visit: Yes Status: Acute Assessment and Plan: Could be from demand ischemia but patient does have severe coronary artery disease and cardiomyopathy. - Had [facility] yesterday, cardiology recommended aggressive medical management for CAD. - Has no chest pain at this point. (2) CAD (coronary artery disease) Current Visit: Yes Status: Chronic Assessment and Plan: Had [facility] yesterday, recommend aggressive medical management. - Continue aspirin, statin, beta dre, and KANE inhibitor (3) Sepsis Current Visit: Yes Status: Resolved Assessment and Plan: Possibly related to upper respiratory infection or bronchitis. Patient does have ESBL in urine but this appears to be colonized. Patient did receive 5 days of ertapenem therapy. No further indication for antibiotics. - Infection disease consult appreciated (4) Type 2 diabetes mellitus Current Visit: Yes Status: Chronic Assessment and Plan: Well-controlled blood sugars. Continue current insulin regimen (5) UTI (urinary tract infection) Current Visit: Yes Status: Suspected Assessment and Plan: Urine culture growing ESBL Escherichia coli. Most likely colonization. Patient did receive 5 days of ertapenem. No signs of pyelonephritis. No further indication for antibiotics at this time. (6) Diarrhea Current Visit: Yes Status: Resolved Assessment and Plan: No new episodes reported. (7) Systolic CHF Current Visit: Yes Status: Acute Assessment and Plan: LVEF 35-40% on Echo, 20% per LHC. - Continue home medication by mouth Lasix, shortness of breath has improved - Continue beta dre and ACEI DVT Prophylaxis: Heparin SC - Time Spent with Patient Total time spent is greater than 50% in coordination of care (as documented) at patient's floor/unit and/or counseling patient: 30 minutes 25 - 35 minutes Plan of Care Discussed with: patient Internal Medicine: Result - Labs CBC & Chem 7: 08/08/18 05:54 08/08/18 05:54 Labs: Short CBC 08/08/18 Range/Units 05:54 WBC 9.9 (4.3-11.1) K/mcL Hgb 12.9 (11.5-15.4) g/dL Hct 39.9 (35.3-44.9) % Plt Count 147 (140-400) K/mcL Neutrophils # 7.2 (1.6-8.9) K/mcL BMP 08/08/18 05:54 Sodium 140 Potassium 3.9 Chloride 109 H Carbon Dioxide 26 BUN 12 Creatinine 0.85 Glucose 125 H Calcium 8.5 L - ABG Interpretation ABG results: PT/INR, D-dimer PT 11.3 Seconds (9.4-12.1) 08/03/18 01:19 Consult Discharge Plan - Plan Referrals: Kassy Adorno CNP [Primary Care Provider] - 08/17/18 9:00 am (Please follow up as schedule...) (2) CAD (coronary artery disease) Qualifiers: Coronary Disease-Associated Artery/Lesion type: [place] artery [place] vs. transplanted heart: [place] heart Associated angina: without angina Qualified Code(s): I25.10 - Atherosclerotic heart disease of [place] coronary artery without angina pectoris (3) Sepsis Qualifiers: Sepsis type: sepsis due to unspecified organism Qualified Code(s): A41.9 - Sepsis, unspecified organism (4) Type 2 diabetes mellitus Qualifiers: Diabetes mellitus alf insulin use: without alf use Diabetes mellitus complication status: without complication Qualified Code(s): E11.9 - Type 2 diabetes mellitus without complications (5) UTI (urinary tract infection) Qualifiers: Urinary tract infection type: site unspecified Hematuria presence: without hematuria Qualified Code(s): N39.0 - Urinary tract infection, site not specified (6) Diarrhea Qualifiers: Diarrhea type: presumed infectious Qualified Code(s): R19.7 - Diarrhea, unspecified (7) Systolic CHF Qualifiers: Heart failure chronicity: chronic Qualified Code(s): I50.22 - Chronic systolic (congestive) heart failure
[2018-08-08] MEDS: Ondansetron 4 MG/2 ML VIAL IVP PRN ×2 (11:54→20:33)
--- NOTE | 2018-08-08 14:43 | Cardiology Progress Note ---
Date of Encounter: 08/08/18 Time of Encounter: 09:00 Assessment and Plan (1) Sepsis Current Visit: Yes Status: Resolved Per cardiology: -admitted with sepsis, UTI. -Management per primary service. Qualifiers: Sepsis type: sepsis due to unspecified organism Qualified Code(s): A41.9 - Sepsis, unspecified organism (2) Elevated troponin Current Visit: Yes Status: Acute Per cardiology: -Troponins 0.77, 0.64, 0.48, 0.48, 0.33 in the setting of sepsis, UTI. -ECG with no acute ischemic changes. -Denies chest pain. -Known history of CAD, last LHC 11/2017 with 40% proximal LAD, 50% ISR mid LAD FFR 0.89 (nut functionally significant), proximal circumflex with patent stent, mid circumflex with patent stent, 25% proximal RCA, 25% mid RCA. -08/03/18 with LVEF 35-40%, mid anterior, basal anterior, apical lateral, basal anterior lateral, mid inferior lateral, and basal inferior lateral daniels hypokinetic. -Repeat TTE with LVEF 30-35%, global hypokinesis. -03/2018 TTE with LVEF 40-45%, mid inferior septal, basal inferior septal, and mid anterior septal wall hypokinetic. -08/2017 LVEF 25-30%, global and regional wall motion abnormalities. -On asa, statin, BB, mark inhibitor. -Underwent LHC yesterday with patent stents, otherwise mild CAD. -Continue current medical therapy. (3) Ischemic cardiomyopathy Current Visit: Yes Status: Chronic Per cardiology: -Known ICM, LVEF 30-35%. -ON BB, mark inhibitor. -Euvolemic on exam. -Discussed and reviewed with , recommend entresto. Owens checked entresto and noted to be $99/month, patient agreeable to start. -Will stop mark inhibitor. -Will starte entresto on Monday to allow for mark inhibitor wash out. -Cardiology will sign off, will arrange outpatient follow up. Discussion w patient/family: The assessment and plan as outlined above was discussed with the patient who expressed understanding and agreement. All questions were answered. Thank you for involving us in the care of your patient. Please call with any questions. Discussed and reviewed with . Subjective Principal diagnosis: UTI, sepsis Interval history: Patient states she feels "ok" today. Denies chest pain. Denies shortness of breath. Denies issues walking or using right leg. Objective Vital Signs, Last 4 Hours Temp Pulse Resp BP Pulse Ox 08/08/18 10:46 98.7 F 81 16 128/83 92 General: Conversant, No Apparent Distress HEENT: Atraumatic, Normocephaly, Mucus Membranes Moist Neck: No JVD, Normal carotid pulses Cardiac: Reg Rate and Rhythm, Normal S1 and S2, No Murmur Lungs: Normal Breath Sounds, No Wheeze, Rales, Rhonchi Neuro: Alert and responsive, No focal deficits noted Abdomen: Soft, Non-Tender Skin: No rashes noted on visualized skin, Other (Right groin access site without ecchymosis or hematoma. ) Musculoskeletal: No Chest Wall Tenderness Extremities: No Clubbing, No Cyanosis, No Edema, Normal Pulses Results 08/08/18 05:54 08/08/18 05:54 Lab Results Active Medications Albuterol/Ipratropium (Duoneb) 3 ml IH [id number] PRN PRN Reason: Shortness Of Breath/Wheezing Stop: 02/01/19 22:25 Aspirin (Aspirin) 81 mg PO DAILY NANDO Stop: 02/02/19 09:01 Last Admin: 08/08/18 08:45 Dose: 81 mg Atorvastatin Calcium (Lipitor) 40 mg PO HS NANDO Stop: 02/03/19 21:01 Last Admin: 08/07/18 21:27 Dose: 40 mg Dextrose (Glucose Tablets) 28 gm PO ONCE PRN PRN Reason: Hypoglycemia Stop: 02/05/19 08:33 Dextrose (Glucose Tablets) 16 gm PO ONCE PRN PRN Reason: Hypoglycemia Stop: 02/05/19 08:33 Dextrose/Water (Dextrose 50% (Syg)) 25 ml IVP AD PRN PRN Reason: Hypoglycemia Stop: 02/05/19 08:33 Escitalopram Oxalate (Lexapro) 20 mg PO DAILY NANDO Stop: 02/02/19 09:01 Last Admin: 08/08/18 08:45 Dose: 20 mg Furosemide (Lasix) 40 mg PO DAILY NANDO Stop: 02/07/19 10:31 Last Admin: 08/08/18 10:24 Dose: 40 mg Glucagon (Glucagen) 1 mg IM ONCE PRN PRN Reason: Hypoglycemia Stop: 02/05/19 08:33 Glucose (Gluctose) 15 gm PO ONCE PRN PRN Reason: Hypoglycemia Stop: 02/05/19 08:33 Glucose (Gluctose) 30 gm PO ONCE PRN PRN Reason: Hypoglycemia Stop: 02/05/19 08:33 Guaifenesin (Mucinex Dm) 1 each PO BID PRN PRN Reason: Cough Stop: 02/02/19 01:49 Last Admin: 08/08/18 08:36 Dose: 1 each Heparin Sodium (Porcine) (Heparin) 5,000 unit SQ Q12HCO [facility] Stop: 02/08/19 06:01 Dextrose (Dextrose 5%) 1,000 mls @ 100 mls/hr IVC .Q10H PRN PRN Reason: HYPOGLYCEMIA Stop: 02/05/19 08:33 Insulin Human Lispro (Humalog) 0 units SQ TIDAC [facility]; Protocol Stop: 02/03/19 11:31 Last Admin: 08/08/18 11:47 Dose: 6 units Lactobacillus Acidophilus/Rhamnosus (Culturelle) 2 each PO DAILY [facility] Stop: 02/04/19 12:01 Last Admin: 08/08/18 08:45 Dose: 2 each Melatonin (Melatonin) 3 mg PO HS PRN PRN Reason: Insomnia Stop: 02/02/19 01:43 Last Admin: 08/07/18 22:39 Dose: 3 mg Metoprolol Succinate (Toprol Xl) 50 mg PO BID [facility] Stop: 02/01/19 22:46 Last Admin: 08/08/18 08:45 Dose: 50 mg Ondansetron HCl (Zofran) 4 mg IVP Q6H PRN; Protocol PRN Reason: Nausea And Vomiting Stop: 02/03/19 11:19 Last Admin: 08/08/18 11:54 Dose: 4 mg Promethazine HCl (Phenergan) 25 mg PO Q6HR PRN PRN Reason: Nausea And Vomiting Stop: 02/02/19 11:36 Last Admin: 08/08/18 08:36 Dose: 25 mg Sacubitril/Valsartan (Entresto 24 Mg-26 Mg Tablet) 1 tab PO BID [facility] Stop: 02/09/19 09:01 Laboratory Tests 08/08/18 08/08/18 05:54 05:54 Hgb 12.9 Creatinine 0.85 - Imaging and Cardiology Chest Xray: report reviewed Echo: report reviewed Cardiac cath: report reviewed - EKG Interpretation EKG results cardiology: other (Telemetry reviewed with average HR previous 12 hours noted to be 83, SR. PVCs and PACs noted.) Consult Discharge Plan - Plan Referrals: Kassy Adorno CNP [Primary Care Provider] - 08/17/18 9:00 am (Please follow up as schedule...)
[2018-08-08] MEDS: Melatonin 3 MG TABLET PO PRN (20:32)
[2018-08-09 05:47] LABS: Basophils # 0.1 K/mcL (0.0-0.2); Basophils % 0.7 %; Eosinophils # 0.1 K/mcL (0.0-0.6); Eosinophils % 1.3 %; Hematocrit 39.8 % (35.3-44.9); Hemoglobin 12.9 g/dL (11.5-15.4); Immature Granulocytes % 1.1 % (0-4); Lymphocytes # 1.9 K/mcL (0.6-4.6); Lymphocytes % 18.7 %; Mean Corpuscular HGB Conc 32.4 g/dL (31.6-35.5); Mean Corpuscular Hemoglobin 30.1 pg (28.0-33.3); Mean Platelet Volume 11.2 fL (9.4-12.4); Monocytes # 0.7 K/mcL (0.0-1.3); Monocytes % 7.4 %; Neutrophils # 7.1 K/mcL (1.6-8.9); Platelet Count 149 K/mcL (140-400); Red Blood Count 4.28 M/mcL (3.82-4.97); Red Cell Distribution Width 15.6 % (11.5-14.5); Segmented Neutrophils % 70.8 %
[2018-08-09] MEDS: *HR* Heparin 5,000 UNIT/ML VIAL SQ SCH ×2 (05:47→16:53)
[2018-08-09 06:05] LABS: BUN/Creatinine Ratio 16 (6-26); Blood Urea Nitrogen 14 mg/dL (6-20); Calcium 8.5 mg/dL (8.6-10.3); Carbon Dioxide 27 mEq/L (23-29); Chloride 105 mEq/L (98-107); Glucose 94 mg/dL (70-105); Osmolality,Calculated 290 (280-300); Potassium 3.8 mEq/L (3.5-5.1); Sodium 140 mEq/L (136-145); eGFR For Non-African Americans > 60 (> 60)
[2018-08-09 06:28] LABS: Folate 7.8 ng/mL (3.0-16.0)
[2018-08-09 06:50] LABS: Thyroid Stimulating Hormone 2.752 mcIU/mL (0.340-5.600)
[2018-08-09 06:52] LABS: Vitamin B12 > 1500 pg/mL (250-1100)
[2018-08-09] MEDS: Insulin LISPRO 300 UNITS/3 ML VIAL SQ SCH ×3 (07:53→16:13)
[2018-08-09] MEDS: Aspirin 81 MG TAB.CHEW PO SCH (07:59)
[2018-08-09] MEDS: Metoprolol XL (24 HR) Succ 50 MG TAB.ER.24H PO SCH ×2 (07:59→20:01)
[2018-08-09] MEDS: Lactobacillus 1 EACH CAP.SPRINK PO SCH (07:59)
[2018-08-09] MEDS: Furosemide 40 MG TABLET PO SCH (07:59)
--- NOTE | 2018-08-09 12:58 | Consult Note ---
Date of Encounter: 08/09/18 Time of Encounter: 12:45 Assessment & Recommendation (1) Major depress dis, severe Current visit: Yes Status: Acute Assessment & Recommendation: Client denies current SI, intent, or plan. Does not meet criteria for inpatient psych. However, client admits to depression that has not responded well to treatment. Currently taking Lexapro with minimal relief. Discussed adding Wellbutrin to her Lexapro as client took this medication in the past for smoking cessation and knows she tolerates it well. Would start 150mg daily. Would also recommend a social work supervisor consult to get her linked with an outpatient psychiatrist. 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 Will follow along if she remains inpatient. Call if any questions. History of Present Illness Requesting Physician: Mynor Zhou MD Reason for consult: depression History of present illness: Ms. Mejía is a 52 year old female who was admitted medically for treatment of pneumonia. Psychiatry was consulted for management of client's depression. Client states she has been depressed for the last year. Has tried a variety of different antidepressants through her PCP but nothing has been successful. Client denies current SI, intent, or plan. Denies prior hospitalizations or suicide attempts. Has never seen a psychiatrist. She has seen a counselor but denies getting any benefit from therapy. She has no evidence of a thought disorder. Denies HI/AH/VH. Has multiple medical problems including CHF and DM. Allergy to Sulfa drugs. No AOD issues. Currently taking Lexapro. Has tried Zoloft, Prozac, Celexa, and Cymbalta in the past. Took Wellbutrin for smoking cessation. Discussed restarting the Wellbutrin in combination with the Lexapro since they act on different neurotransmitters and because she never actually took the Wellbutrin at the same time she was having mood issues. Also discussed Abilify as an adjunct. Client reports she is already taking this medication but it is not listed in her active meds or her home meds. CC: Mynor Zhou MD Past Med Surg Social Fam HX - Past Medical History Medical history: diabetes, hypertension, kidney stones, myocardial infarction - Past Psychiatric History Psychiatric history: Reports: depression Family psychiatric history: Yes Family Psychiatric History Details: aunts-depression Family History of Suicide: Unknown - Past Surgical History Surgical History: appendectomy, colectomy, ureteral stent - Social History Smoking Status: Current every day smoker Smokeless Tobacco Status: No Alcohol use: occasionally Drug use: none - Family History Mother Adopted: No Living Status: Still Living Hx Family Cardiac Disorders: Yes (father,grandfather) Hx Family Respiratory Disorders: No Hx Family Cancer: No Hx Family GI Disorders: Yes (self) Hx Family Endocrine Disorder: Yes (diabetes mother) Hx Family Neuromuscular Disorders: No Hx Family Neurologic Disorders: Yes (grandmother) Hx Family HEENT Disorders: No Hx Family Autoimmune Disorders: Yes (cousin lupus) Medications & Allergies Aspirin 81 mg PO HS 04/24/17 [History] Escitalopram [Lexapro] 20 mg PO DAILY 08/03/18 [History] Furosemide [Lasix] 40 mg PO DAILY 08/03/18 [History] Lisinopril [Zestril] 20 mg PO DAILY 08/03/18 [History] See Pharmacy Note 08/03/18 [History] Allergy/AdvReac Type Severity Reaction Status Date / Time Sulfa (Sulfonamide Allergy Hives/nause Verified 08/03/18 14:39 Antibiotics) a chocolate Allergy Hives Uncoded 08/03/18 14:39 Review of Systems Constitutional: Reports: weakness Eyes: Denies: eye pain, vision change Ears, Nose, Throat: Denies: ear pain, throat pain, dental pain, hearing loss, congestion Cardiovascular: Reports: other Respiratory: Reports: dyspnea Gastrointestinal: Denies: abdominal pain, nausea, vomiting, diarrhea, constipation Genitourinary female: Denies: urgency, dysuria, frequency, abnormal menses, dyspareunia Musculoskeletal: Reports: other Integumentary: Denies: rash, lesions, pruritus Neurological: Denies: headache, weakness, numbness, memory loss Endocrine: Denies: fatigue, heat or cold intolerance Hematologic/Lymphatic: Denies: easy bruising, lymphadenopathy Allergic/Immunologic: Denies: urticaria, itchy eyes Psychiatry Exam - Constitutional Vitals: Temp Pulse Resp BP Pulse Ox 98.9 F 80 18 157/105 91 08/09/18 11:28 08/09/18 11:28 08/09/18 11:28 08/09/18 11:28 08/09/18 11:28 General appearance: obese - Musculoskeletal Gait: other Station: relaxed Strength & Tone: normal for patient - Psychiatric Patient Orientation: Yes Person, Yes Time, Yes Place Level of alertness: Alert Behavior: calm, cooperative Psychomotor activity: Normal Eye Contact: Maintains Eye Contact Mood Description: Depressed Affect description: congruent with mood Speech Volume: Normal Speech pattern: normal rate, normal rhythm, normal tone, fluent, spontaneous Language & Vocabulary: consistent with education Thought Process: Linear Thought Content: No Suicidal ideation, No Homicidal ideation, No Overt delusions Perceptual Disturbances: No Auditory hallucinations, No Visual hallucinations Attention Span Ability: Capable of Focused Attention Memory Description: Grossly Intact Patient Reliability: Reliable Historian Fund of knowledge: Yes abstraction ability, Yes aware of current events Intelligence Estimate: Average Judgment: Fair Insight: Partial Results - Labs Labs: Laboratory Last Values WBC 10.0 K/mcL (4.3-11.1) 08/09/18 04:37 RBC 4.28 M/mcL (3.82-4.97) 08/09/18 04:37 Hgb 12.9 g/dL (11.5-15.4) 08/09/18 04:37 Hct 39.8 % (35.3-44.9) 08/09/18 04:37 MCV 93.0 fL (83.0-100.0) 08/09/18 04:37 MCH 30.1 pg (28.0-33.3) 08/09/18 04:37 MCHC 32.4 g/dL (31.6-35.5) 08/09/18 04:37 RDW 15.6 % (11.5-14.5) H 08/09/18 04:37 Plt Count 149 K/mcL (140-400) 08/09/18 04:37 MPV 11.2 fL (9.4-12.4) 08/09/18 04:37 Immature Gran % 1.1 % (0-4) 08/09/18 04:37 Seg Neutrophils % 70.8 % 08/09/18 04:37 Lymphocytes % 18.7 % 08/09/18 04:37 Monocytes % 7.4 % 08/09/18 04:37 Eosinophils % 1.3 % 08/09/18 04:37 Basophils % 0.7 % 08/09/18 04:37 Neutrophils # 7.1 K/mcL (1.6-8.9) 08/09/18 04:37 Lymphocytes # 1.9 K/mcL (0.6-4.6) 08/09/18 04:37 Monocytes # 0.7 K/mcL (0.0-1.3) 08/09/18 04:37 Eosinophils # 0.1 K/mcL (0.0-0.6) 08/09/18 04:37 Basophils # 0.1 K/mcL (0.0-0.2) 08/09/18 04:37 Nucleated RBCs/100 WBC 0.2 /100 WBC (0) H 08/08/18 05:54 PT 11.3 Seconds (9.4-12.1) 08/03/18 01:19 INR 1.0 08/03/18 01:19 Heparin Anti-Xa, Unfract 0.27 IU/mL (0.30-0.70) L 08/07/18 05:24 Sodium 140 mEq/L (136-145) 08/09/18 04:37 Potassium 3.8 mEq/L (3.5-5.1) 08/09/18 04:37 Chloride 105 mEq/L (98-107) 08/09/18 04:37 Carbon Dioxide 27 mEq/L (23-29) 08/09/18 04:37 BUN 14 mg/dL (6-20) 08/09/18 04:37 Creatinine 0.86 mg/dL (0.60-1.20) 08/09/18 04:37 Est GFR ( Amer) > 60 (> 60) 08/09/18 04:37 Est GFR (Non-Af Amer) > 60 (> 60) 08/09/18 04:37 BUN/Creatinine Ratio 16 (6-26) 08/09/18 04:37 Glucose 94 mg/dL (70-105) 08/09/18 04:37 POC Glucose 192 mg/dL (70-99) H 08/08/18 15:51 Calculated Osmolality 290 (280-300) 08/09/18 04:37 Lactic Acid 1.4 mmol/L (0.5-2.2) 08/03/18 13:52 Calcium 8.5 mg/dL (8.6-10.3) L 08/09/18 04:37 Magnesium 1.9 mg/dL (1.6-2.6) 08/03/18 05:41 Total Bilirubin 0.5 mg/dL (0.3-1.0) 08/02/18 18:01 Direct Bilirubin 0.1 mg/dL (0.0-0.2) 08/02/18 18:01 Indirect Bilirubin 0.4 mg/dL (0.0-1.2) 08/02/18 18:01 AST 21 Units/L (13-39) 08/02/18 18:01 ALT 14 Units/L (7-52) 08/02/18 18:01 Alkaline Phosphatase 102 Units/L (34-104) 08/02/18 18:01 Troponin I 0.33 ng/mL (< 0.04) H* 08/05/18 05:42 B-Natriuretic Peptide 668 pg/mL (Less than 100) H 08/03/18 05:41 Serum Total Protein 6.3 g/dL (6.4-8.9) L 08/02/18 18:01 Albumin 3.7 g/dL (3.5-5.7) 08/02/18 18:01 Globulin 2.6 g/dL (2.4-3.5) 08/02/18 18:01 Albumin/Globulin Ratio 1.4 (1.1-2.2) 08/02/18 18:01 Vitamin B12 > 1500 pg/mL (250-1100) H 08/09/18 04:37 Folate 7.8 ng/mL (3.0-16.0) 08/09/18 04:37 TSH 2.752 mcIU/mL (0.340-5.600) 08/09/18 04:37 Random Cortisol 9.1 mcg/dl 08/09/18 04:37 Urine Color Yellow (Yellow) 08/02/18 17:37 Urine Clarity Cloudy (Clear) A 08/02/18 17:37 Urine pH 6.5 pH Units (5.0-8.0) 08/02/18 17:37 Ur Specific [place] 1.016 (1.010-1.025) 08/02/18 17:37 Urine Protein Trace mg/dL (Neg-Trace) 08/02/18 17:37 Urine Glucose (UA) Normal mg/dL (Normal) 08/02/18 17:37 Urine Ketones Negative mg/dL (Negative) 08/02/18 17:37 Urine Blood Trace (Negative) H 08/02/18 17:37 Urine Nitrite Negative (Negative) 08/02/18 17:37 Urine Bilirubin Negative (Negative) 08/02/18 17:37 Urine Urobilinogen Normal mg/dL (Normal) 08/02/18 17:37 Ur Leukocyte Esterase Large (Negative) H 08/02/18 17:37 Urine Microscopic RBC 5-15 per hpf (0-3) H 08/02/18 17:37 Urine Microscopic WBC TNTC per hpf (0-3) H 08/02/18 17:37 Ur Squamous Epith Cells Many per lpf (None-Few) H 08/02/18 17:37 Urine Bacteria Moderate per hpf (None-Few) H 08/02/18 17:37 Hyaline Casts None Seen per lpf (None-Few) 08/02/18 17:37 Ur Culture Indicated? NO. (NO) A 08/02/18 17:37 Chlamy pneumoniae PCR Not Detected (Not Detect) 08/06/18 16:24 Adenovirus (PCR) Not Detected (Not Detect) 08/06/18 16:24 B. pertussis DNA (PCR) Not Detected (Not Detect) 08/06/18 16:24 B.parapertussis DNA PCR Not Detected (Not Detect) 08/06/18 16:24 Coronavirus OC43 (PCR) Not Detected (Not Detect) 08/06/18 16:24 Coronavirus HKU1 (PCR) Not Detected (Not Detect) 08/06/18 16:24 Coronavirus 229E (PCR) Not Detected (Not Detect) 08/06/18 16:24 Coronavirus NL63 (PCR) Not Detected (Not Detect) 08/06/18 16:24 Human Metapneumovir PCR Not Detected (Not Detect) 08/06/18 16:24 Influenza A (H1) PCR Not Detected (Not Detect) 08/06/18 16:24 Influ A (H1N1/09) PCR Not Detected (Not Detect) 08/06/18 16:24 Influenza A (H3) PCR Not Detected (Not Detect) 08/06/18 16:24 Influenza A Untype (PCR) Not Detected (Not Detect) 08/06/18 16:24 Influenza Type B (PCR) Not Detected (Not Detect) 08/06/18 16:24 M.pneumoniae DNA (PCR) Not Detected (Not Detect) 08/06/18 16:24 Parainfluenza 1 (PCR) Not Detected (Not Detect) 08/06/18 16:24 Parainfluenza 2 (PCR) Not Detected (Not Detect) 08/06/18 16:24 Parainfluenza 3 (PCR) Not Detected (Not Detect) 08/06/18 16:24 Parainfluenza 4 (PCR) Not Detected (Not Detect) 08/06/18 16:24 RSV (PCR) Not Detected (Not Detect) 08/06/18 16:24 Entero/Rhino (PCR) Not Detected (Not Detect) 08/06/18 16:24 Specimen Rejected Hemolyzed 08/03/18 07:52 Consult Discharge Plan - Plan Referrals: Kassy Adorno CNP [Primary Care Provider] - 08/17/18 9:00 am (Please follow up as schedule...)
--- NOTE | 2018-08-09 14:38 | Internal Med Progress Note ---
Hospitalist Progress Note - Encounter Date of Encounter: 08/09/18 Time of Encounter: 09:00 - Subjective Interval History: Patient feels less shortness of breath but still very tired. Patient said she is depressed. Psychiatry consult called and saw patient. Patient denies chest pain or nausea vomiting. Vitals are stable. - Exam Vitals: Temp Pulse Resp BP Pulse Ox 98.9 F 80 18 157/105 91 08/09/18 11:28 08/09/18 11:28 08/09/18 11:28 08/09/18 11:08/09/18 11:28 Exam: General: Patient is alert, no acute distress, oriented x 3, obese Respiratory: Good respiratory effort. Normal breath sounds. No wheezing or crackles. Cardiovascular: Regular rate and rhythm. s1 and s2 normal No clicks, rubs, gallops, or murmurs. Mild pedal edema Abdomen: Abdomen is lower quadrant tenderness. Bowel sounds are present Musculoskeletal: Spontaneously moving all extremities Skin: warm, dry, intact. Neuro: Alert oriented x 3 normal cranial nerves, no focal deficits - Assessment and Plan (1) Elevated troponin Current Visit: Yes Status: Acute Assessment and Plan: Could be from demand ischemia but patient does have severe coronary artery disease and cardiomyopathy. - Had [facility] yesterday, cardiology recommended aggressive medical management for CAD. - Has no chest pain at this point. (2) CAD (coronary artery disease) Current Visit: Yes Status: Chronic Assessment and Plan: Had [facility] yesterday, recommend aggressive medical management. - Continue aspirin, statin, beta dre, hold ACEI now and plan to start Entresto from tomorrow (3) Sepsis Current Visit: Yes Status: Resolved Assessment and Plan: Possibly related to upper respiratory infection or bronchitis. Patient does have ESBL in urine but this appears to be colonized. Patient did receive 5 days of ertapenem therapy. No further indication for antibiotics. - Infection disease consult appreciated (4) Type 2 diabetes mellitus Current Visit: Yes Status: Chronic Assessment and Plan: Well-controlled blood sugars. Continue current insulin regimen (5) UTI (urinary tract infection) Current Visit: Yes Status: Suspected Assessment and Plan: Urine culture growing ESBL Escherichia coli. Most likely colonization. Patient did receive 5 days of ertapenem. No signs of pyelonephritis. No further indication for antibiotics at this time. (6) Diarrhea Current Visit: Yes Status: Resolved Assessment and Plan: No new episodes reported. (7) Systolic CHF Current Visit: Yes Status: Acute Assessment and Plan: LVEF 35-40% on Echo, 20% per LHC. - Continue home medication by mouth Lasix, shortness of breath has improved - Continue beta dre, plan to start Entresto from tomorrow (8) Major depress dis, severe Current Visit: Yes Status: Acute Assessment and Plan: Patient complaint of generalized fatigue. TSH/cortisol/Vit B12/Folate unremarkable. Patient has history of depression. Psychiatry saw patient, consider major depression disorder. - Add Wellbutrin XL 150mg po daily, cont lexapro. - Set up outpatient psychiatry follow-up - Time Spent with Patient Total time spent is greater than 50% in coordination of care (as documented) at patient's floor/unit and/or counseling patient: 30 min 25 - 35 minutes Plan of Care Discussed with: patient Internal Medicine: Result - Labs CBC & Chem 7: 08/09/18 04:37 08/09/18 04:37 Labs: Short CBC 08/09/18 Range/Units 04:37 WBC 10.0 (4.3-11.1) K/mcL Hgb 12.9 (11.5-15.4) g/dL Hct 39.8 (35.3-44.9) % Plt Count 149 (140-400) K/mcL Neutrophils # 7.1 (1.6-8.9) K/mcL BMP 08/09/18 04:37 Sodium 140 Potassium 3.8 Chloride 105 Carbon Dioxide 27 BUN 14 Creatinine 0.86 Glucose 94 Calcium 8.5 L - ABG Interpretation ABG results: PT/INR, D-dimer PT 11.3 Seconds (9.4-12.1) 08/03/18 01:19 Consult Discharge Plan - Plan Referrals: Kassy Adorno CNP [Primary Care Provider] - 08/17/18 9:00 am (Please follow up as schedule...) (2) CAD (coronary artery disease) Qualifiers: Coronary Disease-Associated Artery/Lesion type: [place] artery [place] vs. 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 insulin use: without chcf use Diabetes mellitus complication status: without complication Qualified Code(s): E11.9 - Type 2 diabetes mellitus without complications (5) UTI (urinary tract infection) Qualifiers: Urinary tract infection type: site unspecified Hematuria presence: without hematuria Qualified Code(s): N39.0 - Urinary tract infection, site not specified (6) Diarrhea Qualifiers: Diarrhea type: presumed infectious Qualified Code(s): R19.7 - Diarrhea, unspecified (7) Systolic CHF Qualifiers: Heart failure chronicity: chronic Qualified Code(s): I50.22 - Chronic systolic (congestive) heart failure
[2018-08-09] MEDS: Ondansetron 4 MG/2 ML VIAL IVP PRN ×2 (14:49→21:46)
[2018-08-09] MEDS: BuPROPion XL (24 HR) 150 MG TABLET PO SCH (14:49)
[2018-08-09] MEDS: Melatonin 3 MG TABLET PO PRN (20:01)
[2018-08-10] MEDS: *HR* Heparin 5,000 UNIT/ML VIAL SQ SCH (06:20)
[2018-08-10 08:05] VITALS: BP 144/90
[2018-08-10] MEDS: Insulin LISPRO 300 UNITS/3 ML VIAL SQ SCH (08:48)
[2018-08-10] MEDS ORDERED: SACUBITRIL/VALSARTAN 24/26 MG TABLET PO SCH (09:00)
[2018-08-10] MEDS: Aspirin 81 MG TAB.CHEW PO SCH (09:16)
[2018-08-10] MEDS: Metoprolol XL (24 HR) Succ 50 MG TAB.ER.24H PO SCH (09:16)
[2018-08-10] MEDS: Lactobacillus 1 EACH CAP.SPRINK PO SCH (09:16)
[2018-08-10] MEDS: BuPROPion XL (24 HR) 150 MG TABLET PO SCH (09:16)
[2018-08-10] MEDS: Furosemide 40 MG TABLET PO SCH (09:16)
--- NOTE | 2018-08-10 10:46 | Discharge Summary ---
- NOTES TO OUTPATIENT PROVIDER Notes to Outpatient Provider: 1. Pt needs to follow up with outpatient psychiatrist for major depression, please arrange referal if needed. 2. Pt started Entresto per cardio, please f/u with cardio. Date of Encounter: 08/10/18 Time of Encounter: 10:00 - Discharge Diagnosis (1) Elevated troponin Priority: Primary Status: Acute (2) CAD (coronary artery disease) Priority: Secondary Status: Chronic Qualifiers: Coronary Disease-Associated Artery/Lesion type: [place] artery [place] vs. 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 marine terminal insulin use: without nursing home use Diabetes mellitus complication status: without complication Qualified Code(s): E11.9 - Type 2 diabetes mellitus without complications (5) UTI (urinary tract infection) Priority: Primary Status: Suspected Qualifiers: Urinary tract infection type: site unspecified Hematuria presence: without hematuria Qualified Code(s): N39.0 - Urinary tract infection, site not specified (6) Diarrhea Priority: Secondary Status: Resolved Qualifiers: Diarrhea type: presumed infectious Qualified Code(s): R19.7 - Diarrhea, unspecified (7) Systolic CHF Priority: Secondary Status: Acute Qualifiers: Heart failure chronicity: chronic Qualified Code(s): I50.22 - Chronic systolic (congestive) heart failure (8) Major depress dis, severe Priority: Primary Status: Acute Hospital course: Ms. Mejía is a 52 year old female present to ER for shortness of breath and generalized weakness. Patient was found ESBL positive UTI and mild elevated troponin. ID and cardiology consul saw patient. Patient has finished 5 day antibiotic treatment per ID recommendation. Patient had LHC which shows patent stent, no further stent placed, cardiology recommended aggressive medical treatment for CAD, add Entresto for systolic CHF. Patient denies chest pain. After treatment, patient's shortness of breath has improved. But still complaining of generalized fatigue. TSH/cortisol/vitamin B-12/folic acid level within normal limit. Psychiatry consult called, patient was considered major depression, recommend add wellbutrin. Patient feels better today after taking new medication. I have seen and examined the patient today. Patient is awake alert, oriented 3. Denies shortness of breath, chest pain, nausea, vomiting. Said fatigue/depression has improved. Vitals are stable. Appears euvolemic. SPO2 91-94% in room air. Will DC patient home, continue follow-up with PCP, cardiology, and psychiatry as outpatient. Discharge discussed with: patient - Time Spent with Patient Total time spent providing and/or coordinating discharge services: 40 minutes Time spent: Greater than 30 minutes - Discharge Medications Prescriptions: New Atorvastatin [Lipitor] 40 mg PO HS 30 Days #30 tablet BuPROPion XL (24 HR) [Wellbutrin Xl] 150 mg PO DAILY 30 Days #30 tab.er.24h Metoprolol XL (24 HR) Succ [Toprol Xl] 50 mg PO BID 30 Days #60 tab.er.24h Sacubitril/Valsartan 24/26 mg [Entresto 24 mg-26 mg Tablet] 1 tab PO BID 30 Days #60 tablet Continue Aspirin 81 mg PO HS Escitalopram [Lexapro] 20 mg PO DAILY Furosemide [Lasix] 40 mg PO DAILY Discontinued Lisinopril [Zestril] 20 mg PO DAILY Home Medications: Aspirin 81 mg PO HS 04/24/17 [History] Escitalopram [Lexapro] 20 mg PO DAILY 08/03/18 [History] Furosemide [Lasix] 40 mg PO DAILY 08/03/18 [History] Atorvastatin [Lipitor] 40 mg PO HS 30 Days #30 tablet 08/10/18 [Rx] BuPROPion XL (24 HR) [Wellbutrin Xl] 150 mg PO DAILY 30 Days #30 tab.er.24h 08/10/18 [Rx] Metoprolol XL (24 HR) Succ [Toprol Xl] 50 mg PO BID 30 Days #60 tab.er.24h 08/10/18 [Rx] Sacubitril/Valsartan 24/26 mg [Entresto 24 mg-26 mg Tablet] 1 tab PO BID 30 Days #60 tablet 08/10/18 [Rx] Allergies/Adverse Reactions: Allergy/AdvReac Type Severity Reaction Status Date / Time Sulfa (Sulfonamide Allergy Hives/nause Verified 08/03/18 14:39 Antibiotics) a chocolate Allergy Hives Uncoded 08/03/18 14:39 Date of admission: 08/03/18 02:56 Primary care physician: Kassy Adorno CNP Consults: 08/03/18 03:34 Consult to Cardiology [CONS] Routine Comment: Consulting Provider: Cardiology Tiff Reason for Consult: elevated trop, dyspnea Time Notified: 03:35 Call Completed: No 08/05/18 11:51 Consult to Interventional Radiology [CONS] Routine Consulting Provider: Radiology Interventional Cols Reason for Consult: ESBL UTI, Diarrhea Call Completed: No 08/06/18 08:42 Consult to Infectious Diseases [CONS] Routine Consulting Provider: Infectious Disease Tiff Reason for Consult: esbl uti Call Completed: Yes 08/09/18 10:35 Consult to Psychiatry [CONS] Routine Consulting Provider: Psychiatry [place] Reason consult: Medication recommendation Other reason and/or additional details: Weakness, r/o depression Call Completed: Yes 08/09/18 13:17 Consult to Fluorescent Lighting Model Maker [CONS] Routine Reason for SW Consult: Need outpatient psych follow up arrangement. Discharging clinician: Mynor Zhou Anticipated date of discharge: 08/10/18 - Constitutional Vitals: Temp Pulse Resp BP Pulse Ox 98.8 F 76 17 144/90 91 08/10/18 08:04 08/10/18 08:04 08/10/18 08:04 08/10/18 08:04 08/10/18 09:15 General appearance: Present: A&O X 3, pleasant, no acute distress Exam: General: Patient is alert, no acute distress, oriented x 3, obese Respiratory: Good respiratory effort. Normal breath sounds. No wheezing or crackles. Cardiovascular: Regular rate and rhythm. s1 and s2 normal No clicks, rubs, gallops, or murmurs. Mild pedal edema Abdomen: Abdomen is lower quadrant tenderness. Bowel sounds are present Musculoskeletal: Spontaneously moving all extremities Skin: warm, dry, intact. Neuro: Alert oriented x 3 normal cranial nerves, no focal deficits - Patient Status Disposition: Home, Self-Care Condition: Good Functional capacity at discharge: independent ambulation Overall status at discharge: patient is back to baseline - Discharge Instructions Follow Up With: Kassy Adorno CNP [Primary Care Provider] - 08/17/18 9:00 am (Please follow up as schedule...) - Diet and Activity Activity: increase activity as tolerated Diet: low fat, low cholesterol, low salt diet
== END 2018-08-10 12:30 | disposition home or self-care (01) | DRG 286 ==
LOC: EMEROOARM 16:34 → 2NNU 16:34 → SUATTDRO 08-03 02:56 → 2ANU 08-04 19:09
PROVIDERS: ADMIT Pediatrics; ATTEND Internal Medicine

== ENCOUNTER 2018-10-11 12:28 | Observation (INO) ==
[2018-10-11] MEDS: 0.9 % Sodium Chloride 1,000 ML IVC SCH (13:40)
--- NOTE | 2018-10-11 14:33 | History & Physical Report ---
Date of Encounter: 10/11/18 Time of Encounter: 14:32 24 Hour HP Update - Instructions Instructions: If the History and Physical is less than 30 days old and was completed prior to A.M. admission and or procedure and has NOT been updated on calendar day of procedure please complete this update prior to performing procedure. - Update Patient reports changes in Medical Condition: No Changes in examination, assessment, or condition: No Changes in Medication: No Preop tests/diagnostics Reviewed: Yes Surgery Remains Indicated: Yes Consent for Planned Operative Procedure(s) Verified: Yes - Pre-Operative Checklist Prophylactic Antibiotic Ordered: Yes
--- NOTE | 2018-10-11 14:35 | Pre-Sedation Evaluation ---
Pre-sedation evaluation - Pre-sedation checklist Date of procedure: 10/11/18 Procedure: ICD PLACEMENT Recent Vitals: Last Vital Signs Temp 99.4 F 10/11/18 13:22 Pulse 86 10/11/18 13:22 Resp 18 10/11/18 13:22 BP 136/85 10/11/18 13:22 Pulse Ox 98 10/11/18 13:22 H&P (including ROS) documented in medical record: Yes Previous reaction to sedatives/anesthetics: No Dietary Status: NPO after Midnight Airway Assessment: Patient can open mouth completely, TMJ function normal, Micrognathia (under-bite, receding chin) absent Dentition: full dentition Possible difficult airway: No ASA Classification *see protocol: CLASS II-Mild systemic disease Plan of Care: Pt appropriate candidate for procedure/moderate/conscious sedation, Risks/benefits of procedure/sedation discussed w/ patient/family
[2018-10-11] MEDS ORDERED: Water for inj. (sterile) 10 ML IV ONE (14:36)
[2018-10-11] MEDS ORDERED: 0.9 % Sodium Chloride 500 ML ONE (14:36)
[2018-10-11] MEDS ORDERED: *HR* Midazolam HCl 2 MG/2 ML VIAL ONE ×2 (14:37→14:51)
[2018-10-11] MEDS ORDERED: *HR* FentaNYL (PF) 100 MCG/2 ML VIAL ONE (14:37)
--- NOTE | 2018-10-11 14:59 | Electrocardiograph Report ---
[place] [id number] Test Date: 2018-10-11 Pat Name: Madison Mejía Department: 106 Room: Gender: F Work Manager: : 1965 Requested By: Ian Xiong Order Number: [id number] Reading MD: Delonte Longoria Measurements Intervals [place] Rate: 87 P: 11 IN: 117 QRS: -4 QRSD: 114 T: 87 QT: 421 QTc: 465 Interpretive Statements SINUS RHYTHM WITH SHORT IN INTERVAL MODERATE INTRAVENTRICULAR CONDUCTION DELAY NONSPECIFIC ST & T-WAVE ABNORMALITY Electronically Signed On 10-11-2018 14:58:29 EDT by Delonte Longoria
[2018-10-11] MEDS: *HR* OxyCODONE Immed Rel 5 MG TABLET PO PRN ×2 (16:58→21:16)
[2018-10-11] MEDS: Acetaminophen 325 MG TABLET PO PRN (19:27)
[2018-10-11] MEDS: SACUBITRIL/VALSARTAN 49/51 MG TABLET PO SCH (21:15)
[2018-10-11] MEDS: Metoprolol XL (24 HR) Succ 50 MG TAB.ER.24H PO SCH (21:15)
[2018-10-12] MEDS: *HR* OxyCODONE Immed Rel 5 MG TABLET PO PRN ×4 (02:52→19:31)
[2018-10-12 05:17] LABS: BUN/Creatinine Ratio 15 (6-26); Blood Urea Nitrogen 17 mg/dL (6-20); Carbon Dioxide 25 mEq/L (23-29); Chloride 104 mEq/L (98-107); Potassium 3.5 mEq/L (3.5-5.1); Sodium 137 mEq/L (136-145); eGFR For Non-African Americans 49 (> 60)
[2018-10-12] MEDS: *HR* Metformin 500 MG TABLET PO SCH (09:17)
[2018-10-12] MEDS: ARIPiprazole 5 MG TABLET PO SCH (09:17)
[2018-10-12] MEDS: Aspirin 81 MG TAB.CHEW PO SCH (09:17)
[2018-10-12] MEDS: SACUBITRIL/VALSARTAN 49/51 MG TABLET PO SCH ×2 (09:17→21:20)
[2018-10-12] MEDS: Furosemide 40 MG TABLET PO SCH (09:18)
[2018-10-12] MEDS: Metoprolol XL (24 HR) Succ 50 MG TAB.ER.24H PO SCH ×2 (09:18→21:21)
[2018-10-12] MEDS: Ketoconazole 2% CRM 15 GM TUBE TP SCH (09:23)
--- NOTE | 2018-10-12 11:10 | Discharge Summary ---
Orders not resulted at time of discharge: Pending orders 10/11/18 13:05 CL Insert ICD [CL] Routine 10/12/18 09:39 UA w. reflex culture [Urinalysis Reflex Cult & Micro] [URIN] Stat 10/12/18 11:01 CBC [Complete Blood Count] [HEME] Routine Date of Encounter: 10/12/18 Time of Encounter: 11:02 - Discharge Diagnosis (1) S/P ICD (internal cardiac defibrillator) procedure Priority: Primary Status: Acute (2) Ischemic cardiomyopathy Priority: Primary Status: Chronic (3) Congestive heart failure Priority: Secondary Status: Chronic Qualifiers: Heart failure type: systolic Heart failure chronicity: chronic Qualified Code(s): I50.22 - Chronic systolic (congestive) heart failure (4) CAD (coronary artery disease) Priority: Secondary Status: Chronic Qualifiers: Coronary Disease-Associated Artery/Lesion type: [place] artery [place] vs. transplanted heart: [place] heart Associated angina: without angina Qualified Code(s): I25.10 - Atherosclerotic heart disease of [place] coronary artery without angina pectoris - Hospital Course Hospital course: Ms. Mejía is a 53 year old female who presented for elective ICD placement for known ischemic cardiomyopathy. She received a medtronic single chamber ICD inserted by Dr Ian Xiong 09/11/18. There was no complication from procedure. C/o expected mild pain with incision. No redness, edema, or drainage seen. Post day CXR shows normal position and no complication. Post day device check is normal. Out-pt f/u in the device clinic and cardiology office is set. Patient c/o dark urine with odor. UA checked prior to d/c. Reports UTI a couple months ago requiring hospital admit. Of note Pt was NPO all day yesterday. Instructed to drink water today. Prophylactic antibiotics given yesterday per protocal. She is afebrile. She will be discharge home later today with out-pt f/u if testing is ok. UA results will be monitored. - Time Spent with Patient Total time spent providing and/or coordinating discharge services: Greater than 30 minutes (D/c summary, teaching, device check) - Discharge Medications Prescriptions: Continued Aspirin 81 mg PO DAILY Escitalopram [Lexapro] 20 mg PO DAILY Furosemide [Lasix] 40 mg PO DAILY Ketoconazole 2% CRM [Nizoral Cream] 1 appl TP DAILY Ticagrelor [Brilinta] 60 mg PO Metformin HCl [Fortamet] 1,000 mg PO QDPC Albuterol Sulfate [Ventolin Hfa] 18 gm IH DAILY PRN PRN Reason: Shortness Of Breath Sacubitril/Valsartan 49/51 mg [Entresto 49 mg-51 mg Tablet] 1 tab PO BID HydrOXYzine 10 mg PO TID PRN PRN Reason: Anxiety Atorvastatin [Lipitor] 40 mg PO HS Metoprolol Succinate [[place] Sprinkle] 25 - 50 mg PO BID Aripiprazole [Abilify] 5 mg PO DAILY Home Medications: Aspirin 81 mg PO DAILY 04/24/17 [History] Escitalopram [Lexapro] 20 mg PO DAILY 08/03/18 [History] Furosemide [Lasix] 40 mg PO DAILY 08/03/18 [History] Albuterol Sulfate [Ventolin Hfa] 18 gm IH DAILY PRN 08/13/18 [History] Ketoconazole 2% CRM [Nizoral Cream] 1 appl TP DAILY 08/13/18 [History] Metformin HCl [Fortamet] 1,000 mg PO QDPC 08/13/18 [History] Ticagrelor [Brilinta] 60 mg PO 08/13/18 [History] Aripiprazole [Abilify] 5 mg PO DAILY 10/11/18 [History] Atorvastatin [Lipitor] 40 mg PO HS 10/11/18 [History] HydrOXYzine 10 mg PO TID PRN 10/11/18 [History] Metoprolol Succinate [[place]sp[place] Sprinkle] 25 - 50 mg PO BID 10/11/18 [History] Sacubitril/Valsartan 49/51 mg [Entresto 49 mg-51 mg Tablet] 1 tab PO BID 10/11/18 [History] Allergies/Adverse Reactions: Allergy/AdvReac Type Severity Reaction Status Date / Time Sulfa (Sulfonamide Allergy Hives/nause Verified 08/13/18 13:31 Antibiotics) a chocolate Allergy Hives Uncoded 08/03/18 14:39 Primary care physician: Kassy Adorno, PILER Physical Examination Vital Signs, Last 4 Hours Temp Pulse Resp BP Pulse Ox 10/12/18 07:03 98.3 F 61 18 129/83 94 General: Conversant, No Apparent Distress HEENT: Atraumatic, Normocephaly, Mucus Membranes Moist Neck: No JVD, Normal carotid pulses Cardiac: Reg Rate and Rhythm, Normal S1 and S2, No Murmur, Other (STAN dressing D/I. No redness, edema, or drainage.) Lungs: Normal Breath Sounds, No Wheeze, Rales, Rhonchi Neuro: Alert and responsive, No focal deficits noted Abdomen: Soft, Non-Tender Skin: No rashes noted on visualized skin Musculoskeletal: No Chest Wall Tenderness Extremities: No Clubbing, No Cyanosis, No Edema, Normal Pulses - Patient Status Disposition: Home, Self-Care Condition: Fair Functional capacity at discharge: independent ambulation Overall status at discharge: patient is back to baseline - Discharge Instructions Follow Up With: Kassy Adorno CNP [Primary Care Provider] - Additional Instructions: ACTIVITY: Moderate activity for the next 7 days. No lifting more than 5 pounds (gallon of milk) for 4-6 weeks. Avoid lifting your arm on the same side as the device for 4 weeks. BATHING /SHOWERING: Do not remove the large bandage over the site for 2 days. Do not allow the device to get wet for 7-10 days. You may bathe/shower, but do not use soap and water on the site. When bathing, keep the site dry by covering with Saran wrap or a towel. WOUND CARE: The white steri-strips will start to peel away and come off after 14 days, or your doctor will remove them after [address] anything into or on top of the incision. Do not use cotton swabs. Do not use any antibiotic ointment or Vitamin E on the site. REMINDERS: You may use electrical devices, such as, microwaves, hair dryers, electric razors, electric blankets, etc. as long as they are in good condition and kept 6-8 inches away from the device. It is recommended to use cell phones on the opposite side of your device. Notify security personnel at the airport that you have a device before you go through airport security screening. When at places with security monitors, such as a grocery store, do not linger near these monitors. It is fine to walk past them in a normal manner. Refer to your owners manual for more specific directions. CARRY YOUR PACEMAKER/ICD CARD WITH YOU AT ALL TIMES Return to work as instructed per physician Resume driving as instructed per physician Keep all scheduled follow up appointments Resume medications as instructed Contact [facility] ( ) if: You develop excessive bleeding from insertion or wound site not controlled by applying pressure You develop a fever greater than 101 degrees Fahrenheit Your incision becomes reddened at or around the site Your incision develops yellowish or greenish drainage or development of white pimple-like bumps You experience excessive pain You develop swelling in your ankles You experience muscle switching You develop excessive hiccupping If you experience chest pain, shortness of breath, dizziness, or extreme tiredness, stop the activity and rest. Please notify [facility] office if you experience any of these symptoms and they are not relieved by rest please call 911! - Diet and Activity Activity: increase activity as tolerated Diet: low fat, low cholesterol, low salt diet
[2018-10-12 11:27] LABS: Basophils # 0.1 K/mcL (0.0-0.2); Basophils % 0.8 %; Eosinophils # 0.2 K/mcL (0.0-0.6); Eosinophils % 2.1 %; Hemoglobin 15.2 g/dL (11.5-15.4); Immature Granulocytes % 0.5 % (0-4); Lymphocytes # 1.6 K/mcL (0.6-4.6); Lymphocytes % 21.2 %; Mean Corpuscular HGB Conc 32.3 g/dL (31.6-35.5); Mean Corpuscular Hemoglobin 30.2 pg (28.0-33.3); Mean Corpuscular Volume 93.3 fL (83.0-100.0); Mean Platelet Volume 9.4 fL (9.4-12.4); Monocytes # 0.7 K/mcL (0.0-1.3); Monocytes % 9.2 %; Neutrophils # 5.1 K/mcL (1.6-8.9); Platelet Count 190 K/mcL (140-400); Red Blood Count 5.04 M/mcL (3.82-4.97); Segmented Neutrophils % 66.2 %
[2018-10-12 11:49] LABS: Bilirubin,Urine Negative (Negative); Blood,Urine Trace (Negative); Clarity,Urine Cloudy (Clear); Color,Urine Yellow (Yellow); Glucose,Urine (UA) Normal (Normal); Ketones,Urine Negative (Negative); Leukocyte Esterase,Urine Large (Negative); Nitrite,Urine Negative (Negative); Protein,Urine Trace mg/dL (Neg-Trace); Specific Gravity,Urine 1.019 (1.010-1.025); Urobilinogen,Urine Normal (Normal)
[2018-10-12 11:54] LABS: Bacteria,Urine None Seen per hpf (None-Few); Hyaline Casts,Urine None Seen per lpf (None-Few); Squamous Epithelial Cell,Urine Many per lpf (None-Few); WBC,Urine TNTC per hpf (0-3)
--- NOTE | 2018-10-12 14:12 | Event Note ---
Date of Encounter: 10/12/18 Time of Encounter: 14:08 - Cardiology Event Note UA found to be abnormal and culture pending. Discussed with patient. She c/o feeling very unwell. She feels like she did with her admission in July for sepsis and UTI. C/o malaise, nausea, chills, and foul smelling urine. Hospita list consulted for evaluation and recommendations. We will defer discharge at this time and re-evaluate in am.
--- NOTE | 2018-10-12 14:32 | Internal Medicine Consult Note ---
<BrittJohn Paul - Last Filed: 10/12/18 15:04> Date of Encounter: 10/12/18 Time of Encounter: 14:25 - Assessment and Plan (1) ESBL (extended spectrum beta-lactamase) producing bacteria infection Current Visit: No Status: Acute Assessment and plan: 53F POD2 elective ICD placement for ischemic CM now with nausea, vomiting, dark urine EKG NSR with short CO interval post surgical CXR without acute process Previous history of ESBL infection in July 2018 UA + leukocyte esterase, trace blood, pending urine culture She received dose of cefazolin we will obtain BCx prior to starting empiric antibiotic ertapenem as patient appears acutely ill Continue contact precautions Zofran for nausea and vomiting Tylenol for fever, [place] 5 for pain prn Continue IVFs Monitor with AM labs (2) Nausea and vomiting Current Visit: Yes Status: Acute Assessment and plan: N/V in the setting of post-operative ICD implantation IV Zofran as needed. Qualifiers: Vomiting type: unspecified Vomiting Intractability: unspecified Qualified Code(s): R11.2 - Nausea with vomiting, unspecified (3) S/P ICD (internal cardiac defibrillator) procedure Current Visit: Yes Status: Acute Assessment and plan: POD 2 (4) DVT prophylaxis Current Visit: No Status: Acute Assessment and plan: Heparin SQ (5) HTN (hypertension) Current Visit: No Status: Chronic Assessment and plan: Chronic and controlled. Continue to monitor vital signs Qualifiers: Hypertension type: essential hypertension Qualified Code(s): I10 - Essential (primary) hypertension (6) Obesity (BMI 30-39.9) Current Visit: No Status: Chronic (7) Type 2 diabetes mellitus Current Visit: No Status: Chronic Assessment and plan: Chronic and controlled. 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 Mejía is a 53 year old female PMHx CAD, type II DM, CHF with rEF, depr ession presented for elective ICD placement for known ischemic cardiomyopathy on 10/11/18. She received a medtronic single chamber ICD inserted by Dr Ian Xiong 10/11/18 without complications. Post day CXR shows normal position and no complication. Post day device check is normal. However, patient began to experience chills, nausea, vomiting, dysuria with dark urine. She had sepsis 2/2 ESBL in July 2018 and symptoms are similar. UA with trace blood and leukocyte esterase, now pending urine culture. Patient now on contact precautions. She received dose of cefazolin without symptomatic relief. Past Med Surg Social Fam HX - Past Medical History Medical history: coronary artery disease, diabetes, GERD, hyperlipidemia, hypert ension, kidney stones, myocardial infarction Additional medical history: SEIZURE,DEPRESSION, ANXIETY,OPIOD USE IN REMISSION,IBS,GERD,SYNCOPE, BLOOD CLOT RIGHT ARM Psychiatric history: anxiety, depression - Past Surgical History Surgical History: appendectomy, colectomy, ureteral stent Additional surgical history: TONSILLECTOMY,LITHOTRIPSY, CARDIAC STENTS X2 - Social History Smoking Status: Current every day smoker Packs per day: LESS THAN 1/2 PACK Smokeless Tobacco Status: No Alcohol use: none Drug use: none - Family History Mother Adopted: No Living Status: Still Living Hx Family Cardiac Disorders: Yes (father,grandfather) Hx Family Respiratory Disorders: No Hx Family Cancer: No Hx Family GI Disorders: Yes (self) Hx Family Endocrine Disorder: Yes (diabetes mother) Hx Family Neuromuscular Disorders: No Hx Family Neurologic Disorders: Yes (grandmother) Hx Family HEENT Disorders: No Hx Family Autoimmune Disorders: Yes (cousin lupus) Internal Medicine - CN: Meds Aspirin 81 mg PO DAILY 04/24/17 [History] Escitalopram [Lexapro] 20 mg PO DAILY 08/03/18 [History] Furosemide [Lasix] 40 mg PO DAILY 08/03/18 [History] Albuterol Sulfate [Ventolin Hfa] 18 gm IH DAILY PRN 08/13/18 [History] Ketoconazole 2% CRM [Nizoral Cream] 1 appl TP DAILY 08/13/18 [History] Metformin HCl [Fortamet] 1,000 mg PO QDPC 08/13/18 [History] Ticagrelor [Brilinta] 60 mg PO 08/13/18 [History] Aripiprazole [Abilify] 5 mg PO DAILY 10/11/18 [History] Atorvastatin [Lipitor] 40 mg PO HS 10/11/18 [History] HydrOXYzine 10 mg PO TID PRN 10/11/18 [History] Metoprolol Succinate [Kapspargo Sprinkle] 25 - 50 mg PO BID 10/11/18 [History] Sacubitril/Valsartan 49/51 mg [Entresto 49 mg-51 mg Tablet] 1 tab PO BID 10/11/18 [History] Allergy/AdvReac Type Severity Reaction Status Date / Time Sulfa (Sulfonamide Allergy Hives/nause Verified 08/13/18 13:31 Antibiotics) a chocolate Allergy Hives Uncoded 08/03/18 14:39 Hospitalist - CN: Exam - Constitutional Vitals: Temp Pulse Resp BP Pulse Ox 98.3 F 61 18 129/83 94 10/12/18 07:03 10/12/18 07:03 10/12/18 07:03 10/12/18 07:03 10/12/18 07:03 General appearance IM: Present: A&O X 3 Exam: ill appearing - Head Head exam: Present: atraumatic, normocephalic - ENT ENT exam: Present: mucous membranes dry - Neck Neck exam general surgery: Present: full ROM, supple, trachea midline - Respiratory Respiratory exam: Present: CTAB. Absent: accessory muscle use - Cardiovascular Cardiovascular exam IM: Present: RRR, +S1, +S2. Absent: systolic murmur - GI/Abdominal GI/Abdominal exam IM: Present: normal bowel sounds, no peritoneal signs. Absent: tenderness - Extremities Exam Extremities exam IM: Present: radial pulses palpable and symmetrical - Back Exam Back exam: Present: normal inspection - Neurological Exam Neurological exam: Present: CN II-XII intact, oriented X3 Internal Medicine - CN: Reslt - Labs CBC & Chem 7: 10/12/18 04:16 10/12/18 04:17 Labs: Short CBC 10/11/18 10/12/18 10/12/18 Range/Units 16:31 04:16 04:17 WBC 7.6 (4.3-11.1) K/mcL RBC 5.04 H (3.82-4.97) M/mcL Hgb 15.2 (11.5-15.4) g/dL Hct 47.0 H (35.3-44.9) % MCV 93.3 (83.0-100.0) fL MCH 30.2 (28.0-33.3) pg MCHC 32.3 (31.6-35.5) g/dL RDW 18.0 H (11.5-14.5) % Plt Count 190 (140-400) K/mcL MPV 9.4 (9.4-12.4) fL Immature Gran % 0.5 (0-4) % Seg Neutrophils % 66.2 % Lymphocytes % 21.2 % Monocytes % 9.2 % Eosinophils % 2.1 % Basophils % 0.8 % Neutrophils # 5.1 (1.6-8.9) K/mcL Lymphocytes # 1.6 (0.6-4.6) K/mcL Monocytes # 0.7 (0.0-1.3) K/mcL Eosinophils # 0.2 (0.0-0.6) K/mcL Basophils # 0.1 (0.0-0.2) K/mcL Sodium 137 (136-145) mEq/L Potassium 3.5 (3.5-5.1) mEq/L Chloride 104 (98-107) mEq/L Carbon Dioxide 25 (23-29) mEq/L BUN 17 (6-20) mg/dL Creatinine 1.16 (0.60-1.20) mg/dL Est GFR ( Amer) 59 L (> 60) Est GFR (Non-Af Amer) 49 L (> 60) BUN/Creatinine Ratio 15 (6-26) POC Glucose 106 H (70-99) mg/dL Urine Color (Yellow) Urine Clarity (Clear) Urine pH (5.0-8.0) pH Units Ur Specific [place] (1.010-1.025) Urine Protein (Neg-Trace) mg/dL Urine Glucose (UA) (Normal) mg/dL Urine Ketones (Negative) mg/dL Urine Blood (Negative) Urine Nitrite (Negative) Urine Bilirubin (Negative) Urine Urobilinogen (Normal) mg/dL Ur Leukocyte Esterase (Negative) Urine Microscopic RBC (0-3) per hpf Urine Microscopic WBC (0-3) per hpf Ur Squamous Epith Cells (None-Few) per lpf Urine Bacteria (None-Few) per hpf Hyaline Casts (None-Few) per lpf Ur Culture Indicated? (NO) 10/12/18 Range/Units 11:40 WBC (4.3-11.1) K/mcL RBC (3.82-4.97) M/mcL Hgb (11.5-15.4) g/dL Hct (35.3-44.9) % MCV (83.0-100.0) fL MCH (28.0-33.3) pg MCHC (31.6-35.5) g/dL RDW (11.5-14.5) % Plt Count (140-400) K/mcL MPV (9.4-12.4) fL Immature Gran % (0-4) % Seg Neutrophils % % Lymphocytes % % Monocytes % % Eosinophils % % Basophils % % Neutrophils # (1.6-8.9) K/mcL Lymphocytes # (0.6-4.6) K/mcL Monocytes # (0.0-1.3) K/mcL Eosinophils # (0.0-0.6) K/mcL Basophils # (0.0-0.2) K/mcL Sodium (136-145) mEq/L Potassium (3.5-5.1) mEq/L Chloride (98-107) mEq/L Carbon Dioxide (23-29) mEq/L BUN (6-20) mg/dL Creatinine (0.60-1.20) mg/dL Est GFR ( Amer) (> 60) Est GFR (Non-Af Amer) (> 60) BUN/Creatinine Ratio (6-26) POC Glucose (70-99) mg/dL Urine Color Yellow (Yellow) Urine Clarity Cloudy A (Clear) Urine pH 6.0 (5.0-8.0) pH Units Ur Specific [place] 1.019 (1.010-1.025) Urine Protein Trace (Neg-Trace) mg/dL Urine Glucose (UA) Normal (Normal) mg/dL Urine Ketones Negative (Negative) mg/dL Urine Blood Trace H (Negative) Urine Nitrite Negative (Negative) Urine Bilirubin Negative (Negative) Urine Urobilinogen Normal (Normal) mg/dL Ur Leukocyte Esterase Large H (Negative) Urine Microscopic RBC 5-15 H (0-3) per hpf Urine Microscopic WBC TNTC H (0-3) per hpf Ur Squamous Epith Cells Many H (None-Few) per lpf Urine Bacteria None Seen (None-Few) per hpf Hyaline Casts None Seen (None-Few) per lpf Ur Culture Indicated? YES A (NO) BMP 10/12/18 04:17 Sodium 137 Potassium 3.5 Chloride 104 Carbon Dioxide 25 BUN 17 Creatinine 1.16 Urine 10/12/18 Range/Units 11:40 Urine Color Yellow (Yellow) Urine Clarity Cloudy A (Clear) Urine pH 6.0 (5.0-8.0) pH Units Ur Specific [place] 1.019 (1.010-1.025) Urine Protein Trace (Neg-Trace) mg/dL Urine Glucose (UA) Normal (Normal) mg/dL - Impressions Impressions Chest X-Ray 10/11/18 15:25 IMPRESSION: New left chest wall AICD. No acute process. D/ / Darling Pulido MD / Darling Pulido MD Interpreting Provider: Darling Pulido MD Chest X-Ray 10/12/18 06:00 IMPRESSION: Interval placement of cardiac device with leads projecting in expected position No immediate postprocedure complication identified Bibasilar atelectasis D/ / 10/12/2018 09:29:48 Ryne Matos MD / renaldo Interpreting Provider: Ryne Matos MD Consult Discharge Plan - Plan Additional Instructions: ACTIVITY: Moderate activity for the next 7 days. No lifting more than 5 pounds (gallon of milk) for 4-6 weeks. Avoid lifting your arm on the same side as the device for 4 weeks. BATHING /SHOWERING: Do not remove the large bandage over the site for 2 days. Do not allow the device to get wet for 7-10 days. You may bathe/shower, but do not use soap and water on the site. When bathing, keep the site dry by covering with Saran wrap or a towel. WOUND CARE: The white steri-strips will start to peel away and come off after 14 days, or your doctor will remove them after [address] anything into or on top of the incision. Do not use cotton swabs. Do not use any antibiotic ointment or Vitamin E on the site. REMINDERS: You may use electrical devices, such as, microwaves, hair dryers, electric razors, electric blankets, etc. as long as they are in good condition and kept 6-8 inches away from the device. It is recommended to use cell phones on the opposite side of your device. Notify security personnel at the airport that you have a device before you go through airport security screening. When at places with security monitors, such as a grocery store, do not linger near these monitors. It is fine to walk past them in a normal manner. Refer to your owners manual for more specific directions. CARRY YOUR PACEMAKER/ICD CARD WITH YOU AT ALL TIMES Return to work as instructed per physician Resume driving as instructed per physician Keep all scheduled follow up appointments Resume medications as instructed Contact [facility] ( ) if: You develop excessive bleeding from insertion or wound site not controlled by applying pressure You develop a fever greater than 101 degrees Fahrenheit Your incision becomes reddened at or around the site Your incision develops yellowish or greenish drainage or development of white pimple-like bumps You experience excessive pain You develop swelling in your ankles You experience muscle switching You develop excessive hiccupping If you experience chest pain, shortness of breath, dizziness, or extreme tir edness, stop the activity and rest. Please notify [facility] office if you experience any of these symptoms and they are not relieved by rest please call 911! Referrals: Kassy Adorno CNP [Primary Care Provider] - <Kenneth Chavez - Last Filed: 10/12/18 15:17> Date of Encounter: 10/12/18 - Time Spent With Patient Total time spent is greater than 50% in coordination of care (as documented) at patient's floor/unit and/or counseling patient: Internal Medicine - CN: HPI - Data of Consult Requesting Physician: Ian Xiong, - Consult Narrative History of present illness: Ms. Mejía is a 53 year old female Hospitalist - CN: Exam - Constitutional Vitals: Temp Pulse Resp BP Pulse Ox 98.3 F 61 18 129/83 94 10/12/18 07:03 10/12/18 07:03 10/12/18 07:03 10/12/18 07:03 10/12/18 07:03 Internal Medicine - CN: Reslt - Labs CBC & Chem 7: 10/12/18 04:16 10/12/18 04:17 Labs: Short CBC 10/12/18 Range/Units 04:16 WBC 7.6 (4.3-11.1) K/mcL Hgb 15.2 (11.5-15.4) g/dL Hct 47.0 H (35.3-44.9) % Plt Count 190 (140-400) K/mcL Neutrophils # 5.1 (1.6-8.9) K/mcL BMP 10/12/18 04:17 Sodium 137 Potassium 3.5 Chloride 104 Carbon Dioxide 25 BUN 17 Creatinine 1.16 Urine 10/12/18 Range/Units 11:40 Urine Color Yellow (Yellow) Urine Clarity Cloudy A (Clear) Urine pH 6.0 (5.0-8.0) pH Units Ur Specific [place] 1.019 (1.010-1.025) Urine Protein Trace (Neg-Trace) mg/dL Urine Glucose (UA) Normal (Normal) mg/dL - Impressions Impressions Chest X-Ray 10/11/18 15:25 IMPRESSION: New left chest wall AICD. No acute process. D/ / Darling Pulido MD / Darling Pulido MD Interpreting Provider: Darling Pulido MD Chest X-Ray 10/12/18 06:00 IMPRESSION: Interval placement of cardiac device with leads projecting in expected position No immediate postprocedure complication identified Bibasilar atelectasis D/ / 10/12/2018 09:29:48 Ryne Matos MD / renaldo Interpreting Provider: Ryne Matos MD - Attending Attestation I examined this patient and my medical decision-making was reviewed with the Resident Physician Dr. De La Torre. I agree with the documented findings, disposition and treatment plan as described except to the extent set forth below. Ms. Mejía is a 53 year old female with known PMHx of CAD, type II DM, CHF with rEF, depression and recurent UTI with presented for elective ICD placement for known ischemic cardiomyopathy on 10/11/18. She received a medtronic single chamber ICD inserted by Dr Ian Xiong 10/11/18 without complications. Today patient is complaining about chills, lethargic, and feeling sick with nausea. She denied any CP. Incision over left chest wall looks clean. She did c/o inc urinary freq uency and micturition. Gen: A, A, O x 3 Chest: Diminished BS b/l, no crackles Heart: S1S2+ RRR No murmurs Abd: Soft, NT, B+ Back: no CVA tenderness a/p 1. Acute UTI abnormal UA known h/o ESBL E. Coli will obtain blood cx x 2 since she just had AICD placed started on Ertapanem IV abx cont close monitoring 2. s/p AICD POD # 1 Post op care as per Card
[2018-10-12] MEDS ORDERED: Lidocaine 1% 20 ML MDV IM ONE (15:07)
[2018-10-12] MEDS: Ondansetron 4 MG/2 ML VIAL IVP PRN ×2 (15:21→21:21)
[2018-10-12] MEDS: 0.9 % Sodium Chloride 1,000 ML IVC SCH (15:30)
[2018-10-12] MEDS: *HR* Heparin 5,000 UNIT/ML VIAL SQ SCH (17:32)
[2018-10-13] MEDS: *HR* Heparin 5,000 UNIT/ML VIAL SQ SCH (04:40)
[2018-10-13] MEDS: Ondansetron 4 MG/2 ML VIAL IVP PRN ×2 (04:40→10:47)
[2018-10-13 05:35] LABS: Alanine Aminotransferase 9 Units/L (7-52); Alkaline Phosphatase 89 Units/L (34-104); Aspartate Amino Transferase 18 Units/L (13-39); BUN/Creatinine Ratio 16 (6-26); Bilirubin,Total 0.6 mg/dL (0.3-1.0); Blood Urea Nitrogen 16 mg/dL (6-20); Calcium 9.1 mg/dL (8.6-10.3); Carbon Dioxide 28 mEq/L (23-29); Chloride 101 mEq/L (98-107); Glucose 120 mg/dL (70-105); Osmolality,Calculated 286 (280-300); Potassium 3.7 mEq/L (3.5-5.1); Sodium 137 mEq/L (136-145); Total Protein 6.2 g/dL (6.4-8.9); eGFR For Non-African Americans 57 (> 60)
[2018-10-13 05:36] LABS: Albumin 3.7 g/dL (3.5-5.7); Albumin/Globulin Ratio 1.5 (1.1-2.2); Globulin 2.5 g/dL (2.4-3.5)
[2018-10-13 07:15] VITALS: BP 123/74
[2018-10-13] MEDS ORDERED: Ertapenem 1,000 MG in 0.9 % Sodium Chloride Mini Bag 100 ML IVPB SCH (09:00)
[2018-10-13] MEDS: Acetaminophen 325 MG TABLET PO PRN (09:27)
[2018-10-13] MEDS: Metoprolol XL (24 HR) Succ 50 MG TAB.ER.24H PO SCH (09:28)
[2018-10-13] MEDS: Furosemide 40 MG TABLET PO SCH (09:29)
[2018-10-13] MEDS: *HR* Metformin 500 MG TABLET PO SCH (09:29)
[2018-10-13] MEDS: ARIPiprazole 5 MG TABLET PO SCH (09:29)
[2018-10-13] MEDS: Aspirin 81 MG TAB.CHEW PO SCH (09:29)
[2018-10-13] MEDS: Ketoconazole 2% CRM 15 GM TUBE TP SCH (09:29)
[2018-10-13] MEDS: SACUBITRIL/VALSARTAN 49/51 MG TABLET PO SCH (09:29)
--- NOTE | 2018-10-13 10:01 | Internal Med Progress Note ---
Hospitalist Progress Note - Encounter Date of Encounter: 10/13/18 Time of Encounter: 09:59 - Subjective Interval History: Patient seen and examined in the room, she reported occasional nausea but has no vomiting or diarrhea. She denies any chest pain, shortness breath, palpitation, or lightheadedness. Overnight, patient has no fever, chills, or night sweats. She did report occasional frequency, but denies dysuria, urgency, or foul smell of urine. - Exam Vitals: Temp Pulse Resp BP Pulse Ox 98.7 F 76 19 123/74 97 10/13/18 07:10 10/13/18 07:10 10/13/18 07:10 10/13/18 07:10 10/13/18 07:10 Exam: PHYSICAL EXAMINATION: GENERAL APPEARANCE: The patient is alert, oriented and in no acute distress. HEENT: Head is normocephalic. The sinuses are nontender. Pupils are equal and reactive. The nares are patent. Oropharynx clear without lesions. NECK: Supple without lymphadenopathy. HEART: Regular rate and rhythm. LUNGS: No crackles or wheezes are heard. ABDOMEN: Soft, nontender, nondistended with good bowel sounds heard. Inguinal area is normal. EXTREMITIES: Without cyanosis, clubbing or edema. NEUROLOGICAL: Gross nonfocal. SKIN: Warm and dry without any rash. - Assessment and Plan (1) UTI (urinary tract infection) Current Visit: No Status: Acute Assessment and Plan: 53-year-old female underwent elective ICD placement on 10/12 developed generalized weakness and nausea post procedure. UA showed possible UTI. Patient had a history of ESBL UTI recently. Ertapanem IV was started based on the recent sensitivity study. Patient doing well this morning, she does not have signs of symptoms of systemic infection, afebrile, WBC normal. We will switch IV antibiotics to oral Augmentin, patient is stable to discharge from hospitalist group standpoint. (2) S/P ICD (internal cardiac defibrillator) procedure Current Visit: Yes Status: Acute Assessment and Plan: Doing well, no chest pain, shortness breath, palpitation, or lightheadedness. Cardiology following. (3) DVT prophylaxis Current Visit: No Status: Acute Assessment and Plan: Heparin subcutaneous. - Time Spent with Patient Total time spent is greater than 50% in coordination of care (as documented) at patient's floor/unit and/or counseling patient: less than 15 minutes Plan of Care Discussed with: patient Internal Medicine: Result - Labs CBC & Chem 7: 10/12/18 04:16 10/13/18 04:20 Labs: Short CBC 10/12/18 Range/Units 04:16 WBC 7.6 (4.3-11.1) K/mcL Hgb 15.2 (11.5-15.4) g/dL Hct 47.0 H (35.3-44.9) % Plt Count 190 (140-400) K/mcL Neutrophils # 5.1 (1.6-8.9) K/mcL BMP 10/13/18 04:20 Sodium 137 Potassium 3.7 Chloride 101 Carbon Dioxide 28 BUN 16 Creatinine 1.02 Glucose 120 H Calcium 9.1 Liver Function 10/13/18 Range/Units 04:20 Total Bilirubin 0.6 (0.3-1.0) mg/dL AST 18 (13-39) Units/L ALT 9 (7-52) Units/L Alkaline Phosphatase 89 (34-104) Units/L Albumin 3.7 (3.5-5.7) g/dL Urine 10/12/18 Range/Units 11:40 Urine Color Yellow (Yellow) Urine Clarity Cloudy A (Clear) Urine pH 6.0 (5.0-8.0) pH Units Ur Specific Hermon 1.019 (1.010-1.025) Urine Protein Trace (Neg-Trace) mg/dL Urine Glucose (UA) Normal (Normal) mg/dL Consult Discharge Plan - Plan Additional Instructions: ACTIVITY: Moderate activity for the next 7 days. No lifting more than 5 pounds (gallon of milk) for 4-6 weeks. Avoid lifting your arm on the same side as the device for 4 weeks. BATHING /SHOWERING: Do not remove the large bandage over the site for 2 days. Do not allow the device to get wet for 7-10 days. You may bathe/shower, but do not use soap and water on the site. When bathing, keep the site dry by covering with Saran wrap or a towel. WOUND CARE: The white steri-strips will start to peel away and come off after 14 days, or your doctor will remove them after [address] anything into or on top of the incision. Do not use cotton swabs. Do not use any antibiotic ointment or Vitamin E on the site. REMINDERS: You may use electrical devices, such as, microwaves, hair dryers, electric razors, electric blankets, etc. as long as they are in good condition and kept 6-8 inches away from the device. It is recommended to use cell phones on the opposite side of your device. Notify security personnel at the airport that you have a device before you go through airport security screening. When at places with security monitors, such as a grocery store, do not linger near these monitors. It is fine to walk past them in a normal manner. Refer to your owners manual for more specific directions. CARRY YOUR PACEMAKER/ICD CARD WITH YOU AT ALL TIMES Return to work as instructed per physician Resume driving as instructed per physician Keep all scheduled follow up appointments Resume medications as instructed Contact [facility] ( ) if: You develop excessive bleeding from insertion or wound site not controlled by applying pressure You develop a fever greater than 101 degrees Fahrenheit Your incision becomes reddened at or around the site Your incision develops yellowish or greenish drainage or development of white pimple-like bumps You experience excessive pain You develop swelling in your ankles You experience muscle switching You develop excessive hiccupping If you experience chest pain, shortness of breath, dizziness, or extreme tiredness, stop the activity and rest. Please notify [facility] office if you experience any of these symptoms and they are not relieved by rest please call 911! Referrals: Kassy Adorno, [facility] [Primary Care Provider] - (Follow up appointment has been requested. Office will call with date and time of appointment. ) (1) UTI (urinary tract infection) Qualifiers: Urinary tract infection type: site unspecified Hematuria presence: without hematuria Qualified Code(s): N39.0 - Urinary tract infection, site not specified
--- NOTE | 2018-10-13 12:41 | Event Note ---
Date of Encounter: 10/13/18 Time of Encounter: 09:00 - Cardiology Event Note Patient seen by primary team for UTI. Discussed with Dr. Reyes, patient has chronic e.coli UTI. Recommended to take augementin 875 mg BID or 7 days. Close out-pt f/u with PCP. Pt feeling better. Some mild nausea noted. She is afebrile and WBC normal. Okay for discharge from UTI standpoint. See d/c summary. S/p ICD placement with no complications. Stay extended due to concern for recurrent UTI and nausea. Patient agrees with plan. assessment: General: Conversant, No Apparent Distress HEENT: Atraumatic, Normocephaly, Mucus Membranes Moist Neck: No JVD, Normal carotid pulses Cardiac: Reg Rate and Rhythm, Normal S1 and S2, No Murmur, Other (STAN dressing D/I. No redness, edema, or drainage.) Lungs: Normal Breath Sounds, No Wheeze, Rales, Rhonchi Neuro: Alert and responsive, No focal deficits noted Abdomen: Soft, Non-Tender Skin: No rashes noted on visualized skin Musculoskeletal: No Chest Wall Tenderness Extremities: No Clubbing, No Cyanosis, No Edema, Normal Pulses ACTIVITY: Moderate activity for the next 7 days. No lifting more than 5 pounds (gallon of milk) for 4-6 weeks. Avoid lifting your arm on the same side as the device for 4 weeks. BATHING /SHOWERING: Do not remove the large bandage over the site for 2 days. Do not allow the device to get wet for 7-10 days. You may bathe/shower, but do not use soap and water on the site. When bathing, keep the site dry by covering with Saran wrap or a towel. WOUND CARE: The white steri-strips will start to peel away and come off after 14 days, or your doctor will remove them after [address] anything into or on top of the incision. Do not use cotton swabs. Do not use any antibiotic ointment or Vitamin E on the site. REMINDERS: You may use electrical devices, such as, microwaves, hair dryers, electric razors, electric blankets, etc. as long as they are in good condition and kept 6-8 inches away from the device. It is recommended to use cell phones on the opposite side of your device. Notify security personnel at the airport that you have a device before you go through airport security screening. When at places with security monitors, such as a grocery store, do not linger near these monitors. It is fine to walk past them in a normal manner. Refer to your owners manual for more specific directions. CARRY YOUR PACEMAKER/ICD CARD WITH YOU AT ALL TIMES Return to work as instructed per physician Resume driving as instructed per physician Keep all scheduled follow up appointments Resume medications as instructed Contact [facility] ( ) if: You develop excessive bleeding from insertion or wound site not controlled by applying pressure You develop a fever greater than 101 degrees Fahrenheit Your incision becomes reddened at or around the site Your incision develops yellowish or greenish drainage or development of white pimple-like bumps You experience excessive pain You develop swelling in your ankles You experience muscle switching You develop excessive hiccupping If you experience chest pain, shortness of breath, dizziness, or extreme tiredness, stop the activity and rest. Please notify [facility] office if you experience any of these symptoms and they are not relieved by rest please call 911!
== END 2018-10-13 12:26 | disposition home or self-care (01) ==
LOC: INVDIALAB 12:28 → 3BNU 12:28
PROVIDERS: ADMIT Internal Medicine Clinical Cardiac Electrophysiology; ATTEND Internal Medicine Clinical Cardiac Electrophysiology

== ENCOUNTER 2019-01-09 16:23 | Observation (INO) ==
[2019-01-09] MEDS ORDERED: Nitroglycerin 1 INCH/GM PACKET TP ONE (16:30)
--- NOTE | 2019-01-09 16:35 | Emergency Department Note ---
Disposition Clinical Impression: NSTEMI (non-ST elevated myocardial infarction) Chest pain Qualifiers: Chest pain type: other chest pain Qualified Code(s): R07.89 - Other chest pain; R07.8 - Other chest pain Disposition: Admitted As Inpatient Condition: Fair Time of Disposition: 19:14 Chest Pain HPI - General Stated Complaint: cp Time Seen by Provider: 01/09/19 16:30 Source: patient, EMS Mode of arrival: EMS Limitations: no limitations Vital Signs Reviewed: Yes Nursing Notes Reviewed: Yes - History of Present Illness HPI Narrative: 53-year-old female past medical history of hypertension and coronary artery disease with myocardial infarction occurring 2-3 months ago presenting to the ED today due to 2 hours of midsternal chest heaviness. The patient expresses this pain as being 5 out of 10 on the pain scale has been mildly relieved with 3 nitroglycerin and 4 baby aspirin given by EMS in route. 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 The patient states she has also been nauseous, short of breath and has right arm numbness and tingling. Patient also states she is having a headache forming since being given nitroglycerin. Patient denies any other concerns or complaints at this time. Upon my initial evaluation, my general impression is that the patient is awake, alert, oriented, engaged to conversation and answering questions appropriately. There are no overt lateralizing signs, the patient is in no acute distress; their skin appears to be normal in color, they are not pale, not cyanotic, and not diaphoretic, they are sitting up in hospital bed interacting appropriately with environment. Pt complaint: chest pain Onset (ago): hour(s) (2 hours) Duration: constant Onset: during exertion Pain Location: substernal Severity: moderate Severity scale (1-10): 5 Quality: heaviness Pain Radiation: none Improves with: nitroglycerin Worsens with: nothing Treatments prior to arrival chest pain: aspirin, nitroglycerin - Related Data Home Medications Medication Instructions Recorded Confirmed Furosemide [Lasix] 40 mg PO BID 08/03/18 01/09/19 Atorvastatin [Lipitor] 40 mg PO HS 10/11/18 01/09/19 HydrOXYzine [Atarax] 10 mg PO Q8H PRN 10/11/18 01/09/19 Sacubitril/Valsartan 49/51 MG 1 tab PO BID 10/11/18 01/09/19 [Entresto 49 mg-51 mg Tablet] Albuterol Sulfate [Proventil 2 puff IH Q6H PRN 11/18/18 01/09/19 Inhaler] Aspirin [Adult Aspirin Regimen] 81 mg PO DAILY 11/18/18 01/09/19 Spironolactone 25 mg PO HS PRN 11/18/18 01/09/19 Metoprolol XL (24 HR) Succ [Toprol 25 mg PO BID 01/09/19 01/09/19 Xl] Quetiapine Fumarate [SEROquel] 25 mg PO HS 01/09/19 01/09/19 Venlafaxine HCl [Venlafaxine HCl 37.5 mg PO DAILY 01/09/19 01/09/19 ER] Previous Rx's Medication Instructions Recorded Nitroglycerin 0.4 mg SL Q5MIN PRN #10 tab.subl 11/20/18 Allergies Allergy/AdvReac Type Severity Reaction Status Date / Time Sulfa (Sulfonamide Allergy Hives/ITCHI Verified 01/09/19 16:34 Antibiotics) NG chocolate Allergy Hives Uncoded 08/03/18 14:39 Review of Systems: *See History of Present Illness for more detail Constitutional: Denies: fever, chills Cardiovascular: Admits: chest pain Respiratory: Admits: dyspnea, denies: cough, hemoptysis Gastrointestinal: Admits: Nausea denies: abdominal pain, vomiting, diarrhea, constipation, hematemesis, melena, hematochezia Genitourinary: Denies: hematuria Musculoskeletal: Denies: back pain, neck pain Neurological: Admits: Weakness,paresthesias in the right arm. Denies: headache, lightheadedness/dizziness, difficulty with ambulation. Endocrine: Denies: fatigue All systems ED: reviewed and negative except as stated. Review of Systems: As Per HPI Chest Pain PMH - Past Medical History Medical history: Reports: CHF, coronary artery disease, diabetes, GERD, hyperlipidemia, hypertension, kidney stones, myocardial infarction Surgical history: Reports: angioplasty/stent, appendectomy, colectomy, ureteral stent, AICD Psychiatric history: Reports: anxiety, depression [employer]ER [employer]IVER history: Reports: spontaneous , ectopic , 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 - Social History Smoking Status: Current every day smoker Alcohol use: Reports: none Drug use: Reports: none Physical Exam Constitutional: No acute distress, [id number], engaged to conversation, speech is fluid, answers questions appropriately Neuro: GCS 15, no overt focal neurological deficits Head: Atraumatic, normocephalic Eyes: Pupils equal, round and reactive to light, no scleral icterus, no conjunctival injection Neck: Trachea midline without deviation. Anterior neck is supple without swelling. *Chest: Symmetric chest wall rise *Heart: Cardiac rhythm and rate are regular with S1 and S2 , no S3 or S4 appreciated, no murmurs, gallops, rubs, or clicks. *Lungs: Lungs are clear to auscultation bilaterally, without accessory muscle use or prolonged expiratory phase. No wheezes, rhonchi or stridor appreciated. Abdomen: Abdomen is flat, soft to palpation, normal bowel sounds. No abdominal bruit auscultated. Non-distended, non-rigid, no organomegaly, no ascites appreciated. No pulsatile mass, no tenderness or guarding to palpation in all four quadrants, no rebound Extremities: Normal capillary refill without evidence of pedal edema, joint swelling or erythema. Pulses/motor intact in all 4 extremities. Psychiatric exam: Patient displays a normal affect and mood for the environment. No overt signs of hallucination. Integumentary: warm, dry, intact, normal color. No rash, cyanosis, diaphoresis, erythema, or pallor - General Limitations: no limitations General appearance: alert, in no apparent distress Course Course Narrative: Chest pain workup EKG/old EKG, chest x-ray, troponin, basic labs Nitroglycerin glycerin patient management of patient's pain - Reevaluation(s) Reevaluation #1: Patient is having continued chest pain despite management with nitroglycerin here in the ED. I will give 75 g of fentanyl this time. Reevaluation #2: Patient found to have troponin elevation at 0.16. She is experiencing and NSTEMI we will start a heparin drip at this time and admit to hospitalist medicine. Vital Signs Temperature 98.3 F 01/09/19 16:30 Pulse Rate 102 01/09/19 16:30 Respiratory Rate 16 01/09/19 16:30 Blood Pressure 165/95 01/09/19 16:30 O2 Sat by Pulse Oximetry 95 01/09/19 16:30 Temperature 98.3 F 01/09/19 16:30 Pulse Rate 91 01/09/19 17:59 Respiratory Rate 16 01/09/19 17:59 Blood Pressure 164/94 01/09/19 17:59 O2 Sat by Pulse Oximetry 94 01/09/19 17:59 Oxygen Delivery Oxygen Delivery Room Air Chest Pain - MDM Narrative Medical decision making narrative: Patient's EKG shows no ischemic pathology, laboratory results are unremarkable with the exception of an elevated troponin 0.16. I have spoken with cardiology who was consulted and are following. Patient started on heparin drip and admitted to hospital medicine service for further evaluation and management. The patient verbalizes her understanding and agreement this plan as hemodynamics stable time of admission. - Lab Data Lab results reviewed: Yes I reviewed the patient's lab results. Result diagrams: 01/09/19 18:34 01/09/19 17:18 Lab Results 01/09/19 01/09/19 01/09/19 Range/Units 17:18 17:18 17:18 WBC 9.0 (4.3-11.1) K/mcL RBC 4.78 (3.82-4.97) M/mcL Hgb 15.2 (11.5-15.4) g/dL Hct 44.9 (35.3-44.9) % MCV 93.9 (83.0-100.0) fL MCH 31.8 (28.0-33.3) pg MCHC 33.9 (31.6-35.5) g/dL RDW 13.9 (11.5-14.5) % Plt Count 189 (140-400) K/mcL MPV 9.3 L (9.4-12.4) fL Immature Gran % 0.4 (0-4) % Seg Neutrophils % 77.5 % Lymphocytes % 13.7 % Monocytes % 6.3 % Eosinophils % 1.2 % Basophils % 0.9 % Neutrophils # 6.9 (1.6-8.9) K/mcL Lymphocytes # 1.2 (0.6-4.6) K/mcL Monocytes # 0.6 (0.0-1.3) K/mcL Eosinophils # 0.1 (0.0-0.6) K/mcL Basophils # 0.1 (0.0-0.2) K/mcL PT 10.6 (9.4-12.1) Seconds INR 0.9 APTT 29.4 (26.0-36.0) Seconds Sodium 140 (136-145) mEq/L Potassium 3.9 (3.5-5.1) mEq/L Chloride 107 (98-107) mEq/L Carbon Dioxide 22 L (23-29) mEq/L BUN 16 (6-20) mg/dL Creatinine 1.07 (0.60-1.20) mg/dL Est GFR ( Amer) > 60 (> 60) Est GFR (Non-Af Amer) 54 L (> 60) BUN/Creatinine Ratio 15 (6-26) Glucose 105 (70-105) mg/dL Calculated Osmolality 292 (280-300) Calcium 8.9 (8.6-10.3) mg/dL Troponin I 0.16 H* (< 0.04) ng/mL 01/09/19 Range/Units 18:34 WBC 9.0 (4.3-11.1) K/mcL RBC 4.88 (3.82-4.97) M/mcL Hgb 15.5 H (11.5-15.4) g/dL Hct 46.1 H (35.3-44.9) % MCV 94.5 (83.0-100.0) fL MCH 31.8 (28.0-33.3) pg MCHC 33.6 (31.6-35.5) g/dL RDW 14.0 (11.5-14.5) % Plt Count 191 (140-400) K/mcL MPV 9.4 (9.4-12.4) fL Immature Gran % (0-4) % Seg Neutrophils % % Lymphocytes % % Monocytes % % Eosinophils % % Basophils % % Neutrophils # (1.6-8.9) K/mcL Lymphocytes # (0.6-4.6) K/mcL Monocytes # (0.0-1.3) K/mcL Eosinophils # (0.0-0.6) K/mcL Basophils # (0.0-0.2) K/mcL PT (9.4-12.1) Seconds INR APTT (26.0-36.0) Seconds Sodium (136-145) mEq/L Potassium (3.5-5.1) mEq/L Chloride (98-107) mEq/L Carbon Dioxide (23-29) mEq/L BUN (6-20) mg/dL Creatinine (0.60-1.20) mg/dL Est GFR ( Amer) (> 60) Est GFR (Non-Af Amer) (> 60) BUN/Creatinine Ratio (6-26) Glucose (70-105) mg/dL Calculated Osmolality (280-300) Calcium (8.6-10.3) mg/dL Troponin I (< 0.04) ng/mL - Radiology Data Radiology results reviewed: Yes I reviewed the patient's radiology results. Chest X-Ray 01/09/19 16:31 IMPRESSION: No acute process. Stable cardiomegaly D/ / Jorge Peterson MD / Jorge Peterson MD Interpreting Provider: Jorge Peterson MD - EKG Data EKG attestation: Yes I reviewed and interpreted this EKG. EKG results narrative: The patient's EKG shows a sinus tachycardia with a nonspecific repolarization abnormality with a heart rate of 11 1 bpm, TX interval of 124 ms, QR restorationism of 97 ms, QT/QTc interval 350/476 ms respectively. There are no significant ST segment elevations, depressions, pathologic Q waves, abnormal T-wave inversions are noted in lead V6 as well as aVL which are inconsistent with prior EKG. Despite these changes this EKG is generally consistent in morphology with prior EKG which was performed on 11/18/2018. Heart Score - Score History: Moderately Suspicious EKG: Non Specific repolarisation Disturbance Age: 45-65 Risk Factors: Equal/Greater than 3 risk factor or history of atherosclerotic disease Troponin: Less than normal limit HEART Score Total: 5
[2019-01-09] MEDS ORDERED: Ondansetron 4 MG/2 ML VIAL IVP STA (17:12)
[2019-01-09] MEDS ORDERED: *HR* FentaNYL (PF) 100 MCG/2 ML VIAL IVP ONE (17:22)
[2019-01-09 17:33] LABS: Basophils # 0.1 K/mcL (0.0-0.2); Basophils % 0.9 %; Eosinophils # 0.1 K/mcL (0.0-0.6); Eosinophils % 1.2 %; Hematocrit 44.9 % (35.3-44.9); Hemoglobin 15.2 g/dL (11.5-15.4); Immature Granulocytes % 0.4 % (0-4); Lymphocytes # 1.2 K/mcL (0.6-4.6); Lymphocytes % 13.7 %; Mean Corpuscular HGB Conc 33.9 g/dL (31.6-35.5); Mean Corpuscular Hemoglobin 31.8 pg (28.0-33.3); Mean Corpuscular Volume 93.9 fL (83.0-100.0); Mean Platelet Volume 9.3 fL (9.4-12.4); Monocytes # 0.6 K/mcL (0.0-1.3); Monocytes % 6.3 %; Neutrophils # 6.9 K/mcL (1.6-8.9); Platelet Count 189 K/mcL (140-400); Red Blood Count 4.78 M/mcL (3.82-4.97); Red Cell Distribution Width 13.9 % (11.5-14.5); Segmented Neutrophils % 77.5 %
[2019-01-09 17:46] LABS: INR 0.9; Prothrombin Time 10.6 Seconds (9.4-12.1)
[2019-01-09 17:49] LABS: Activated Partial Thrombo Time 29.4 Seconds (26.0-36.0)
[2019-01-09 18:24] LABS: Troponin I 0.16 ng/mL (< 0.04)
[2019-01-09] MEDS ORDERED: *HR* Heparin 5,000 UNIT/ML VIAL IVP PRN ×2 (18:24)
[2019-01-09] MEDS ORDERED: *HR* Heparin 5,000 UNIT/ML VIAL IVP ONE (18:24)
--- NOTE | 2019-01-09 18:26 | Emergency Department Note ---
Disposition Clinical Impression: NSTEMI (non-ST elevated myocardial infarction) Chest pain Qualifiers: Chest pain type: other chest pain Qualified Code(s): R07.89 - Other chest pain Disposition: Admitted As Inpatient Condition: Fair Time of Disposition: 19:14 General Adult HPI - General Chief complaint: ED Chest Pain Stated complaint: cp Time Seen by Provider: 01/09/19 16:30 Source: patient, EMS Mode of arrival: EMS Limitations: no limitations - History of Present Illness Pain Scale: 5 - Related Data Home Medications Medication Instructions Recorded Confirmed Furosemide [Lasix] 40 mg PO BID 08/03/18 01/09/19 Atorvastatin [Lipitor] 40 mg PO HS 10/11/18 01/09/19 HydrOXYzine [Atarax] 10 mg PO Q8H PRN 10/11/18 01/09/19 Sacubitril/Valsartan 49/51 MG 1 tab PO BID 10/11/18 01/09/19 [Entresto 49 mg-51 mg Tablet] Albuterol Sulfate [Proventil 2 puff IH Q6H PRN 11/18/18 01/09/19 Inhaler] Aspirin [Adult Aspirin Regimen] 81 mg PO DAILY 11/18/18 01/09/19 Spironolactone 25 mg PO HS PRN 11/18/18 01/09/19 Metoprolol XL (24 HR) Succ [Toprol 25 mg PO BID 01/09/19 01/09/19 Xl] Quetiapine Fumarate [SEROquel] 25 mg PO HS 01/09/19 01/09/19 Venlafaxine HCl [Venlafaxine HCl 37.5 mg PO DAILY 01/09/19 01/09/19 ER] Previous Rx's Medication Instructions Recorded Nitroglycerin 0.4 mg SL Q5MIN PRN #10 tab.subl 11/20/18 Allergies Allergy/AdvReac Type Severity Reaction Status Date / Time Sulfa (Sulfonamide Allergy Hives/ITCHI Verified 01/09/19 16:34 Antibiotics) NG chocolate Allergy Hives Uncoded 08/03/18 14:39 Past Medical History - Past Medical History Medical history: Reports: CHF, coronary artery disease, diabetes, GERD, hyperlipidemia, hypertension, kidney stones, myocardial infarction Surgical history: Reports: angioplasty/stent, appendectomy, colectomy, ureteral stent, AICD Psychiatric history: Reports: anxiety, depression 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: 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 , ectopic , 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 - Social History Smoking Status: Current every day smoker Smokeless Tobacco Status: No Alcohol use: Reports: none Drug use: Reports: none Physical Exam - General Limitations: no limitations General appearance: alert, in no apparent distress Course Vital Signs Temperature 98.3 F 01/09/19 16:30 Pulse Rate 102 01/09/19 16:30 Respiratory Rate 16 01/09/19 16:30 Blood Pressure 165/95 01/09/19 16:30 O2 Sat by Pulse Oximetry 95 01/09/19 16:30 Temperature 98.3 F 01/09/19 16:30 Pulse Rate 98 01/09/19 19:32 Respiratory Rate 18 01/09/19 19:32 Blood Pressure 178/84 01/09/19 19:32 O2 Sat by Pulse Oximetry 93 01/09/19 19:32 Oxygen Delivery Oxygen Delivery Room Air Medical Decision Making - Lab Data Result diagrams: 01/09/19 18:34 01/09/19 17:18 Lab Results 01/09/19 01/09/19 01/09/19 Range/Units 17:18 17:18 17:18 WBC 9.0 (4.3-11.1) K/mcL RBC 4.78 (3.82-4.97) M/mcL Hgb 15.2 (11.5-15.4) g/dL Hct 44.9 (35.3-44.9) % MCV 93.9 (83.0-100.0) fL MCH 31.8 (28.0-33.3) pg MCHC 33.9 (31.6-35.5) g/dL RDW 13.9 (11.5-14.5) % Plt Count 189 (140-400) K/mcL MPV 9.3 L (9.4-12.4) fL Immature Gran % 0.4 (0-4) % Seg Neutrophils % 77.5 % Lymphocytes % 13.7 % Monocytes % 6.3 % Eosinophils % 1.2 % Basophils % 0.9 % Neutrophils # 6.9 (1.6-8.9) K/mcL Lymphocytes # 1.2 (0.6-4.6) K/mcL Monocytes # 0.6 (0.0-1.3) K/mcL Eosinophils # 0.1 (0.0-0.6) K/mcL Basophils # 0.1 (0.0-0.2) K/mcL PT 10.6 (9.4-12.1) Seconds INR 0.9 APTT 29.4 (26.0-36.0) Seconds Heparin Anti-Xa, Unfract (0.30-0.70) IU/mL Sodium 140 (136-145) mEq/L Potassium 3.9 (3.5-5.1) mEq/L Chloride 107 (98-107) mEq/L Carbon Dioxide 22 L (23-29) mEq/L BUN 16 (6-20) mg/dL Creatinine 1.07 (0.60-1.20) mg/dL Est GFR ( Amer) > 60 (> 60) Est GFR (Non-Af Amer) 54 L (> 60) BUN/Creatinine Ratio 15 (6-26) Glucose 105 (70-105) mg/dL Calculated Osmolality 292 (280-300) Calcium 8.9 (8.6-10.3) mg/dL Troponin I 0.16 H* (< 0.04) ng/mL 01/09/19 01/09/19 01/09/19 Range/Units 18:34 18:34 18:34 WBC 9.0 (4.3-11.1) K/mcL RBC 4.88 (3.82-4.97) M/mcL Hgb 15.5 H (11.5-15.4) g/dL Hct 46.1 H (35.3-44.9) % MCV 94.5 (83.0-100.0) fL MCH 31.8 (28.0-33.3) pg MCHC 33.6 (31.6-35.5) g/dL RDW 14.0 (11.5-14.5) % Plt Count 191 (140-400) K/mcL MPV 9.4 (9.4-12.4) fL Immature Gran % (0-4) % Seg Neutrophils % % Lymphocytes % % Monocytes % % Eosinophils % % Basophils % % Neutrophils # (1.6-8.9) K/mcL Lymphocytes # (0.6-4.6) K/mcL Monocytes # (0.0-1.3) K/mcL Eosinophils # (0.0-0.6) K/mcL Basophils # (0.0-0.2) K/mcL PT 10.2 (9.4-12.1) Seconds INR 0.9 APTT 29.3 (26.0-36.0) Seconds Heparin Anti-Xa, Unfract 0.06 L (0.30-0.70) IU/mL Sodium (136-145) mEq/L Potassium (3.5-5.1) mEq/L Chloride (98-107) mEq/L Carbon Dioxide (23-29) mEq/L BUN (6-20) mg/dL Creatinine (0.60-1.20) mg/dL Est GFR ( Amer) (> 60) Est GFR (Non-Af Amer) (> 60) BUN/Creatinine Ratio (6-26) Glucose (70-105) mg/dL Calculated Osmolality (280-300) Calcium (8.6-10.3) mg/dL Troponin I (< 0.04) ng/mL Attestation Statement - Attestation Attestation: I examined this patient and my medical decision-making was reviewed with the Resident Physician. I agree with the documented findings, disposition and treatment plan as described except to the extent set forth below. Patient is a 53-year-old female that presents to the emergency department with chief complaint of chest pain. The patient reports that she has prior history of cardiac disease and was getting out of her vehicle and walking and started having midsternal pain in her chest. Patient reports that the pain initially was improved with a sublingual nitroglycerin but then came back with him worsening of symptoms. The patient reports this feels similar to whenever she has had a NJ before in the past. Physical exam the patient awake alert no acute distress exam is no focal findings Medical decision management initial EKG showed no evidence of ST elevation. The patient received aspirin prior to arrival by EMS. The patient's pain is being controlled with nitrates and the initial troponin came back as elevated. The patient will be admitted to the hospital with the diagnosis of non-ST elevation NJ.
[2019-01-09 18:34] LABS: BUN/Creatinine Ratio 15 (6-26); Blood Urea Nitrogen 16 mg/dL (6-20); Calcium 8.9 mg/dL (8.6-10.3); Carbon Dioxide 22 mEq/L (23-29); Chloride 107 mEq/L (98-107); Glucose 105 mg/dL (70-105); Osmolality,Calculated 292 (280-300); Potassium 3.9 mEq/L (3.5-5.1); Sodium 140 mEq/L (136-145); eGFR For African Americans > 60 (> 60); eGFR For Non-African Americans 54 (> 60)
[2019-01-09 18:55] LABS: Hematocrit 46.1 % (35.3-44.9); Hemoglobin 15.5 g/dL (11.5-15.4); Mean Corpuscular HGB Conc 33.6 g/dL (31.6-35.5); Mean Corpuscular Hemoglobin 31.8 pg (28.0-33.3); Mean Corpuscular Volume 94.5 fL (83.0-100.0); Mean Platelet Volume 9.4 fL (9.4-12.4); Platelet Count 191 K/mcL (140-400); Red Blood Count 4.88 M/mcL (3.82-4.97)
[2019-01-09] MEDS: Heparin 25,000 UNIT/250 ML D5W 25,000 UNIT/250 ML IV.SOLN IVC SCH (19:03)
[2019-01-09 19:05] LABS: Heparin anti-factor XA UFH 0.06 IU/mL (0.30-0.70)
[2019-01-09 19:06] LABS: INR 0.9; Prothrombin Time 10.2 Seconds (9.4-12.1)
[2019-01-09] MEDS ORDERED: *HR* HYDROmorphone (PF) 1 MG/ML SYRINGE IVP ONE (19:10)
[2019-01-09] MEDS ORDERED: Naloxone 0.4 MG/ML INJ IVP PRN (20:10)
[2019-01-09] MEDS ORDERED: Ondansetron 4 MG/2 ML VIAL IVP PRN (20:10)
[2019-01-09] MEDS ORDERED: Spironolactone 25 MG TABLET PO PRN (20:14)
--- NOTE | 2019-01-09 20:31 | Internal Med History&Physical ---
Date of Encounter: 01/09/19 Time of Encounter: 20:17 Internal Medicine - H&P: HPI Chief complaint: Chest pain History of present illness: Ms. Mejía is a 53 year old female with PMHx significant for tobacco abuse, CAD s/p PCI, ICMP s/p ICD, HTN, and hx of DVT who presented to the ED with complaints of chest pain. Of note, patient was recently admitted for NSTEMI status post cardiac cath in November of this year revealing severe 2 vessel disease status post PTCA. Today patient states she was working on her camper and she developed sudden onset midsternal chest pain described as heaviness, 5 out of 10 in intensity, nonradiating and associated with nausea, shortness of breath and right arm numbness and tingling. Discomfort was completely relieved after taking one nitroglycerin but returned shortly thereafter. Patient received an additional 3 nitroglycerin and 4 baby aspirin by EMS in [place]. On arrival patient was found to be afebrile, mildly hypertensive with a blood pressure of 165/95, mildly tachycardic at 102, saturating 95% on room air. Initial laboratory workup notable for a troponin of 0.16. Previous troponin had been 0.86 on November 18 and a chronically elevated previously. EKG showed sinus tachycardia with nonspecific ST/T-wave changes relatively unchanged from previous EKG. Chest x-ray was unremarkable. Case was discussed with cardiology who recommended initiating patient on heparin drip and will consultation in the morning. On my assessment, Past Med Surg Social Fam HX - Past Medical History Medical history: CHF, coronary artery disease, diabetes, GERD, hyperlipidemia, hypertension, kidney stones, myocardial infarction Additional medical history: SEIZURE,DEPRESSION, ANXIETY,OPIOD USE IN REMISSION,IBS,GERD,SYNCOPE, BLOOD CLOT RIGHT ARM Psychiatric history: anxiety, depression - Past Surgical History Surgical History: angioplasty/stent, appendectomy, colectomy, ureteral stent, AICD Additional surgical history: LITHOTRIPSY,. CARDIAC STENTS X3 - Social History Smoking Status: Current every day smoker Smokeless Tobacco Status: No Alcohol use: none Drug use: none - Family History Mother Adopted: No Living Status: Still Living Hx Family Cardiac Disorders: Yes (father,grandfather) Hx Family Respiratory Disorders: No Hx Family Cancer: No Hx Family GI Disorders: Yes (self) Hx Family Endocrine Disorder: Yes (diabetes mother) Hx Family Neuromuscular Disorders: No Hx Family Neurologic Disorders: Yes (grandmother) Hx Family HEENT Disorders: No Hx Family Autoimmune Disorders: Yes (cousin lupus) Internal Medicine - H&P: Meds Furosemide [Lasix] 40 mg PO BID 08/03/18 [History] Atorvastatin [Lipitor] 40 mg PO HS 10/11/18 [History] HydrOXYzine [Atarax] 10 mg PO Q8H PRN 10/11/18 [History] Sacubitril/Valsartan 49/51 MG [Entresto 49 mg-51 mg Tablet] 1 tab PO BID 10/11/18 [History] Albuterol Sulfate [Proventil Inhaler] 2 puff IH Q6H PRN 11/18/18 [History] Aspirin [Adult Aspirin Regimen] 81 mg PO DAILY 11/18/18 [History] Spironolactone 25 mg PO HS PRN 11/18/18 [History] Nitroglycerin 0.4 mg SL Q5MIN PRN #10 tab.subl 11/20/18 [Rx] Metoprolol XL (24 HR) Succ [Toprol Xl] 25 mg PO DAILY 01/09/19 [History] Quetiapine Fumarate [SEROquel] 25 mg PO HS 01/09/19 [History] Venlafaxine HCl [Venlafaxine HCl ER] 37.5 mg PO DAILY 01/09/19 [History] Allergy/AdvReac Type Severity Reaction Status Date / Time Sulfa (Sulfonamide Allergy Hives/ITCHI Verified 01/10/19 17:31 Antibiotics) NG chocolate Allergy Hives Uncoded 01/10/19 17:31 All Systems PM: A 10-system review of systems was performed and is negative for pertinent fin dings except as documented above in the HPI. - Constitutional Constitutional: no chills, no fever(s), no night sweats - EENT Eyes: no change in vision, no discharge, no pain, no photophobia Ears: no ear discharge, no ear pain, no tinnitus Nose, mouth and throat: no dysphagia, no nasal discharge, no neck pain, no sore throat - Cardiovascular Cardiovascular ROS IM: no chest pain, no diaphoresis, no dyspnea, no lightheadedness, no palpitations, no syncope - Respiratory Respiratory: no cough, no dyspnea, no wheezing, no excessive phlegm production - Gastrointestinal Gastrointestinal: no abdominal pain, no diarrhea, no hematemesis, no hematochezia, no melena, no nausea, no vomiting - Genitourinary Genitourinary: no change in urinary stream, no dysuria, no flank pain, no hematuria - Musculoskeletal Musculoskeletal ROS IM: no numbness, no tingling - Integumentary Integumentary IM: no rash, no unusual bruising - Neurological Neurological ROS: no confusion, no convulsions, no focal weakness, no numbness, no tingling, no tremor(s) - Hematologic/Lymphatic Hematologic/Lymphatic: no easy bruising - Constitutional Vitals: Temp Pulse Resp BP Pulse Ox 98.3 F 98 18 178/84 93 01/09/19 16:30 01/09/19 19:32 01/09/19 19:32 01/09/19 19:32 01/09/19 19:32 Exam: General: Alert and oriented Skin:Normal color, no rash, no lesions. HEENT:EOM, pupils equal, round and reactive. Cardiovascular:Normal S1 & S2, no rubs, murmurs or gallops. No JVD. Pulse regular. Lungs:Normal breath sounds, no wheezes or crackles. Abdomen:Soft, non-tender, no rigidity. Extremities:No deformity, no edema or tenderness, no joint swelling or clubbing. Neurological:Normal cognition and motor skills. Pulses:Carotid and radial pulses normal +2. Rest of the physical exam is non contributory Internal Med - H&P Results - Labs CBC & Chem 7: 01/10/19 01:02 01/10/19 01:02 Labs: Short CBC 01/09/19 01/09/19 Range/Units 17:18 18:34 WBC 9.0 9.0 (4.3-11.1) K/mcL Hgb 15.2 15.5 H (11.5-15.4) g/dL Hct 44.9 46.1 H (35.3-44.9) % Plt Count 189 191 (140-400) K/mcL Neutrophils # 6.9 (1.6-8.9) K/mcL BMP 01/09/19 17:18 Sodium 140 Potassium 3.9 Chloride 107 Carbon Dioxide 22 L BUN 16 Creatinine 1.07 Glucose 105 Calcium 8.9 Cardiac Enzymes 01/09/19 Range/Units 17:18 Troponin I 0.16 H* (< 0.04) ng/mL - Impressions ITS Impressions Chest X-Ray 01/09/19 16:31 IMPRESSION: No acute process. Stable cardiomegaly D/ / Jorge Peterson MD / Jorge Peterson MD Interpreting Provider: Jorge Peterson MD - Assessment and Plan (1) Chest pain Current Visit: Yes Status: Acute Assessment and plan: Patient presenting with substernal chest pain occurring with activity and relieved with nitroglycerin concerning for NSTEMI in the setting of elevated troponin of 0.16 and EKG showing nonspecific ST and T-wave changes relatively unchanged from previous EKG. Patients chest pain currently received loading dose of aspirin in route. Case discussed with cardiology recommending starting patient on heparin drip. -Telemetry -Sublingual nitroglycerin as needed -Continue heparin drip -Resume home dose of beta dre and statin -We will obtain limited echo -Follow cardiology recommendations. We will keep patient nothing by mouth after midnight in the event patient may require heart catheter. Qualifiers: Chest pain type: other chest pain Qualified Code(s): R07.89 - Other chest pain; R07.8 - Other chest pain (2) Elevated troponin Current Visit: No Status: Acute Assessment and plan: Elevated troponin of 0.16 in the setting of chest pain. Review of previous troponins show chronic elevation with the last level of 0.86 in early November of this year. Given patient's significant cardiac history there is concern this may be secondary to a type I [place]. -Continue to trend -Follow up cardiology recommendations (3) Systolic CHF Current Visit: No Status: Acute Assessment and plan: History of heart failure with reduced ejection fraction. Most recent echo in November 2018 showing a EF of 30-35% with severe global and segmental left ventricular systolic dysfunction. -We will obtain repeat echo for further evaluation of current presentation. Qualifiers: Heart failure chronicity: chronic Qualified Code(s): I50.22 - Chronic systolic (congestive) heart failure (4) CAD (coronary artery disease) Current Visit: No Status: Chronic Assessment and plan: History of significant coronary artery disease status post left heart catheter and PCI with PTCA most recently in November 2018 demonstrating severe 2 vessel disease. -Continue medical management with aspirin, statin, beta dre. Qualifiers: Coronary Disease-Associated Artery/Lesion type: unspecified vessel or lesion type [place] vs. transplanted heart: [place] heart Associated angina: angina presence unspecified Qualified Code(s): I25.10 - Atherosclerotic heart disease of [place] coronary artery without angina pectoris (5) HTN (hypertension) Current Visit: No Status: Chronic Assessment and plan: Blood pressure mildly elevated with a systolic in the 170s and diastolic in the 90s. We will resume patient's antihypertensives and monitor. Qualifiers: Hypertension type: essential hypertension Qualified Code(s): I10 - Essential (primary) hypertension (6) DVT prophylaxis Current Visit: No Status: Acute Assessment and plan: Currently on heparin drip - Time Spent With Patient Total time spent is greater than 50% in coordination of care (as documented) at patient's floor/unit and/or counseling patient:
[2019-01-09] MEDS ORDERED: Perflutren Lipid Microsphere 1.3 ML in 0.9 % Sodium Chloride 8.7 ML IVP ONE (21:08)
[2019-01-09] MEDS: Metoprolol XL (24 HR) Succ 25 MG TAB.ER.24H PO SCH (21:26)
[2019-01-09] MEDS: Sacubitril/Valsartan 49/51 MG 1 TABLET PO SCH (21:26)
[2019-01-09] MEDS: Furosemide 40 MG TABLET PO SCH (21:27)
[2019-01-10 01:18] LABS: Mean Corpuscular HGB Conc 31.8 g/dL (31.6-35.5); Mean Corpuscular Hemoglobin 30.6 pg (28.0-33.3); Mean Corpuscular Volume 96.3 fL (83.0-100.0); Mean Platelet Volume 9.4 fL (9.4-12.4); Platelet Count 162 K/mcL (140-400); Red Blood Count 4.57 M/mcL (3.82-4.97); Red Cell Distribution Width 14.2 % (11.5-14.5); White Blood Count 6.8 K/mcL (4.3-11.1)
[2019-01-10 01:35] LABS: BUN/Creatinine Ratio 16 (6-26); Blood Urea Nitrogen 17 mg/dL (6-20); Calcium 8.4 mg/dL (8.6-10.3); Carbon Dioxide 26 mEq/L (23-29); Chloride 108 mEq/L (98-107); Glucose 139 mg/dL (70-105); Magnesium 2.1 mg/dL (1.6-2.6); Osmolality,Calculated 292 (280-300); Potassium 3.8 mEq/L (3.5-5.1); Sodium 139 mEq/L (136-145); eGFR For African Americans > 60 (> 60); eGFR For Non-African Americans 53 (> 60)
[2019-01-10] MEDS: Aspirin Enteric Coated 81 MG Tablet PO SCH (08:59)
[2019-01-10] MEDS: Metoprolol XL (24 HR) Succ 25 MG TAB.ER.24H PO SCH ×2 (08:59→20:28)
[2019-01-10] MEDS: Sacubitril/Valsartan 49/51 MG 1 TABLET PO SCH ×2 (09:00→20:28)
[2019-01-10] MEDS: Furosemide 40 MG TABLET PO SCH ×2 (09:00→17:59)
--- NOTE | 2019-01-10 11:07 | Cardiology Consult Note ---
<Bud Reed - Last Filed: 01/10/19 13:07> Date of Encounter: 01/10/19 Time of Encounter: 10:58 Assessment and Plan (1) Elevated troponin Current Visit: No Status: Acute Pt presents with pain consistent with prior angina. Troponin elevation mild at 0.16, 0.15, 0.14. S/p MD and PTCA to mLAD and OM 11/2018. No significant disease remaining at that time. TTE 11/2018- EF 30-35%. Global and segmental dysfunction. TTE this admit- LVEF 35%. Global and segmental LV wall motion abnormality. Mildly dilated left ventricle. Definity echo contrast was used. There is no LV thrombus. We will add imdur. If no improvement in chest pain tomorrow LHC would be recommended. LHC R/B/A discussed. Continue asa 81 mg daily, toprol xl 25 mg daily, lipitor 80 mg daily, brilinta 90 mg BID, and entresto. Add imdur. (2) CAD (coronary artery disease) Current Visit: No Status: Chronic S/p MD and prior PCI. Plan as stated above. Qualifiers: Coronary Disease-Associated Artery/Lesion type: unspecified vessel or lesion type [place] vs. transplanted heart: [place] heart Associated angina: angina presence unspecified Qualified Code(s): I25.10 - Atherosclerotic heart disease of [place] coronary artery without angina pectoris (3) Ischemic cardiomyopathy Current Visit: No Status: Chronic Known ICMP with EF 35%. ICD in place. Currently euvolemic. On toprol XL, entreso, and lasix. Discussion w patient/family: The assessment and plan as outlined above was discussed with the patient and/or family members who expressed understanding and agreement. All questions were answered. Thank you for involving us in the care of your patient. Please call with any questions. History of Present Illness Consult date: 01/10/19 Requesting physician: Sylvia Beckford Consult reason: 01/10/19 Chief complaint: chest pain History of present illness: Ms. Mejía is a 53 year old female with past medical history of CAD s/p MD and prior PCI, ICMP, DM type II, and tobacco abuse. She presents with the c/o chest pain starting last night. Her pain is described as a non radiation mid-sternal ache rated 10/10. The pain was associated with right hand tingling. She took 3 SL NTG at home with minimal relief. She was started on NTG paste with relief of her pain overnight. On my exam patient developed recurrent midsternal chest pain at 6/10. She feels her pain is the same she felt with her MD in November 2018. AT that time she underwent LHC and received PTCA to the mLAD and OM in stent restenosis with good results. There was no significant disease remaining. She states she was doing well up until yesterday. She is compliant with her medications. Unfortunately she continues to smoke. Past Med Surg Social Fam HX - Past Medical History Medical history: CHF, coronary artery disease, DVT, diabetes, GERD, hyperlipidemia, hypertension, kidney stones, myocardial infarction Additional medical history: SEIZURE,DEPRESSION, ANXIETY,OPIOD USE IN REMISSION,IBS,GERD,SYNCOPE, BLOOD CLOT RIGHT ARM Psychiatric history: anxiety, depression - Past Surgical History Surgical History: angioplasty/stent, appendectomy, colectomy, ureteral stent, AICD Additional surgical history: LITHOTRIPSY,. CARDIAC STENTS X3 - Social History Smoking Status: Current every day smoker Packs per day: 1/2 Smokeless Tobacco Status: No Alcohol use: none Drug use: none - Family History Mother Adopted: No Living Status: Still Living Hx Family Cardiac Disorders: Yes (father,grandfather) Hx Family Respiratory Disorders: No Hx Family Cancer: No Hx Family GI Disorders: Yes (self) Hx Family Endocrine Disorder: Yes (diabetes mother) Hx Family Neuromuscular Disorders: No Hx Family Neurologic Disorders: Yes (grandmother) Hx Family HEENT Disorders: No Hx Family Autoimmune Disorders: Yes (cousin lupus) Medications and Allergies Furosemide [Lasix] 40 mg PO BID 08/03/18 [History] Atorvastatin [Lipitor] 40 mg PO HS 10/11/18 [History] HydrOXYzine [Atarax] 10 mg PO Q8H PRN 10/11/18 [History] Sacubitril/Valsartan 49/51 MG [Entresto 49 mg-51 mg Tablet] 1 tab PO BID 10/11/18 [History] Albuterol Sulfate [Proventil Inhaler] 2 puff IH Q6H PRN 11/18/18 [History] Aspirin [Adult Aspirin Regimen] 81 mg PO DAILY 11/18/18 [History] Spironolactone 25 mg PO HS PRN 11/18/18 [History] Nitroglycerin 0.4 mg SL Q5MIN PRN #10 tab.subl 11/20/18 [Rx] Metoprolol XL (24 HR) Succ [Toprol Xl] 25 mg PO DAILY 01/09/19 [History] Quetiapine Fumarate [SEROquel] 25 mg PO HS 01/09/19 [History] Venlafaxine HCl [Venlafaxine HCl ER] 37.5 mg PO DAILY 01/09/19 [History] Allergy/AdvReac Type Severity Reaction Status Date / Time Sulfa (Sulfonamide Allergy Hives/ITCHI Verified 01/10/19 17:31 Antibiotics) NG chocolate Allergy Hives Uncoded 01/10/19 17:31 All Systems Review: The remainder of the systems were reviewed and are negative Physical Examination Vital Signs, Last 4 Hours Temp Pulse Resp BP Pulse Ox 01/10/19 07:27 98.3 F 64 16 131/78 92 General: Conversant, No Apparent Distress HEENT: Atraumatic, Normocephaly, Mucus Membranes Moist Neck: No JVD, Normal carotid pulses Cardiac: Reg Rate and Rhythm, Normal S1 and S2, No Murmur Lungs: Normal Breath Sounds, No Wheeze, Rales, Rhonchi Neuro: Alert and responsive, No focal deficits noted Abdomen: Soft, Non-Tender Skin: No rashes noted on visualized skin Musculoskeletal: No Chest Wall Tenderness Extremities: No Clubbing, No Cyanosis, No Edema, Normal Pulses Results 01/10/19 01:02 01/10/19 01:02 Lab Results 01/09/19 01/09/19 01/09/19 17:18 17:18 17:18 WBC 9.0 Hgb 15.2 Hct 44.9 Plt Count 189 INR 0.9 APTT 29.4 Sodium 140 Potassium 3.9 Chloride 107 Carbon Dioxide 22 L BUN 16 Creatinine 1.07 Glucose 105 Calcium 8.9 Magnesium Troponin I 0.16 H* B-Natriuretic Peptide 01/09/19 01/09/19 01/09/19 18:34 18:34 18:34 WBC 9.0 Hgb 15.5 H Hct 46.1 H Plt Count 191 INR 0.9 APTT 29.3 Sodium Potassium Chloride Carbon Dioxide BUN Creatinine Glucose Calcium Magnesium Troponin I B-Natriuretic Peptide 01/10/19 01/10/1919 01:02 01:02 01:02 WBC 6.8 Hgb 14.0 D Hct 44.0 Plt Count 162 INR APTT Sodium 139 Potassium 3.8 Chloride 108 H Carbon Dioxide 26 BUN 17 Creatinine 1.08 Glucose 139 H Calcium 8.4 L Magnesium 2.1 Troponin I 0.15 H* B-Natriuretic Peptide 01/10/19 01/10/19 01:02 05:27 WBC Hgb Hct Plt Count INR APTT Sodium Potassium Chloride Carbon Dioxide BUN Creatinine Glucose Calcium Magnesium Troponin I 0.14 H* B-Natriuretic Peptide 466 H - Imaging and Cardiology Echo: report reviewed - EKG Interpretation EKG results cardiology: personally reviewed Consult Discharge Plan - Plan Referrals: Kassy Adorno CNP [Primary Care Provider] - <Lawrence Tran - Last Filed: 01/11/19 08:59> Date of Encounter: 01/11/19 - Attending Attestation I have personally performed a face to face evaluation on this patient. I have reviewed and agree with the documented findings and care plan as documented by the FENCE SETTER. History and Exam by me shows: Patient with known CAD with recent in-stent restenosis of mid LAD and OM stents,s/p PTCA, admitted with chest pain. Add Imdur 30 mg daily. If chest pain persists recommend cardiac catheterization Thanks for the consult, please call with questions. Lawrence Tran MD [facility] Assessment and Plan Discussion w patient/family: The assessment and plan as outlined above was discussed with the patient and/or family members who expressed understanding and agreement. All questions were answered. Thank you for involving us in the care of your patient. Please call with any questions. History of Present Illness History of present illness: Ms. Mejía is a 53 year old female All Systems Review: The remainder of the systems were reviewed and are negative Physical Examination Vital Signs, Last 4 Hours Temp Pulse Resp BP Pulse Ox 01/11/19 07:49 98.7 F 50 12 112/65 95 01/11/19 05:02 97.8 F 61 69 113/75 92 Results 01/10/19 01:02 01/10/19 01:02
[2019-01-10] MEDS ORDERED: Nitroglycerin 1 INCH/GM PACKET TP SCH (12:00)
[2019-01-10] MEDS: *HR* Promethazine 25 MG/ML VIAL IVP PRN ×3 (12:26→23:05)
[2019-01-10] MEDS ORDERED: Nitroglycerin 0.4 MG TAB.SUBL SL PRN (13:33)
--- NOTE | 2019-01-10 14:25 | Electrocardiograph Report ---
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
[2019-01-10] MEDS: *HR* Ticagrelor 90 MG TABLET PO SCH ×2 (14:41→20:28)
--- NOTE | 2019-01-10 16:14 | Internal Med Progress Note ---
Hospitalist Progress Note - Encounter Date of Encounter: 01/10/19 Time of Encounter: 16:08 - Subjective Interval History: Patient doing well this morning. Has 3/10 chest pain. Was 7/10 on admission. - Exam Vitals: Temp Pulse Resp BP Pulse Ox 98.4 F 72 16 123/93 91 01/10/19 12:00 01/10/19 12:00 01/10/19 12:00 01/10/19 12:00 01/10/19 12:00 Exam: General: Ill-appearing and in no acute distress HEENT: No erythema of posterior pharynx. No exudates. Lymphatics: No mandibular or cervical lymphadenopathy Cardiovascular: RRR. No murmurs. No chest wall tenderness. Lungs: Clear to auscelltation bilaterally. Regular chest rise. Abdomen: Non-tender. No rebound or gaurding. Nl bowel sounds. Extremities: No edema. 2+ pulses radial and pedal pulses Skin: No rahses, abrasions, or contusions. Nl cap refill. Psych: Nl attention. 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 5/5 strength. Sensation to light touch and pinprick intact. - Assessment and Plan (1) NSTEMI (non-ST elevated myocardial infarction) Current Visit: Yes Status: Acute Assessment and Plan: Patient with history of CAD with history of stents and recent occlusion of stent needing reopening with PTCA to mLAD and OM presents with nonexertional chest pain in the setting of troponin elevation to .16 and echocardiogram with stable EF and no WMA. -Chest pain improved but still present. -Cardiology consulted and recommend adding Imdur - will do LHC if no improvement in chest pain by tomorrow PLAN: - NSTEMI Management: Continue home ASA, Brillinta, and statin Added Heparin ggt - Angina Management: Continue home Toprol 25mg bid Add Imdur 30mg qd (2) CAD (coronary artery disease) Current Visit: No Status: Chronic Assessment and Plan: See above (3) Systolic CHF Current Visit: No Status: Acute Assessment and Plan: Echocardiogram with stable EF. - Cotninue home Metoprolol, Spironolactone, Sacubitril/Valsartan, and lasix (4) HTN (hypertension) Current Visit: No Status: Chronic Assessment and Plan: Continue metoprolol, spironolactone, sacubitril/valsartan, and add Imdur per above DVT Prophylaxis: heparin ggt Internal Medicine: Result - Labs CBC & Chem 7: 01/10/19 01:02 01/10/19 01:02 Labs: Short CBC 01/09/19 01/09/19 01/10/19 Range/Units 17:18 18:34 01:02 WBC 9.0 9.0 6.8 (4.3-11.1) K/mcL Hgb 15.2 15.5 H 14.0 D (11.5-15.4) g/dL Hct 44.9 46.1 H 44.0 (35.3-44.9) % Plt Count 189 191 162 (140-400) K/mcL Neutrophils # 6.9 (1.6-8.9) K/mcL BMP 01/09/19 01/10/19 17:18 01:02 Sodium 140 139 Potassium 3.9 3.8 Chloride 107 108 H Carbon Dioxide 22 L 26 BUN 16 17 Creatinine 1.07 1.08 Glucose 105 139 H Calcium 8.9 8.4 L Cardiac Enzymes 01/09/19 01/10/19 01/10/19 Range/Units 17:18 01:02 05:27 Troponin I 0.16 H* 0.15 H* 0.14 H* (< 0.04) ng/mL - ABG Interpretation ABG results: PT/INR, D-dimer PT 10.2 Seconds (9.4-12.1) 01/09/19 18:34 - Impressions Impressions Chest X-Ray 01/09/19 16:31 IMPRESSION: No acute process. Stable cardiomegaly D/ / Jorge Peterson MD / Jorge Peterson MD Interpreting Provider: Jorge Peterson MD Echocardiogram Limited Views 01/09/19 20:48 Impressions: LVEF 35%. Global and segmental LV wall motion abnormality. Mildly dilated left ventricle. Definity echo contrast was used. There is no LV thrombus. Left Ventricular Wall Motion: Rest Echo Findings The apex, apical inferior, mid inferior, basal inferior, apical anterior, mid anterior, basal anterior, apical septal, mid inferior septal, basal inferior septal, apical lateral, mid anterior lateral, basal anterior lateral, mid anterior septal, mid inferior lateral, basal anterior septal and basal inferior lateral daniels were hypokinetic. Findings: Study Quality * Technically adequate exam. ECG Findings * Normal sinus rhythm. Left Ventricle * LVEF 35%. * Mildly dilated left ventricle. * Definity echo contrast was used. * There is no LV thrombus. Right Ventricle * Normal right ventricular structure and function. Aorta * Normally sized aortic root. Pericardium * There is no pericardial effusion present. Consult Discharge Plan - Plan Referrals: Kassy Adorno, DEPUTY SHERIFF [Primary Care Provider] - (2) CAD (coronary artery disease) Qualifiers: Coronary Disease-Associated Artery/Lesion type: unspecified vessel or lesion type [place] vs. transplanted heart: [place] heart Associated angina: angina presence unspecified Qualified Code(s): I25.10 - Atherosclerotic heart disease of [place] coronary artery without angina pectoris (3) Systolic CHF Qualifiers: Heart failure chronicity: chronic Qualified Code(s): I50.22 - Chronic systolic (congestive) heart failure (4) HTN (hypertension) Qualifiers: Hypertension type: essential hypertension Qualified Code(s): I10 - Essential (primary) hypertension
[2019-01-10] MEDS: *HR* OxyCODONE Immed Rel 5 MG TABLET PO PRN ×2 (17:59→23:04)
[2019-01-10] MEDS: Heparin 25,000 UNIT/250 ML D5W 25,000 UNIT/250 ML IV.SOLN IVC SCH (17:59)
[2019-01-11] MEDS: *HR* OxyCODONE Immed Rel 5 MG TABLET PO PRN ×3 (05:27→15:25)
[2019-01-11] MEDS: *HR* Promethazine 25 MG/ML VIAL IVP PRN ×3 (05:28→15:24)
[2019-01-11 07:51] VITALS: BP 112/65
[2019-01-11] MEDS: Sacubitril/Valsartan 49/51 MG 1 TABLET PO SCH (08:36)
[2019-01-11] MEDS: *HR* Ticagrelor 90 MG TABLET PO SCH (08:36)
[2019-01-11] MEDS: Furosemide 40 MG TABLET PO SCH (08:36)
[2019-01-11] MEDS: Aspirin Enteric Coated 81 MG Tablet PO SCH (08:36)
[2019-01-11] MEDS: Metoprolol XL (24 HR) Succ 25 MG TAB.ER.24H PO SCH (08:36)
[2019-01-11] MEDS ORDERED: Isosorbide MONOnitrate (24 HR) 30 MG TAB.ER.24H PO SCH (09:00)
[2019-01-11 09:51] LABS: Bilirubin,Urine Negative (Negative); Blood,Urine Trace (Negative); Clarity,Urine Cloudy (Clear); Color,Urine Yellow (Yellow); Glucose,Urine (UA) Normal (Normal); Ketones,Urine Negative (Negative); Leukocyte Esterase,Urine Moderate (Negative); Nitrite,Urine Positive (Negative); Protein,Urine Negative (Neg-Trace); Specific Gravity,Urine 1.012 (1.010-1.025); Urobilinogen,Urine Normal (Normal)
[2019-01-11 09:53] LABS: Bacteria,Urine Many per hpf (None-Few); Hyaline Casts,Urine None Seen per lpf (None-Few); RBC,Urine 0-3 per hpf (0-3); Squamous Epithelial Cell,Urine Many per lpf (None-Few); WBC,Urine 50-100 per hpf (0-3)
--- NOTE | 2019-01-11 13:12 | Cardiology Progress Note ---
Date of Encounter: 01/11/19 Time of Encounter: 13:09 Assessment and Plan (1) Elevated troponin Current Visit: No Status: Acute Pt presents with pain consistent with prior angina. Troponin elevation mild at 0.16, 0.15, 0.14. S/p IA and PTCA to mLAD and OM ISR 11/2018. No significant disease remaining at that time. TTE 11/2018- EF 30-35%. Global and segmental dysfunction. TTE this admit- LVEF 35%. Global and segmental LV wall motion abnormality. Mildly dilated left ventricle. Definity echo contrast was used. There is no LV thrombus. No change in EF. Medical management trial recommended. Pt reports improvement after addition of imdur. We will schedule close out-pt f/u. Can d/c heparin gtt. Continue asa 81 mg daily, toprol xl 25 mg daily, lipitor 80 mg daily, brilinta 90 mg BID, and entresto, imdur. Healthy heart diet and exercise. Smoking cessation stressed. Cardiology will sin off. Call with questions. (2) CAD (coronary artery disease) Current Visit: No Status: Chronic S/p IA and prior PCI. Plan as stated above. Qualifiers: Coronary Disease-Associated Artery/Lesion type: unspecified vessel or lesion type [place] vs. transplanted heart: [place] heart Associated angina: angina presence unspecified Qualified Code(s): I25.10 - Atherosclerotic heart disease of [place] coronary artery without angina pectoris (3) Ischemic cardiomyopathy Current Visit: No Status: Chronic Known ICMP with EF 35%. ICD in place. Currently euvolemic. On toprol XL, entreso, and lasix. Discussion w patient/family: The assessment and plan as outlined above was discussed with the patient and/or family members who expressed understanding and agreement. All questions were answered. Thank you for involving us in the care of your patient. Please call with any questions. Subjective Principal diagnosis: Chest pain, elevated troponin Interval history: States chest pain has improved overnight. No chest pain this morning. Ambulated in hallway with no significant chest pain. Objective Vital Signs Temp Pulse Resp BP Pulse Ox 01/11/19 07:49 98.7 F 50 12 112/65 95 01/11/19 05:02 97.8 F 61 69 113/75 92 01/10/19 23:22 96.7 F L 82 16 123/88 94 01/10/19 20:31 98 01/10/19 19:17 98.3 F 66 20 128/77 94 01/10/19 16:21 98.3 F 79 16 119/73 92 Intake and Output 01/10/19 01/11/19 01/11/19 23:59 07:59 15:59 Intake Total 832 / 1450 0 / 120 120 / 120 Output Total 100 / 1600 650 / 1050 400 / 1050 Balance 732 / -150 -650 / -930 -280 / -930 Intake: IV Fluids 112 / 250 Heparin 25,000 UNIT/250 ML D5W 112 / 250 25,000 unit In 250 ml @ 11.03 UNIT/KG/HR 10.006 mls/hr IVC . Q24H NANDO Rx#:[id number] Oral 720 / 1200 0 / 120 120 / 120 Output: Urine 100 / 1600 650 / 1050 400 / 1050 Other: Meal [place] Breakfast Percent of Meal Consumed 100% 80% Weight 92 kg Blood Glucose* 126 110 Patient Weight 01/11/19 23:59 Weight 92 kg General: Conversant, No Apparent Distress HEENT: Atraumatic, Normocephaly, Mucus Membranes Moist Neck: No JVD, Normal carotid pulses Cardiac: Reg Rate and Rhythm, Normal S1 and S2, No Murmur Lungs: Normal Breath Sounds, No Wheeze, Rales, Rhonchi Neuro: Alert and responsive, No focal deficits noted Abdomen: Soft, Non-Tender Skin: No rashes noted on visualized skin Musculoskeletal: No Chest Wall Tenderness Extremities: No Clubbing, No Cyanosis, No Edema, Normal Pulses Results 01/10/19 01:02 01/10/19 01:02 - Imaging and Cardiology Echo: report reviewed Consult Discharge Plan - Plan Referrals: Kassy Adorno CNP [Primary Care Provider] -
--- NOTE | 2019-01-11 15:28 | Discharge Summary ---
Orders not resulted at time of discharge: Pending orders 01/11/19 Culture,Urine [RM] Stat Date of Encounter: 01/11/19 Time of Encounter: 15:20 - Discharge Diagnosis (1) NSTEMI (non-ST elevated myocardial infarction) Priority: Primary Status: Acute (2) Chest pain Priority: Secondary Status: Acute Qualifiers: Chest pain type: other chest pain Qualified Code(s): R07.89 - Other chest pain; R07.8 - Other chest pain (3) Elevated troponin Priority: Secondary Status: Acute (4) HTN (hypertension) Priority: Secondary Status: Chronic Qualifiers: Hypertension type: essential hypertension Qualified Code(s): I10 - Essential (primary) hypertension (5) CAD (coronary artery disease) Priority: Secondary Status: Chronic Qualifiers: Coronary Disease-Associated Artery/Lesion type: unspecified vessel or lesion type [place] vs. transplanted heart: [place] heart Associated angina: angina presence unspecified Qualified Code(s): I25.10 - Atherosclerotic heart disease of [place] coronary artery without angina pectoris (6) Systolic CHF Priority: Secondary Status: Acute Qualifiers: Heart failure chronicity: chronic Qualified Code(s): I50.22 - Chronic systolic (congestive) heart failure Hospital course: Ms. Mejía is a 53 year old female with history of CAD with history of stents and recent occlusion of stent needing reopening with PTCA to mLAD and OM presents with nonexertional chest pain in the setting of troponin elevation to .16 and echocardiogram with stable EF and no WMA. Given extensive cardiac history, cardiology was consulted and recommended addition of Imdur for anginal management. Imdur helped with chest pain. Given only slight troponin elevation and resolution with Imdur, patient did not go back to the [employer]. He was discharged on Imdur and will follow-up with cardiology. UA checked in the emergency department but patient does not have any symptoms and no signs of infection. Likely asymptomatic bacteriuria. Patient very wary about not going home with antibiotics, so prescribed Augmentin (which she has been sensitive to the past) and told to take if she develops symptoms. - Time Spent with Patient Total time spent providing and/or coordinating discharge services: - Discharge Medications Prescriptions: New Amoxicillin/Clavulanate [Augmentin] 500 mg PO BIDWM #10 tablet Ticagrelor [Brilinta] 90 mg PO BID tablet Isosorbide MONOnitrate (24 HR) [Imdur] 30 mg PO DAILY #30 tab.er.24h Promethazine [Phenergan] 12.5 mg PO Q6HR #30 tablet Continued Furosemide [Lasix] 40 mg PO BID Sacubitril/Valsartan 49/51 MG [Entresto 49 mg-51 mg Tablet] 1 tab PO BID HydrOXYzine [Atarax] 10 mg PO Q8H PRN PRN Reason: Anxiety Atorvastatin [Lipitor] 40 mg PO HS Albuterol Sulfate [Proventil Inhaler] 2 puff IH Q6H PRN PRN Reason: Shortness Of Breath Aspirin [Adult Aspirin Regimen] 81 mg PO DAILY Spironolactone 25 mg PO HS PRN PRN Reason: "IF LASIX DOESNT WORK" Nitroglycerin 0.4 mg SL Q5MIN PRN #10 tab.subl PRN Reason: Chest Pain Quetiapine Fumarate [Seroquel] 25 mg PO HS Metoprolol XL (24 HR) Succ [Toprol Xl] 25 mg PO DAILY Venlafaxine HCl [Venlafaxine HCl ER] 37.5 mg PO DAILY Home Medications: Furosemide [Lasix] 40 mg PO BID 08/03/18 [History] Atorvastatin [Lipitor] 40 mg PO HS 10/11/18 [History] HydrOXYzine [Atarax] 10 mg PO Q8H PRN 10/11/18 [History] Sacubitril/Valsartan 49/51 MG [Entresto 49 mg-51 mg Tablet] 1 tab PO BID 10/11/18 [History] Albuterol Sulfate [Proventil Inhaler] 2 puff IH Q6H PRN 11/18/18 [History] Aspirin [Adult Aspirin Regimen] 81 mg PO DAILY 11/18/18 [History] Spironolactone 25 mg PO HS PRN 11/18/18 [History] Nitroglycerin 0.4 mg SL Q5MIN PRN #10 tab.subl 11/20/18 [Rx] Metoprolol XL (24 HR) Succ [Toprol Xl] 25 mg PO DAILY 01/09/19 [History] Quetiapine Fumarate [Seroquel] 25 mg PO HS 01/09/19 [History] Venlafaxine HCl [Venlafaxine HCl ER] 37.5 mg PO DAILY 01/09/19 [History] Amoxicillin/Clavulanate [Augmentin] 500 mg PO BIDWM #10 tablet 01/11/19 [Rx] Isosorbide MONOnitrate (24 HR) [Imdur] 30 mg PO DAILY #30 tab.er.24h 01/11/19 [Rx] Promethazine [Phenergan] 12.5 mg PO Q6HR #30 tablet 01/11/19 [Rx] Ticagrelor [Brilinta] 90 mg PO BID tablet 01/11/19 [Rx] Allergies/Adverse Reactions: Allergy/AdvReac Type Severity Reaction Status Date / Time Sulfa (Sulfonamide Allergy Hives/ITCHI Verified 01/10/19 17:31 Antibiotics) NG chocolate Allergy Hives Uncoded 01/10/19 17:31 Date of admission: 01/09/19 18:52 Primary care physician: Kassy Adorno CNP Consults: 01/09/19 19:07 Consult to Cardiology [CONS] Stat Comment: Consulting Provider: Cardiology Tiff Reason for Consult: nstemi Time Notified: 19:08 Call Completed: Yes - Constitutional Vitals: Temp Pulse Resp BP Pulse Ox 98.7 F 50 12 112/65 95 01/11/19 07:49 01/11/19 07:49 01/11/19 07:49 01/11/19 07:49 01/11/19 07:49 Exam: General: Ill-appearing and in no acute distress HEENT: No erythema of posterior pharynx. No exudates. Lymphatics: No mandibular or cervical lymphadenopathy Cardiovascular: RRR. No murmurs. No chest wall tenderness. Lungs: Clear to auscelltation bilaterally. Regular chest rise. Abdomen: Non-tender. No rebound or gaurding. Nl bowel sounds. Extremities: No edema. 2+ pulses radial and pedal pulses Skin: No rahses, abrasions, or contusions. Nl cap refill. Psych: Nl attention. 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 5/5 strength. Sensation to light touch and pinprick intact. - Patient Status Disposition: Home, Self-Care Condition: Good Functional capacity at discharge: independent ambulation Overall status at discharge: patient is back to baseline - Discharge Instructions Follow Up With: Kassy Adorno CNP [Primary Care Provider] - - Diet and Activity Activity: increase activity as tolerated Diet: low fat, low cholesterol
--- NOTE | 2019-01-14 12:42 | Electrocardiograph Report ---
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
== END 2019-01-11 17:38 | disposition home or self-care (01) ==
LOC: 2NENU 16:23 → EMEROOARM 16:23 → 2NENU 20:25
PROVIDERS: ADMIT Student in an Organized Health Care Education/Training Program; ATTEND Student in an Organized Health Care Education/Training Program

== ENCOUNTER 2019-01-16 12:46 | Inpatient (IN) ==
[2019-01-16] MEDS ORDERED: *HR* LORazepam 0.5 MG TABLET PO ONE (12:54)
--- NOTE | 2019-01-16 13:13 | Emergency Department Note ---
Disposition Clinical Impression: Suicidal ideation, Elevated troponin Disposition: Admitted As Inpatient Condition: Fair Referrals: NONE,PCP [Primary Care Provider] - Time of Disposition: 15:16 Psych HPI - General Stated Complaint: SI Time Seen by Provider: 01/16/19 12:53 Source: patient Mode of arrival: ambulatory Limitations: no limitations Nursing Notes Reviewed: Yes Vital Signs Reviewed: Yes - History of Present Illness HPI Narrative: Patient is emergency room for evaluation of generalized malaise as well as suicidal thoughts. She is discussed taking an entire bottle of Klonopin. Patient did have a small heart attack last week and was discharged from the hospital. Patient denies any other symptoms or complaints. She has not had any chest pain or other issues at this time. Patient is otherwise stable. Pt complaint: suicidal ideation Onset (ago): day(s) Duration: constant History of similar episodes: No Improves with: none Worsens with: none Context: significant life stressor Alleged intoxication: No Associated Psychiatric Symptoms: depression, suicidal ideation Associated symptoms: Reports: denies other symptoms Traumatic symptoms: denies traumatic injury Treatments prior to arrival: none Self harm or harm to others: admits thoughts of self harm, has plan - Related Data Home Medications Medication Instructions Recorded Confirmed Furosemide [Lasix] 40 mg PO BID 08/03/18 01/10/19 Atorvastatin [Lipitor] 40 mg PO HS 10/11/18 01/10/19 HydrOXYzine [Atarax] 10 mg PO Q8H PRN 10/11/18 01/10/19 Sacubitril/Valsartan 49/51 MG 1 tab PO BID 10/11/18 01/10/19 [Entresto 49 mg-51 mg Tablet] Albuterol Sulfate [Proventil 2 puff IH Q6H PRN 11/18/18 01/10/19 Inhaler] Aspirin [Adult Aspirin Regimen] 81 mg PO DAILY 11/18/18 01/10/19 Spironolactone 25 mg PO HS PRN 11/18/18 01/10/19 Metoprolol XL (24 HR) Succ [Toprol 25 mg PO DAILY 01/09/19 01/10/19 Xl] Quetiapine Fumarate [Seroquel] 25 mg PO HS 01/09/19 01/10/19 Venlafaxine HCl [Venlafaxine HCl 37.5 mg PO DAILY 01/09/19 01/10/19 ER] Previous Rx's Medication Instructions Recorded Nitroglycerin 0.4 mg SL Q5MIN PRN #10 tab.subl 11/20/18 Amoxicillin/Clavulanate [Augmentin] 500 mg PO BIDWM #10 tablet 01/11/19 Isosorbide MONOnitrate (24 HR) 30 mg PO DAILY #30 tab.er.24h 01/11/19 [Imdur] Promethazine [Phenergan] 12.5 mg PO Q6HR #30 tablet 01/11/19 Ticagrelor [Brilinta] 90 mg PO BID tablet 01/11/19 Allergies Allergy/AdvReac Type Severity Reaction Status Date / Time Sulfa (Sulfonamide Allergy Hives/ITCHI Verified 01/10/19 17:31 Antibiotics) NG chocolate Allergy Hives Uncoded 01/10/19 17:31 All systems ED: reviewed and negative except as stated. Review of Systems: As Per HPI Constitutional: Denies: fever, chills, weakness Eyes: Denies: eye pain, eye discharge ENT ED: Denies: ear pain, congestion Cardiovascular: Denies: chest pain, palpitations, dyspnea on exertion, orthopnea Respiratory: Denies: cough, dyspnea, wheezes Gastrointestinal: Denies: abdominal pain, nausea, vomiting, diarrhea Musculoskeletal: Denies: back pain, neck pain Integumentary: Denies: rash Neurological: Denies: headache, weakness Psychiatric: Denies: anxiety Endocrine: Denies: fatigue Past Medical History - Past Medical History Attestation: Yes The following information was validated with the patient. Source: patient Medical history: Reports: CHF, coronary artery disease, DVT, diabetes, GERD, hyperlipidemia, hypertension, kidney stones, myocardial infarction Surgical history: Reports: angioplasty/stent, appendectomy, colectomy, ureteral stent, AICD Psychiatric history: Reports: anxiety, depression CLOTH LAYER history: Reports: spontaneous , ectopic , 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 - Social History Smoking Status: Current every day smoker Smokeless Tobacco Status: No Alcohol use: Reports: heavy, recent Drug use: Reports: none Physical Exam - General Limitations: no limitations General appearance: alert, in no apparent distress - Head Head exam: atraumatic, normocephalic, normal inspection - Eye Eye exam: Present: normal appearance, PERRL, EOMI. Absent: scleral icterus, conjunctival injection - ENT ENT exam: normal exam, normal oropharynx, mucous membranes moist - Neck Neck exam: Present: normal inspection, full ROM, trachea midline. Absent: tenderness - Chest Chest inspection: Present: normal inspection, symmetric chest wall rise. Absent: tenderness - Respiratory Respiratory exam: Present: normal lung sounds bilaterally. Absent: respiratory distress, accessory muscle use - Cardiovascular Cardiovascular exam: Present: regular rate, normal rhythm, normal heart sounds - Abdominal Exam Abdominal exam: Present: soft, Non-Tender. Absent: tenderness, distention, guarding, rebound, rigidity - Extremities Exam Extremities exam: Present: normal inspection - Expanded Lower Extremity Exam Neurovascular/Tendon exam: Absent: motor deficit, sensory deficit, tendon deficit - Back Exam Back exam: Present: normal inspection, full ROM. Absent: tenderness, CVA tenderness (R), CVA tenderness (L) - Neurological Exam Neurological exam: Present: alert, oriented X3, CN II-XII intact, normal gait - Psychiatric Psychiatric exam: Present: flat affect, suicidal ideation - Skin Skin exam: Present: warm, dry, intact, normal color Course Course Narrative: And examined the time of arrival. See history of present illness. Patient has significant life stressor home with a very dysfunctional marriage. Patient is d enying chest pain shortness of breath fevers chills nausea vomiting or diarrhea. She was just discharged from the hospital after having a small heart attack according to her. They did not do a catheterization or intervention at this time. She is currently on Proventil and aspirin at home. Patient is stable. She is describing suicidal thoughts of want to take her entire bottle of clonidine at home. Patient otherwise describes no other new medical issues or other concerns. She is never had suicidal thoughts in the past but she is at the breaking point for her at this time. She was concerned decided to come in the emergency room for evaluation. She is resting comfortably in the bed. She is alert she is oriented. She has no other symptoms or complaints at this time. Vital signs reviewed and are stable. EKG chest x-ray CBC chemistry troponin and medical clearance will be established and psychiatric team will evaluate. Hurt slip was applied secondary to the concern for the patient's safety. Patient will be monitored here until the disposition is determined. EKG was reviewed by myself in documented in the chart. - Reevaluation(s) Reevaluation #1: Patient has chronically elevated troponin. It is continued to down trend since her last evaluation. All other labs are baseline. Patient has no chest pain at this time. EKG was unremarkable. Patient was discussed with psychiatric team and they will review the labs and then evaluate the patient here in the department. Disposition to be determined. Time: 14:19 Reevaluation #2: Patient was evaluated by the psychiatric team. They will admit the patient for symptomatically control management. No other acute issues noted at this time. Patient will be monitored here in the emergency department until the admission process to the completed. Time: 15:15 Vital Signs Temperature 98.6 F 01/16/19 12:49 Pulse Rate 87 01/16/19 12:49 Respiratory Rate 20 01/16/19 12:49 Blood Pressure 157/91 01/16/19 12:49 O2 Sat by Pulse Oximetry 96 01/16/19 12:49 Temperature 98.6 F 01/16/19 12:49 Pulse Rate 87 01/16/19 12:49 Respiratory Rate 20 01/16/19 12:49 Blood Pressure 157/91 01/16/19 12:49 O2 Sat by Pulse Oximetry 96 01/16/19 12:49 Oxygen Delivery Oxygen Delivery Room Air Psych - MDM Narrative Medical decision making narrative: Suicidal ideation - Medical Records Medical records reviewed: Yes I reviewed the patient's medical records. - Lab Data Lab results reviewed: Yes I reviewed the patient's lab results. Result diagrams: 01/16/19 12:54 01/16/19 12:54 Lab Results 01/16/19 01/16/19 01/16/19 Range/Units 12:54 12:54 13:18 WBC 10.6 D (4.3-11.1) K/mcL RBC 5.25 H (3.82-4.97) M/mcL Hgb 16.2 H D (11.5-15.4) g/dL Hct 49.0 H (35.3-44.9) % MCV 93.3 (83.0-100.0) fL MCH 30.9 (28.0-33.3) pg MCHC 33.1 (31.6-35.5) g/dL RDW 14.0 (11.5-14.5) % Plt Count 230 (140-400) K/mcL MPV 9.4 (9.4-12.4) fL Immature Gran % 0.6 (0-4) % Seg Neutrophils % 78.6 % Lymphocytes % 12.0 % Monocytes % 7.2 % Eosinophils % 0.8 % Basophils % 0.8 % Neutrophils # 8.3 (1.6-8.9) K/mcL Lymphocytes # 1.3 (0.6-4.6) K/mcL Monocytes # 0.8 (0.0-1.3) K/mcL Eosinophils # 0.1 (0.0-0.6) K/mcL Basophils # 0.1 (0.0-0.2) K/mcL Sodium 137 (136-145) mEq/L Potassium 4.2 (3.5-5.1) mEq/L Chloride 104 (98-107) mEq/L Carbon Dioxide 22 L (23-29) mEq/L BUN 28 H (6-20) mg/dL Creatinine 1.48 H (0.60-1.20) mg/dL Est GFR ( Amer) 45 L (> 60) Est GFR (Non-Af Amer) 37 L (> 60) BUN/Creatinine Ratio 19 (6-26) Glucose 103 (70-105) mg/dL Calculated Osmolality 290 (280-300) Calcium 9.1 (8.6-10.3) mg/dL Troponin I 0.07 H* (< 0.04) ng/mL TSH 1.097 (0.340-5.600) mcIU/mL Urine Color Yellow (Yellow) Urine Clarity Cloudy A (Clear) Urine pH 5.5 (5.0-8.0) pH Units Ur Specific [place] 1.021 (1.010-1.025) Urine Protein 30 H (Neg-Trace) mg/dL Urine Glucose (UA) Normal (Normal) mg/dL Urine Ketones Negative (Negative) mg/dL Urine Blood Small H (Negative) Urine Nitrite Negative (Negative) Urine Bilirubin Negative (Negative) Urine Urobilinogen Normal (Normal) mg/dL Ur Leukocyte Esterase Moderate H (Negative) Urine Microscopic RBC 5-15 H (0-3) per hpf Urine Microscopic WBC TNTC H (0-3) per hpf Ur Squamous Epith Cells Many H (None-Few) per lpf Urine Bacteria None Seen (None-Few) per hpf Hyaline Casts Few (None-Few) per lpf Salicylates < 2.5 L (15.0-30.0) mg/dL Urine Opiates Screen (Bxzqfs=227) ng/mL Ur Buprenorphine Scrn (Cutoff=5) ng/mL Acetaminophen < 10 L (10-20) mcg/mL Ur Barbiturates Screen (Yufnvv=932) ng/mL Ur Phencyclidine Scrn (Cutoff=25) ng/mL Ur Amphetamines Screen (Vhwunf=2359) ng/mL U Benzodiazepines Scrn (Merrsp=851) ng/mL Urine Cocaine Screen (Cutoff= 300) ng/mL U Marijuana (THC) Screen (Cutoff = 50) ng/mL Ur Drug Screen Interp Ethyl Alcohol < 10 (Less than 10) mg/dL 01/16/19 Range/Units 13:18 WBC (4.3-11.1) K/mcL RBC (3.82-4.97) M/mcL Hgb (11.5-15.4) g/dL Hct (35.3-44.9) % MCV (83.0-100.0) fL MCH (28.0-33.3) pg MCHC (31.6-35.5) g/dL RDW (11.5-14.5) % Plt Count (140-400) K/mcL MPV (9.4-12.4) fL Immature Gran % (0-4) % Seg Neutrophils % % Lymphocytes % % Monocytes % % Eosinophils % % Basophils % % Neutrophils # (1.6-8.9) K/mcL Lymphocytes # (0.6-4.6) K/mcL Monocytes # (0.0-1.3) K/mcL Eosinophils # (0.0-0.6) K/mcL Basophils # (0.0-0.2) K/mcL Sodium (136-145) mEq/L Potassium (3.5-5.1) mEq/L Chloride (98-107) mEq/L Carbon Dioxide (23-29) mEq/L BUN (6-20) mg/dL Creatinine (0.60-1.20) mg/dL Est GFR ( Amer) (> 60) Est GFR (Non-Af Amer) (> 60) BUN/Creatinine Ratio (6-26) Glucose (70-105) mg/dL Calculated Osmolality (280-300) Calcium (8.6-10.3) mg/dL Troponin I (< 0.04) ng/mL TSH (0.340-5.600) mcIU/mL Urine Color (Yellow) Urine Clarity (Clear) Urine pH (5.0-8.0) pH Units Ur Specific [place] (1.010-1.025) Urine Protein (Neg-Trace) mg/dL Urine Glucose (UA) (Normal) mg/dL Urine Ketones (Negative) mg/dL Urine Blood (Negative) Urine Nitrite (Negative) Urine Bilirubin (Negative) Urine Urobilinogen (Normal) mg/dL Ur Leukocyte Esterase (Negative) Urine Microscopic RBC (0-3) per hpf Urine Microscopic WBC (0-3) per hpf Ur Squamous Epith Cells (None-Few) per lpf Urine Bacteria (None-Few) per hpf Hyaline Casts (None-Few) per lpf Salicylates (15.0-30.0) mg/dL Urine Opiates Screen Positive H (Badnqg=637) ng/mL Ur Buprenorphine Scrn Negative (Cutoff=5) ng/mL Acetaminophen (10-20) mcg/mL Ur Barbiturates Screen Negative (Yltrpa=300) ng/mL Ur Phencyclidine Scrn Negative (Cutoff=25) ng/mL Ur Amphetamines Screen Negative (Ihjuzf=6076) ng/mL U Benzodiazepines Scrn Negative (Ickahl=655) ng/mL Urine Cocaine Screen Negative (Cutoff= 300) ng/mL U Marijuana (THC) Screen Negative (Cutoff = 50) ng/mL Ur Drug Screen Interp See Below Ethyl Alcohol (Less than 10) mg/dL - Radiology Data Radiology results reviewed: Yes I reviewed the patient's radiology results. Chest x-ray is unremarkable for acute intrathoracic related etiology - EKG Data EKG attestation: Yes I reviewed and interpreted this EKG. EKG results narrative: EKG shows sinus rhythm. Heart rate of 83. WA interval 112. QRS duration of 123. QTC see L4 69. [place] is normal. Patient has T-wave inversions that are chronic from previous EKG. Intermittent PVCs are noted. No acute signs of ST segment elevation or abnormality. Stable left bundle branch was also noted c hronic. No acute signs of WPW or Brugada syndrome. EKG is compared reviewed her previous on 09/14/18 with no acute changes at this time. Psychiatric Medical Clearance - Medical Clearance Checklist Does the patient have a NEW psychiatric condition?: No Any abnormalities indicating possible medical illness?: No Any history of medical issues?: Yes Medical History: No Social History Section defined Any abnormal vital signs prior to transfer?: No Current Vitals: Last Vital Signs Temp 98.6 F 01/16/19 12:49 Pulse 87 01/16/19 12:49 Resp 20 01/16/19 12:49 BP 157/91 01/16/19 12:49 Pulse Ox 96 01/16/19 12:49 Is the patient intoxicated or cognitively impaired?: No Psychiatric Lab Panel: Drug Levels and Toxicity 01/16/19 01/16/19 12:54 13:18 Urine Opiates Screen Positive H Acetaminophen < 10 L Ur Barbiturates Screen Negative Ur Phencyclidine Scrn Negative Ur Amphetamines Screen Negative U Benzodiazepines Scrn Negative Urine Cocaine Screen Negative U Marijuana (THC) Screen Negative Ethyl Alcohol < 10 Any abnormalities on the physical exam?: No Any abnormal labs?: No Abnormal Labs: Abnormal lab results RBC 5.25 M/mcL (3.82-4.97) H 01/16/19 12:54 Hgb 16.2 g/dL (11.5-15.4) H D 01/16/19 12:54 Hct 49.0 % (35.3-44.9) H 01/16/19 12:54 Carbon Dioxide 22 mEq/L (23-29) L 01/16/19 12:54 BUN 28 mg/dL (6-20) H 01/16/19 12:54 Creatinine 1.48 mg/dL (0.60-1.20) H 01/16/19 12:54 Est GFR ( Amer) 45 (> 60) L 01/16/19 12:54 Est GFR (Non-Af Amer) 37 (> 60) L 01/16/19 12:54 Troponin I 0.07 ng/mL (< 0.04) H* 01/16/19 12:54 Urine Clarity Cloudy (Clear) A 01/16/19 13:18 Urine Protein 30 mg/dL (Neg-Trace) H 01/16/19 13:18 Urine Blood Small (Negative) H 01/16/19 13:18 Ur Leukocyte Esterase Moderate (Negative) H 01/16/19 13:18 Urine Microscopic RBC 5-15 per hpf (0-3) H 01/16/19 13:18 Urine Microscopic WBC TNTC per hpf (0-3) H 01/16/19 13:18 Ur Squamous Epith Cells Many per lpf (None-Few) H 01/16/19 13:18 Salicylates < 2.5 mg/dL (15.0-30.0) L 01/16/19 12:54 Urine Opiates Screen Positive ng/mL (Ahnqzo=493) H 01/16/19 13:18 Acetaminophen < 10 mcg/mL (10-20) L 01/16/19 12:54 Does the patient require durable medical equiptment?: No Is the patient ambulatory?: Yes Is the patient a fall risk?: No Has the patient been medically cleared?: Yes Any acute medical condition require Tx prior to transfer?: No Statement of Medical Clearance: I have evaluated the patient, reviewed diagnostic information, and certify that the patient's medical condition is sufficiently stable that transfer to the psychiatric unit does not pose a significant risk of deterioration.
[2019-01-16 13:31] LABS: Basophils # 0.1 K/mcL (0.0-0.2); Basophils % 0.8 %; Eosinophils # 0.1 K/mcL (0.0-0.6); Eosinophils % 0.8 %; Immature Granulocytes % 0.6 % (0-4); Lymphocytes # 1.3 K/mcL (0.6-4.6); Mean Corpuscular HGB Conc 33.1 g/dL (31.6-35.5); Mean Corpuscular Hemoglobin 30.9 pg (28.0-33.3); Mean Corpuscular Volume 93.3 fL (83.0-100.0); Mean Platelet Volume 9.4 fL (9.4-12.4); Monocytes # 0.8 K/mcL (0.0-1.3); Monocytes % 7.2 %; Neutrophils # 8.3 K/mcL (1.6-8.9); Platelet Count 230 K/mcL (140-400); Red Blood Count 5.25 M/mcL (3.82-4.97); Segmented Neutrophils % 78.6 %
[2019-01-16 13:32] LABS: Hemoglobin 16.2 g/dL (11.5-15.4); White Blood Count 10.6 K/mcL (4.3-11.1)
[2019-01-16 13:32] LABS: Bilirubin,Urine Negative (Negative); Blood,Urine Small (Negative); Clarity,Urine Cloudy (Clear); Color,Urine Yellow (Yellow); Glucose,Urine (UA) Normal (Normal); Ketones,Urine Negative (Negative); Leukocyte Esterase,Urine Moderate (Negative); Nitrite,Urine Negative (Negative); PH,Urine 5.5 pH Units (5.0-8.0); Protein,Urine 30 mg/dL (Neg-Trace); Specific Gravity,Urine 1.021 (1.010-1.025); Urobilinogen,Urine Normal (Normal)
[2019-01-16 13:33] LABS: Bacteria,Urine None Seen per hpf (None-Few); Hyaline Casts,Urine Few per lpf (None-Few); Squamous Epithelial Cell,Urine Many per lpf (None-Few); WBC,Urine TNTC per hpf (0-3)
[2019-01-16 13:49] LABS: Acetaminophen < 10 mcg/mL (10-20); BUN/Creatinine Ratio 19 (6-26); Blood Urea Nitrogen 28 mg/dL (6-20); Calcium 9.1 mg/dL (8.6-10.3); Carbon Dioxide 22 mEq/L (23-29); Chloride 104 mEq/L (98-107); Ethanol < 10 mg/dL (Less than 10); Glucose 103 mg/dL (70-105); Osmolality,Calculated 290 (280-300); Potassium 4.2 mEq/L (3.5-5.1); Salicylate < 2.5 mg/dL (15.0-30.0); Sodium 137 mEq/L (136-145); eGFR For African Americans 45 (> 60); eGFR For Non-African Americans 37 (> 60)
[2019-01-16 13:51] LABS: Troponin I 0.07 ng/mL (< 0.04)
[2019-01-16 13:52] LABS: Amphetamine Screen,Urine Negative ng/mL (Cutoff=1000); Barbiturate Screen,Urine Negative ng/mL (Cutoff=200); Benzodiazepines Screen,Urine Negative ng/mL (Cutoff=200); Cannabinoid Screen,Urine Negative ng/mL (Cutoff = 50); Cocaine Screen,Urine Negative ng/mL (Cutoff= 300); Opiate Screen,Urine Positive ng/mL (Cutoff=300); Phencyclidine Screen,Urine Negative ng/mL (Cutoff=25)
[2019-01-16 14:04] LABS: Thyroid Stimulating Hormone 1.097 mcIU/mL (0.340-5.600)
[2019-01-16] MEDS ORDERED: Nitroglycerin 0.4 MG TAB.SUBL SL PRN (17:01)
[2019-01-16] MEDS ORDERED: Haloperidol Lactate 5 MG/ML VIAL IM PRN (17:02)
[2019-01-16] MEDS ORDERED: MOM Conc 10 ML UD.LIQ PO PRN (17:02)
[2019-01-16] MEDS ORDERED: Mag Hydrox/Al Hydrox/Simeth 30 ML UDC PO PRN (17:02)
[2019-01-16] MEDS ORDERED: Acetaminophen 325 MG TABLET PO PRN (17:02)
[2019-01-16] MEDS ORDERED: hydrOXYzine pamoate 25 MG CAPSULE PO PRN (17:02)
[2019-01-16] MEDS ORDERED: *HR* LORazepam 1 MG TABLET PO PRN (17:02)
[2019-01-16] MEDS ORDERED: *HR* LORazepam 2 MG/ML VIAL IM PRN (17:02)
[2019-01-16] MEDS: Amoxicillin/Clavulanate 500 MG TABLET PO SCH (18:31)
[2019-01-16] MEDS: Spironolactone 25 MG TABLET PO SCH (18:31)
--- NOTE | 2019-01-16 18:33 | Electrocardiograph Report ---
[facility] [employer] Test Date: 2019-01-16 Pat Name: Madison Mejía Department: [id number] Room: [facility] Gender: F [employer]: : 1965 Requested By: Jason Lowery Order Number: [id number] Reading MD: Gregg Luque Measurements Intervals [place] Rate: 83 P: 24 MS: 112 QRS: 18 QRSD: 123 T: 111 QT: 399 QTc: 469 Interpretive Statements Sinus rhythm Multiform ventricular premature complexes Left bundle branch block Electronically Signed On 01-16-2019 18:31:47 EDT by Gregg Luque
[2019-01-16] MEDS: traZODone 50 MG TABLET PO PRN (21:31)
[2019-01-17] MEDS: Furosemide 40 MG TABLET PO SCH ×3 (04:22→17:01)
[2019-01-17] MEDS: Sacubitril/Valsartan 49/51 MG 1 TABLET PO SCH ×3 (04:22→21:29)
[2019-01-17] MEDS: *HR* Ticagrelor 90 MG TABLET PO SCH ×3 (04:23→21:29)
[2019-01-17] MEDS: Metoprolol XL (24 HR) Succ 25 MG TAB.ER.24H PO SCH (08:22)
[2019-01-17] MEDS: Isosorbide MONOnitrate (24 HR) 30 MG TAB.ER.24H PO SCH (08:23)
[2019-01-17] MEDS: Amoxicillin/Clavulanate 500 MG TABLET PO SCH ×2 (08:23→17:01)
[2019-01-17] MEDS: Aspirin Enteric Coated 81 MG Tablet PO SCH (08:23)
[2019-01-17] MEDS ORDERED: Venlafaxine XR (24 HR) 75 MG CAP.ER.24H PO SCH (09:00)
[2019-01-17] MEDS: Vitamin B Complex/Vit C/Vit E 1 EACH TABLET PO SCH (10:45)
[2019-01-17] MEDS: Folic Acid 1 MG TABLET PO SCH (10:45)
[2019-01-17] MEDS: Thiamine (B-1) 100 MG TABLET PO SCH (10:47)
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
[2019-01-17] MEDS: Spironolactone 25 MG TABLET PO SCH (17:01)
[2019-01-17] MEDS: hydrOXYzine pamoate 25 MG CAPSULE PO PRN ×2 (18:23→21:29)
[2019-01-17] MEDS: traZODone 50 MG TABLET PO PRN (21:28)
[2019-01-18] MEDS: Sacubitril/Valsartan 49/51 MG 1 TABLET PO SCH ×2 (09:59→21:01)
[2019-01-18] MEDS: Venlafaxine XR (24 HR) 150 MG CAP.ER.24H PO SCH (09:59)
[2019-01-18] MEDS: *HR* Ticagrelor 90 MG TABLET PO SCH ×2 (09:59→21:01)
[2019-01-18] MEDS: Vitamin B Complex/Vit C/Vit E 1 EACH TABLET PO SCH (09:59)
[2019-01-18] MEDS: Isosorbide MONOnitrate (24 HR) 30 MG TAB.ER.24H PO SCH (09:59)
[2019-01-18] MEDS: Aspirin Enteric Coated 81 MG Tablet PO SCH (09:59)
[2019-01-18] MEDS: Folic Acid 1 MG TABLET PO SCH (09:59)
[2019-01-18] MEDS: Furosemide 40 MG TABLET PO SCH ×2 (09:59→16:33)
[2019-01-18] MEDS: Metoprolol XL (24 HR) Succ 25 MG TAB.ER.24H PO SCH (09:59)
[2019-01-18] MEDS: Thiamine (B-1) 100 MG TABLET PO SCH (09:59)
--- NOTE | 2019-01-18 10:56 | Psychiatry Progress Note ---
Date of Encounter: 01/18/19 Time of Encounter: 10:30 Subjective Interval history: Patient had quite a bit of anxiety yesterday. She also had some times where she was agitated. She had requested Ativan and I explained that she has been getting Librium taper. I did have to increase the frequency last night to every 6 hours as she was having breakthrough tremulousness and diaphoresis. However her vitals were low. She reports ongoing sadness but no suicidal or homicidal thoughts ideations or plans. She was willing to sign in voluntarily. Review of Systems Psychiatric: Reports: depression, anxiety. Denies: homicidal ideation, auditory hallucinations, visual hallucinations Results - Vital Signs Vital Signs: Temp Pulse Resp BP Pulse Ox 97.3 F L 68 16 94/58 94 01/18/19 01:00 01/18/19 01:00 01/18/19 01:00 01/18/19 01:00 01/18/19 01:00 - Impressions ITS Impressions Chest X-Ray 01/16/19 12:54 IMPRESSION: 1. No active pulmonary disease. 2. Stable cardiomegaly without overt failure. D/ / Ike George MD / Ike George MD Interpreting Provider: Ike George MD Assessment and Plan (1) Depressed Current visit: Yes Status: Acute Plan: Continue hospitalization, Close observation, Suicide Precautions per unit protocol, Encourage participation in unit milieu, Group Therapy, Monitor sleep, Monitor appetite Additional Plan: Continue her medications. Encourage groups. Therapist working on discharge planning. Risks, benefits, side effects, alternatives discussed w/pt: Yes Patient agreeable to treatment: Yes Qualifiers: Depression Type: major depressive disorder Major depression recurrence: recurrent Active/Remission status: currently active Major depression episode severity: severe Psychotic features: without psychotic features Qualified Code(s): F33.2 - Major depressive disorder, recurrent severe without psychotic features (2) Alcohol withdrawal Current visit: Yes Status: Acute Plan: Continue hospitalization, Close observation, Suicide Precautions per unit protocol, Encourage participation in unit milieu, Group Therapy, Monitor sleep, Monitor appetite Additional Plan: Titrate down on Librium withdrawal protocol will go to 50 mg every 6 hours. Continue thiamine and folic acid. Risks, benefits, side effects, alternatives discussed w/pt: Yes Patient agree able to treatment: Yes Qualifiers: Complication of substance-induced condition: with delirium Qualified Code(s): F10.231 - Alcohol dependence with withdrawal delirium Consult Discharge Plan - Plan Psychiatry Exam - Constitutional Vitals: Temp Pulse Resp BP Pulse Ox 97.3 F L 68 16 94/58 94 01/18/19 01:00 01/18/19 01:00 01/18/19 01:00 01/18/19 01:00 01/18/19 01:00 General appearance: age & developmentally appropriate, disheveled - Musculoskeletal Gait: slow Station: bizarre mannerisms Strength & Tone: mild weakness - Psychiatric Patient Orientation: Yes Person, Yes Time, Yes Place Level of alertness: Alert Behavior: fearful Psychomotor activity: Slowed Eye Contact: Minimal Contact Mood Description: Anxious Patient description of mood: Anxious Affect description: anxious Speech Volume: Soft/Quiet Speech pattern: normal rate, normal rhythm, normal tone, fluent, spontaneous Language & Vocabulary: consistent with education Thought Process: Linear, Goal Oriented Thought Content: No Suicidal ideation, No Homicidal ideation, No Overt delusions Perceptual Disturbances: No Auditory hallucinations, No Visual hallucinations Attention Span Ability: Capable of Focused Attention Memory Description: Grossly Intact Patient Reliability: Reliable Historian Fund of knowledge: Yes abstraction ability, Yes aware of current events Intelligence Estimate: Average Judgment: Limited Insight: Minimal
[2019-01-18] MEDS: hydrOXYzine pamoate 25 MG CAPSULE PO PRN (16:33)
[2019-01-18] MEDS: Spironolactone 25 MG TABLET PO SCH (18:21)
[2019-01-18] MEDS: traZODone 50 MG TABLET PO PRN (21:01)
--- NOTE | 2019-01-19 09:10 | Discharge Summary ---
Date of Encounter: 01/19/19 Time of Encounter: 08:40 Diagnosis - Discharge Diagnosis (1) Depressed Status: Acute Qualifiers: Depression Type: major depressive disorder Major depression recurrence: re current Active/Remission status: currently active Major depression episode severity: severe Psychotic features: without psychotic features Qualified Code(s): F33.2 - Major depressive disorder, recurrent severe without psychotic features (2) Alcohol withdrawal Status: Acute Qualifiers: Complication of substance-induced condition: with delirium Qualified Code(s): F10.231 - Alcohol dependence with withdrawal delirium Medications - Discharge Medications Prescriptions: Venlafaxine XR (24 HR) [Effexor Xr] 150 mg PO DAILY #15 cap.er.24h Furosemide [Lasix] 40 mg PO BID 08/03/18 [History] Atorvastatin [Lipitor] 40 mg PO HS 10/11/18 [History] HydrOXYzine [Atarax] 10 mg PO Q8H PRN 10/11/18 [History] Sacubitril/Valsartan 49/51 MG [Entresto 49 mg-51 mg Tablet] 1 tab PO BID 10/11/18 [History] Albuterol Sulfate [Proventil Inhaler] 2 puff IH Q6H PRN 11/18/18 [History] Aspirin [Adult Aspirin Regimen] 81 mg PO DAILY 11/18/18 [History] Spironolactone 25 mg PO QPM 11/18/18 [History] Nitroglycerin 0.4 mg SL Q5MIN PRN #10 tab.subl 11/20/18 [Rx] Metoprolol XL (24 HR) Succ [Toprol Xl] 25 mg PO DAILY 01/09/19 [History] Venlafaxine HCl [Venlafaxine HCl ER] 75 mg PO DAILY 01/09/19 [History] Isosorbide MONOnitrate (24 HR) [Imdur] 30 mg PO DAILY #30 tab.er.24h 01/11/19 [Rx] Ticagrelor [Brilinta] 90 mg PO BID tablet 01/11/19 [Rx] Promethazine [Phenergan] 12.5 mg PO Q6HR PRN 01/16/19 [History] Folic Acid 1 mg PO DAILY tablet 01/19/19 [Rx] Thiamine (B-1) [Vitamin B-1] 100 mg PO DAILY tablet 01/19/19 [Rx] Venlafaxine XR (24 HR) [Effexor Xr] 150 mg PO DAILY #15 cap.er.24h 01/19/19 [Rx] Vitamin B Complex/Vit C/Vit E [Stresstab] 1 each PO DAILY tablet 01/19/19 [Rx] Allergy/AdvReac Type Severity Reaction Status Date / Time Sulfa (Sulfonamide Allergy Hives/ITCHI Verified 01/10/19 17:31 Antibiotics) NG chocolate Allergy Hives Uncoded 01/10/19 17:31 Results Procedures and tests throughout hospitalization: Completed Lab Orders Category Date Time Status Acetaminophen Stat Lab 01/16/19 12:54 Completed Basic Metabolic Panel Stat Lab 01/16/19 12:54 Completed Complete Blood Count [HEME] Stat Lab 01/16/19 12:54 Completed Drug Screen, Urine [UCHEM] Stat Lab 01/16/19 13:18 Completed Ethanol Stat Lab 01/16/19 12:54 Completed Salicylate Stat Lab 01/16/19 12:54 Completed Thyroid Stimulating Hormone Stat Lab 01/16/19 12:54 Completed Troponin I Stat Lab 01/16/19 12:54 Completed Urinalysis reflex Microscopic [URIN] Stat Lab 01/16/19 13:18 Completed Completed Imaging Orders Category Date Time Status XR chest 1V portable [XR] Stat Exams 01/16/19 12:54 Completed Lab Results 01/16/19 01/16/19 01/16/19 Range/Units 12:54 12:54 13:18 WBC 10.6 D (4.3-11.1) K/mcL RBC 5.25 H (3.82-4.97) M/mcL Hgb 16.2 H D (11.5-15.4) g/dL Hct 49.0 H (35.3-44.9) % MCV 93.3 (83.0-100.0) fL MCH 30.9 (28.0-33.3) pg MCHC 33.1 (31.6-35.5) g/dL RDW 14.0 (11.5-14.5) % Plt Count 230 (140-400) K/mcL MPV 9.4 (9.4-12.4) fL Immature Gran % 0.6 (0-4) % Seg Neutrophils % 78.6 % Lymphocytes % 12.0 % Monocytes % 7.2 % Eosinophils % 0.8 % Basophils % 0.8 % Neutrophils # 8.3 (1.6-8.9) K/mcL Lymphocytes # 1.3 (0.6-4.6) K/mcL Monocytes # 0.8 (0.0-1.3) K/mcL Eosinophils # 0.1 (0.0-0.6) K/mcL Basophils # 0.1 (0.0-0.2) K/mcL Sodium 137 (136-145) mEq/L Potassium 4.2 (3.5-5.1) mEq/L Chloride 104 (98-107) mEq/L Carbon Dioxide 22 L (23-29) mEq/L BUN 28 H (6-20) mg/dL Creatinine 1.48 H (0.60-1.20) mg/dL Est GFR ( Amer) 45 L (> 60) Est GFR (Non-Af Amer) 37 L (> 60) BUN/Creatinine Ratio 19 (6-26) Glucose 103 (70-105) mg/dL Calculated Osmolality 290 (280-300) Calcium 9.1 (8.6-10.3) mg/dL Troponin I 0.07 H* (< 0.04) ng/mL TSH 1.097 (0.340-5.600) mcIU/mL Urine Color Yellow (Yellow) Urine Clarity Cloudy A (Clear) Urine pH 5.5 (5.0-8.0) pH Units Ur Specific [place] 1.021 (1.010-1.025) Urine Protein 30 H (Neg-Trace) mg/dL Urine Glucose (UA) Normal (Normal) mg/dL Urine Ketones Negative (Negative) mg/dL Urine Blood Small H (Negative) Urine Nitrite Negative (Negative) Urine Bilirubin Negative (Negative) Urine Urobilinogen Normal (Normal) mg/dL Ur Leukocyte Esterase Moderate H (Negative) Urine Microscopic RBC 5-15 H (0-3) per hpf Urine Microscopic WBC TNTC H (0-3) per hpf Ur Squamous Epith Cells Many H (None-Few) per lpf Urine Bacteria None Seen (None-Few) per hpf Hyaline Casts Few (None-Few) per lpf Salicylates < 2.5 L (15.0-30.0) mg/dL Urine Opiates Screen (Wemiyl=580) ng/mL Ur Buprenorphine Scrn (Cutoff=5) ng/mL Acetaminophen < 10 L (10-20) mcg/mL Ur Barbiturates Screen (Eyzcth=453) ng/mL Ur Phencyclidine Scrn (Cutoff=25) ng/mL Ur Amphetamines Screen ([place]=1416) ng/mL U Benzodiazepines Scrn (Kiqcpw=851) ng/mL Urine Cocaine Screen (Cutoff= 300) ng/mL U Marijuana (THC) Screen (Cutoff = 50) ng/mL Ur Drug Screen Interp Ethyl Alcohol < 10 (Less than 10) mg/dL 01/16/19 Range/Units 13:18 WBC (4.3-11.1) K/mcL RBC (3.82-4.97) M/mcL Hgb (11.5-15.4) g/dL Hct (35.3-44.9) % MCV (83.0-100.0) fL MCH (28.0-33.3) pg MCHC (31.6-35.5) g/dL RDW (11.5-14.5) % Plt Count (140-400) K/mcL MPV (9.4-12.4) fL Immature Gran % (0-4) % Seg Neutrophils % % Lymphocytes % % Monocytes % % Eosinophils % % Basophils % % Neutrophils # (1.6-8.9) K/mcL Lymphocytes # (0.6-4.6) K/mcL Monocytes # (0.0-1.3) K/mcL Eosinophils # (0.0-0.6) K/mcL Basophils # (0.0-0.2) K/mcL Sodium (136-145) mEq/L Potassium (3.5-5.1) mEq/L Chloride (98-107) mEq/L Carbon Dioxide (23-29) mEq/L BUN (6-20) mg/dL Creatinine (0.60-1.20) mg/dL Est GFR ( Amer) (> 60) Est GFR (Non-Af Amer) (> 60) BUN/Creatinine Ratio (6-26) Glucose (70-105) mg/dL Calculated Osmolality (280-300) Calcium (8.6-10.3) mg/dL Troponin I (< 0.04) ng/mL TSH (0.340-5.600) mcIU/mL Urine Color (Yellow) Urine Clarity (Clear) Urine pH (5.0-8.0) pH Units Ur Specific [place] (1.010-1.025) Urine Protein (Neg-Trace) mg/dL Urine Glucose (UA) (Normal) mg/dL Urine Ketones (Negative) mg/dL Urine Blood (Negative) Urine Nitrite (Negative) Urine Bilirubin (Negative) Urine Urobilinogen (Normal) mg/dL Ur Leukocyte Esterase (Negative) Urine Microscopic RBC (0-3) per hpf Urine Microscopic WBC (0-3) per hpf Ur Squamous Epith Cells (None-Few) per lpf Urine Bacteria (None-Few) per hpf Hyaline Casts (None-Few) per lpf Salicylates (15.0-30.0) mg/dL Urine Opiates Screen Positive H (Idmdhq=218) ng/mL Ur Buprenorphine Scrn Negative (Cutoff=5) ng/mL Acetaminophen (10-20) mcg/mL Ur Barbiturates Screen Negative (Hahvvo=787) ng/mL Ur Phencyclidine Scrn Negative (Cutoff=25) ng/mL Ur Amphetamines Screen Negative (Naiout=2729) ng/mL U Benzodiazepines Scrn Negative (Lukyzv=262) ng/mL Urine Cocaine Screen Negative (Cutoff= 300) ng/mL U Marijuana (THC) Screen Negative (Cutoff = 50) ng/mL Ur Drug Screen Interp See Below Ethyl Alcohol (Less than 10) mg/dL Provider Date of admission: 01/16/19 15:17 Primary care physician: PCP NONE Discharging clinician: Vianey Roach Psychiatry Exam - Constitutional Vitals: Temp Pulse Resp BP Pulse Ox 97.1 F L 75 18 90/56 94 01/19/19 05:00 01/19/19 05:00 01/19/19 05:00 01/19/19 05:00 01/19/19 05:00 General appearance: age & developmentally appropriate, well-groomed, well- nourished - Musculoskeletal Gait: normal Station: relaxed Strength & Tone: normal for patient - Psychiatric Patient Orientation: Yes Person, Yes Time, Yes Place Level of alertness: Alert Behavior: calm, cooperative Psychomotor activity: Normal Eye Contact: Maintains Eye Contact Mood Description: Euthymic/stable Patient description of mood: Better Affect description: congruent with mood, full range Speech Volume: Normal Speech pattern: normal rate, normal rhythm, normal tone, fluent, spontaneous Language & Vocabulary: consistent with education Thought Process: Linear, Goal Oriented Thought Content: No Suicidal ideation, No Homicidal ideation, No Overt delusions Perceptual Disturbances: No Auditory hallucinations, No Visual hallucinations Attention Span Ability: Capable of Focused Attention Memory Description: Grossly Intact Patient Reliability: Reliable Historian Fund of knowledge: Yes abstraction ability, Yes aware of current events Intelligence Estimate: Average Judgment: Good Insight: Full Hospital Course Hospital course: Ms. Mejía is a 53 year old female who was admitted for depression related to issues with her and loss of ability to work due to medical problems as well as alcohol use and withdrawal symptoms. Her Effexor was increased to address her depression. She was started on a Librium taper for her alcohol withdrawal. She was also given thiamine and folic acid. She was counseled on AA groups. Her pink slip on and she was willing to stay 1 additional day to taper her further down on Librium. She still received a small amount on 01/18 but did not need any on 01/19 and wish to leave at this point. We did discuss that she was still within the period of time where she might experience alcohol withdrawal symptoms and discussed what these looked like and that she should return to the emergency room if she was having any of them. Patient was educated of diagnosis and the risk-benefit side effects of this alternative treatment options and was monitored for responsiveness and side effects. Mood anxiety sleep and appetite interest improved as did future orientation. Self- harm thoughts subsided, thinking cleared, psychosis resolved, and mood stabilized. Patient was able to attend both individual and group therapy sessions as well as meet with the psychiatrist daily and urged to discuss any medication or treatment issues or other concerns. The patient was educated primarily by verbal means about their diagnosis and manifestations in their life. The option for treatment including group and individual therapy madhavi de anda was offered to the patient in addition to the use of medications with all their potential risks, benefits, and side effects as well as the risks of not taking medication and non-adhereance were discussed with the patient at length. The patient was given the opportunity to ask questions and was noted to participate in the treatment in the planning process. The patient felt ready and eager to be discharged from the inpatient psychiatric unit to continue on with treatment as an outpatient. The patient agreed that is they were safe for this disposition. The patient was considered to be able to participate in informed consent and decision making with respect to medical, legal, and financial issues of the time of discharge. At the time of discharge the patient adamantly denied any concerns for lethality including suicidal or homicidal thoughts ideations or plans and was future oriented toward ongoing mental health care, medical follow-up and sobriety. Time spent discussing smoking cessation with patient: 3 to 10 minutes Does patient wish to continue nicotine replacement upon disc: No - Time Spent with Patient Total time spent providing and/or coordinating discharge services: 25 Less than 30 minutes Specific discharge activities: Interval history reviewed. Available labs reviewed . Psychotherapy provided. Patient had an opportunity to ask questions and address concerns. Patient was in agreement with the treatment plan. The risks benefits and side effects of medications were discussed with the patient, including alternatives and treatment. The patient was educated on the abstaining from any alcohol or illicit substances, following up with all scheduled appointments, and taking all medications as prescribed. The patient was educated on 90 meetings in 90 days and to find a sponsor. Assessment and Plan - Patient/Caregiver Discharge Instructions Activity: resume usual activities as tolerated Diet: regular diet Additional Instructions: Continue current medications. Follow up with outpatient mental health. Encourage continued therapy in a group or individual setting. The patient was discharged to home. - Follow up Plan Follow up with: NONE,PCP [Primary Care Provider] - Functional capacity at discharge: independent ambulation Overall status at discharge: Stable Disposition: Home, Self-Care Quality - Multiple Antipsychotics Patient discharged on 2 or more antipsychotic medications: No Procedures - Procedures Procedures: Medication Management, Crisis Stabilization, Supportive Therapy, Group Therapy, Psychoeducational Therapy
[2019-01-19 09:35] VITALS: BP 76/45
[2019-01-19] MEDS: Folic Acid 1 MG TABLET PO SCH (10:10)
[2019-01-19] MEDS: Isosorbide MONOnitrate (24 HR) 30 MG TAB.ER.24H PO SCH (10:10)
[2019-01-19] MEDS: Thiamine (B-1) 100 MG TABLET PO SCH (10:10)
[2019-01-19] MEDS: Vitamin B Complex/Vit C/Vit E 1 EACH TABLET PO SCH (10:10)
[2019-01-19] MEDS: Aspirin Enteric Coated 81 MG Tablet PO SCH (10:10)
[2019-01-19] MEDS: Sacubitril/Valsartan 49/51 MG 1 TABLET PO SCH (10:10)
[2019-01-19] MEDS: Furosemide 40 MG TABLET PO SCH (10:10)
[2019-01-19] MEDS: Venlafaxine XR (24 HR) 150 MG CAP.ER.24H PO SCH (10:10)
[2019-01-19] MEDS: Metoprolol XL (24 HR) Succ 25 MG TAB.ER.24H PO SCH (10:10)
[2019-01-19] MEDS: *HR* Ticagrelor 90 MG TABLET PO SCH (10:10)
== END 2019-01-19 10:55 | disposition home or self-care (01) | DRG 885 ==
LOC: EMEROOARM 12:46 → 1ANU 15:17
PROVIDERS: ADMIT Psychiatry & Neurology Psychiatry; ATTEND Psychiatry & Neurology Psychiatry

== ENCOUNTER 2019-04-26 15:07 | Observation (INO) ==
[2019-04-26] MEDS ORDERED: *HR* HYDROmorphone (PF) 1 MG/ML SYRINGE IVP ONE ×2 (15:14→19:10)
[2019-04-26] MEDS ORDERED: Ondansetron 4 MG/2 ML VIAL IVP ONE ×2 (15:14→17:36)
[2019-04-26 16:26] LABS: Bilirubin,Urine Negative (Negative); Blood,Urine Trace (Negative); Clarity,Urine Cloudy (Clear); Color,Urine Yellow (Yellow); Glucose,Urine (UA) 100 mg/dL (Normal); Ketones,Urine Negative (Negative); Leukocyte Esterase,Urine Moderate (Negative); Nitrite,Urine Positive (Negative); Protein,Urine 30 mg/dL (Neg-Trace); Specific Gravity,Urine 1.028 (1.010-1.025); Urobilinogen,Urine Normal (Normal)
[2019-04-26] MEDS ORDERED: cefTRIAXone 1,000 MG in Water for inj. (sterile) 10 ML IVP ONE (16:28)
[2019-04-26 16:29] LABS: Bacteria,Urine Many per hpf (None-Few); Hyaline Casts,Urine None Seen per lpf (None-Few); Squamous Epithelial Cell,Urine Many per lpf (None-Few); WBC,Urine TNTC per hpf (0-3)
[2019-04-26 16:30] LABS: Basophils # 0.1 K/mcL (0.0-0.2); Basophils % 0.8 %; Eosinophils # 0.1 K/mcL (0.0-0.6); Eosinophils % 1.9 %; Hematocrit 43.7 % (35.3-44.9); Immature Granulocytes % 0.3 % (0-4); Lymphocytes # 0.8 K/mcL (0.6-4.6); Lymphocytes % 12.7 %; Mean Corpuscular HGB Conc 34.3 g/dL (31.6-35.5); Mean Corpuscular Hemoglobin 30.6 pg (28.0-33.3); Mean Corpuscular Volume 89.2 fL (83.0-100.0); Mean Platelet Volume 9.3 fL (9.4-12.4); Monocytes # 0.5 K/mcL (0.0-1.3); Monocytes % 8.7 %; Neutrophils # 4.7 K/mcL (1.6-8.9); Platelet Count 228 K/mcL (140-400); Red Cell Distribution Width 14.8 % (11.5-14.5); Segmented Neutrophils % 75.6 %; White Blood Count 6.2 K/mcL (4.3-11.1)
[2019-04-26] MEDS ORDERED: Piperacillin/Tazobactam 3.375 GM in 0.9 % Sodium Chloride Mini Bag 100 ML IVPB ONE (16:49)
[2019-04-26 17:52] LABS: Alanine Aminotransferase 13 Units/L (7-52); Albumin 3.8 g/dL (3.5-5.7); Albumin/Globulin Ratio 1.5 (1.1-2.2); Alkaline Phosphatase 73 Units/L (34-104); Aspartate Amino Transferase 20 Units/L (13-39); BUN/Creatinine Ratio 16 (6-26); Bilirubin,Total 0.3 mg/dL (0.3-1.0); Blood Urea Nitrogen 16 mg/dL (6-20); Carbon Dioxide 28 mEq/L (23-29); Chloride 102 mEq/L (98-107); Globulin 2.6 g/dL (2.4-3.5); Glucose 109 mg/dL (70-105); Osmolality,Calculated 286 (280-300); Potassium 3.9 mEq/L (3.5-5.1); Sodium 137 mEq/L (136-145); Total Protein 6.4 g/dL (6.4-8.9); Troponin I 0.04 ng/mL (< 0.04); eGFR For African Americans > 60 (> 60); eGFR For Non-African Americans 59 (> 60)
[2019-04-26] MEDS ORDERED: Aspirin 325 MG TABLET PO ONE (17:57)
[2019-04-26] MEDS ORDERED: Ertapenem 1,000 MG in 0.9 % Sodium Chloride Mini Bag 100 ML IVPB ONE (18:00)
[2019-04-26] MEDS ORDERED: Naloxone 0.4 MG/ML INJ IVP PRN (18:16)
[2019-04-26] MEDS ORDERED: Isosorbide MONOnitrate (24 HR) 30 MG TAB.ER.24H PO PRN (18:20)
[2019-04-26] MEDS: Sacubitril/Valsartan 49/51 MG 1 TABLET PO SCH (20:45)
[2019-04-26] MEDS: *HR* Ticagrelor 90 MG TABLET PO SCH (20:46)
[2019-04-26] MEDS: *HR* Heparin 5,000 UNIT/ML VIAL SQ SCH (20:46)
[2019-04-26] MEDS: Furosemide 40 MG TABLET PO SCH (21:05)
[2019-04-27] MEDS ORDERED: traMADol 50 MG TABLET PO ONE (00:57)
[2019-04-27] MEDS: Ondansetron 4 MG/2 ML VIAL IVP PRN ×3 (03:58→16:38)
[2019-04-27] MEDS ORDERED: *HR* HYDROmorphone 2 MG TABLET PO ONE ×2 (04:37→21:18)
[2019-04-27] MEDS: *HR* Heparin 5,000 UNIT/ML VIAL SQ SCH ×3 (05:32→21:44)
[2019-04-27 05:54] LABS: Basophils # 0.1 K/mcL (0.0-0.2); Eosinophils # 0.2 K/mcL (0.0-0.6); Eosinophils % 3.1 %; Hematocrit 42.8 % (35.3-44.9); Hemoglobin 14.2 g/dL (11.5-15.4); Immature Granulocytes % 0.4 % (0-4); Lymphocytes # 0.7 K/mcL (0.6-4.6); Lymphocytes % 15.1 %; Mean Corpuscular HGB Conc 33.2 g/dL (31.6-35.5); Mean Corpuscular Hemoglobin 29.8 pg (28.0-33.3); Mean Corpuscular Volume 89.7 fL (83.0-100.0); Monocytes # 0.5 K/mcL (0.0-1.3); Monocytes % 10.4 %; Neutrophils # 3.4 K/mcL (1.6-8.9); Platelet Count 195 K/mcL (140-400); Red Blood Count 4.77 M/mcL (3.82-4.97); Red Cell Distribution Width 14.9 % (11.5-14.5); White Blood Count 4.9 K/mcL (4.3-11.1)
[2019-04-27 06:12] LABS: BUN/Creatinine Ratio 14 (6-26); Blood Urea Nitrogen 15 mg/dL (6-20); Calcium 8.9 mg/dL (8.6-10.3); Carbon Dioxide 30 mEq/L (23-29); Chloride 100 mEq/L (98-107); Glucose 112 mg/dL (70-105); Osmolality,Calculated 288 (280-300); Potassium 3.6 mEq/L (3.5-5.1); Sodium 138 mEq/L (136-145); eGFR For African Americans > 60 (> 60); eGFR For Non-African Americans 55 (> 60)
[2019-04-27] MEDS: *HR* Ticagrelor 90 MG TABLET PO SCH ×2 (08:37→21:45)
[2019-04-27] MEDS: Metoprolol XL (24 HR) Succ 25 MG TAB.ER.24H PO SCH (08:38)
[2019-04-27] MEDS: Venlafaxine XR (24 HR) 75 MG CAP.ER.24H PO SCH (08:38)
[2019-04-27] MEDS: Aspirin Enteric Coated 81 MG Tablet PO SCH (08:38)
[2019-04-27] MEDS: Sacubitril/Valsartan 49/51 MG 1 TABLET PO SCH ×2 (08:38→21:44)
[2019-04-27] MEDS: Furosemide 40 MG TABLET PO SCH ×2 (08:38→16:38)
[2019-04-27] MEDS ORDERED: *HR* OxyCODONE/APAP 5/325 TABLET PO ONE (09:31)
[2019-04-27] MEDS: Spironolactone 25 MG TABLET PO SCH (18:06)
[2019-04-28 04:09] LABS: Basophils # 0.1 K/mcL (0.0-0.2); Eosinophils # 0.2 K/mcL (0.0-0.6); Eosinophils % 2.8 %; Hematocrit 44.6 % (35.3-44.9); Hemoglobin 15.1 g/dL (11.5-15.4); Immature Granulocytes % 0.7 % (0-4); Lymphocytes # 1.3 K/mcL (0.6-4.6); Lymphocytes % 21.1 %; Mean Corpuscular HGB Conc 33.9 g/dL (31.6-35.5); Mean Corpuscular Hemoglobin 30.5 pg (28.0-33.3); Mean Corpuscular Volume 90.1 fL (83.0-100.0); Mean Platelet Volume 9.2 fL (9.4-12.4); Monocytes # 0.6 K/mcL (0.0-1.3); Monocytes % 9.6 %; Platelet Count 222 K/mcL (140-400); Red Blood Count 4.95 M/mcL (3.82-4.97); Red Cell Distribution Width 14.8 % (11.5-14.5); Segmented Neutrophils % 64.8 %; White Blood Count 6.2 K/mcL (4.3-11.1)
[2019-04-28 04:32] LABS: Potassium 3.6 mEq/L (3.5-5.1)
[2019-04-28] MEDS: *HR* Heparin 5,000 UNIT/ML VIAL SQ SCH ×3 (04:56→21:08)
[2019-04-28] MEDS: Ertapenem 1,000 MG in 0.9 % Sodium Chloride Mini Bag 100 ML IVPB SCH (08:39)
[2019-04-28] MEDS: Furosemide 40 MG TABLET PO SCH ×2 (08:40→18:01)
[2019-04-28] MEDS: Ondansetron 4 MG/2 ML VIAL IVP PRN ×2 (08:40→18:00)
[2019-04-28] MEDS ORDERED: *HR* OxyCODONE/APAP 5/325 TABLET PO ONE ×2 (08:54→18:11)
[2019-04-28] MEDS: Sacubitril/Valsartan 49/51 MG 1 TABLET PO SCH ×2 (10:14→21:09)
[2019-04-28] MEDS: *HR* Ticagrelor 90 MG TABLET PO SCH ×2 (10:15→21:09)
[2019-04-28] MEDS: Venlafaxine XR (24 HR) 75 MG CAP.ER.24H PO SCH (10:15)
[2019-04-28] MEDS: Aspirin Enteric Coated 81 MG Tablet PO SCH (10:16)
[2019-04-28] MEDS: Metoprolol XL (24 HR) Succ 25 MG TAB.ER.24H PO SCH (10:16)
[2019-04-28] MEDS ORDERED: Promethazine 12.5 MG in 0.9 % Sodium Chloride 50 ML IVPB ONE (12:13)
[2019-04-28] MEDS: Spironolactone 25 MG TABLET PO SCH (18:01)
[2019-04-29 05:44] LABS: Basophils # 0.1 K/mcL (0.0-0.2); Basophils % 1.1 %; Eosinophils # 0.2 K/mcL (0.0-0.6); Eosinophils % 2.7 %; Hematocrit 45.6 % (35.3-44.9); Hemoglobin 15.5 g/dL (11.5-15.4); Immature Granulocytes % 0.8 % (0-4); Lymphocytes # 1.8 K/mcL (0.6-4.6); Lymphocytes % 26.9 %; Mean Corpuscular Hemoglobin 30.3 pg (28.0-33.3); Mean Corpuscular Volume 89.2 fL (83.0-100.0); Mean Platelet Volume 9.1 fL (9.4-12.4); Monocytes # 0.7 K/mcL (0.0-1.3); Monocytes % 10.9 %; Neutrophils # 3.8 K/mcL (1.6-8.9); Platelet Count 229 K/mcL (140-400); Red Blood Count 5.11 M/mcL (3.82-4.97); Red Cell Distribution Width 14.7 % (11.5-14.5); Segmented Neutrophils % 57.6 %; White Blood Count 6.6 K/mcL (4.3-11.1)
[2019-04-29] MEDS: *HR* Heparin 5,000 UNIT/ML VIAL SQ SCH ×2 (05:57→13:38)
[2019-04-29 07:08] LABS: Potassium 3.6 mEq/L (3.5-5.1)
[2019-04-29] MEDS: Ertapenem 1,000 MG in 0.9 % Sodium Chloride Mini Bag 100 ML IVPB SCH (07:46)
[2019-04-29] MEDS: Venlafaxine XR (24 HR) 75 MG CAP.ER.24H PO SCH (07:50)
[2019-04-29] MEDS: *HR* Ticagrelor 90 MG TABLET PO SCH (07:50)
[2019-04-29] MEDS: Furosemide 40 MG TABLET PO SCH (07:50)
[2019-04-29] MEDS: Aspirin Enteric Coated 81 MG Tablet PO SCH (07:50)
[2019-04-29] MEDS: Metoprolol XL (24 HR) Succ 25 MG TAB.ER.24H PO SCH (07:51)
[2019-04-29] MEDS: Sacubitril/Valsartan 49/51 MG 1 TABLET PO SCH (07:51)
[2019-04-29] MEDS: Ondansetron 4 MG/2 ML VIAL IVP PRN (08:41)
[2019-04-29] MEDS ORDERED: *HR* Promethazine 25 MG/ML VIAL IVP ONE (12:50)
[2019-04-29 16:04] VITALS: BP 105/70
== END 2019-04-29 16:40 | disposition home or self-care (01) ==
LOC: 3ANU 15:07 → EMEROOARM 15:07 → SUATTDRO 18:02 → 3ANU 19:48
PROVIDERS: ADMIT Internal Medicine; ATTEND Internal Medicine

== ENCOUNTER 2020-03-23 14:14 | Inpatient (IN) ==
[2020-03-23 15:18] LABS: Basophils # 0.1 K/mcL (0.0-0.2); Eosinophils # 0.2 K/mcL (0.0-0.6); Eosinophils % 1.5 %; Hemoglobin 13.5 g/dL (11.5-15.4); Immature Granulocytes % 0.6 % (0-4); Lymphocytes # 1.8 K/mcL (0.6-4.6); Lymphocytes % 16.6 %; Mean Corpuscular HGB Conc 31.4 g/dL (31.6-35.5); Mean Corpuscular Hemoglobin 27.7 pg (28.0-33.3); Mean Corpuscular Volume 88.3 fL (83.0-100.0); Mean Platelet Volume 9.4 fL (9.4-12.4); Monocytes # 0.6 K/mcL (0.0-1.3); Monocytes % 5.1 %; Neutrophils # 8.2 K/mcL (1.6-8.9); Platelet Count 259 K/mcL (140-400); Red Blood Count 4.87 M/mcL (3.82-4.97); Red Cell Distribution Width 15.7 % (11.5-14.5); Segmented Neutrophils % 75.2 %; White Blood Count 10.9 K/mcL (4.3-11.1)
[2020-03-23 15:33] LABS: INR 1.2; Prothrombin Time 13.5 Seconds (9.4-12.1)
[2020-03-23 15:44] LABS: Troponin I 0.96 ng/mL (< 0.04)
[2020-03-23] MEDS ORDERED: Aspirin 325 MG TABLET PO ONE (15:48)
[2020-03-23] MEDS ORDERED: Isovue-370 500 ML BOTTLE IVP ONE (15:49)
[2020-03-23 15:53] LABS: Alanine Aminotransferase 22 Units/L (7-52); Albumin 3.8 g/dL (3.5-5.7); Albumin/Globulin Ratio 1.5 (1.1-2.2); Alkaline Phosphatase 103 Units/L (34-104); Aspartate Amino Transferase 19 Units/L (13-39); BUN/Creatinine Ratio 19 (6-26); Bilirubin,Total 0.6 mg/dL (0.3-1.0); Blood Urea Nitrogen 20 mg/dL (6-20); Calcium 9.2 mg/dL (8.6-10.3); Carbon Dioxide 23 mEq/L (23-29); Chloride 107 mEq/L (98-107); Globulin 2.6 g/dL (2.4-3.5); Glucose 176 mg/dL (70-105); Osmolality,Calculated 299 (280-300); Potassium 3.6 mEq/L (3.5-5.1); Sodium 141 mEq/L (136-145); Total Protein 6.4 g/dL (6.4-8.9); eGFR For African Americans > 60 (> 60); eGFR For Non-African Americans 56 (> 60)
[2020-03-23] MEDS ORDERED: *HR* HYDROcodone/Acet 10/325 mg TABLET PO ONE (16:25)
[2020-03-23] MEDS ORDERED: Furosemide 40 MG/4 ML VIAL IVP ONE (19:39)
[2020-03-23 21:40] LABS: Adenovirus Not Detected (Not Detect); Bordetella Pertussis Not Detected (Not Detect); Chlamydophila pneumoniae Not Detected (Not Detect); Coronavirus 229E Not Detected (Not Detect); Coronavirus HKU1 Not Detected (Not Detect); Coronavirus NL63 Not Detected (Not Detect); Coronavirus OC43 Not Detected (Not Detect); Human Metapneumovirus Not Detected (Not Detect); Human Rhinovirus/Enterovirus Not Detected (Not Detect); Influenza A Subtype 2009 H1 Not Detected (Not Detect); Influenza B Not Detected (Not Detect); Mycoplasma pneumoniae Not Detected (Not Detect); Parainfluenza Virus 1 Not Detected (Not Detect); Parainfluenza Virus 2 Not Detected (Not Detect); Parainfluenza Virus 3 Not Detected (Not Detect); Parainfluenza Virus 4 Not Detected (Not Detect); Respiratory Syncytial Virus Not Detected (Not Detect); SARS-CoV-2 Not Detected (Not Detect)
[2020-03-23] MEDS ORDERED: Naloxone 0.4 MG/ML INJ IVP PRN (22:00)
[2020-03-23] MEDS ORDERED: Perflutren Lipid Microsphere 1.3 ML in 0.9 % Sodium Chloride 8.7 ML IVP PRN (22:03)
[2020-03-23] MEDS ORDERED: Ipratropium/Albuterol Neb 3 ML IH PRN (23:29)
[2020-03-23] MEDS ORDERED: hydrOXYzine pamoate 25 MG CAPSULE PO PRN (23:42)
[2020-03-24] MEDS: Azithromycin 500 MG in 0.9 % Sodium Chloride 250 ML IVPB SCH (00:12)
[2020-03-24] MEDS: *HR* OxyCODONE/APAP 5/325 TABLET PO PRN ×3 (00:21→21:24)
[2020-03-24 00:59] LABS: Bacteria,Urine Few per hpf (None-Few); Bilirubin,Urine Negative (Negative); Blood,Urine Negative (Negative); Clarity,Urine Clear (Clear); Color,Urine Colorless (Yellow); Glucose,Urine (UA) 30 mg/dL (Normal); Hyaline Casts,Urine Few per lpf (None Seen); Ketones,Urine Negative (Negative); Leukocyte Esterase,Urine Negative (Negative); Nitrite,Urine Negative (Negative); Protein,Urine Negative (Neg-Trace); Specific Gravity,Urine 1.012 (1.010-1.025); Squamous Epithelial Cell,Urine Few per hpf (None-Few); Urobilinogen,Urine Normal (Normal); WBC,Urine 0-3 per hpf (0-3)
[2020-03-24] MEDS: Acetaminophen 325 MG TABLET PO PRN ×2 (05:08→18:49)
[2020-03-24] MEDS: Ondansetron 4 MG/2 ML VIAL IVP PRN (05:08)
[2020-03-24 05:10] LABS: INR 1.1; Prothrombin Time 13.1 Seconds (9.4-12.1)
[2020-03-24 05:39] LABS: Calcium 9.1 mg/dL (8.6-10.3); Magnesium 1.9 mg/dL (1.6-2.6); Phosphorous 4.7 mg/dL (2.7-4.5); Potassium 3.9 mEq/L (3.5-5.1)
[2020-03-24 05:45] LABS: Hematocrit 46.1 % (35.3-44.9); Hemoglobin 14.2 g/dL (11.5-15.4); Mean Corpuscular HGB Conc 30.8 g/dL (31.6-35.5); Mean Corpuscular Hemoglobin 27.8 pg (28.0-33.3); Mean Corpuscular Volume 90.2 fL (83.0-100.0); Mean Platelet Volume 9.4 fL (9.4-12.4); Platelet Count 259 K/mcL (140-400); Red Blood Count 5.11 M/mcL (3.82-4.97); Red Cell Distribution Width 15.8 % (11.5-14.5); White Blood Count 8.6 K/mcL (4.3-11.1)
[2020-03-24 05:46] LABS: Thyroid Stimulating Hormone 3.679 mcIU/mL (0.340-5.600)
[2020-03-24] MEDS ORDERED: *HR* Heparin 5,000 UNIT/ML VIAL IVP ONE (07:43)
[2020-03-24] MEDS ORDERED: *HR* Heparin 5,000 UNIT/ML VIAL IVP PRN ×2 (07:43)
[2020-03-24] MEDS ORDERED: Heparin 25,000UNIT/250ML 1/2NS 25,000 UNIT/250 ML IV.SOLN IVC SCH (07:45)
[2020-03-24] MEDS: Ipratropium/Albuterol Neb 3 ML IH SCH ×5 (08:05→23:38)
[2020-03-24] MEDS ORDERED: Isosorbide MONOnitrate (24 HR) 30 MG TAB.ER.24H PO PRN (09:00)
[2020-03-24] MEDS: *HR* Ticagrelor 90 MG TABLET PO SCH ×2 (09:26→20:01)
[2020-03-24] MEDS: MethylPREDNISolone 40 MG/ML VIAL IVP SCH ×2 (09:26→15:06)
[2020-03-24] MEDS: Aspirin Enteric Coated 81 MG Tablet PO SCH (09:26)
[2020-03-24] MEDS ORDERED: *HR* Midazolam HCl 2 MG/2 ML VIAL ONE (10:55)
[2020-03-24] MEDS ORDERED: *HR* FentaNYL (PF) 100 MCG/2 ML VIAL ONE (10:56)
[2020-03-24] MEDS ORDERED: *HR* Bivalirudin 250 MG VIAL IVC ONE (10:57)
[2020-03-24] MEDS ORDERED: Furosemide 40 MG/4 ML VIAL ONE (11:25)
[2020-03-24] MEDS ORDERED: *HR* Heparin 10,000 UNIT/10 ML VIAL ONE (11:40)
[2020-03-24] MEDS ORDERED: 0.9 % Sodium Chloride 1,000 ML ONE (11:40)
[2020-03-24] MEDS ORDERED: ISOVUE-370 200 ML INFUS..BTL ONE (11:40)
[2020-03-24] MEDS ORDERED: Heparin 1,000 UNITS/500 mL 500 ML ONE (11:40)
[2020-03-24] MEDS ORDERED: Nitroglycerin 1,000 MCG/10 ML VIAL IV ONE (11:40)
[2020-03-24] MEDS: Sacubitril/Valsartan 97/103 MG 1 TAB TABLET PO SCH ×2 (13:43→20:01)
[2020-03-24] MEDS: Metoprolol XL (24 HR) Succ 25 MG TAB.ER.24H PO SCH ×2 (13:44→20:01)
[2020-03-24] MEDS: Furosemide 40 MG/4 ML VIAL IVP SCH (17:09)
[2020-03-24] MEDS: *HR* Heparin 5,000 UNIT/ML VIAL SQ SCH (17:09)
[2020-03-25] MEDS: Azithromycin 500 MG in 0.9 % Sodium Chloride 250 ML IVPB SCH (01:05)
[2020-03-25] MEDS: Furosemide 40 MG/4 ML VIAL IVP SCH ×2 (01:05→08:47)
[2020-03-25] MEDS: MethylPREDNISolone 40 MG/ML VIAL IVP SCH ×2 (01:05→08:46)
[2020-03-25] MEDS ORDERED: Morphine Sulfate 2 MG/ML SYRINGE IVP ONE (01:28)
[2020-03-25 01:38] LABS: Basophils % 0.3 %; Hematocrit 43.8 % (35.3-44.9); Hemoglobin 14.1 g/dL (11.5-15.4); Immature Granulocytes % 0.6 % (0-4); Lymphocytes # 0.3 K/mcL (0.6-4.6); Lymphocytes % 4.4 %; Mean Corpuscular HGB Conc 32.2 g/dL (31.6-35.5); Mean Corpuscular Hemoglobin 27.9 pg (28.0-33.3); Mean Corpuscular Volume 86.7 fL (83.0-100.0); Mean Platelet Volume 9.5 fL (9.4-12.4); Monocytes # 0.2 K/mcL (0.0-1.3); Monocytes % 2.3 %; Neutrophils # 6.5 K/mcL (1.6-8.9); Platelet Count 277 K/mcL (140-400); Red Blood Count 5.05 M/mcL (3.82-4.97); Red Cell Distribution Width 15.3 % (11.5-14.5); Segmented Neutrophils % 92.4 %
[2020-03-25 01:55] LABS: Calcium 9.1 mg/dL (8.6-10.3); Magnesium 1.7 mg/dL (1.6-2.6); Potassium 3.3 mEq/L (3.5-5.1)
[2020-03-25] MEDS: Ondansetron 4 MG/2 ML VIAL IVP PRN ×2 (02:35→12:55)
[2020-03-25] MEDS: Ipratropium/Albuterol Neb 3 ML IH SCH ×6 (03:43→23:39)
[2020-03-25] MEDS: *HR* Heparin 5,000 UNIT/ML VIAL SQ SCH ×2 (05:54→18:44)
[2020-03-25] MEDS: Metoprolol XL (24 HR) Succ 25 MG TAB.ER.24H PO SCH ×2 (08:47→20:02)
[2020-03-25] MEDS: Sacubitril/Valsartan 97/103 MG 1 TAB TABLET PO SCH (08:47)
[2020-03-25] MEDS: Aspirin Enteric Coated 81 MG Tablet PO SCH (08:47)
[2020-03-25] MEDS: *HR* Ticagrelor 90 MG TABLET PO SCH ×2 (08:47→20:02)
[2020-03-25] MEDS: *HR* OxyCODONE/APAP 5/325 TABLET PO PRN ×2 (11:34→20:02)
[2020-03-25] MEDS ORDERED: Metoclopramide 10 MG/2 ML VIAL IVP ONE (15:29)
[2020-03-25] MEDS: MOM Conc 10 ML UD.LIQ PO SCH (16:19)
[2020-03-25] MEDS: Sennosides/Docusate Sodium TABLET PO SCH (20:02)
[2020-03-26] MEDS: Ipratropium/Albuterol Neb 3 ML IH SCH ×3 (03:29→11:11)
[2020-03-26] MEDS: *HR* Heparin 5,000 UNIT/ML VIAL SQ SCH (05:32)
[2020-03-26 06:17] LABS: Calcium 8.8 mg/dL (8.6-10.3)
[2020-03-26 06:40] VITALS: BP 100/63
[2020-03-26] MEDS: *HR* Ticagrelor 90 MG TABLET PO SCH (08:08)
[2020-03-26] MEDS: Sennosides/Docusate Sodium TABLET PO SCH (08:08)
[2020-03-26] MEDS: MOM Conc 10 ML UD.LIQ PO SCH (08:08)
[2020-03-26] MEDS: Metoprolol XL (24 HR) Succ 25 MG TAB.ER.24H PO SCH (08:08)
[2020-03-26] MEDS: Aspirin Enteric Coated 81 MG Tablet PO SCH (08:08)
[2020-03-26] MEDS: *HR* OxyCODONE/APAP 5/325 TABLET PO PRN (08:19)
[2020-03-26] MEDS ORDERED: Azithromycin 250 MG TABLET PO SCH (09:00)
[2020-03-26] MEDS ORDERED: predniSONE 20 MG TABLET PO SCH (09:00)
[2020-03-26] MEDS ORDERED: FLU Vac QV 20-21 (6Month+)/PF 0.5 ML SYRINGE IM ONE (09:42)
== END 2020-03-26 11:20 | disposition home or self-care (01) | DRG 280 ==
LOC: EMEROOARM 14:14 → 2ANU 14:14 → SUATTDRO 20:32 → 2ANU 21:30
PROVIDERS: ADMIT Student in an Organized Health Care Education/Training Program; ATTEND Internal Medicine

== ENCOUNTER 2022-03-04 06:34 | Inpatient (IN) ==
[2022-03-04] MEDS ORDERED: CeFAZolin Syr 2,000MG/20 ML 2,000 MG/20 ML SYRINGE IVPB ONE (07:11)
[2022-03-04] MEDS ORDERED: Ringers Solution, Lactated 1,000 ML IVC SCH (07:15)
[2022-03-04] MEDS ORDERED: Acetaminophen IV 1,000 MG/100 ML BAG IVPB ONE (08:05)
[2022-03-04 08:10] LABS: Prothrombin Time 10.9 Seconds (9.4-12.1)
[2022-03-04] MEDS ORDERED: Heparin 1,000 UNITS/500 mL 500 ML ONE (09:12)
[2022-03-04] MEDS ORDERED: *HR* Propofol 200 MG/20 ML VIAL IVP ONE (09:26)
[2022-03-04] MEDS ORDERED: *HR* FentaNYL (PF) 100 MCG/2 ML VIAL ONE (09:27)
[2022-03-04] MEDS ORDERED: *HR* Phenylephrine 10 MG/ML VIAL ONE (09:36)
[2022-03-04] MEDS ORDERED: *HR* EPINEPHrine 1 MG/10 ML SYRINGE ONE (09:36)
[2022-03-04] MEDS ORDERED: Lidocaine HCL 4 ML Topical Solution (Laryng-O-Jet Kit Sterile Pak) TP ONE (09:37)
[2022-03-04] MEDS ORDERED: Lidocaine -MPF 2% 5 ML VIAL ONE (09:37)
[2022-03-04] MEDS ORDERED: *HR* Rocuronium Bromide 50 MG/5 ML VIAL ONE (09:38)
[2022-03-04] MEDS ORDERED: *HR* Midazolam HCl 2 MG/2 ML VIAL ONE (09:46)
[2022-03-04] MEDS ORDERED: *HR* Midazolam HCl 2 MG/2 ML VIAL IVP ONE (09:59)
[2022-03-04] MEDS ORDERED: *HR* FentaNYL (PF) 100 MCG/2 ML VIAL IVP ONE (09:59)
[2022-03-04] MEDS ORDERED: 0.9 % Sodium Chloride 500 ML ONE (10:03)
[2022-03-04] MEDS ORDERED: Iopamidol - 300 100 ML INFUS..BTL ONE (10:13)
[2022-03-04] MEDS ORDERED: Iopamidol - 300 50 ML VIAL ONE (10:14)
[2022-03-04] MEDS ORDERED: Sugammadex Sodium 200 MG/2 ML VIAL IV ONE (12:03)
[2022-03-04] MEDS ORDERED: *HR* Dextrose 50 % in Water (Vial) 50 ML VIAL IVP ONE (13:29)
[2022-03-04] MEDS ORDERED: Ondansetron 4 MG/2 ML VIAL IVP PRN ×2 (13:32→14:58)
[2022-03-04] MEDS ORDERED: *HR* Dextrose 50 % in Water (Vial) 50 ML VIAL ONE (13:33)
[2022-03-04] MEDS: *HR* FentaNYL (PF) 100 MCG/2 ML VIAL IVP PRN ×4 (13:50→14:20)
[2022-03-04] MEDS ORDERED: Naloxone 0.4 MG/ML INJ IVP PRN (14:58)
[2022-03-04] MEDS ORDERED: ALBUTEROL SULFATE IH PRN (14:58)
[2022-03-04] MEDS ORDERED: *HR* Belladonna Alkaloids/Opium 30 MG RECTAL SUPPOSITORY RC PRN (14:58)
[2022-03-04] MEDS ORDERED: Nitroglycerin 0.4 MG TAB.SUBL SL PRN (14:58)
[2022-03-04] MEDS: 0.9 % Sodium Chloride 1,000 ML IVC SCH (15:17)
[2022-03-04] MEDS: Gabapentin 300 MG CAPSULE PO SCH ×2 (15:46→20:48)
[2022-03-04] MEDS: Carbidopa/Levodopa 25/100 TABLET PO SCH ×2 (15:47→20:49)
[2022-03-04] MEDS ORDERED: *HR* HYDROmorphone (PF) 1 MG/ML SYRINGE IVP PRN (16:00)
[2022-03-04] MEDS: CeFAZolin 2,000 MG/120 ML BAG IVPB SCH ×2 (18:40→23:20)
[2022-03-04] MEDS: Divalproex (12 HR) 250 MG TABLET PO SCH (20:48)
[2022-03-04] MEDS: levETIRAcetam 250 MG TABLET PO SCH (20:49)
[2022-03-04] MEDS: Baclofen 10 MG TABLET PO SCH (20:49)
[2022-03-04] MEDS: carvediloL 6.25 MG TABLET PO SCH (20:49)
[2022-03-04] MEDS: Sacubitril/Valsartan 97/103 MG 1 TAB TABLET PO SCH (20:49)
[2022-03-04] MEDS ORDERED: Oxymetazoline Nasal SPRAY BOTTLE 15ML NS PRN (21:23)
[2022-03-04] MEDS: Acetaminophen 325 MG TABLET PO PRN (21:52)
[2022-03-05 01:42] LABS: Basophils % 0.3 %; Hematocrit 33.2 % (35.3-44.9); Hemoglobin 10.8 g/dL (11.5-15.4); Immature Granulocytes % 1.1 % (0-4); Lymphocytes # 0.7 K/mcL (0.6-4.6); Lymphocytes % 5.4 %; Mean Corpuscular HGB Conc 32.5 g/dL (31.6-35.5); Mean Corpuscular Hemoglobin 29.4 pg (28.0-33.3); Mean Corpuscular Volume 90.5 fL (83.0-100.0); Mean Platelet Volume 10.6 fL (9.4-12.4); Monocytes # 0.6 K/mcL (0.0-1.3); Monocytes % 4.7 %; Neutrophils # 10.6 K/mcL (1.6-8.9); Red Blood Count 3.67 M/mcL (3.82-4.97); Red Cell Distribution Width 15.1 % (11.5-14.5); Segmented Neutrophils % 88.5 %
[2022-03-05 01:43] LABS: Platelet Count 99 K/mcL (140-400)
[2022-03-05] MEDS: Acetaminophen 325 MG TABLET PO PRN ×2 (05:27→11:18)
[2022-03-05] MEDS: 0.9 % Sodium Chloride 1,000 ML IVC SCH ×3 (05:27→17:04)
[2022-03-05] MEDS ORDERED: 0.9 % Sodium Chloride 500 ML IV ONE (07:44)
[2022-03-05] MEDS: Baclofen 10 MG TABLET PO SCH ×2 (08:13→21:19)
[2022-03-05] MEDS: levETIRAcetam 250 MG TABLET PO SCH ×2 (08:13→21:19)
[2022-03-05] MEDS: Gabapentin 300 MG CAPSULE PO SCH ×3 (08:13→21:20)
[2022-03-05] MEDS: carvediloL 6.25 MG TABLET PO SCH (08:14)
[2022-03-05] MEDS: Divalproex (12 HR) 250 MG TABLET PO SCH ×2 (08:55→22:46)
[2022-03-05] MEDS: Carbidopa/Levodopa 25/100 TABLET PO SCH ×3 (08:55→22:46)
[2022-03-05] MEDS ORDERED: NON-FORMULARY MEDICATION 1 EACH EACH (Fluoxetine Hcl [Fluoxetine Hcl] 40 MG Capsule) PO SCH (09:00)
[2022-03-05] MEDS: CeFAZolin 2,000 MG/120 ML BAG IVPB SCH ×3 (09:15→23:59)
[2022-03-05] MEDS: Nicotine 2 MG GUM BC PRN ×2 (14:12→21:19)
[2022-03-05 20:11] LABS: Calcium 7.7 mg/dL (8.6-10.3); Potassium 3.8 mEq/L (3.5-5.1)
[2022-03-05] MEDS ORDERED: Acetaminophen IV 1,000 MG/100 ML BAG IVPB ONE (21:24)
[2022-03-06 00:28] LABS: Hematocrit 28.2 % (35.3-44.9); Mean Corpuscular HGB Conc 32.3 g/dL (31.6-35.5); Mean Corpuscular Hemoglobin 29.4 pg (28.0-33.3); Mean Corpuscular Volume 91.3 fL (83.0-100.0); Mean Platelet Volume 9.7 fL (9.4-12.4); Platelet Count 134 K/mcL (140-400); Red Blood Count 3.09 M/mcL (3.82-4.97); Red Cell Distribution Width 15.3 % (11.5-14.5); White Blood Count 8.2 K/mcL (4.3-11.1)
[2022-03-06 00:33] LABS: Hemoglobin 9.1 g/dL (11.5-15.4)
[2022-03-06 00:45] LABS: BUN/Creatinine Ratio 18 (6-26); Blood Urea Nitrogen 12 mg/dL (6-20); Calcium 7.7 mg/dL (8.6-10.3); Carbon Dioxide 24 mEq/L (23-29); Chloride 110 mEq/L (98-107); Glucose 107 mg/dL (70-105); Osmolality,Calculated 288 (280-300); Potassium 3.6 mEq/L (3.5-5.1); Sodium 139 mEq/L (136-145)
[2022-03-06] MEDS: 0.9 % Sodium Chloride 1,000 ML IVC SCH (01:26)
[2022-03-06] MEDS: CeFAZolin 2,000 MG/120 ML BAG IVPB SCH ×3 (08:17→22:55)
[2022-03-06] MEDS: Carbidopa/Levodopa 25/100 TABLET PO SCH ×3 (08:19→20:40)
[2022-03-06] MEDS: Gabapentin 300 MG CAPSULE PO SCH ×3 (08:19→20:39)
[2022-03-06] MEDS: Baclofen 10 MG TABLET PO SCH ×2 (08:19→20:40)
[2022-03-06] MEDS: Divalproex (12 HR) 250 MG TABLET PO SCH ×2 (08:19→20:40)
[2022-03-06] MEDS: levETIRAcetam 250 MG TABLET PO SCH ×2 (08:20→20:40)
[2022-03-06] MEDS ORDERED: 0.9 % Sodium Chloride 1,000 ML IV SCH (10:15)
[2022-03-06] MEDS: Acetaminophen 325 MG TABLET PO SCH (17:53)
[2022-03-06] MEDS: Albumin 25% 25gram/100mL 25 GM/100 ML IV.SOLN IVPB SCH ×2 (18:32→23:47)
[2022-03-06 21:12] LABS: Hematocrit 24.2 % (35.3-44.9); Hemoglobin 7.8 g/dL (11.5-15.4)
[2022-03-06 21:33] LABS: Albumin 2.8 g/dL (3.5-5.7); Albumin/Globulin Ratio 1.4 (1.1-2.2); Bilirubin,Direct 0.1 mg/dL (0.0-0.2); Bilirubin,Indirect 0.2 mg/dL (0.0-1.0); Bilirubin,Total 0.3 mg/dL (0.3-1.0); Total Protein 4.8 g/dL (6.4-8.9)
[2022-03-07] MEDS ORDERED: 0.9 % Sodium Chloride 250 ML ONE (00:09)
[2022-03-07] MEDS: levETIRAcetam 250 MG TABLET PO SCH ×2 (07:40→21:26)
[2022-03-07] MEDS: Baclofen 10 MG TABLET PO SCH ×2 (07:40→21:26)
[2022-03-07] MEDS: Acetaminophen 325 MG TABLET PO SCH ×4 (07:40→19:07)
[2022-03-07] MEDS: CeFAZolin 2,000 MG/120 ML BAG IVPB SCH (07:40)
[2022-03-07] MEDS: Divalproex (12 HR) 250 MG TABLET PO SCH (07:40)
[2022-03-07] MEDS: Gabapentin 300 MG CAPSULE PO SCH ×3 (07:40→21:26)
[2022-03-07] MEDS: Carbidopa/Levodopa 25/100 TABLET PO SCH ×3 (07:43→21:27)
[2022-03-07 09:40] LABS: Hematocrit 29.9 % (35.3-44.9); Mean Corpuscular HGB Conc 32.8 g/dL (31.6-35.5); Mean Corpuscular Hemoglobin 29.1 pg (28.0-33.3); Mean Corpuscular Volume 88.7 fL (83.0-100.0); Mean Platelet Volume 10.3 fL (9.4-12.4); Platelet Count 119 K/mcL (140-400); Red Blood Count 3.37 M/mcL (3.82-4.97); Red Cell Distribution Width 15.2 % (11.5-14.5); White Blood Count 6.6 K/mcL (4.3-11.1)
[2022-03-07] MEDS: Albumin 25% 25gram/100mL 25 GM/100 ML IV.SOLN IVPB SCH (09:42)
[2022-03-07] MEDS: Sacubitril/Valsartan 97/103 MG 1 TAB TABLET PO SCH ×3 (09:42→21:27)
[2022-03-07 09:47] LABS: Hemoglobin 9.8 g/dL (11.5-15.4); INR 1.2; Prothrombin Time 13.3 Seconds (9.4-12.1)
[2022-03-07 10:14] LABS: Thyroid Stimulating Hormone 2.21 mcIU/mL (0.340-5.600)
[2022-03-07 10:29] LABS: Alanine Aminotransferase 5 Units/L (7-52); Albumin/Globulin Ratio 1.5 (1.1-2.2); Alkaline Phosphatase 119 Units/L (34-104); Aspartate Amino Transferase 62 Units/L (13-39); BUN/Creatinine Ratio 16 (6-26); Bilirubin,Total 0.4 mg/dL (0.3-1.0); Blood Urea Nitrogen 9 mg/dL (6-20); Calcium 8.1 mg/dL (8.6-10.3); Carbon Dioxide 24 mEq/L (23-29); Chloride 110 mEq/L (98-107); Glucose 94 mg/dL (70-105); Osmolality,Calculated 290 (280-300); Potassium 3.5 mEq/L (3.5-5.1); Sodium 141 mEq/L (136-145)
[2022-03-07] MEDS: carvediloL 6.25 MG TABLET PO SCH (18:10)
[2022-03-07] MEDS: Divalproex Sodium 125 MG Sprinkle Capsule (DR) PO SCH (21:27)
[2022-03-08] MEDS: Acetaminophen 325 MG TABLET PO SCH ×4 (00:19→16:27)
[2022-03-08 06:06] LABS: Basophils % 0.3 %; Eosinophils # 0.2 K/mcL (0.0-0.6); Eosinophils % 2.4 %; Hematocrit 28.4 % (35.3-44.9); Hemoglobin 9.3 g/dL (11.5-15.4); Immature Granulocytes % 0.2 % (0-4); Lymphocytes # 1.1 K/mcL (0.6-4.6); Lymphocytes % 17.1 %; Mean Corpuscular HGB Conc 32.7 g/dL (31.6-35.5); Mean Corpuscular Hemoglobin 28.5 pg (28.0-33.3); Mean Corpuscular Volume 87.1 fL (83.0-100.0); Mean Platelet Volume 10.6 fL (9.4-12.4); Monocytes # 0.4 K/mcL (0.0-1.3); Monocytes % 6.3 %; Neutrophils # 4.7 K/mcL (1.6-8.9); Platelet Count 148 K/mcL (140-400); Red Blood Count 3.26 M/mcL (3.82-4.97); Red Cell Distribution Width 14.9 % (11.5-14.5); Segmented Neutrophils % 73.7 %; White Blood Count 6.3 K/mcL (4.3-11.1)
[2022-03-08 06:37] LABS: BUN/Creatinine Ratio 15 (6-26); Blood Urea Nitrogen 8 mg/dL (6-20); Carbon Dioxide 25 mEq/L (23-29); Chloride 109 mEq/L (98-107); Glucose 76 mg/dL (70-105); Osmolality,Calculated 289 (280-300); Potassium 3.3 mEq/L (3.5-5.1); Sodium 141 mEq/L (136-145)
[2022-03-08] MEDS: levETIRAcetam 250 MG TABLET PO SCH ×2 (09:29→21:06)
[2022-03-08] MEDS: carvediloL 6.25 MG TABLET PO SCH ×2 (09:30→16:23)
[2022-03-08] MEDS: Gabapentin 300 MG CAPSULE PO SCH ×3 (09:30→21:07)
[2022-03-08] MEDS: Carbidopa/Levodopa 25/100 TABLET PO SCH ×3 (09:31→21:07)
[2022-03-08] MEDS: Baclofen 10 MG TABLET PO SCH ×2 (09:31→21:07)
[2022-03-08] MEDS: Sacubitril/Valsartan 97/103 MG 1 TAB TABLET PO SCH (09:31)
[2022-03-08] MEDS: Divalproex Sodium 125 MG Sprinkle Capsule (DR) PO SCH (09:31)
[2022-03-08] MEDS: Nicotine 2 MG GUM BC PRN (19:35)
[2022-03-08] MEDS: Sacubitril/Valsartan 24/26 MG 1 TABLET PO SCH (21:07)
[2022-03-08] MEDS: Divalproex (12 HR) 250 MG TABLET PO SCH (21:07)
[2022-03-09] MEDS: Acetaminophen 325 MG TABLET PO SCH ×3 (00:02→11:12)
[2022-03-09 05:53] LABS: Basophils % 0.7 %; Eosinophils # 0.1 K/mcL (0.0-0.6); Eosinophils % 1.8 %; Hematocrit 30.8 % (35.3-44.9); Hemoglobin 10.1 g/dL (11.5-15.4); Immature Granulocytes % 0.4 % (0-4); Lymphocytes # 1.1 K/mcL (0.6-4.6); Lymphocytes % 20.4 %; Mean Corpuscular HGB Conc 32.8 g/dL (31.6-35.5); Mean Corpuscular Hemoglobin 28.6 pg (28.0-33.3); Mean Corpuscular Volume 87.3 fL (83.0-100.0); Mean Platelet Volume 9.9 fL (9.4-12.4); Monocytes # 0.5 K/mcL (0.0-1.3); Monocytes % 8.3 %; Neutrophils # 3.8 K/mcL (1.6-8.9); Platelet Count 175 K/mcL (140-400); Red Blood Count 3.53 M/mcL (3.82-4.97); Red Cell Distribution Width 14.8 % (11.5-14.5); Segmented Neutrophils % 68.4 %; White Blood Count 5.5 K/mcL (4.3-11.1)
[2022-03-09 06:10] LABS: BUN/Creatinine Ratio 16 (6-26); Blood Urea Nitrogen 9 mg/dL (6-20); Calcium 8.2 mg/dL (8.6-10.3); Carbon Dioxide 28 mEq/L (23-29); Chloride 107 mEq/L (98-107); Glucose 104 mg/dL (70-105); Osmolality,Calculated 289 (280-300); Potassium 3.1 mEq/L (3.5-5.1); Sodium 140 mEq/L (136-145)
[2022-03-09] MEDS: Carbidopa/Levodopa 25/100 TABLET PO SCH ×2 (09:03→15:30)
[2022-03-09] MEDS: carvediloL 6.25 MG TABLET PO SCH (09:04)
[2022-03-09] MEDS: Gabapentin 300 MG CAPSULE PO SCH ×2 (09:04→15:30)
[2022-03-09] MEDS: Sacubitril/Valsartan 24/26 MG 1 TABLET PO SCH (09:05)
[2022-03-09] MEDS: Baclofen 10 MG TABLET PO SCH (09:05)
[2022-03-09] MEDS: Divalproex (12 HR) 250 MG TABLET PO SCH (09:05)
[2022-03-09] MEDS: levETIRAcetam 250 MG TABLET PO SCH (09:05)
[2022-03-09] MEDS ORDERED: Potassium Effervescent 25 MEQ TABLET.EFF PO ONE (09:56)
[2022-03-09 11:53] VITALS: BP 103/66; PULSE 72; TEMP 99; O2SAT 96
[2022-03-12 14:47] LABS: Calculi Mass 71 mg
== END 2022-03-09 16:01 | disposition home or self-care (01) | DRG 660 ==
LOC: 2ANU 06:34 → SAMDAY 06:34 → 2ANU 14:51 → SUATTDRO 03-05 07:50
PROVIDERS: ADMIT Urology; ATTEND Hospitalist